=== PATIENT | female | born 1980 | race Caucasian/White ===

== ENCOUNTER 2017-08-13 18:58 | Emergency (ER) | payer BC, MEDICARE ==
[2017-08-13 19:14] VITALS: RESP 18
--- NOTE | 2017-08-13 20:41 | ED ---
General Adult HPI - General Chief complaint: Back Pain/Injury Stated complaint: Poss UTI Time Seen by Provider: 08/13/17 20:09 Source: patient, RN notes reviewed Mode of arrival: ambulatory Limitations: no limitations - History of Present Illness Initial comments: This is a 37-year-old female who presents to the emergency department with chief complaint of possible UTI. Patient states that for the last few days she has been experiencing increased urination and dysuria. She denies any fevers or chills. She states that this evening a couple of hours ago she developed a sharp pain in her right lower back. Denies any injuries or trauma. States that she has had frequent UTIs in the past and this feels the same as those episodes. Patient states that she was waiting to see her primary care physician because she was waiting to get pain. Denies any abdominal pain, nausea or vomiting, diarrhea or constipation. - Related Data Home Medications Medication Instructions Recorded Confirmed Acetaminophen/Diphenhydramine 1 tab PO HS PRN 08/13/17 08/13/17 [Tylenol PM 500-25mg] Baclofen [Lioresal] 10 mg PO BID PRN 08/13/17 08/13/17 Ibuprofen [Motrin Ib] 200 - 400 mg PO Q6H PRN 08/13/17 08/13/17 Previous Rx's Medication Instructions Recorded Sulfamethox-Tmp 800-160Mg [Bactrim 1 tab PO Q12HR #28 tab 08/13/17 DS 800-160 mg] Allergies Allergy/AdvReac Type Severity Reaction Status Date / Time No Known Allergies Allergy Verified 08/13/17 20:24 Review of Systems ROS Statement: Those systems with pertinent positive or pertinent negative responses have been documented in the HPI. ROS Other: All systems not noted in ROS Statement are negative. Past Medical History Additional Past Medical History / Comment(s): RECENT ABD PAIN. OVARIAN CYST ( THOUGHT TO BE CAUSE OF PAIN ) IS GONE. migraines, occ high BP, diarrhea, hx anemia, multiple sclerosis History of Any Multi-Drug Resistant Organisms: None Reported Past Surgical History: Section, Cholecystectomy Additional Past Surgical History / Comment(s): MS Past Anesthesia/Blood Transfusion Reactions: Motion Sickness Past Psychological History: Anxiety Smoking Status: Former smoker Past Alcohol Use History: None Reported Past Drug Use History: None Reported - Past Family History Mother Family Medical History: No Reported History General Exam - General Exam Comments Initial Comments: General: Awake and alert, well-developed; in no apparent distress. Patient is tearful. HEENT: Head atraumatic, normocephalic. Pupils are equal, round and reactive to light. Extraocular movements intact. Oropharynx moist without erythema or exudate. Neck: Supple. Normal ROM. Cardiovascular: Regular rate and rhythm. No murmurs, rubs or gallops. Chest symmetrical. Respiratory: Lungs clear to auscultation bilaterally. No wheezes, rales or rhonchi. Normal respiratory effort with no use of accessory muscles. Abdomen: Soft, non-tender, non-distended. No rigidity, rebound or guarding. Normal bowel sounds in all 4 quadrants. Musculoskeletal: Normal ROM, no tenderness bilateral upper and lower extremities. Ambulating normally. Skin: Sabin, warm and dry without rashes or lesions. Neurological: Alert and oriented x3. CN II-XII grossly intact. Speech is fluent and answers are appropriate. No focal neuro deficits. Psychiatric: Normal mood and affect. No overt signs of depression or anxiety noted. Limitations: no limitations Course Vital Signs 08/13/17 19:10 Temperature 98.7 F Pulse Rate 110 H Respiratory 18 Rate Blood Pressure 148/86 O2 Sat by Pulse 100 Oximetry Medical Decision Making - Medical Decision Making This is a 37-year-old female who presents to the emergency department with chief complaint of possible urinary tract infection. Patient reports dysuria and increased frequency of urination of the last few days. This evening she developed a sharp pain in her right lower back. Denies any history of kidney stones. Denies fevers or chills. No CVA tenderness on exam. Vital signs are stable and patient is in no acute distress. UA did reveal all positive leukocyte esterase and bacteria. No hematuria. Patient will be started on Bactrim. She she is in agreement with plan and voices understanding. She will be discharged home at this time. All questions answered. - Lab Data Lab Results 08/13/17 08/13/17 Range/Units 20:20 20:20 Urine Color Yellow Urine Appearance Cloudy H (Clear) Urine pH 6.0 (5.0-8.0) Ur Specific [place] 1.027 (1.001-1.035) Urine Protein Trace H (Negative) Urine Glucose (UA) 4+ H (Negative) Urine Ketones 1+ H (Negative) Urine Blood Negative (Negative) Urine Nitrite Negative (Negative) Urine Bilirubin Negative (Negative) Urine Urobilinogen <2.0 (<2.0) mg/dL Ur Leukocyte Esterase Moderate H (Negative) Urine RBC 5 (0-5) /hpf Urine WBC 2 (0-5) /hpf Ur Squamous Epith Cells 5 H (0-4) /hpf Urine Bacteria Occasional H (None) /hpf Urine Mucus Rare H (None) /hpf Urine HCG, Qual Not Detected (Not Detectd) Disposition Clinical Impression: Urinary tract infection Disposition: HOME SELF-CARE Condition: Good Instructions: Urinary Tract Infection in Women (ED) Additional Instructions: Please take medications as prescribed. Please follow up with primary care provider within 1-2 days. Return to emergency department if symptoms should worsen or any concerns arise. Prescriptions: Sulfamethox-Tmp 800-160Mg [Bactrim DS 800-160 mg] 1 tab PO Q12HR #28 tab Is patient prescribed a controlled substance at d/c from ED?: No Referrals: Rayray Up MD [Primary Care Provider] - 1-2 days Time of Disposition: 21:38
[2017-08-13 20:55] LABS: Appearance,Urine Cloudy (Clear); Bacteria,Urine Occasional /hpf; Bilirubin,Urine Negative (Negative); Blood,Urine Negative (Negative); Color,Urine Yellow; Glucose,Urine (UA) 4+ (Negative); Ketones,Urine 1+ (Negative); Leukocyte Esterase,Urine Moderate (Negative); Mucus,Urine Rare /hpf; Nitrite,Urine Negative (Negative); Protein,Urine Trace (Negative); RBC,Urine 5 /hpf (0-5); Specific Gravity,Urine 1.027 (1.001-1.035); Squamous Epithelial Cell,Urine 5 /hpf (0-4); Urobilinogen,Urine <2.0 mg/dL (<2.0); WBC,Urine 2 /hpf (0-5)
[2017-08-13] MEDS ORDERED: SULFAMETHOX-TMP 800-160MG 1 EACH TAB PO STA (21:23)
[2017-08-13 22:15] VITALS: BP 134/87; PULSE 87; TEMP 97.4
== END 2017-08-13 22:15 | disposition home or self-care (01) ==
LOC: EC 18:58
DX: N39.0 Urinary tract infection, site not specified (principal); Z87.891 Personal history of nicotine dependence; Z90.49 Acquired absence of other specified parts of digestive tract
CPT/HCPCS: 81001; 81025; 87086; 99283

== ENCOUNTER 2018-11-30 10:58 | Inpatient (IN) | payer MEDICARE, OTHER ==
[2018-11-30] MEDS ORDERED: ACYCLOVIR 800 MG TAB PO STA (12:05)
[2018-11-30] MEDS ORDERED: ACETAMINOPHEN TAB 500 MG TAB PO STA (12:05)
[2018-11-30] MEDS ORDERED: DEXAMETHASONE SOD PHOSPHATE 10 MG/ML 1 ML VIAL IV STA (12:05)
[2018-11-30] MEDS ORDERED: SODIUM CHLORIDE 0.9% 1,000 ML IV STA ×2 (12:05)
--- NOTE | 2018-11-30 12:33 | ED ---
Neuro HPI - General Chief Complaint: Recheck/Abnormal Lab/Rx Stated Complaint: dental/facial drooping Time Seen by Provider: 11/30/18 11:34 Source: patient, RN notes reviewed, old records reviewed Mode of arrival: ambulatory Limitations: no limitations - History of Present Illness Is the patient presenting with stroke symptoms?: No -: days(s) Initial Comments: This is a 38-year-old female the ER for evaluation today. She states she has history of severe dental disease but no other real significant medical history. Takes no chronic medications. She presented to [facility], History she had imaging done and concern for elevated heart rate as well as elevated blood pressure. Patient states she also has some facial weakness as well as mild headache yesterday. She then noticed that she is since developed fever since leaving as well as right-sided facial weakness and numbness, drooling. Never had prior similar symptoms in the past. Patient denies any recent trauma. Denies any cough congestion runny nose nausea vomiting or diarrhea Location: right face (Sparing right forehead) History of same: No Place: home Severity: moderate Quality: constant Improves With: none Worsens With: time On Anticoagulants: No Context: gradual onset Associated Symptoms: denies other symptoms Treatments Prior to Arrival: none - Related Data Home Medications: Home Medications Medication Instructions Recorded Confirmed Acetaminophen/Diphenhydramine 1 tab PO HS PRN 08/13/17 11/30/18 [Tylenol PM 500-25mg] DULoxetine HCL [Cymbalta] 60 mg PO DAILY 11/30/18 11/30/18 Allergies/Adverse Reactions: Allergies Allergy/AdvReac Type Severity Reaction Status Date / Time No Known Allergies Allergy Verified 11/30/18 11:23 Review of Systems ROS Statement: Those systems with pertinent positive or pertinent negative responses have been documented in the HPI. ROS Other: All systems not noted in ROS Statement are negative. General Exam - General Exam Comments Initial Comments: Patient does have right-sided facial weakness, numbness, right-sided facial droop sparing right forehead unable to close right eye unable to lift right eyebrow Limitations: no limitations General appearance: alert, in no apparent distress Head exam: Present: atraumatic, normocephalic, normal inspection Eye exam: Present: normal appearance, PERRL, EOMI. Absent: scleral icterus, conjunctival injection, periorbital swelling ENT exam: Present: normal exam, mucous membranes moist Neck exam: Present: normal inspection. Absent: tenderness, meningismus, lymphadenopathy Respiratory exam: Present: normal lung sounds bilaterally. Absent: respiratory distress, wheezes, rales, rhonchi, stridor Cardiovascular Exam: Present: normal rhythm, tachycardia, normal heart sounds. Absent: systolic murmur, diastolic murmur, rubs, gallop, clicks GI/Abdominal exam: Present: soft, normal bowel sounds. Absent: distended, tenderness, guarding, rebound, rigid Extremities exam: Present: normal inspection, full ROM, normal capillary refill. Absent: tenderness, pedal edema, joint swelling, calf tenderness Back exam: Present: normal inspection Neurological exam: Present: alert, oriented X3, CN II-XII intact Psychiatric exam: Present: normal affect, normal mood Skin exam: Present: warm, dry, intact, normal color. Absent: rash Stroke MDM - Lab Data Result diagrams: 11/30/18 12:26 11/30/18 12:26 Lab Results 11/30/18 11/30/18 11/30/18 Range/Units 12:26 12:26 12:26 WBC 8.4 (3.8-10.6) k/uL RBC 5.22 (3.80-5.40) m/uL Hgb 13.6 (11.4-16.0) gm/dL Hct 40.8 (34.0-46.0) % MCV 78.1 L (80.0-100.0) fL MCH 26.1 (25.0-35.0) pg MCHC 33.4 (31.0-37.0) g/dL RDW 16.1 H (11.5-15.5) % Plt Count 241 (150-450) k/uL Neutrophils % 67 % Lymphocytes % 25 % Monocytes % 4 % Eosinophils % 1 % Basophils % 1 % Neutrophils # 5.6 (1.3-7.7) k/uL Lymphocytes # 2.1 (1.0-4.8) k/uL Monocytes # 0.4 (0-1.0) k/uL Eosinophils # 0.1 (0-0.7) k/uL Basophils # 0.0 (0-0.2) k/uL Poikilocytosis Slight Anisocytosis Slight Microcytosis Slight PT (9.0-12.0) sec INR (<1.2) APTT (22.0-30.0) sec Sodium 138 (137-145) mmol/L Potassium 3.9 (3.5-5.1) mmol/L Chloride 101 (98-107) mmol/L Carbon Dioxide 25 (22-30) mmol/L Anion Gap 12 mmol/L BUN 12 (7-17) mg/dL Creatinine 0.47 L (0.52-1.04) mg/dL Est GFR (CKD-EPI)AfAm >90 (>60 ml/min/1.73 sqM) Est GFR (CKD-EPI)NonAf >90 (>60 ml/min/1.73 sqM) Glucose 178 H (74-99) mg/dL Plasma Lactic Acid Samson 1.4 (0.7-2.0) mmol/L Calcium 10.1 (8.4-10.2) mg/dL Phosphorus 4.9 H (2.5-4.5) mg/dL Magnesium 1.5 L (1.6-2.3) mg/dL Total Bilirubin 0.5 (0.2-1.3) mg/dL AST 113 H (14-36) U/L ALT 87 H (9-52) U/L Alkaline Phosphatase 107 (38-126) U/L Creatine Kinase 27 L (30-135) U/L Troponin I (0.000-0.034) ng/mL Total Protein 8.2 (6.3-8.2) g/dL Albumin 4.6 (3.5-5.0) g/dL TSH 0.596 (0.465-4.680) mIU/L Urine Color Urine Appearance (Clear) Urine pH (5.0-8.0) Ur Specific [place] (1.001-1.035) Urine Protein (Negative) Urine Glucose (UA) (Negative) Urine Ketones (Negative) Urine Blood (Negative) Urine Nitrite (Negative) Urine Bilirubin (Negative) Urine Urobilinogen (<2.0) mg/dL Ur Leukocyte Esterase (Negative) Urine RBC (0-5) /hpf Urine WBC (0-5) /hpf Ur Squamous Epith Cells (0-4) /hpf Urine Bacteria (None) /hpf Urine Mucus (None) /hpf 11/30/18 11/30/18 11/30/18 Range/Units 12:26 12:26 13:45 WBC (3.8-10.6) k/uL RBC (3.80-5.40) m/uL Hgb (11.4-16.0) gm/dL Hct (34.0-46.0) % MCV (80.0-100.0) fL MCH (25.0-35.0) pg MCHC (31.0-37.0) g/dL RDW (11.5-15.5) % Plt Count (150-450) k/uL Neutrophils % % Lymphocytes % % Monocytes % % Eosinophils % % Basophils % % Neutrophils # (1.3-7.7) k/uL Lymphocytes # (1.0-4.8) k/uL Monocytes # (0-1.0) k/uL Eosinophils # (0-0.7) k/uL Basophils # (0-0.2) k/uL Poikilocytosis Anisocytosis Microcytosis PT 10.1 (9.0-12.0) sec INR 0.9 (<1.2) APTT 26.1 (22.0-30.0) sec Sodium (137-145) mmol/L Potassium (3.5-5.1) mmol/L Chloride (98-107) mmol/L Carbon Dioxide (22-30) mmol/L Anion Gap mmol/L BUN (7-17) mg/dL Creatinine (0.52-1.04) mg/dL Est GFR (CKD-EPI)AfAm (>60 ml/min/1.73 sqM) Est GFR (CKD-EPI)NonAf (>60 ml/min/1.73 sqM) Glucose (74-99) mg/dL Plasma Lactic Acid Samson (0.7-2.0) mmol/L Calcium (8.4-10.2) mg/dL Phosphorus (2.5-4.5) mg/dL Magnesium (1.6-2.3) mg/dL Total Bilirubin (0.2-1.3) mg/dL AST (14-36) U/L ALT (9-52) U/L Alkaline Phosphatase (38-126) U/L Creatine Kinase (30-135) U/L Troponin I <0.012 (0.000-0.034) ng/mL Total Protein (6.3-8.2) g/dL Albumin (3.5-5.0) g/dL TSH (0.465-4.680) mIU/L Urine Color Yellow Urine Appearance Cloudy H (Clear) Urine pH 5.5 (5.0-8.0) Ur Specific [place] 1.028 (1.001-1.035) Urine Protein 2+ H (Negative) Urine Glucose (UA) Negative (Negative) Urine Ketones 1+ H (Negative) Urine Blood Small H (Negative) Urine Nitrite Positive H (Negative) Urine Bilirubin Negative (Negative) Urine Urobilinogen <2.0 (<2.0) mg/dL Ur Leukocyte Esterase Large H (Negative) Urine RBC 21 H (0-5) /hpf Urine WBC >182 H (0-5) /hpf Ur Squamous Epith Cells 26 H (0-4) /hpf Urine Bacteria Many H (None) /hpf Urine Mucus Many H (None) /hpf - NIH Stroke Scale 1a. Level of Consciousness: (0) alert 1b. LOC Questions: (0) answers correctly 1c. LOC Commands: (0) performs tasks correctly 2. Best Gaze: (0) normal 3. Visual: (0) no visual loss 4. Facial Palsy: (2) partial paralysis 5a. Motor Arm Left: (0) no drift 5b. Motor Arm Right: (0) no drift 6a. Motor Leg Left: (0) no drift 6b. Motor Leg Right: (0) no drift 7. Limb Ataxia: (0) absent 8. Sensory: (0) normal 9. Best Language: (0) no aphasia 10. Dysarthria: (1) mild/moderate dysarthria 11. 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 Patient also significantly in her tract infection with fever will place on IV antibiotics. - Radiology Data Radiology results: report reviewed (Chest x-rays negative), image reviewed - EKG Data -: EKG Interpreted by Me (EKG shows sinus tachycardia rate of 111, OR 140, QRS 80, QTC 435) Past Medical History Additional Past Medical History / Comment(s): OVARIAN CYST (THOUGHT TO BE CAUSE OF PAIN ) IS GONE. migraines, occ high BP, diarrhea, hx anemia, multiple sclerosis History of Any Multi-Drug Resistant Organisms: None Reported Past Surgical History: Section, Cholecystectomy Additional Past Surgical History / Comment(s): MS Past Anesthesia/Blood Transfusion Reactions: Motion Sickness Past Psychological History: Anxiety Smoking Status: Former smoker Past Alcohol Use History: None Reported Past Drug Use History: None Reported - Past Family History Mother Family Medical History: No Reported History Course Vital Signs 11/30/18 11/30/18 11/30/18 11:05 11:27 11:31 Temperature 100.4 F H Pulse Rate 122 H 121 H Respiratory 18 16 Rate Blood Pressure 153/116 153/104 142/97 O2 Sat by Pulse 98 97 Oximetry 11/30/18 13:35 Temperature Pulse Rate 103 H Respiratory 16 Rate Blood Pressure 131/84 O2 Sat by Pulse 99 Oximetry - Reevaluation(s) Reevaluation #1: 11/30/18 14:47 Medical record Transferring paperwork as well as inpatient stay at [facility] reviewed Reevaluation #2: 11/30/18 14:47 Patient has no clinical improvement here in the ER, fevers improved - Consultations Consultation #1: Spoke with Dr. wheatley who looks the patient for admission, would like neurologically to consult regarding history of MS Disposition Clinical Impression: Garza's palsy, Fever, UTI (urinary tract infection) Disposition: ADMITTED IP TO THIS HOSP Condition: Good Is patient prescribed a controlled substance at d/c from ED?: No Referrals: Rayray Up MD [Primary Care Provider] - 1-2 days
[2018-11-30] MEDS ORDERED: valACYclovir HCL 1,000 MG TABLET PO STA (12:36)
[2018-11-30 12:44] LABS: Anisocytosis Slight; Basophils % (A) 1 %; Eosinophils # (A) 0.1 k/uL (0-0.7); Eosinophils % (A) 1 %; HCT 40.8 % (34.0-46.0); HGB 13.6 gm/dL (11.4-16.0); Lymphocytes # (A) 2.1 k/uL (1.0-4.8); Lymphocytes % (A) 25 %; MCH 26.1 pg (25.0-35.0); MCHC 33.4 g/dL (31.0-37.0); MCV 78.1 fL (80.0-100.0); Mean Platelet Volume 6.9; Microcytosis Slight; Monocytes # (A) 0.4 k/uL (0-1.0); Monocytes % (A) 4 %; Neutrophils # (A) 5.6 k/uL (1.3-7.7); Neutrophils % (A) 67 %; Platelet Count 241 k/uL (150-450); Poikilocytosis Slight; RBC 5.22 m/uL (3.80-5.40); RDW 16.1 % (11.5-15.5); WBC 8.4 k/uL (3.8-10.6)
[2018-11-30 12:51] LABS: ALT 87 U/L (9-52); AST 113 U/L (14-36); African American GFR (CKD) >90 (>60 ml/min/1.73 sqM); Albumin 4.6 g/dL (3.5-5.0); Alkaline Phosphatase 107 U/L (38-126); Anion Gap 12 mmol/L; Blood Urea Nitrogen 12 mg/dL (7-17); Calcium 10.1 mg/dL (8.4-10.2); Carbon Dioxide 25 mmol/L (22-30); Chloride 101 mmol/L (98-107); Creatine Kinase 27 U/L (30-135); Glucose 178 mg/dL (74-99); Magnesium 1.5 mg/dL (1.6-2.3); Phosphorus 4.9 mg/dL (2.5-4.5); Potassium 3.9 mmol/L (3.5-5.1); Sodium 138 mmol/L (137-145); Total Bilirubin 0.5 mg/dL (0.2-1.3); Total Protein 8.2 g/dL (6.3-8.2)
[2018-11-30 13:01] LABS: INR 0.9 (<1.2); Partial Thromboplastin Time 26.1 sec (22.0-30.0); Prothrombin Time 10.1 sec (9.0-12.0)
--- NOTE | 2018-11-30 13:01 | XR ---
EXAMINATION TYPE: XR chest 2V DATE OF EXAM: 11/30/2018 COMPARISON: 11/19/2011 HISTORY: Weakness, fever, and hypertension TECHNIQUE: Frontal and lateral views of the chest are obtained. FINDINGS: There is no focal air space opacity, pleural effusion, or pneumothorax seen. The cardiac silhouette size is within normal limits. The osseous structures are intact. Cholecystectomy clips a re present. Minimal degenerative changes of the spine. IMPRESSION: No acute cardiopulmonary process.
[2018-11-30 14:28] LABS: Appearance,Urine Cloudy (Clear); Bacteria,Urine Many /hpf; Bilirubin,Urine Negative (Negative); Blood,Urine Small (Negative); Color,Urine Yellow; Glucose,Urine (UA) Negative (Negative); Ketones,Urine 1+ (Negative); Leukocyte Esterase,Urine Large (Negative); Mucus,Urine Many /hpf; Nitrite,Urine Positive (Negative); PH, Urine 5.5 (5.0-8.0); Protein,Urine 2+ (Negative); RBC,Urine 21 /hpf (0-5); Specific Gravity,Urine 1.028 (1.001-1.035); Squamous Epithelial Cell,Urine 26 /hpf (0-4); Urobilinogen,Urine <2.0 mg/dL (<2.0)
[2018-11-30] MEDS: MORPHINE SULFATE 4 MG/ML SYRINGE IVP PRN ×2 (15:24→23:31)
[2018-11-30] MEDS ORDERED: NON FORMULARY DRUG (Acetaminophen/Diphenhydramine [Tylenol Pm 500-25mg] 1 TAB) PO PRN (16:33)
[2018-11-30] MEDS ORDERED: Magnesium Replacement Protocol 1 EACH MISC MISCELLANE PRN (16:35)
[2018-11-30] MEDS ORDERED: ACETAMINOPHEN TAB 500 MG TAB PO PRN (16:43)
[2018-11-30] MEDS ORDERED: diphenhydrAMINE 25 MG CAP PO PRN (16:44)
[2018-11-30] MEDS: INSULIN ASPART (NovoLOG) 100 UNIT/ML VIAL SQ SCH ×2 (18:36→21:04)
[2018-11-30] MEDS ORDERED: SODIUM CHLORIDE 0.9% 1,000 ML IV ONE (18:57)
--- NOTE | 2018-11-30 19:49 | HP ---
HISTORY AND PHYSICAL DATE OF SERVICE: 11/30/2018 CHIEF COMPLAINT: Facial deviation and UTI. HISTORY OF PRESENT ILLNESS: This 38-year-old woman with a past medical history of multiple medical problems including multiple sclerosis, history of migraine, history of hypertension, history of anxiety, being followed by Dr. Up in the outpatient setting, was noted to have headache and as well as drooping of the right side of the face. The patient apparently went to [facility] subsequently signed out AGAINST MEDICAL ADVICE and the patient came to [facility] and admitted to the hospital for further evaluation and treatment. The patient had features of UTI. Blood sugars apparently elevated in [facility], possibly apparently because of steroids given for presumed Garza's palsy on the right side. The patient had significant weakness with multiple sclerosis and with frequent falls according to the family. There is no history of fever, rigors or chills. No history of chest pain or palpations at this time. PAST MEDICAL HISTORY: Ovarian cyst, history of high blood pressure, history of anemia, multiple sclerosis, history of anxiety, history of motion sickness. MEDICATIONS: Home medications are: 1. Cymbalta 60 mg p.o. daily. 2. Tylenol p.m. 1 tablet p.o. q.h.s. p.r.n. ALLERGIES: None. FAMILY HISTORY: No history of heart disease or strokes in the family. SOCIAL HISTORY: Previous history of smoking. No history of current smoking or alcohol intake. REVIEW OF SYSTEMS: ENT: No diminished vision. No diminished hearing. Otherwise, as mentioned earlier. CARDIOVASCULAR: No angina or palpitations. RESPIRATIONS : No cough or hemoptysis. GI as mentioned earlier. as mentioned earlier. NERVOUS SYSTEM: No numbness or weakness. ALLERGY/IMMUNOLOGY: No asthma or hayfever. MUSCULOSKELETAL as mentioned earlier. HEMATOLOGY/ONCOLOGY: No history of anemia. ENDOCRINE: No history of diabetes or hypothyroidism. CONSTITUTIONAL: As mentioned earlier. DERMATOLOGY negative. RHEUMATOLOGY: Negative. PSYCHIATRIC: As mentioned earlier. PHYSICAL EXAMINATION: GENERAL: The patient is alert and oriented times three. VITAL SIGNS: Pulse is 121. Blood pressure 130/92, respiration 18, temperature 98.5, pulse ox 94% on room air. HEENT: Conjunctivae normal. Oral mucosa moist. NECK is no jugular venous distention. No carotid bruit. No lymph node enlargement. Significant facial palsy, lower motor neuron type on the right side present. CARDIOVASCULAR SYSTEM: S1, S2 muffled. No S3, no S4. RESPIRATORY: Breath sounds diminished in the bases. No rhonchi. No crackles. ABDOMEN: Soft, obese, nontender. No mass palpable. LEGS are no edema. No swelling. NERVOUS SYSTEM: Higher functions as mentioned earlier. Moves all four extremities. Mild diffuse weakness present. LYMPHATICS: No lymph nodes palpable in the neck, axilla or groin. SKIN: No ulcers. No rashes. No bleeding. JOINTS: No active deforming arthropathy. LABS: WBC 4.2, hemoglobin 13.6. Phosphorus 4.9, magnesium is 1.5, AST is 139. ALT 87. Glucose 178. UTI. ASSESSMENT: 1. 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 2. Acute urinary tract infection present on admission. 3. Acute hypomagnesemia. 4. Increased random blood sugar, possible diabetes type 2. 5. History of ovarian cyst. 6. History of migraines. 7. Hypertension. 8. History of multiple sclerosis. 9. History of cholecystectomy. 10.History of anxiety. RECOMMENDATIONS AND DISCUSSION: In this 38-year-old woman who presented with multiple complex medical issues, we will monitor the patient closely. Continue the current medications, management and symptomatic treatment. Otherwise, at this time, I recommend neurology consultation. Empiric antibiotics for UTI. Follow the cultures. Monitor blood sugars closely. Prognosis guarded because of multiple complex medical conditions. See orders for details. Further recommendations to follow. A copy of dictation being forwarded to Dr. Up who is the primary physician. DVT prophylaxis and resume home medications. MMODL / IJN: [id number] /
[2018-11-30 21:13] LABS: Glucose,Whole Blood 355 mg/dL (75-99)
[2018-12-01 07:06] LABS: Anisocytosis Slight; Basophils % (A) 0 %; Eosinophils % (A) 0 %; HCT 36.9 % (34.0-46.0); HGB 12.2 gm/dL (11.4-16.0); Lymphocytes # (A) 1.8 k/uL (1.0-4.8); Lymphocytes % (A) 20 %; MCH 26.2 pg (25.0-35.0); MCHC 33.1 g/dL (31.0-37.0); MCV 79.2 fL (80.0-100.0); Mean Platelet Volume 7.3; Microcytosis Slight; Monocytes # (A) 0.4 k/uL (0-1.0); Monocytes % (A) 5 %; Neutrophils # (A) 6.7 k/uL (1.3-7.7); Neutrophils % (A) 73 %; Platelet Count 237 k/uL (150-450); RBC 4.66 m/uL (3.80-5.40); RDW 16.2 % (11.5-15.5); WBC 9.2 k/uL (3.8-10.6)
[2018-12-01 07:17] LABS: African American GFR (CKD) >90 (>60 ml/min/1.73 sqM); Anion Gap 12 mmol/L; Blood Urea Nitrogen 7 mg/dL (7-17); Calcium 9.1 mg/dL (8.4-10.2); Carbon Dioxide 22 mmol/L (22-30); Chloride 104 mmol/L (98-107); Glucose 269 mg/dL (74-99); Magnesium 1.7 mg/dL (1.6-2.3); Potassium 3.9 mmol/L (3.5-5.1); Sodium 138 mmol/L (137-145)
[2018-12-01 07:18] LABS: Glucose,Whole Blood 258 mg/dL (75-99)
[2018-12-01] MEDS: MORPHINE SULFATE 4 MG/ML SYRINGE IVP PRN ×4 (07:20→23:47)
[2018-12-01] MEDS: DULoxetine HCL 60 MG CAPSULE.DR PO SCH (07:22)
[2018-12-01] MEDS: INSULIN ASPART (NovoLOG) 100 UNIT/ML VIAL SQ SCH ×4 (07:23→20:49)
[2018-12-01] MEDS: ACETAMINOPHEN TAB 325 MG TAB PO PRN (10:52)
[2018-12-01] MEDS ORDERED: Acetaminophen-Codeine 300-30mg TAB PO PRN (11:51)
[2018-12-01 13:05] LABS: Glucose,Whole Blood 285 mg/dL (75-99)
[2018-12-01 17:08] LABS: Glucose,Whole Blood 262 mg/dL (75-99)
--- NOTE | 2018-12-01 17:24 | P.CNNES ---
History of Present Illness Consult date: 12/01/18 Reason for Consult: Multiple sclerosis Chief complaint: Some right facial weakness/numbness/drooling and mild headache History of Present Illness: HISTORY OF PRESENT ILLNESS: Thank you for allowing me to evaluate Ms. Justa Moore. Ms. Moore is a 38-year-old woman with past medical history of ovarian cyst, migraines, occasional high blood pressure, anemia, multiple sclerosis, anxiety, presenting with right facial droop/numbness/drooling. Patient states that she woke up Wednesday morning, she noticed that her right face was droopy and she was also drooling. She's never had similar episodes before. Patient states that she was diagnosed with MS in 2007 when she had multiple falls, heat intolerance and blurry vision over the course of 1 year. Patient had been on Copaxone and some other medication, but with her multiple pregnancies in number of kids, she's been "lazy" and not taking care of herself. She has been getting repeat MRIs (her neurologist is in [place]). Her last MRI was done in late 2018, and at that time, her neurologist told her that her MRI is much better than before. In order to diagnose her appropriately, a lumbar puncture was done again, which per patient and was noted to show some protein abnormality. Patient and state that most likely the reason for improvement and MRI is due to the fact that patient has had basically practiced in every year as she has 7 kids, and during , and MS flares are much less. Patient reports some headache, about 3 out of 10 pain at this time. Otherwise, denies any vision deficits, weakness, numbness, tingling, urinary symptoms, chest pain, short of breath, diarrhea or constipation. PAST MEDICAL HISTORY: ovarian cyst, migraines, occasional high blood pressure, anemia, multiple sclerosis PAST SURGICAL HISTORY: , cholecystectomy HOME MEDICATION Tylenol, duloxetine ALLERGIES: NKDA SOCIAL HISTORY: Former smoker. Denies alcohol or drug abuse history. REVIEW OF SYSTEMS: The 14 systems are reviewed and no additional points are identified compared to the review of systems documented history and physical PHYSICAL EXAMINATION: VITAL SIGNS: T 98.0 HR 117 RR 16 BP 136/90 O2 SAT 97% ON RA GEN.: NAD, pleasant and cooperative HEENT: NCAT, sclera without icterus NECK: Supple SKIN AND EXTREMITIES: Warm to touch, no edema NEURO: MENTAL STATUS: Patient alert and oriented to self, place, time. Able to name the current president. Speech fluent, able to name and repeat, following all commands readily. No right and left disorientation, extinction to double simultaneous stimulation, finger agnosia, neglect. CRANIAL NERVES II THROUGH XII: II: Pupils are equal and reactive to light symmetrically. No afferent pupillary defect. Visual weinberg are intact. III, IV, : No ptosis. Extraocular movements full. No nystagmus. V: Facial sensation intact from V1-3. VII. right upper and lower facial droop. VIII: Hearing intact to finger rub bilaterally. IX, X: Symmetric palate elevation. XI: Shoulder shrug intact. XII: Tongue midline without fasciculation or atrophy. MOTOR: Normal bulk/tone. No pronator drift or tremor. Strength is 5/5 throughout all 4 extremities. SENSORY: Intact to light touch, temperature, pinprick in all 4 extremities. Romberg is negative. REFLEXES: 2+ throughout. Toes are downgoing. No clonus. Ray's is absent COORDINATION: Finger to nose and heel to esposito intact. No dysmetria. Rapid alternating movements with good speed and accuracy. GAIT: Narrow-based and stable. Able to toe/heel/tandem walk DIAGNOSTIC TESTING: LABORATORY: WBC 9.2 hemoglobin 12.2 platelet 237 PT 10.1 INR 0.9 sodium 138 potassium 3.9 chloride 104 bicarb 22 BUN 7 creatinine 0.38 glucose 269 AST 113 ALT 87 alk phos 107 TSH 0.596 urinalysis positive nitrite, large leukesterase, > 182 WBCs IMAGING: No head imaging available at this time. ASSESSMENT: Ms. Moore is a 38-year-old woman with past medical history of ovarian cyst, migraines, occasional high blood pressure, anemia, multiple sclerosis, anxiety, presenting with right facial droop/numbness/drooling. There is definitely a concern for an acute MS flare. However, patient found with blatant UTI. Patient may be having pseudo-exacerbation, the patient has never had Garza's palsy-like symptoms previously. RECOMMENDATIONS: 1. MRI brain with and without contrast 2. Will consider high-dose IV steroid treatment if MRI showing acute flare. 3. Neurology will continue to follow. Call with any additional questions or concerns. Past Medical History Additional Past Medical History / Comment(s): OVARIAN CYST (THOUGHT TO BE CAUSE OF PAIN ) IS GONE. migraines, occ high BP, diarrhea, hx anemia, multiple sclerosis History of Any Multi-Drug Resistant Organisms: None Reported Past Surgical History: Section, Cholecystectomy Additional Past Surgical History / Comment(s): MS Past Anesthesia/Blood Transfusion Reactions: Motion Sickness Past Psychological History: Anxiety Smoking Status: Former smoker Past Alcohol Use History: None Reported Past Drug Use History: None Reported - Past Family History Mother Family Medical History: No Reported History Medications and Allergies Home Medications Medication Instructions Recorded Confirmed Type Acetaminophen/Diphenhydramine 1 tab PO HS PRN 08/13/17 11/30/18 History [Tylenol PM 500-25mg] DULoxetine HCL [Cymbalta] 60 mg PO DAILY 11/30/18 11/30/18 History Allergies Allergy/AdvReac Type Severity Reaction Status Date / Time No Known Allergies Allergy Verified 11/30/18 11:23 Physical Examination - Vital Signs Vital Signs: Vital Signs Temp Pulse Pulse Resp BP BP Pulse Ox 12/01/18 07:00 98.0 F 117 H 16 136/90 97 12/01/18 02:35 97.9 F 118 H 18 148/81 96 11/30/18 19:46 98.4 F 128 H 18 140/89 95 11/30/18 16:26 98.5 F 121 H 18 134/94 95 11/30/18 16:23 120 H 11/30/18 15:26 113 H 16 137/79 99 Intake and Output 11/30/18 12/01/18 12/01/18 22:59 06:59 14:59 Other: Voiding Method Toilet Toilet Results - Laboratory Findings CBC and BMP: 12/01/18 06:47 12/01/18 06:47 Abnormal Lab Findings: Abnormal Labs 11/30/18 11/30/18 11/30/18 12:26 12:26 13:45 MCV 78.1 L RDW 16.1 H Creatinine 0.47 L Glucose 178 H POC Glucose (mg/dL) Phosphorus 4.9 H Magnesium 1.5 L AST 113 H ALT 87 H Creatine Kinase 27 L Urine Appearance Cloudy H Urine Protein 2+ H Urine Ketones 1+ H Urine Blood Small H Urine Nitrite Positive H Ur Leukocyte Esterase Large H Urine RBC 21 H Urine WBC >182 H Ur Squamous Epith Cells 26 H Urine Bacteria Many H Urine Mucus Many H 11/30/18 12/01/18 12/01/18 21:01 06:47 06:47 MCV 79.2 L RDW 16.2 H Creatinine 0.38 L Glucose 269 H POC Glucose (mg/dL) 355 H Phosphorus Magnesium AST ALT Creatine Kinase Urine Appearance Urine Protein Urine Ketones Urine Blood Urine Nitrite Ur Leukocyte Esterase Urine RBC Urine WBC Ur Squamous Epith Cells Urine Bacteria Urine Mucus 12/01/18 12/01/18 06:54 11:45 MCV RDW Creatinine Glucose POC Glucose (mg/dL) 258 H 285 H Phosphorus Magnesium AST ALT Creatine Kinase Urine Appearance Urine Protein Urine Ketones Urine Blood Urine Nitrite Ur Leukocyte Esterase Urine RBC Urine WBC Ur Squamous Epith Cells Urine Bacteria Urine Mucus
[2018-12-01 20:32] LABS: Glucose,Whole Blood 285 mg/dL (75-99)
--- NOTE | 2018-12-02 01:05 | P.PN ---
Subjective Progress Note Date: 12/01/18 Principal diagnosis: This is a 38 year old female that was recently admitted for right side facial palsy and headache and is being closely monitored. Neurology is following and ordered an MRI of the brain and is pending. Patient is lying in bed in no acute distress. Patient is having a mild headache and tylenol was ordered. Patient states that she normally takes an excedrin or aleve. Patient states that she is still having some droop noted to the right side of her face with some drooling. Patient does have history of MS and is following with neurology in the outpatient setting. Patient is currently being treated for UTI and states that symptoms have improved. Cultures thus far show gram negative bacilli. Will continue to monitor closely. REVIEW OF SYSTEMS: ENT: No diminished vision or hearing. CARDIOVASCULAR: no reports of chest pain or palpitations. RESPIRATORY: no reports of shortness of breath or cough GI: No nausea, vomiting or diarrhea. : No dysuria or retention. NERVOUS SYSTEM: reports numbness to right side of face. no weakness. ALLERGY/IMMUNOLOGY: No asthma or hay fever. MUSCULOSKELETAL: As mentioned earlier. HEMATOLOGY/ONCOLOGY: No history of anemia. ENDOCRINE: No history of diabetes or hypothyroidism. CONSTITUTIONAL: no reports of fatigue or fever. DERMATOLOGY: Negative. PSYCHIATRY: Mentioned earlier. RHEUMATOLOGY: Negative. Active Medications Acetaminophen (Tylenol Tab) 650 mg PO Q6HR PRN PRN Reason: Fever and/ or Pain Last Admin: 12/01/18 10:52 Dose: 650 mg Documented by: Acetaminophen/Codeine Phosphate (Tylenol #3) 1 each PO Q4HR PRN PRN Reason: Pain Last Admin: 12/01/18 14:26 Dose: 1 each Documented by: Diphenhydramine HCl (Benadryl) 25 mg PO HS PRN PRN Reason: Insomnia Duloxetine HCl (Cymbalta) 60 mg PO DAILY ISAEL Last Admin: 12/01/18 07:22 Dose: 60 mg Documented by: Ceftriaxone Sodium 1 gm/ (Sodium Chloride) 50 mls @ 100 mls/hr IVPB Q24H ISAEL Last Admin: 12/01/18 16:33 Dose: 100 mls/hr Documented by: Insulin Aspart (Novolog) 0 unit SQ ACHS ISAEL; Protocol Last Admin: 12/01/18 20:49 Dose: 7 unit Documented by: Miscellaneous Information (Magnesium Per Protocol) 1 each MISCELLANE DAILY PRN; Protocol PRN Reason: Per Protocol Morphine Sulfate (Morphine Sulfate (Inj)) 4 mg IVP Q4HR PRN PRN Reason: Pain Last Admin: 12/01/18 23:47 Dose: 4 mg Documented by: Objective - Vital Signs Vital signs: Vital Signs Temp 98 F 12/01/18 14:06 Pulse 120 H 12/01/18 14:06 Resp 16 12/01/18 14:06 BP 125/81 12/01/18 14:06 Pulse Ox 95 12/01/18 14:06 Intake & Output 11/30/18 12/01/18 12/01/18 18:59 06:59 18:59 Weight 122.47 kg Other: Voiding Method Toilet Toilet # Voids 2 - Exam Gen: This is a 38 year old female lying in bed in no acute distress. Vital signs are stable. BP is 125/81, pulse is 120 , resp are 16 , 02 is 95% on room air, and temp is 98F. HEENT: Head is atraumatic, normocephalic. Pupils equal, round. Sclerae is anicteric. NECK: Supple. No JVD. No lymphadenopathy. No thyromegaly. LUNGS: Clear to auscultation. No wheezes or rhonchi. No intercostal retractions. HEART: Regular rate and rhythm. No murmur. ABDOMEN: Soft. Obese. Bowel sounds are present. No masses. No tenderness. EXTREMITIES: No pedal edema. No calf tenderness. NEUROLOGICAL: Patient is awake, alert and oriented x3. Cranial nerves 2 through 12 are grossly intact. - Labs CBC & Chem 7: 12/01/18 06:47 12/01/18 06:47 Labs: Abnormal Lab Results - Last 24 Hours (Table) 11/30/18 12/01/18 12/01/18 Range/Units 21:01 06:47 06:47 MCV 79.2 L (80.0-100.0) fL RDW 16.2 H (11.5-15.5) % Creatinine 0.38 L (0.52-1.04) mg/dL Glucose 269 H (74-99) mg/dL POC Glucose (mg/dL) 355 H (75-99) mg/dL 12/01/18 12/01/18 Range/Units 06:54 11:45 MCV (80.0-100.0) fL RDW (11.5-15.5) % Creatinine (0.52-1.04) mg/dL Glucose (74-99) mg/dL POC Glucose (mg/dL) 258 H 285 H (75-99) mg/dL Microbiology - Last 24 Hours (Table) 11/30/18 13:45 Urine Culture - Preliminary Urine,Voided Assessment and Plan Assessment: Acute right-sided lower motor neuron facial palsy, 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 Neurology is following and an MRI of the brain is ordered and pending at this time. Will await report. Patient is currently on IV antibiotics for UTI and cultures thus far have grown gram negative bacilli. Will continue to monitor closely. Guarded prognosis. Further recommendations to follow. Possible discharge in 24-48 hours.
[2018-12-02 07:18] LABS: Glucose,Whole Blood 204 mg/dL (75-99)
[2018-12-02 07:27] VITALS: RESP 16
[2018-12-02] MEDS: MORPHINE SULFATE 4 MG/ML SYRINGE IVP PRN ×2 (07:51→12:04)
[2018-12-02] MEDS: ACETAMINOPHEN TAB 325 MG TAB PO PRN (07:52)
[2018-12-02] MEDS: INSULIN ASPART (NovoLOG) 100 UNIT/ML VIAL SQ SCH ×2 (07:53→12:10)
[2018-12-02] MEDS: DULoxetine HCL 60 MG CAPSULE.DR PO SCH (07:53)
[2018-12-02 07:57] LABS: Anisocytosis Slight; Basophils % (A) 1 %; Eosinophils # (A) 0.1 k/uL (0-0.7); Eosinophils % (A) 1 %; HCT 37.6 % (34.0-46.0); HGB 12.2 gm/dL (11.4-16.0); Hypochromasia Slight; Lymphocytes # (A) 2.4 k/uL (1.0-4.8); Lymphocytes % (A) 39 %; MCH 26.3 pg (25.0-35.0); MCHC 32.4 g/dL (31.0-37.0); Mean Platelet Volume 7.3; Monocytes # (A) 0.2 k/uL (0-1.0); Monocytes % (A) 4 %; Neutrophils # (A) 3.3 k/uL (1.3-7.7); Neutrophils % (A) 54 %; Platelet Count 197 k/uL (150-450); RBC 4.64 m/uL (3.80-5.40); RDW 16.3 % (11.5-15.5)
[2018-12-02 08:16] LABS: African American GFR (CKD) >90 (>60 ml/min/1.73 sqM); Anion Gap 11 mmol/L; Blood Urea Nitrogen 9 mg/dL (7-17); Calcium 8.8 mg/dL (8.4-10.2); Carbon Dioxide 26 mmol/L (22-30); Chloride 105 mmol/L (98-107); Glucose 208 mg/dL (74-99); Potassium 3.5 mmol/L (3.5-5.1); Sodium 142 mmol/L (137-145)
[2018-12-02 11:50] LABS: Glucose,Whole Blood 181 mg/dL (75-99)
[2018-12-02] MEDS ORDERED: DEXAMETHASONE SOD PHOSPHATE 10 MG/ML 1 ML VIAL IV STA (12:41)
--- NOTE | 2018-12-02 12:55 | MR ---
EXAMINATION TYPE: MR brain wo/w con DATE OF EXAM: 12/02/2018 COMPARISON: None HISTORY: MS TECHNIQUE: Multiplanar, multisequence images of the brain and brainstem is performed without and with IV contras t, utilizing 12.5 mL intravenous Gadavist . FINDINGS: Diffusion weighted images demonstrate no evidence of a recent infarct or other diffusion ab normality. There is no extra-axial fluid collection. Scattered deep white matter hyperintensities a re present on inversion recovery and T2-weighted sequences including in the subcortical, juxtacortica l white matter. There are approximately 30 lesions present. The largest in left frontal white matter on axial image 25 measures approximately 5 mm The ventricular system and cisternal spaces are normal in size and appearance. The brain volume is age appropriate. Midline structures demonstrate normal morphology. The craniocervical junction appears within normal limits. Post contrast images demonstrate no abnormal enhancement. The dural venous sinuses appear pa tent. The visualized sinuses are clear and the globes are intact. IMPRESSION: Foci of nonspecific white matter demyelination. No evident enhancing plaque.
[2018-12-02 14:31] VITALS: BP 121/85; PULSE 115; TEMP 98
--- NOTE | 2018-12-02 16:18 | P.DS ---
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 Patient will continue a short course of oral antibiotics and will follow-up with her primary care provider upon discharge. Total time taken is 35 minutes. History of present illness This is a 38 rolled female that was recently admitted for right-sided facial palsy and headache and was being closely monitored. Patient does have history of multiple sclerosis. She was being followed by neurology and had an MRI of the brain today showing foci of nonspecific white matter demyelination with no evident enhancing plaque. Patient was given a dose of IV steroids per neurology recommendations and will follow-up with her neurologist in the outpatient setting upon discharge. Patient states she does have a appointment scheduled for this Wednesday and will be going there. Patient states that her headache has improved and states that her right-sided facial droop and palsy is intermittent and has slightly improved. Patient states she does have mild tooth pain that has been ongoing with slight improvement and will be following up with her dentist in the outpatient setting. Patient denies any chest pain, shortness of breath, or palpitations at this time. Patient is currently afebrile. Patient denies any nausea or vomiting and is tolerating diet. Patient would like to go home today. Currently patient's condition is stable with much improvement and will be discharged today. Guarded prognosis. On exam vital signs are stable. Temp is 98F, pulse is 115, respirations are 16, blood pressure is 121/85, oxygen saturation is 94% on room air. Cardio S1 and S2 are muffled. Respiratory system shows clear to auscultation. Abdomen is soft, obese, and nontender. Nervous system shows no focal deficits and gait is steady. Please refer to medication reconciliation sheet for a list of medications. Patient Condition at Discharge: Stable Plan - Discharge Summary New Discharge Prescriptions: New Cefuroxime Axetil [Ceftin] 500 mg PO BID 5 Days #10 tab Acetaminophen-Codeine 300-30mg [Tylenol w/codeine #3] 1 each PO Q4HR PRN #12 tab PRN Reason: Pain Continue Acetaminophen/Diphenhydramine [Tylenol PM 500-25mg] 1 tab PO HS PRN PRN Reason: Insomnia DULoxetine HCL [Cymbalta] 60 mg PO DAILY Discharge Medication List Acetaminophen/Diphenhydramine [Tylenol PM 500-25mg] 1 tab PO HS PRN 08/13/17 [History] DULoxetine HCL [Cymbalta] 60 mg PO DAILY 11/30/18 [History] Acetaminophen-Codeine 300-30mg [Tylenol w/codeine #3] 1 each PO Q4HR PRN #12 tab 12/02/18 [Rx] Cefuroxime Axetil [Ceftin] 500 mg PO BID 5 Days #10 tab 12/02/18 [Rx] Follow up Appointment(s)/Referral(s): Rayray Up MD [Primary Care Provider] - 12/06/18 2:20 pm Patient Instructions/Handouts: Garza Palsy (DC) Activity/Diet/Wound Care/Special Instructions: Activity Limited until follow-up Patient is to follow-up with primary care provider upon discharge Patient is to follow-up with neurology at the [facility] in [place] she has an appointment this Wednesday coming up. Continue current diet Discharge Disposition: HOME SELF-CARE
--- NOTE | 2018-12-02 16:18 | P.PN ---
Progress Note - Text Progress Note Date: 12/02/18 SUBJECTIVE/INTERVAL EVENTS: No acute overnight events. Patient got her MRI done today, no enhancing lesion. Patient started having severe R-sided headache after coming back from MRI. Patient got a dose of dexamethasone 10mg IV x1, which helped with her headache. PHYSICAL EXAMINATION: VITAL SIGNS: T 97.9 HR 108 RR 16 BP 125/82 O2 sat 97% on RA GEN.: NAD, pleasant and cooperative HEENT: NCAT, sclera without icterus NECK: Supple SKIN AND EXTREMITIES: Warm to touch, no edema NEURO: MENTAL STATUS: Patient alert and oriented to self, place, time. Able to name the current president. Speech fluent, able to name and repeat, following all commands readily. No right and left disorientation, extinction to double simultaneous stimulation, finger agnosia, neglect. CRANIAL NERVES II THROUGH XII: II: Pupils are equal and reactive to light symmetrically. No afferent pupillary defect. Visual weinberg are intact. III, IV, : No ptosis. Extraocular movements full. No nystagmus. V: Facial sensation intact from V1-3. VII. right upper and lower facial droop. VIII: Hearing intact to finger rub bilaterally. IX, X: Symmetric palate elevation. XI: Shoulder shrug intact. XII: Tongue midline without fasciculation or atrophy. MOTOR: Normal bulk/tone. No pronator drift or tremor. Strength is 5/5 throughout all 4 extremities. SENSORY: Intact to light touch, temperature, pinprick in all 4 extremities. Romberg is negative. REFLEXES: 2+ throughout. Toes are downgoing. No clonus. Ray's is absent COORDINATION: Finger to nose and heel to esposito intact. No dysmetria. Rapid alternating movements with good speed and accuracy. GAIT: Narrow-based and stable. Able to toe/heel/tandem walk DIAGNOSTIC TESTING: LABORATORY: WBC 9.2 hemoglobin 12.2 platelet 237 PT 10.1 INR 0.9 sodium 138 potassium 3.9 chloride 104 bicarb 22 BUN 7 creatinine 0.38 glucose 269 AST 113 ALT 87 alk phos 107 TSH 0.596 urinalysis positive nitrite, large leukesterase, > 182 WBCs IMAGING: No head imaging available at this time. ASSESSMENT: Ms. Moore is a 38-year-old woman with past medical history of ovarian cyst, migraines, occasional high blood pressure, anemia, multiple sclerosis, anxiety, presenting with right facial droop/numbness/drooling. There is definitely a concern for an acute MS flare. However, patient found with blatant UTI. Patient may be having pseudo-exacerbation, the patient has never had Garza's palsy-like symptoms previously. MRI brain w/ and w/o contrast with no enhancing lesions. RECOMMENDATIONS: 1. Will give prednisone 60mg PO x 7 days 2. Will give valacyclovir x 1000mg x 7 days 3. Patient with Neurology follow-up next Wednesday. 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
[2018-12-02] MEDS ORDERED: valACYclovir 500 MG TAB PO SCH (16:30)
[2018-12-02 20:22] LABS: Hemoglobin A1C 10.2 % (4.0-6.0)
[2018-12-03] MEDS ORDERED: predniSONE 20 MG TAB PO SCH (09:00)
== END 2018-12-02 15:31 | disposition home or self-care (01) | DRG 74 ==
LOC: EC 10:58 → 4SSUR 14:43
PROVIDERS: ADMIT Hospitalist; ATTEND Hospitalist
DX: G51.0 Bell's palsy (principal); Z68.41 Body mass index [BMI] 40.0-44.9, adult; N39.0 Urinary tract infection, site not specified; E66.9 Obesity, unspecified; E83.42 Hypomagnesemia; F41.9 Anxiety disorder, unspecified; G35 Multiple sclerosis; I10 Essential (primary) hypertension; R29.6 Repeated falls; Z79.899 Other long term (current) drug therapy; Z87.891 Personal history of nicotine dependence; Z90.49 Acquired absence of other specified parts of digestive tract; E11.9 Type 2 diabetes mellitus without complications
CPT/HCPCS: 36415; 70553; 71046; 80048; 80053; 81001; 82306; 82550; 83036; 83605; 83735; 84100; 84443; 84484; 85025; 85610; 85730; 87077; 87086; 87186; 93005; 96361; 96374; 96375; 99285

== ENCOUNTER 2018-12-15 17:55 | Inpatient (IN) | payer MEDICARE, OTHER ==
[2018-12-15] MEDS ORDERED: SODIUM CHLORIDE 0.9% 1,000 ML IV STA ×2 (18:05→19:08)
[2018-12-15] MEDS ORDERED: ADENOSINE 3 MG/ML 2 ML VIAL IVP STA (18:18)
--- NOTE | 2018-12-15 18:33 | XR ---
EXAMINATION TYPE: XR chest 1V portable DATE OF EXAM: 12/15/2018 COMPARISON: 11/30/2018 HISTORY: Dysrhythmia TECHNIQUE: Single frontal view of the chest is obtained. FINDINGS: Heart and mediastinum are normal. Lungs are clear of consolidation. There is small area of subsegmental atelectasis in the right lower lobe. There is slight elevated right diaphragm. IMPRESSION: Mild elevated right diaphragm and minimal atelectasis right lower lobe unchanged. Normal heart.
[2018-12-15 18:45] LABS: Anisocytosis Slight; Basophils # (A) 0.1 k/uL (0-0.2); Basophils % (A) 1 %; Eosinophils # (A) 0.2 k/uL (0-0.7); Eosinophils % (A) 2 %; HCT 43.2 % (34.0-46.0); HGB 13.6 gm/dL (11.4-16.0); Lymphocytes # (A) 2.9 k/uL (1.0-4.8); Lymphocytes % (A) 29 %; MCH 24.7 pg (25.0-35.0); MCHC 31.5 g/dL (31.0-37.0); MCV 78.6 fL (80.0-100.0); Mean Platelet Volume 7.3; Microcytosis Slight; Monocytes # (A) 0.5 k/uL (0-1.0); Monocytes % (A) 5 %; Neutrophils # (A) 6.1 k/uL (1.3-7.7); Neutrophils % (A) 61 %; Platelet Count 359 k/uL (150-450); Poikilocytosis Slight; RDW 16.2 % (11.5-15.5)
[2018-12-15] MEDS ORDERED: LORazepam 2 MG/ML INJ IV STA (18:49)
[2018-12-15] MEDS ORDERED: MORPHINE SULFATE 4 MG/ML SYRINGE IV STA (18:54)
[2018-12-15 18:55] LABS: ALT 57 U/L (9-52); AST 43 U/L (14-36); African American GFR (CKD) >90 (>60 ml/min/1.73 sqM); Albumin 4.6 g/dL (3.5-5.0); Alkaline Phosphatase 121 U/L (38-126); Anion Gap 17 mmol/L; Blood Urea Nitrogen 6 mg/dL (7-17); Carbon Dioxide 19 mmol/L (22-30); Chloride 101 mmol/L (98-107); Glucose 341 mg/dL (74-99); Magnesium 1.4 mg/dL (1.6-2.3); Potassium 4.2 mmol/L (3.5-5.1); Sodium 137 mmol/L (137-145); Total Bilirubin 0.6 mg/dL (0.2-1.3); Total Protein 8.3 g/dL (6.3-8.2)
[2018-12-15 18:57] LABS: INR 0.9 (<1.2); Partial Thromboplastin Time 25.3 sec (22.0-30.0); Prothrombin Time 9.9 sec (9.0-12.0)
--- NOTE | 2018-12-15 19:00 | ED ---
General Adult HPI - General Chief complaint: Arrhythmia/Palpitations Stated complaint: High BP Time Seen by Provider: 12/15/18 18:05 Source: patient Mode of arrival: ambulatory Limitations: no limitations - History of Present Illness Initial comments: Dictation was produced using cinv[employer] dictation software. please excuse any grammatical, word or spelling errors. Chief Complaint: 38-year-old female past medical history presents w palpitations History of Present Illness: This 38-year-old female presents with palpitations. Patient has been battling a tooth infection recently. She's been placed on antibiotics for this tooth infection. She states she's been having palpitations all day today. Patient states that she doesn't feel short of breath. She does feel anxious. Denies a fever, chills or night sweats. Patient has no history of SVT. Denies any history of palpitations. The ROS documented in this emergency department record has been reviewed and confirmed by me. Those systems with pertinent positive or negative responses have been documented in the HPI. All other systems are other negative and/or noncontributory. PHYSICAL EXAM: General Impression: Alert and oriented x3, not in acute distress HEENT: Normocephalic atraumatic, extra-ocular movements intact, pupils equal and reactive to light bilaterally, mucous membranes moist. Cardiovascular: Tachycardic Chest: Lungs clear to auscultation bilaterally, no rhonchi, no wheeze, no rales Abdomen: Bowel sounds present, abdomen soft, non-tender, non-distended, no organomegaly Musculoskeletal: Pulses present and equal in all extremities, no peripheral edema Motor: no focal deficits noted Neurological: CN II-XII grossly intact, no focal motor or sensory deficits noted Skin: Intact with no visualized rashes Psych: Normal affect and mood ED course: 38 yo female with chief complaint of palpitations. Vital signs upon arrival shows heart rate of 140, worse vital signs within acceptable limits. Initial EKG showed sinus tachycardia however there is some suspicion of supraventricular tachycardia. Patient underwent trial with adenosine. Rate was slowed down revealing P waves after 6 mg of adenosine. She is normotensive. Patient given anxiolytic and intravenous fluids. Laboratory evaluation obtained. CBC is nonacute. Coag panel is negative. Metabolic panel shows glucose of 341 with a mild anion gap acidosis. Magnesium is 1.4. Patient's clinical presentations concerning for dehydration with starvation ketoacidosis or symptoms diabetic ketoacidosis. More history was obtained from patient. She did have a history of gestational diabetes. Ur inalysis shows ketonuria.. Chest x-rays unremarkable. Patient was reevaluated after anxiolytics and intravenous fluids with improvement of heart rate into the 110s. Patient still however tachycardic. We will admit patient to hospital with cardiology consultation patient also started on DKA protocol. EKG interpretation: Ventricular rate 142, sinus tachycardia, MA interval 120, care is 82, QTc 433. No MA prolongation, no QTC prolongation, no ST or T-wave changes noted. - Related Data Home Medications Medication Instructions Recorded Confirmed DULoxetine HCL [Cymbalta] 60 mg PO DAILY 11/30/18 12/15/18 Acetaminophen Tab [Tylenol Tab] 1,000 mg PO Q6H PRN 12/15/18 12/15/18 Baclofen [Lioresal] 10 mg PO BID PRN 12/15/18 12/15/18 Ibuprofen [Motrin Ib] 800 mg PO TID PRN 12/15/18 12/15/18 Allergies Allergy/AdvReac Type Severity Reaction Status Date / Time No Known Allergies Allergy Verified 12/15/18 18:19 Review of Systems ROS Statement: Those systems with pertinent positive or pertinent negative responses have been documented in the HPI. ROS Other: All systems not noted in ROS Statement are negative. Past Medical History Additional Past Medical History / Comment(s): OVARIAN CYST (THOUGHT TO BE CAUSE OF PAIN ) IS GONE. migraines, occ high BP, diarrhea, hx anemia, multiple sclerosis History of Any Multi-Drug Resistant Organisms: None Reported Past Surgical History: Section, Cholecystectomy Additional Past Surgical History / Comment(s): MS Past Anesthesia/Blood Transfusion Reactions: Motion Sickness Past Psychological History: Anxiety Smoking Status: Former smoker Past Alcohol Use History: None Reported Past Drug Use History: None Reported - Past Family History Mother Family Medical History: No Reported History General Exam Limitations: no limitations Course Vital Signs 12/15/18 17:58 Temperature 98 F Pulse Rate 148 H Respiratory 20 Rate Blood Pressure 142/89 O2 Sat by Pulse 99 Oximetry Medical Decision Making - Lab Data Result diagrams: 12/15/18 18:05 12/15/18 18:05 Lab Results 12/15/18 12/15/18 12/15/18 Range/Units 18:05 18:05 18:05 WBC 10.0 (3.8-10.6) k/uL RBC 5.50 H (3.80-5.40) m/uL Hgb 13.6 (11.4-16.0) gm/dL Hct 43.2 (34.0-46.0) % MCV 78.6 L (80.0-100.0) fL MCH 24.7 L (25.0-35.0) pg MCHC 31.5 (31.0-37.0) g/dL RDW 16.2 H (11.5-15.5) % Plt Count 359 (150-450) k/uL Neutrophils % 61 % Lymphocytes % 29 % Monocytes % 5 % Eosinophils % 2 % Basophils % 1 % Neutrophils # 6.1 (1.3-7.7) k/uL Lymphocytes # 2.9 (1.0-4.8) k/uL Monocytes # 0.5 (0-1.0) k/uL Eosinophils # 0.2 (0-0.7) k/uL Basophils # 0.1 (0-0.2) k/uL Poikilocytosis Slight Anisocytosis Slight Microcytosis Slight PT 9.9 (9.0-12.0) sec INR 0.9 (<1.2) APTT 25.3 (22.0-30.0) sec Sodium 137 (137-145) mmol/L Potassium 4.2 (3.5-5.1) mmol/L Chloride 101 (98-107) mmol/L Carbon Dioxide 19 L (22-30) mmol/L Anion Gap 17 mmol/L BUN 6 L (7-17) mg/dL Creatinine 0.41 L (0.52-1.04) mg/dL Est GFR (CKD-EPI)AfAm >90 (>60 ml/min/1.73 sqM) Est GFR (CKD-EPI)NonAf >90 (>60 ml/min/1.73 sqM) Glucose 341 H (74-99) mg/dL Calcium 10.0 (8.4-10.2) mg/dL Magnesium 1.4 L (1.6-2.3) mg/dL Total Bilirubin 0.6 (0.2-1.3) mg/dL AST 43 H (14-36) U/L ALT 57 H (9-52) U/L Alkaline Phosphatase 121 (38-126) U/L Troponin I (0.000-0.034) ng/mL Total Protein 8.3 H (6.3-8.2) g/dL Albumin 4.6 (3.5-5.0) g/dL TSH 0.716 (0.465-4.680) mIU/L Urine Color Urine Appearance (Clear) Urine pH (5.0-8.0) Ur Specific [place] (1.001-1.035) Urine Protein (Negative) Urine Glucose (UA) (Negative) Urine Ketones (Negative) Urine Blood (Negative) Urine Nitrite (Negative) Urine Bilirubin (Negative) Urine Urobilinogen (<2.0) mg/dL Ur Leukocyte Esterase (Negative) Urine RBC (0-5) /hpf Urine WBC (0-5) /hpf Ur Squamous Epith Cells (0-4) /hpf Amorphous Sediment (None) /hpf Urine Bacteria (None) /hpf Hyaline Casts (0-2) /lpf Urine Mucus (None) /hpf 12/15/18 12/15/18 Range/Units 18:05 20:10 WBC (3.8-10.6) k/uL RBC (3.80-5.40) m/uL Hgb (11.4-16.0) gm/dL Hct (34.0-46.0) % MCV (80.0-100.0) fL MCH (25.0-35.0) pg MCHC (31.0-37.0) g/dL RDW (11.5-15.5) % Plt Count (150-450) k/uL Neutrophils % % Lymphocytes % % Monocytes % % Eosinophils % % Basophils % % Neutrophils # (1.3-7.7) k/uL Lymphocytes # (1.0-4.8) k/uL Monocytes # (0-1.0) k/uL Eosinophils # (0-0.7) k/uL Basophils # (0-0.2) k/uL Poikilocytosis Anisocytosis Microcytosis PT (9.0-12.0) sec INR (<1.2) APTT (22.0-30.0) sec Sodium (137-145) mmol/L Potassium (3.5-5.1) mmol/L Chloride (98-107) mmol/L Carbon Dioxide (22-30) mmol/L Anion Gap mmol/L BUN (7-17) mg/dL Creatinine (0.52-1.04) mg/dL Est GFR (CKD-EPI)AfAm (>60 ml/min/1.73 sqM) Est GFR (CKD-EPI)NonAf (>60 ml/min/1.73 sqM) Glucose (74-99) mg/dL Calcium (8.4-10.2) mg/dL Magnesium (1.6-2.3) mg/dL Total Bilirubin (0.2-1.3) mg/dL AST (14-36) U/L ALT (9-52) U/L Alkaline Phosphatase (38-126) U/L Troponin I <0.012 (0.000-0.034) ng/mL Total Protein (6.3-8.2) g/dL Albumin (3.5-5.0) g/dL TSH (0.465-4.680) mIU/L Urine Color Yellow Urine Appearance Cloudy H (Clear) Urine pH 5.5 (5.0-8.0) Ur Specific [place] 1.048 H (1.001-1.035) Urine Protein 2+ H (Negative) Urine Glucose (UA) 4+ H (Negative) Urine Ketones 2+ H (Negative) Urine Blood Trace H (Negative) Urine Nitrite Negative (Negative) Urine Bilirubin Negative (Negative) Urine Urobilinogen <2.0 (<2.0) mg/dL Ur Leukocyte Esterase Trace H (Negative) Urine RBC 10 H (0-5) /hpf Urine WBC 12 H (0-5) /hpf Ur Squamous Epith Cells 21 H (0-4) /hpf Amorphous Sediment Few H (None) /hpf Urine Bacteria Rare H (None) /hpf Hyaline Casts 20 H (0-2) /lpf Urine Mucus Few H (None) /hpf Disposition Clinical Impression: Diabetic keto-acidosis, Tachycardia Disposition: ADMITTED IP TO THIS [facility] Condition: Fair Referrals: Rayray Up MD [Primary Care Provider] - 1-2 days Decision Time: 20:54
[2018-12-15] MEDS: MAGNESIUM SULFATE-D5W PMX 1 GM in DEXTROSE/WATER 1 100ML.BAG IVPB SCH ×2 (20:02→21:28)
[2018-12-15] MEDS ORDERED: INSULIN REGULAR 100 UNIT/ML VIAL IV ONE (20:23)
[2018-12-15 20:44] LABS: Amorphous Sediment,Urine Few /hpf; Appearance,Urine Cloudy (Clear); Bacteria,Urine Rare /hpf; Bilirubin,Urine Negative (Negative); Blood,Urine Trace (Negative); Color,Urine Yellow; Glucose,Urine (UA) 4+ (Negative); Hyaline Casts,Urine 20 /lpf (0-2); Ketones,Urine 2+ (Negative); Leukocyte Esterase,Urine Trace (Negative); Mucus,Urine Few /hpf; Nitrite,Urine Negative (Negative); PH, Urine 5.5 (5.0-8.0); Protein,Urine 2+ (Negative); RBC,Urine 10 /hpf (0-5); Specific Gravity,Urine 1.048 (1.001-1.035); Squamous Epithelial Cell,Urine 21 /hpf (0-4); Urobilinogen,Urine <2.0 mg/dL (<2.0); WBC,Urine 12 /hpf (0-5)
[2018-12-15] MEDS ORDERED: Potassium Replacement Protocol 1 EACH MISC MISCELLANE PRN (20:49)
[2018-12-15] MEDS ORDERED: Magnesium Replacement Protocol 1 EACH MISC MISCELLANE PRN (20:49)
[2018-12-15] MEDS ORDERED: INSULIN REGULAR BOLUS (FROM DRIP BAG) IV ONE (20:49)
[2018-12-15] MEDS ORDERED: NALOXONE 0.4 MG/ML 1 ML VIAL IV PRN (20:55)
[2018-12-15] MEDS ORDERED: SODIUM CHLORIDE 0.9% 1,000 ML IV SCH (21:00)
[2018-12-15] MEDS ORDERED: SODIUM CHLORIDE 0.9% 1,000 ML with POTASSIUM CHLORIDE 30 MEQ IV SCH ×2 (21:00)
[2018-12-15] MEDS: INSULIN REGULAR 100 UNIT in SODIUM CHLORIDE 0.9% 100 ML IV SCH (21:30)
[2018-12-15 21:45] LABS: Glucose,Whole Blood 234 mg/dL (75-99)
[2018-12-15 22:32] LABS: Glucose,Whole Blood 230 mg/dL (75-99)
[2018-12-15 22:45] LABS: VBG PH 7.4 (7.31-7.41)
[2018-12-15 23:02] LABS: African American GFR (CKD) >90 (>60 ml/min/1.73 sqM); Anion Gap 12 mmol/L; Blood Urea Nitrogen 6 mg/dL (7-17); Carbon Dioxide 21 mmol/L (22-30); Chloride 106 mmol/L (98-107); Glucose 235 mg/dL (74-99); Potassium 3.6 mmol/L (3.5-5.1); Sodium 139 mmol/L (137-145)
[2018-12-15] MEDS: DEXTROSE 5%-0.45% NACL 1,000 ML with POTASSIUM CHLORIDE 20 MEQ IV SCH ×2 (23:20)
[2018-12-15 23:36] LABS: Glucose,Whole Blood 186 mg/dL (75-99)
[2018-12-16] MEDS ORDERED: IBUPROFEN 600 MG TAB PO STA ×2 (00:25→07:34)
[2018-12-16 00:49] LABS: Glucose,Whole Blood 191 mg/dL (75-99)
[2018-12-16 01:40] LABS: Glucose,Whole Blood 183 mg/dL (75-99)
[2018-12-16 02:35] LABS: Glucose,Whole Blood 174 mg/dL (75-99)
[2018-12-16 02:37] LABS: Anion Gap 8 mmol/L; Blood Urea Nitrogen 6 mg/dL (7-17); Carbon Dioxide 24 mmol/L (22-30); Chloride 106 mmol/L (98-107); Creatine Kinase <20 U/L (30-135); Glucose 176 mg/dL (74-99); Potassium 3.5 mmol/L (3.5-5.1); Sodium 138 mmol/L (137-145)
[2018-12-16 03:33] LABS: Glucose,Whole Blood 158 mg/dL (75-99)
[2018-12-16 04:33] LABS: Glucose,Whole Blood 162 mg/dL (75-99)
[2018-12-16 05:46] LABS: Glucose,Whole Blood 150 mg/dL (75-99)
[2018-12-16] MEDS: DEXTROSE 5%-0.45% NACL 1,000 ML with POTASSIUM CHLORIDE 20 MEQ IV SCH ×2 (05:50)
[2018-12-16] MEDS: INSULIN REGULAR 100 UNIT in SODIUM CHLORIDE 0.9% 100 ML IV SCH (06:12)
[2018-12-16 06:37] LABS: Glucose,Whole Blood 173 mg/dL (75-99)
[2018-12-16 07:18] LABS: Basophils % (A) 1 %; Eosinophils # (A) 0.2 k/uL (0-0.7); Eosinophils % (A) 3 %; HCT 35.3 % (34.0-46.0); HGB 11.8 gm/dL (11.4-16.0); Hypochromasia Slight; Lymphocytes # (A) 1.8 k/uL (1.0-4.8); Lymphocytes % (A) 33 %; MCH 26.5 pg (25.0-35.0); MCHC 33.4 g/dL (31.0-37.0); MCV 79.4 fL (80.0-100.0); Monocytes # (A) 0.3 k/uL (0-1.0); Monocytes % (A) 6 %; Neutrophils % (A) 54 %; Platelet Count 215 k/uL (150-450); Poikilocytosis Slight; RBC 4.44 m/uL (3.80-5.40); RDW 15.7 % (11.5-15.5); WBC 5.5 k/uL (3.8-10.6)
[2018-12-16 07:31] LABS: Glucose,Whole Blood 210 mg/dL (75-99)
[2018-12-16 07:35] LABS: ALT 66 U/L (9-52); AST 56 U/L (14-36); African American GFR (CKD) >90 (>60 ml/min/1.73 sqM); Albumin 3.6 g/dL (3.5-5.0); Alkaline Phosphatase 81 U/L (38-126); Anion Gap 8 mmol/L; Blood Urea Nitrogen 6 mg/dL (7-17); Calcium 7.8 mg/dL (8.4-10.2); Carbon Dioxide 23 mmol/L (22-30); Chloride 107 mmol/L (98-107); Glucose 171 mg/dL (74-99); Phosphorus 3.5 mg/dL (2.5-4.5); Potassium 3.7 mmol/L (3.5-5.1); Sodium 138 mmol/L (137-145); Total Bilirubin 0.4 mg/dL (0.2-1.3); Total Protein 6.4 g/dL (6.3-8.2)
[2018-12-16 08:04] LABS: Appearance,Urine Cloudy (Clear); Bacteria,Urine Occasional /hpf; Bilirubin,Urine Negative (Negative); Blood,Urine Negative (Negative); Color,Urine Yellow; Glucose,Urine (UA) 4+ (Negative); Ketones,Urine 1+ (Negative); Leukocyte Esterase,Urine Large (Negative); Mucus,Urine Few /hpf; Nitrite,Urine Negative (Negative); PH, Urine 5.5 (5.0-8.0); Protein,Urine 1+ (Negative); RBC,Urine 22 /hpf (0-5); Specific Gravity,Urine 1.026 (1.001-1.035); Squamous Epithelial Cell,Urine 1 /hpf (0-4); Urobilinogen,Urine <2.0 mg/dL (<2.0); WBC,Urine 53 /hpf (0-5)
[2018-12-16 08:29] LABS: Glucose,Whole Blood 244 mg/dL (75-99)
[2018-12-16 09:51] LABS: Glucose,Whole Blood 280 mg/dL (75-99)
[2018-12-16] MEDS ORDERED: ACETAMINOPHEN TAB 500 MG TAB PO PRN (10:59)
[2018-12-16] MEDS ORDERED: BACLOFEN 10 MG TAB PO PRN (10:59)
[2018-12-16] MEDS: HYDROcodone/APAP 5-325MG 1 EACH TAB PO PRN ×2 (11:44→20:47)
[2018-12-16 11:45] LABS: Glucose,Whole Blood 291 mg/dL (75-99)
[2018-12-16] MEDS: DULoxetine HCL 60 MG CAPSULE.DR PO SCH (11:45)
[2018-12-16] MEDS ORDERED: KETOROLAC 30 MG/ML 1 ML VIAL IM SCH (12:00)
[2018-12-16] MEDS: KETOROLAC 30 MG/ML 1 ML VIAL IVP SCH ×2 (12:13→18:26)
[2018-12-16 12:37] LABS: Glucose,Whole Blood 240 mg/dL (75-99)
[2018-12-16 12:52] LABS: Hemoglobin A1C 11.4 % (4.0-6.0)
[2018-12-16 13:49] VITALS: BMI 41.2
[2018-12-16] MEDS: AMPICILLIN-SULBACTAM 3 GM in SODIUM CHLORIDE 0.9% 100 ML IVPB SCH ×2 (14:55→18:27)
[2018-12-16] MEDS: SODIUM CHLORIDE 0.9% 1,000 ML IV SCH (14:56)
[2018-12-16 17:20] LABS: Glucose,Whole Blood 264 mg/dL (75-99)
[2018-12-16] MEDS: INSULIN ASPART (NovoLOG) 100 UNIT/ML VIAL SQ SCH ×2 (18:27→20:47)
[2018-12-16 20:40] LABS: Glucose,Whole Blood 280 mg/dL (75-99)
[2018-12-16] MEDS ORDERED: INSULIN DETEMIR (LEVEMIR) 100 UNIT/ML SYR SQ SCH ×2 (23:45)
[2018-12-16 23:51] LABS: Glucose,Whole Blood 266 mg/dL (75-99)
[2018-12-17] MEDS: AMPICILLIN-SULBACTAM 3 GM in SODIUM CHLORIDE 0.9% 100 ML IVPB SCH ×5 (00:06→23:35)
[2018-12-17] MEDS: KETOROLAC 30 MG/ML 1 ML VIAL IVP SCH ×5 (00:07→23:35)
[2018-12-17] MEDS: HEPARIN SODIUM,PORCINE 5,000 UNIT/ML 1 ML VIAL SQ SCH ×4 (00:08→23:36)
--- NOTE | 2018-12-17 00:09 | P.HPIM ---
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 coli urinary tract infection and tooth infection as well came to ER with the complaints of palpitations. Patient has been having anxiety and palpitations all day long. Patient's blood sugar was found to be elevated in the ER. Currently was started on insulin drip. Otherwise patient denied any fever or chills. Urinalysis showed cloudy with large leukocyte esterase and elevated RBCs and WBCs. Patient is also complaining of mild lower tooth pain. Patient is trying to get dental appointment. No purulent discharge. Complains of pain and swelling slightly. No chest pain. Due to sinus tachycardia patient was given a dose of adenosine the ER. Previous urine cultures showed E. coli. Patient was recently discharged from the hospital on 12/02/2018. Patient was given IV steroids and had a follow-up with neurologist as an outpatient. Patient completed steroid course and antibiotic course in the form of Ceftin. H B A1c 11.4 Review of Systems Constitutional: Patient denies any fever or chills . No generalized weakness or weight loss. Abdomen: Patient denied nausea vomiting and diarrhea and abdominal pain. Cardiovascular: Patient denies any chest pain or short of breath patient does have palpitations. Respiratory: patient denied any cough is from production. No shortness of breath Neurologic: Patient denied any numbness or tingling headache. Musculoskeletal: Patient denies any complaints of joint swelling or deformity. Does have tooth pain. Skin: Negative Psychiatric: Negative Endocrine: No heat or cold intolerance. No recent weight gain. Genitourinary: No dysuria or hematuria. All other 14 point ROS negative except the above Past Medical History Additional Past Medical History / Comment(s): OVARIAN CYST (THOUGHT TO BE CAUSE OF PAIN ) IS GONE. migraines, occ high BP, diarrhea, hx anemia, multiple sclerosis dx in 2007 History of Any Multi-Drug Resistant Organisms: None Reported Past Surgical History: Section, Cholecystectomy Additional Past Surgical History / Comment(s): MS Past Anesthesia/Blood Transfusion Reactions: Motion Sickness Past Psychological History: Anxiety Smoking Status: Former smoker Past Alcohol Use History: None Reported Past Drug Use History: None Reported - Past Family History Mother Family Medical History: No Reported History Medications and Allergies Home Medications Medication Instructions Recorded Confirmed Type DULoxetine HCL [Cymbalta] 60 mg PO DAILY 11/30/18 12/15/18 History Acetaminophen Tab [Tylenol Tab] 1,000 mg PO Q6H PRN 12/15/18 12/15/18 History Baclofen [Lioresal] 10 mg PO BID PRN 12/15/18 12/15/18 History Ibuprofen [Motrin Ib] 800 mg PO TID PRN 12/15/18 12/15/18 History Allergies Allergy/AdvReac Type Severity Reaction Status Date / Time No Known Allergies Allergy Verified 12/15/18 18:19 Physical Exam Vitals: Vital Signs Temp Pulse Resp BP Pulse Ox 12/16/18 20:10 98 12/16/18 16:30 98.4 F 111 H 18 129/78 99 12/16/18 11:30 97.5 F L 104 H 18 128/71 97 12/16/18 07:55 97.9 F 116 H 20 139/88 96 12/16/18 03:10 97.6 F 120 H 20 135/84 97 12/16/18 00:00 98 F 118 H 18 153/99 96 Intake and Output 12/16/18 12/16/18 12/17/18 14:59 22:59 06:59 Intake Total 128.734 360 Balance 128.734 360 Intake: Intake, IV Titration 128.734 Amount Insulin Regular 100 unit 28.734 In Sodium Chloride 0.9% 100 ml @ 0.1 UNITS/KG/HR 12.14 mls/hr IV .Q8H20M [facility] Rx#:[id number] Sodium Chloride 0.9% 1, 100 000 ml @ 50 mls/hr IV . Q20H [facility] Rx#:[id number] Oral 360 Other: # Voids 1 Weight 115.8 kg PHYSICAL EXAMINATION: Patient is lying in the bed comfortably, no acute distress, awake alert and oriented.. HEENT: Normocephalic. Neck is supple. Pupils reactive. Nostrils clear. Oral cavity is moist. Ears reveal no drainage. Neck reveals no JVD, carotid bruits, or thyromegaly. CHEST EXAMINATION: Trachea is central. Symmetrical expansion. Lung weinberg clear to auscultation and percussion. CARDIAC: Normal S1, S2 with no gallops. No murmurs ABDOMEN: Soft. Bowel sounds normal. No organomegaly. No abdominal bruits. Extremities: reveal no edema. No clubbing or cyanosis Neurologically awake, alert, oriented x3 with well-coordinated movements. No focal deficits noted Skin: No rash or skin lesions. Psychiatric: Coperative. Nonsuicidal Musculoskeletal: No joint swelling or deformity. Normal range of motion. Results CBC & Chem 7: 12/16/18 06:29 12/16/18 06:29 Labs: Abnormal Lab Results - Last 24 Hours (Table) 12/15/18 12/16/18 12/16/18 Range/Units 23:34 00:47 01:33 MCV (80.0-100.0) fL RDW (11.5-15.5) % BUN (7-17) mg/dL Creatinine (0.52-1.04) mg/dL Glucose (74-99) mg/dL POC Glucose (mg/dL) 186 H 191 H 183 H (75-99) mg/dL Hemoglobin A1c (4.0-6.0) % Calcium (8.4-10.2) mg/dL AST (14-36) U/L ALT (9-52) U/L Creatine Kinase (30-135) U/L Urine Appearance (Clear) Urine Protein (Negative) Urine Glucose (UA) (Negative) Urine Ketones (Negative) Ur Leukocyte Esterase (Negative) Urine RBC (0-5) /hpf Urine WBC (0-5) /hpf Urine Bacteria (None) /hpf Urine Mucus (None) /hpf 12/16/18 12/16/18 12/16/18 Range/Units 02:14 02:33 03:32 MCV (80.0-100.0) fL RDW (11.5-15.5) % BUN 6 L (7-17) mg/dL Creatinine (0.52-1.04) mg/dL Glucose 176 H (74-99) mg/dL POC Glucose (mg/dL) 174 H 158 H (75-99) mg/dL Hemoglobin A1c (4.0-6.0) % Calcium (8.4-10.2) mg/dL AST (14-36) U/L ALT (9-52) U/L Creatine Kinase <20 L (30-135) U/L Urine Appearance (Clear) Urine Protein (Negative) Urine Glucose (UA) (Negative) Urine Ketones (Negative) Ur Leukocyte Esterase (Negative) Urine RBC (0-5) /hpf Urine WBC (0-5) /hpf Urine Bacteria (None) /hpf Urine Mucus (None) /hpf 12/16/18 12/16/18 12/16/18 Range/Units 04:28 05:43 06:29 MCV (80.0-100.0) fL RDW (11.5-15.5) % BUN (7-17) mg/dL Creatinine (0.52-1.04) mg/dL Glucose (74-99) mg/dL POC Glucose (mg/dL) 162 H 150 H (75-99) mg/dL Hemoglobin A1c 11.4 H (4.0-6.0) % Calcium (8.4-10.2) mg/dL AST (14-36) U/L ALT (9-52) U/L Creatine Kinase (30-135) U/L Urine Appearance (Clear) Urine Protein (Negative) Urine Glucose (UA) (Negative) Urine Ketones (Negative) Ur Leukocyte Esterase (Negative) Urine RBC (0-5) /hpf Urine WBC (0-5) /hpf Urine Bacteria (None) /hpf Urine Mucus (None) /hpf 12/16/18 12/16/18 12/16/18 Range/Units 06:29 06:29 06:36 MCV 79.4 L (80.0-100.0) fL RDW 15.7 H (11.5-15.5) % BUN 6 L (7-17) mg/dL Creatinine 0.38 L (0.52-1.04) mg/dL Glucose 171 H (74-99) mg/dL POC Glucose (mg/dL) 173 H (75-99) mg/dL Hemoglobin A1c (4.0-6.0) % Calcium 7.8 L (8.4-10.2) mg/dL AST 56 H (14-36) U/L ALT 66 H (9-52) U/L Creatine Kinase (30-135) U/L Urine Appearance (Clear) Urine Protein (Negative) Urine Glucose (UA) (Negative) Urine Ketones (Negative) Ur Leukocyte Esterase (Negative) Urine RBC (0-5) /hpf Urine WBC (0-5) /hpf Urine Bacteria (None) /hpf Urine Mucus (None) /hpf 12/16/18 12/16/18 12/16/18 Range/Units 07:19 07:29 08:27 MCV (80.0-100.0) fL RDW (11.5-15.5) % BUN (7-17) mg/dL Creatinine (0.52-1.04) mg/dL Glucose (74-99) mg/dL POC Glucose (mg/dL) 210 H 244 H (75-99) mg/dL Hemoglobin A1c (4.0-6.0) % Calcium (8.4-10.2) mg/dL AST (14-36) U/L ALT (9-52) U/L Creatine Kinase (30-135) U/L Urine Appearance Cloudy H (Clear) Urine Protein 1+ H (Negative) Urine Glucose (UA) 4+ H (Negative) Urine Ketones 1+ H (Negative) Ur Leukocyte Esterase Large H (Negative) Urine RBC 22 H (0-5) /hpf Urine WBC 53 H (0-5) /hpf Urine Bacteria Occasional H (None) /hpf Urine Mucus Few H (None) /hpf 12/16/18 12/16/18 12/16/18 Range/Units 09:31 11:21 12:35 MCV (80.0-100.0) fL RDW (11.5-15.5) % BUN (7-17) mg/dL Creatinine (0.52-1.04) mg/dL Glucose (74-99) mg/dL POC Glucose (mg/dL) 280 H 291 H 240 H (75-99) mg/dL Hemoglobin A1c (4.0-6.0) % Calcium (8.4-10.2) mg/dL AST (14-36) U/L ALT (9-52) U/L Creatine Kinase (30-135) U/L Urine Appearance (Clear) Urine Protein (Negative) Urine Glucose (UA) (Negative) Urine Ketones (Negative) Ur Leukocyte Esterase (Negative) Urine RBC (0-5) /hpf Urine WBC (0-5) /hpf Urine Bacteria (None) /hpf Urine Mucus (None) /hpf 12/16/18 12/16/18 Range/Units 17:16 20:37 MCV (80.0-100.0) fL RDW (11.5-15.5) % BUN (7-17) mg/dL Creatinine (0.52-1.04) mg/dL Glucose (74-99) mg/dL POC Glucose (mg/dL) 264 H 280 H (75-99) mg/dL Hemoglobin A1c (4.0-6.0) % Calcium (8.4-10.2) mg/dL AST (14-36) U/L ALT (9-52) U/L Creatine Kinase (30-135) U/L Urine Appearance (Clear) Urine Protein (Negative) Urine Glucose (UA) (Negative) Urine Ketones (Negative) Ur Leukocyte Esterase (Negative) Urine RBC (0-5) /hpf Urine WBC (0-5) /hpf Urine Bacteria (None) /hpf Urine Mucus (None) /hpf Microbiology - Last 24 Hours (Table) 12/16/18 14:25 Urine Culture - Preliminary Urine,Clean Catch Thrombosis Risk Factor Assmnt - DVT/VTE Prophylaxis DVT/VTE Prophylaxis: Pharmacologic Prophylaxis ordered - Choose All That Apply Each Factor Represents 1 point: Obesity (BMI >25) Thrombosis Risk Factor Assessment Total Risk Factor Score: 1 Thrombosis Risk Factor Assessment Level: Low Risk Assessment and Plan Assessment: Hyperglycemia with uncontrolled diabetes type 2. New onset diabetes2. 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 Status post steroid course Acute urinary tract infection Mild transaminitis Migraine headaches History of MS Hypertension Anxiety/depression Sinus tachycardia. TSH within normal limits Vitamin D deficiency History of cholecystectomy DVT prophylaxis with heparin subcu Morbid obesity with BMI 41.2 Plan: Patient was initially continued on insulin drip. Currently pressure is fairly controlled. Patient will be started on Levemir and NovoLog 3 times a day before meals. Titrate dose as needed. Diabetic education will be provided. Continue with antibiotics in the form of Unasyn and follow with urine culture reports. Continue with IV hydration. Continue to follow closely and further recommendations based on the clinical course. Time with Patient: Greater than 30
[2018-12-17] MEDS: HYDROcodone/APAP 5-325MG 1 EACH TAB PO PRN (04:38)
[2018-12-17 06:18] LABS: Basophils % (A) 1 %; Eosinophils # (A) 0.1 k/uL (0-0.7); Eosinophils % (A) 3 %; HCT 31.6 % (34.0-46.0); HGB 10.3 gm/dL (11.4-16.0); Hypochromasia Slight; Lymphocytes # (A) 1.6 k/uL (1.0-4.8); Lymphocytes % (A) 40 %; MCH 26.2 pg (25.0-35.0); MCHC 32.7 g/dL (31.0-37.0); MCV 80.1 fL (80.0-100.0); Mean Platelet Volume 6.8; Monocytes # (A) 0.2 k/uL (0-1.0); Monocytes % (A) 5 %; Neutrophils % (A) 48 %; Platelet Count 174 k/uL (150-450); Poikilocytosis Slight; RBC 3.95 m/uL (3.80-5.40); RDW 15.6 % (11.5-15.5); WBC 4.1 k/uL (3.8-10.6)
[2018-12-17 06:32] LABS: African American GFR (CKD) >90 (>60 ml/min/1.73 sqM); Anion Gap 5 mmol/L; Blood Urea Nitrogen 7 mg/dL (7-17); Carbon Dioxide 24 mmol/L (22-30); Chloride 107 mmol/L (98-107); Glucose 221 mg/dL (74-99); Potassium 3.6 mmol/L (3.5-5.1); Sodium 136 mmol/L (137-145)
[2018-12-17 06:58] LABS: Glucose,Whole Blood 215 mg/dL (75-99)
[2018-12-17] MEDS: SODIUM CHLORIDE 0.9% 1,000 ML IV SCH (08:29)
[2018-12-17] MEDS: INSULIN ASPART (NovoLOG) 100 UNIT/ML VIAL SQ SCH ×7 (08:37→21:06)
[2018-12-17] MEDS: DULoxetine HCL 60 MG CAPSULE.DR PO SCH (08:38)
[2018-12-17] MEDS ORDERED: ERGOCALCIFEROL 50,000 UNIT CAP PO SCH (09:00)
[2018-12-17 11:59] LABS: Glucose,Whole Blood 215 mg/dL (75-99)
[2018-12-17] MEDS ORDERED: MELATONIN 3 MG TABLET PO ONE (12:05)
[2018-12-17] MEDS ORDERED: METOPROLOL TARTRATE 5 MG/5 ML VIAL IVP ONE (16:13)
[2018-12-17] MEDS ORDERED: DILTIAZEM DRIP BOLUS FROM BAG 1 MG SOLN IV ONE (16:19)
[2018-12-17 16:20] LABS: Glucose,Whole Blood 227 mg/dL (75-99)
[2018-12-17] MEDS ORDERED: LORazepam 2 MG/ML INJ IV STA (16:32)
[2018-12-17] MEDS: DILTIAZEM 125 MG in SODIUM CHLORIDE 0.9% 100 ML IV SCH (16:34)
[2018-12-17 17:34] LABS: Glucose,Whole Blood 256 mg/dL (75-99)
[2018-12-17 17:49] LABS: African American GFR (CKD) >90 (>60 ml/min/1.73 sqM); Anion Gap 11 mmol/L; Blood Urea Nitrogen 5 mg/dL (7-17); Calcium 8.3 mg/dL (8.4-10.2); Carbon Dioxide 18 mmol/L (22-30); Chloride 109 mmol/L (98-107); Glucose 246 mg/dL (74-99); Magnesium 1.8 mg/dL (1.6-2.3); Potassium 3.8 mmol/L (3.5-5.1); Sodium 138 mmol/L (137-145)
--- NOTE | 2018-12-17 17:59 | P.CRDCN ---
History of Present Illness Consult date: 12/17/18 History of present illness: This is a 38-year-old female with history of multiple sclerosis, migraine headaches, and Garza's palsy, who was recently treated for E. coli infection and tooth infection came to the ER with complaints of palpitation. She was also having anxiety. EKG showed evidence of sinus tachycardia. Patient is also having some problems with the diabetic control and being treated for possible diabetic ketoacidosis. We're asked to see the patient because of palpitation and tachycardia. Review of EKG size to sinus tachycardia. Patient was started on IV Cardizem with improvement of her heart rate. Patient seemed to be more comfortable. We'll get an echocardiogram and thyroid function studies. Further recommendations depend upon clinical course Review of Systems As per the chart Past Medical History Additional Past Medical History / Comment(s): OVARIAN CYST (THOUGHT TO BE CAUSE OF PAIN ) IS GONE. migraines, occ high BP, diarrhea, hx anemia, multiple sclerosis dx in 2007 History of Any Multi-Drug Resistant Organisms: None Reported Past Surgical History: Section, Cholecystectomy Additional Past Surgical History / Comment(s): MS Past Anesthesia/Blood Transfusion Reactions: Motion Sickness Past Psychological History: Anxiety Smoking Status: Former smoker Past Alcohol Use History: None Reported Past Drug Use History: None Reported - Past Family History Mother Family Medical History: No Reported History Medications and Allergies Home Medications Medication Instructions Recorded Confirmed Type DULoxetine HCL [Cymbalta] 60 mg PO DAILY 11/30/18 12/15/18 History Acetaminophen Tab [Tylenol Tab] 1,000 mg PO Q6H PRN 12/15/18 12/15/18 History Baclofen [Lioresal] 10 mg PO BID PRN 12/15/18 12/15/18 History Ibuprofen [Motrin Ib] 800 mg PO TID PRN 12/15/18 12/15/18 History Allergies Allergy/AdvReac Type Severity Reaction Status Date / Time No Known Allergies Allergy Verified 12/15/18 18:19 Physical Exam Vitals: Vital Signs Temp Pulse Resp BP Pulse Ox 12/17/18 16:00 97.7 F 139 H 18 136/78 97 12/17/18 12:00 98 F 113 H 18 126/78 97 12/17/18 08:00 98.2 F 113 H 18 133/82 97 12/17/18 03:05 98.0 F 106 H 16 137/67 97 12/16/18 23:45 98.3 F 111 H 18 147/90 99 12/16/18 20:30 97.9 F 120 H 20 126/72 96 12/16/18 20:10 98 Intake and Output 12/17/18 12/17/18 12/17/18 06:59 14:59 22:59 Intake Total 462 Output Total 600 Balance -138 Intake: Oral 462 Output: Urine 600 Other: # Voids 1 Weight 116.9 kg GENERAL EXAM: Patient is alert and oriented and doesn't appear to be in any acute distress HEENT: Normocephalic. Normal reaction of pupils, equal size, normal range of extraocular motion. No erythema or exudates in the throat. NECK: No masses, no nuchal rigidity. CHEST: No chest wall deformity. LUNGS: Equal air entry with no crackles or wheeze. HEART: S1 and S2 normal with no audible mumurs or gallops. Regular rhythm, f emorals equal on both sides.. ABDOMEN: No hepatosplenomegaly, normal bowel sounds, no guarding or rigidity. SKIN: No rashes CENTRAL NERVOUS SYSTEM: No focal deficits. EXTREMITIES: No cyanosis, clubbing or edema. Results 12/17/18 05:46 12/17/18 17:24 CBC 12/17/18 Range/Units 05:46 WBC 4.1 (3.8-10.6) k/uL RBC 3.95 (3.80-5.40) m/uL Hgb 10.3 L (11.4-16.0) gm/dL Hct 31.6 L (34.0-46.0) % Plt Count 174 (150-450) k/uL Comprehensive Metabolic Panel 12/17/18 12/17/18 Range/Units 05:46 17:24 Sodium 136 L 138 (137-145) mmol/L Potassium 3.6 3.8 (3.5-5.1) mmol/L Chloride 107 109 H (98-107) mmol/L Carbon Dioxide 24 18 L (22-30) mmol/L BUN 7 5 L (7-17) mg/dL Creatinine 0.31 L 0.35 L (0.52-1.04) mg/dL Glucose 221 H 246 H (74-99) mg/dL Calcium 8.0 L 8.3 L (8.4-10.2) mg/dL Current Medications Generic Name Dose Route Start Last Admin Trade Name Freq PRN Reason Stop Dose Admin Acetaminophen 1,000 mg 12/16/18 10:59 Tylenol Tab PO Q6H PRN Mild Pain Hydrocodone Bitart/Acetaminophen 1 each 12/16/18 11:01 12/17/18 04:38 [place] 5-325 PO 1 each Q6HR PRN Administration Pain Baclofen 10 mg 12/16/18 10:59 Lioresal PO BID PRN Muscle Spasm Duloxetine HCl 60 mg 12/16/18 11:00 12/17/18 08:38 Cymbalta PO 60 mg DAILY ISAEL Administration Ergocalciferol 50,000 unit 12/17/18 09:00 12/17/18 08:38 Vitamin D2 PO 50,000 unit Q7D ISAEL Administration Heparin Sodium (Porcine) 5,000 unit 12/17/18 00:00 12/17/18 16:52 Heparin SQ 5,000 unit Q8HR ISAEL Administration Sodium Chloride 1,000 mls @ 75 mls/hr 12/16/18 12:30 12/17/18 08:29 Saline 0.9% IV Not Given .[id number] ISAEL Ampicillin Sodium/Sulbactam 100 mls @ 200 mls/hr 12/16/18 13:00 12/17/18 16:53 Sodium 3 gm/ Sodium Chloride IVPB 200 mls/hr Q6HR IS[facility] Administration Diltiazem HCl 125 mg/ Sodium 125 mls @ 10 mls/hr 12/17/18 16:30 12/17/18 16:34 Chloride IV 10 mg/hr .[id number] IS[facility] 10 mls/hr Administration 10 MG/HR Insulin Aspart 0 unit 12/16/18 17:30 12/17/18 16:53 Novolog SQ 5 unit ACHS ISAEL Administration Protocol Insulin Aspart 7 unit 12/17/18 07:30 12/17/18 16:53 Novolog SQ 7 unit AC-TID ISAEL Administration Insulin Detemir 21 unit 12/17/18 21:00 Levemir SQ HS ISAEL Ketorolac Tromethamine 30 mg 12/16/18 12:00 12/17/18 16:52 Toradol IVP 12/20/18 11:36 30 mg Q6HR ISAEL Administration Melatonin 3 mg 12/17/18 21:00 Melatonin PO HS ISAEL Metoprolol Tartrate 25 mg 12/17/18 21:00 Lopressor PO BID ISAEL Miscellaneous Information 1 each 12/15/18 20:49 Magnesium Per Protocol MISCELLANE DAILY PRN Per Protocol Protocol Miscellaneous Information 1 each 12/15/18 20:49 Potassium Per Protocol MISCELLANE DAILY PRN Per Protocol Naloxone HCl 0.2 mg 12/15/18 20:55 Narcan IV Q2M PRN Opioid Reversal Intake and Output 12/17/18 12/17/18 12/17/18 06:59 14:59 22:59 Intake Total 462 Output Total 600 Balance -138 Intake: Oral 462 Output: Urine 600 Other: # Voids 1 Weight 116.9 kg 12/17/18 05:46 12/17/18 17:24 EKG Interpretations (text) Sinus rhythm and sinus tachycardia Assessment and Plan (1) Tachycardia Current Visit: Yes Status: Acute Code(s): R00.0 - TACHYCARDIA, UNSPECIFIED SNOMED Code(s): 1086273 (2) UTI (urinary tract infection) Current Visit: No Status: Acute Code(s): N39.0 - URINARY TRACT INFECTION, SITE NOT SPECIFIED SNOMED Code(s): 23099928 Plan: Continue IV Cardizem. Check thyroid function studies. Echocardiogram
[2018-12-17 21:02] LABS: Glucose,Whole Blood 204 mg/dL (75-99)
[2018-12-17] MEDS: METOPROLOL TARTRATE 25 MG TAB PO SCH (21:04)
[2018-12-17] MEDS: MELATONIN 3 MG TABLET PO SCH (21:05)
[2018-12-17] MEDS: INSULIN DETEMIR (LEVEMIR) 100 UNIT/ML SYR SQ SCH (21:07)
--- NOTE | 2018-12-17 23:57 | P.PN ---
Subjective Progress Note Date: 12/17/18 Principal diagnosis: Hyperglycemia with uncontrolled diabetes. New onset Acute urinary tract infection Patient is a 38 old female with a known history of multiple sclerosis diagnosed in 2007, migraine headaches, recent history of Garza's palsy and was on steroids, recent E. coli urinary tract infection and tooth infection as well came to ER with the complaints of palpitations. Patient has been having anxiety and palpitations all day long. Patient's blood sugar was found to be elevated in the ER. Currently was started on insulin drip. Otherwise patient denied any fever or chills. Urinalysis showed cloudy with large leukocyte esterase and elevated RBCs and WBCs. Patient is also complaining of mild lower tooth pain. Patient is trying to get dental appointment. No purulent discharge. Complains of pain and swelling slightly. No chest pain. Due to sinus tachycardia patient was given a dose of adenosine the ER. Previous urine cultures showed E. coli. Patient was recently discharged from the hospital on 12/02/2018. Patient was given IV steroids and had a follow-up with neurologist as an outpatient. Patient completed steroid course and antibiotic course in the form of Ceftin. H B A1c 11.4 12/17/2089 Patient is currently lying in the bed comfortable. Complains of anxiety and not able to sleep. Patient's heart rate went up to greater than 150. EKG showed sinus tachycardia. Was given a dose of metoprolol IV and milligrams 1 and started on Cardizem d rip. Patient was seen by cardiology. 2-D levocardia was ordered. Otherwise patient is still hyperglycemic. Insulin dose increased. Currently being continued on antibiotics in the form of Unasyn. Current medications reviewed. Objective - Vital Signs Vital signs: Vital Signs Temp 98.2 F 12/17/18 08:00 Pulse 113 H 12/17/18 12:00 Resp 18 12/17/18 08:00 BP 133/82 12/17/18 08:00 Pulse Ox 97 12/17/18 08:00 Intake & Output 12/16/18 12/17/18 12/17/18 18:59 06:59 18:59 Intake Total 128.734 360 462 Output Total 600 Balance 128.734 360 -138 Weight 115.8 kg 116.9 kg Intake: Intake, IV Titration 128.734 Amount Insulin Regular 100 unit 28.734 In Sodium Chloride 0.9% 100 ml @ 0.1 UNITS/KG/HR 12.14 mls/hr IV .[id number] [facility] Rx#:[id number] Sodium Chloride 0.9% 1, 100 000 ml @ 75 mls/hr IV . [id number] ISA[facility] Rx#:[id number] Oral 360 462 Output: Urine 600 Other: # Voids 1 - Exam PHYSICAL EXAMINATION: Patient is lying in the bed comfortably, no acute distress, awake alert and oriented.. HEENT: Normocephalic. Neck is supple. Pupils reactive. Nostrils clear. Oral cavity is moist. Ears reveal no drainage. Neck reveals no JVD, carotid bruits, or thyromegaly. CHEST EXAMINATION: Trachea is central. Symmetrical expansion. Lung weinberg clear to auscultation and percussion. CARDIAC: Normal S1, S2 with no gallops. No murmurs ABDOMEN: Soft. Bowel sounds normal. No organomegaly. No abdominal bruits. Extremities: reveal no edema. No clubbing or cyanosis Neurologically awake, alert, oriented x3 with well-coordinated movements. No focal deficits noted Skin: No rash or skin lesions. Psychiatric: Coperative. Nonsuicidal Musculoskeletal: No joint swelling or deformity. Normal range of motion. - Labs CBC & Chem 7: 12/17/18 05:46 12/17/18 17:24 Labs: Abnormal Lab Results - Last 24 Hours (Table) 12/16/18 12/16/18 12/16/18 Range/Units 17:16 20:37 23:49 Hgb (11.4-16.0) gm/dL Hct (34.0-46.0) % RDW (11.5-15.5) % Sodium (137-145) mmol/L Creatinine (0.52-1.04) mg/dL Glucose (74-99) mg/dL POC Glucose (mg/dL) 264 H 280 H 266 H (75-99) mg/dL Calcium (8.4-10.2) mg/dL 12/17/18 12/17/18 12/17/18 Range/Units 05:46 05:46 06:57 Hgb 10.3 L (11.4-16.0) gm/dL Hct 31.6 L (34.0-46.0) % RDW 15.6 H (11.5-15.5) % Sodium 136 L (137-145) mmol/L Creatinine 0.31 L (0.52-1.04) mg/dL Glucose 221 H (74-99) mg/dL POC Glucose (mg/dL) 215 H (75-99) mg/dL Calcium 8.0 L (8.4-10.2) mg/dL 12/17/18 Range/Units 11:54 Hgb (11.4-16.0) gm/dL Hct (34.0-46.0) % RDW (11.5-15.5) % Sodium (137-145) mmol/L Creatinine (0.52-1.04) mg/dL Glucose (74-99) mg/dL POC Glucose (mg/dL) 215 H (75-99) mg/dL Calcium (8.4-10.2) mg/dL Microbiology - Last 24 Hours (Table) 12/16/18 14:25 Urine Culture - Preliminary Urine,Clean Catch Assessment and Plan Assessment: Hyperglycemia with uncontrolled diabetes type 2. New onset diabetes2. His B A1c 11.4 Sinus tachycardia TSH within normal limits. Follow-up 2-D levocardia. 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 Status post steroid course Acute urinary tract infection Mild transaminitis Migraine headaches History of MS Hypertension Anxiety/depression Vitamin D deficiency History of cholecystectomy DVT prophylaxis with heparin subcu Morbid obesity with BMI 41.2 Plan: Patient was initially continued on insulin drip. Currently blood sugar is fairly controlled. Patient was started on Levemir and NovoLog 3 times a day before meals. Titrate dose as needed. Diabetic education will be provided. Continue with antibiotics in the form of Unasyn and follow with urine culture reports. Continue with IV hydration. Continue to follow closely and further recommendations based on the clinical course. Time with Patient: Greater than 30
[2018-12-18] MEDS: DILTIAZEM 125 MG in SODIUM CHLORIDE 0.9% 100 ML IV SCH (06:48)
[2018-12-18] MEDS: KETOROLAC 30 MG/ML 1 ML VIAL IVP SCH ×4 (06:49→23:01)
[2018-12-18] MEDS: SODIUM CHLORIDE 0.9% 1,000 ML IV SCH ×2 (06:49→08:10)
[2018-12-18] MEDS: AMPICILLIN-SULBACTAM 3 GM in SODIUM CHLORIDE 0.9% 100 ML IVPB SCH ×4 (06:50→23:00)
[2018-12-18 07:15] LABS: Glucose,Whole Blood 201 mg/dL (75-99)
[2018-12-18] MEDS: METOPROLOL TARTRATE 25 MG TAB PO SCH ×2 (08:09→20:42)
[2018-12-18] MEDS: HEPARIN SODIUM,PORCINE 5,000 UNIT/ML 1 ML VIAL SQ SCH ×3 (08:09→23:01)
[2018-12-18] MEDS: DULoxetine HCL 60 MG CAPSULE.DR PO SCH (08:09)
[2018-12-18] MEDS: INSULIN ASPART (NovoLOG) 100 UNIT/ML VIAL SQ SCH ×7 (08:09→20:44)
[2018-12-18] MEDS: HYDROcodone/APAP 5-325MG 1 EACH TAB PO PRN ×3 (08:15→20:42)
[2018-12-18 12:06] LABS: Glucose,Whole Blood 200 mg/dL (75-99)
--- NOTE | 2018-12-18 13:31 | P.PN ---
Subjective Progress Note Date: 12/18/18 This is a 38-year-old female with history of multiple sclerosis, migraine headaches, and Garza's palsy, who was recently treated for E. coli infection and tooth infection came to the ER with complaints of palpitation. She was also having anxiety. EKG showed evidence of sinus tachycardia. Patient is also having some problems with the diabetic control and being treated for possible diabetic ketoacidosis. We're asked to see the patient because of palpitation and tachycardia. Review of EKG size to sinus tachycardia. Patient was started on IV Cardizem with improvement of her heart rate. Patient seemed to be more comfortable. We'll get an echocardiogram and thyroid function studies. Further recommendations depend upon clinical course 12/18: This morning, patient is in a sinus rhythm running 87. TSH 0.716. No repeat lab work for today. Blood sugars remain elevated in the low 200s. She was currently on oral Lopressor and IV Cardizem. No chest pain, shortness of breath, lightheadedness or dizziness. A repeat EKG is a sinus rhythm. Echocardiogram is pending. Gen: This is a 38-year-old morbidly obese female. Patient is resting bed and appears to be comfortable and in no acute distress. Afebrile, blood pressure 138/89, pulse ox 96% on room air. HEENT: Head is atraumatic, normocephalic. Pupils equal, round. Sclerae is anicteric. NECK: Supple. No JVD. No lymphadenopathy. No thyromegaly. LUNGS: Clear to auscultation. No wheezes or rhonchi. No intercostal retractio ns. HEART: Regular rate and rhythm. No murmur. ABDOMEN: Soft. Bowel sounds are present. No masses. No tenderness. EXTREMITIES: No pedal edema. No calf tenderness. NEUROLOGICAL: Patient is awake, alert and oriented x3. Cranial nerves 2 through 12 are grossly intact. Assessment: SVT Urinary tract infection Hyperglycemia secondary to uncontrolled diabetes mellitus type 2, hemoglobin A1c 11.4, new onset Hypertension Morbid obesity with BMI of 41 Plan: Continue Lopressor 25 mg twice daily Discontinue Cardizem drip Follow-up on echocardiogram report Anticipate possible discharge tomorrow. Further recommendations to follow based upon clinical course Nurse practitioner note has been reviewed, I agree with documented findings and plan of care. Patient was seen and examined. Objective - Vital Signs Vital signs: Vital Signs Temp 98.2 F 12/18/18 08:00 Pulse 105 H 12/18/18 08:00 Resp 18 12/18/18 08:00 BP 138/89 12/18/18 08:00 Pulse Ox 96 12/18/18 08:00 Intake & Output 12/17/18 12/18/18 12/18/18 18:59 06:59 18:59 Intake Total 462 605 444 Output Total 600 Balance -138 605 444 Intake: Intake, IV Titration 125 Amount Diltiazem 125 mg In 125 Sodium Chloride 0.9% 100 ml @ 10 MG/HR 10 mls/hr IV .[id number] [facility] [place] Rx#: [id number] Oral 462 480 444 Output: Urine 600 Other: Voiding Method Toilet Toilet # Voids 1 - Labs CBC & Chem 7: 12/17/18 05:46 12/17/18 17:24 Labs: Abnormal Lab Results - Last 24 Hours (Table) 12/17/18 12/17/18 12/17/18 Range/Units 16:18 17:24 17:30 Chloride 109 H (98-107) mmol/L Carbon Dioxide 18 L (22-30) mmol/L BUN 5 L (7-17) mg/dL Creatinine 0.35 L (0.52-1.04) mg/dL Glucose 246 H (74-99) mg/dL POC Glucose (mg/dL) 227 H 256 H (75-99) mg/dL Calcium 8.3 L (8.4-10.2) mg/dL 12/17/18 12/18/18 12/18/18 Range/Units 20:48 07:01 12:05 Chloride (98-107) mmol/L Carbon Dioxide (22-30) mmol/L BUN (7-17) mg/dL Creatinine (0.52-1.04) mg/dL Glucose (74-99) mg/dL POC Glucose (mg/dL) 204 H 201 H 200 H (75-99) mg/dL Calcium (8.4-10.2) mg/dL Microbiology - Last 24 Hours (Table) 12/16/18 14:25 Urine Culture - Preliminary Urine,Clean Catch Gram Neg Bacilli
[2018-12-18 16:47] LABS: Glucose,Whole Blood 244 mg/dL (75-99)
[2018-12-18 20:37] LABS: Glucose,Whole Blood 159 mg/dL (75-99)
[2018-12-18] MEDS: MELATONIN 3 MG TABLET PO SCH (20:42)
[2018-12-18] MEDS: INSULIN DETEMIR (LEVEMIR) 100 UNIT/ML SYR SQ SCH (20:43)
--- NOTE | 2018-12-18 23:48 | P.PN ---
Subjective Progress Note Date: 12/18/18 Principal diagnosis: Hyperglycemia with uncontrolled diabetes. New onset Acute urinary tract infection Patient is a 38 old female with a known history of multiple sclerosis diagnosed in 2008, migraine headaches, recent history of Garza's palsy and was on steroids, recent E. coli urinary tract infection and tooth infection as well came to ER with the complaints of palpitations. Patient has been having anxiety and palpitations all day long. Patient's blood sugar was found to be elevated in the ER. Currently was started on insulin drip. Otherwise patient denied any fever or chills. Urinalysis showed cloudy with large leukocyte esterase and elevated RBCs and WBCs. Patient is also complaining of mild lower tooth pain. Patient is trying to get dental appointment. No purulent discharge. Complains of pain and swelling slightly. No chest pain. Due to sinus tachycardia patient was given a dose of adenosine the ER. Previous urine cultures showed E. coli. Patient was recently discharged from the hospital on 12/02/2018. Patient was given IV steroids and had a follow-up with neurologist as an outpatient. Patient completed steroid course and antibiotic course in the form of Ceftin. H B A1c 11.4 12/17/2018 Patient is currently lying in the bed comfortable. Complains of anxiety and not able to sleep. Patient's heart rate went up to greater than 150. EKG showed sinus tachycardia. Was given a dose of metoprolol IV and milligrams 1 and started on Cardizem d rip. Patient was seen by cardiology. 2-D levocardia was ordered. Otherwise patient is still hyperglycemic. Insulin dose increased. Currently being continued on antibiotics in the form of Unasyn. 12/18/2018 Patient says that she is feeling better today. Sinus tachycardia improved. A repeat EKG showed sinus rhythm. Cardiology is following. Patient is currently on metoprolol 25 mg twice a day 2-D echocardiogram report is pending. Patient's blood sugar still is better than 200. Increased insulin dose. Continue the sliding scale. Anticipate discharge tomorrow with better blood sugar control and heart rate controlled. Cardiology on board. Urine culture showed E. coli. No complaints of dental pain today. Currently on Unasyn. Current medications reviewed. Active Medications Acetaminophen (Tylenol Tab) 1,000 mg PO Q6H PRN PRN Reason: Mild Pain Hydrocodone Bitart/Acetaminophen ([place] 5-325) 1 each PO Q6HR PRN PRN Reason: Pain Last Admin: 12/18/18 20:42 Dose: 1 each Documented by: Baclofen (Lioresal) 10 mg PO BID PRN PRN Reason: Muscle Spasm Duloxetine HCl (Cymbalta) 60 mg PO DAILY [facility] Last Admin: 12/18/18 08:09 Dose: 60 mg Documented by: Ergocalciferol (Vitamin D2) 50,000 unit PO Q7D [facility] Last Admin: 12/17/18 08:38 Dose: 50,000 unit Documented by: Heparin Sodium (Porcine) (Heparin) 5,000 unit SQ Q8HR [facility] Last Admin: 12/18/18 23:01 Dose: 5,000 unit Documented by: Sodium Chloride (Saline 0.9%) 1,000 mls @ 75 mls/hr IV .[id number] [facility] Last Admin: 12/18/18 08:10 Dose: Not Given Documented by: Ampicillin Sodium/Sulbactam (Sodium 3 gm/ Sodium Chloride) 100 mls @ 200 mls/hr IVPB Q6HR [facility] Last Admin: 12/18/18 23:00 Dose: 200 mls/hr Documented by: Insulin Aspart (Novolog) 0 unit SQ ACHS [facility]; Protocol Last Admin: 12/18/18 20:44 Dose: 2 unit Documented by: Insulin Aspart (Novolog) 9 unit SQ AC-TID [facility] Last Admin: 12/18/18 16:58 Dose: 9 unit Documented by: Insulin Detemir (Levemir) 21 unit SQ HS [facility] Last Admin: 12/18/18 20:43 Dose: 21 unit Documented by: Ketorolac Tromethamine (Toradol) 30 mg IVP Q6HR [facility] Stop: 12/20/18 11:36 Last Admin: 12/18/18 23:01 Dose: 30 mg Documented by: Melatonin (Melatonin) 3 mg PO HS [facility] Last Admin: 12/18/18 20:42 Dose: 3 mg Documented by: Metoprolol Tartrate (Lopressor) 25 mg PO BID [facility] Last Admin: 12/18/18 20:42 Dose: 25 mg Documented by: Miscellaneous Information (Magnesium Per Protocol) 1 each MISCELLANE DAILY PRN; Protocol PRN Reason: Per Protocol Miscellaneous Information (Potassium Per Protocol) 1 each MISCELLANE DAILY PRN PRN Reason: Per Protocol Naloxone HCl (Narcan) 0.2 mg IV Q2M PRN PRN Reason: Opioid Reversal Objective - Vital Signs Vital signs: Vital Signs Temp 98.1 F 12/18/18 16:00 Pulse 99 12/18/18 16:00 Resp 18 12/18/18 16:00 BP 122/60 12/18/18 16:00 Pulse Ox 98 12/18/18 16:00 Intake & Output 12/17/18 12/18/18 12/18/18 18:59 06:59 18:59 Intake Total 462 605 444 Output Total 600 Balance -138 605 444 Intake: Intake, IV Titration 125 Amount Diltiazem 125 mg In 125 Sodium Chloride 0.9% 100 ml @ 10 MG/HR 10 mls/hr IV .[id number] [facility] Rx#: [id number] Oral 462 480 444 Output: Urine 600 Other: Voiding Method Toilet Toilet # Voids 1 - Exam PHYSICAL EXAMINATION: Patient is lying in the bed comfortably, no acute distress, awake alert and oriented.. HEENT: Normocephalic. Neck is supple. Pupils reactive. Nostrils clear. Oral cavity is moist. Ears reveal no drainage. Neck reveals no JVD, carotid bruits, or thyromegaly. CHEST EXAMINATION: Trachea is central. Symmetrical expansion. Lung weinberg clear to auscultation and percussion. CARDIAC: Normal S1, S2 with no gallops. No murmurs ABDOMEN: Soft. Bowel sounds normal. No organomegaly. No abdominal bruits. Extremities: reveal no edema. No clubbing or cyanosis Neurologically awake, alert, oriented x3 with well-coordinated movements. No focal deficits noted Skin: No rash or skin lesions. Psychiatric: Coperative. Nonsuicidal Musculoskeletal: No joint swelling or deformity. Normal range of motion. - Labs CBC & Chem 7: 12/17/18 05:46 12/17/18 17:24 Labs: Abnormal Lab Results - Last 24 Hours (Table) 12/17/18 12/17/18 12/17/18 Range/Units 17:24 17:30 20:48 Chloride 109 H (98-107) mmol/L Carbon Dioxide 18 L (22-30) mmol/L BUN 5 L (7-17) mg/dL Creatinine 0.35 L (0.52-1.04) mg/dL Glucose 246 H (74-99) mg/dL POC Glucose (mg/dL) 256 H 204 H (75-99) mg/dL Calcium 8.3 L (8.4-10.2) mg/dL 12/18/18 12/18/18 12/18/18 Range/Units 07:01 12:05 16:45 Chloride (98-107) mmol/L Carbon Dioxide (22-30) mmol/L BUN (7-17) mg/dL Creatinine (0.52-1.04) mg/dL Glucose (74-99) mg/dL POC Glucose (mg/dL) 201 H 200 H 244 H (75-99) mg/dL Calcium (8.4-10.2) mg/dL Microbiology - Last 24 Hours (Table) 12/16/18 14:25 Urine Culture - Preliminary Urine,Clean Catch Gram Neg Bacilli Assessment and Plan Assessment: Hyperglycemia with uncontrolled diabetes type 2. New onset diabetes2. His B A1c 11.4 Sinus tachycardia TSH within normal limits. Status post Cardizem drip. Follow- up TTE report. 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 Status post steroid course Acute urinary tract infection Mild transaminitis Migraine headaches History of MS Hypertension Anxiety/depression Vitamin D deficiency History of cholecystectomy DVT prophylaxis with heparin subcu Morbid obesity with BMI 41.2 Plan: Patient was initially continued on insulin drip. Currently blood sugar is fairly controlled. Patient was started on Levemir and NovoLog 3 times a day before meals. Titrate dose as needed. Diabetic education provided. Continue with antibiotics in the form of Unasyn and follow with urine culture reports. Continue with IV hydration. Continue to follow closely and further recommendations based on the clinical course. Time with Patient: Greater than 30
[2018-12-19] MEDS: AMPICILLIN-SULBACTAM 3 GM in SODIUM CHLORIDE 0.9% 100 ML IVPB SCH ×2 (06:47→11:29)
[2018-12-19] MEDS: INSULIN ASPART (NovoLOG) 100 UNIT/ML VIAL SQ SCH ×4 (06:48→12:44)
[2018-12-19] MEDS: KETOROLAC 30 MG/ML 1 ML VIAL IVP SCH ×2 (06:48→11:29)
[2018-12-19 06:49] LABS: Glucose,Whole Blood 182 mg/dL (75-99)
[2018-12-19 06:52] LABS: Anisocytosis Slight; Basophils % (A) 1 %; Eosinophils # (A) 0.1 k/uL (0-0.7); Eosinophils % (A) 2 %; HCT 30.6 % (34.0-46.0); HGB 10.6 gm/dL (11.4-16.0); Lymphocytes % (A) 42 %; MCH 27.1 pg (25.0-35.0); MCHC 34.5 g/dL (31.0-37.0); MCV 78.7 fL (80.0-100.0); Mean Platelet Volume 7.4; Microcytosis Slight; Monocytes # (A) 0.2 k/uL (0-1.0); Monocytes % (A) 5 %; Neutrophils # (A) 2.2 k/uL (1.3-7.7); Neutrophils % (A) 47 %; Platelet Count 167 k/uL (150-450); Poikilocytosis Slight; RBC 3.89 m/uL (3.80-5.40); RDW 16.4 % (11.5-15.5); WBC 4.6 k/uL (3.8-10.6)
[2018-12-19] MEDS: SODIUM CHLORIDE 0.9% 1,000 ML IV SCH (06:53)
[2018-12-19 06:54] LABS: African American GFR (CKD) >90 (>60 ml/min/1.73 sqM); Anion Gap 9 mmol/L; Blood Urea Nitrogen 12 mg/dL (7-17); Calcium 8.5 mg/dL (8.4-10.2); Carbon Dioxide 22 mmol/L (22-30); Chloride 108 mmol/L (98-107); Glucose 162 mg/dL (74-99); Potassium 3.5 mmol/L (3.5-5.1); Sodium 139 mmol/L (137-145)
[2018-12-19] MEDS: METOPROLOL TARTRATE 25 MG TAB PO SCH (07:58)
[2018-12-19] MEDS: DULoxetine HCL 60 MG CAPSULE.DR PO SCH (07:58)
[2018-12-19] MEDS: HEPARIN SODIUM,PORCINE 5,000 UNIT/ML 1 ML VIAL SQ SCH (07:59)
[2018-12-19] MEDS: HYDROcodone/APAP 5-325MG 1 EACH TAB PO PRN (10:55)
[2018-12-19 12:09] VITALS: BP 127/81; PULSE 94; RESP 18; TEMP 96.7
--- NOTE | 2018-12-19 12:23 | P.PN ---
Subjective Progress Note Date: 12/19/18 This is a 38-year-old female with history of multiple sclerosis, migraine headaches, and Garza's palsy, who was recently treated for E. coli infection and tooth infection came to the ER with complaints of palpitation. She was also having anxiety. EKG showed evidence of sinus tachycardia. Patient is also having some problems with the diabetic control and being treated for possible diabetic ketoacidosis. We're asked to see the patient because of palpitation and tachycardia. Review of EKG size to sinus tachycardia. Upon review of all of the rhythm strips, it appears that the patient had an episode of supraventricular tachycardia on Wednesday afternoon around 4 PM. And that the patient had been initiated on beta freda, continues to be on a beta freda at this time and has had no episodes of significant tachycardia since that time. Blood pressure this morning 127/80 with a heart rate in the 90s, 97% on room air. White blood cell count 4.6, hemoglobin 10.6, platelet count 167, sodium 139, potassium 3.5, BUN 12 and creatinine 0.3. TSH 0.96. Patient is currently on IV antibiotics positive UTI. According to the , patient is also been dealing with recurrent infections in one of her teeth. Objective - Vital Signs Vital signs: Vital Signs Temp 96.7 F L 12/19/18 11:15 Pulse 94 12/19/18 11:15 Resp 18 12/19/18 11:15 BP 127/81 12/19/18 11:15 Pulse Ox 97 12/19/18 11:15 Intake & Output 12/18/18 12/19/18 12/19/18 18:59 06:59 18:59 Intake Total 884 200 118 Balance 884 200 118 Weight 116.3 kg Intake: Intake, IV Titration 200 Amount Ampicillin-Sulbactam 3 gm 200 In Sodium Chloride 0.9% 100 ml @ 200 mls/hr IVPB Q6HR [facility] Rx#:[id number] Oral 884 118 Other: Voiding Method Toilet Toilet # Voids 1 - Exam GENERAL EXAM: Patient is alert and oriented and doesn't appear to be in any acute distress HEENT: Normocephalic. Normal reaction of pupils, equal size, normal range of extraocular motion. No erythema or exudates in the throat. NECK: No masses, no nuchal rigidity. CHEST: No chest wall deformity. LUNGS: Equal air entry with no crackles or wheeze. HEART: S1 and S2 normal with no audible mumurs or gallops. Regular rhythm, femorals equal on both sides.. ABDOMEN: No hepatosplenomegaly, normal bowel sounds, no guarding or rigidity. SKIN: No rashes CENTRAL NERVOUS SYSTEM: No focal deficits. EXTREMITIES: No cyanosis, clubbing or edema. - Labs CBC & Chem 7: 12/19/18 05:40 12/19/18 05:40 Labs: Abnormal Lab Results - Last 24 Hours (Table) 12/18/18 12/18/18 12/19/18 Range/Units 16:45 20:35 05:40 Hgb 10.6 L (11.4-16.0) gm/dL Hct 30.6 L (34.0-46.0) % MCV 78.7 L (80.0-100.0) fL RDW 16.4 H (11.5-15.5) % Chloride (98-107) mmol/L Creatinine (0.52-1.04) mg/dL Glucose (74-99) mg/dL POC Glucose (mg/dL) 244 H 159 H (75-99) mg/dL 12/19/18 12/19/18 Range/Units 05:40 06:46 Hgb (11.4-16.0) gm/dL Hct (34.0-46.0) % MCV (80.0-100.0) fL RDW (11.5-15.5) % Chloride 108 H (98-107) mmol/L Creatinine 0.35 L (0.52-1.04) mg/dL Glucose 162 H (74-99) mg/dL POC Glucose (mg/dL) 182 H (75-99) mg/dL Microbiology - Last 24 Hours (Table) 12/16/18 14:25 Urine Culture - Final Urine,Clean Catch Escherichia coli Assessment and Plan Plan: Assessment and plan #1 tachycardia in the form of sinus tachycardia and supraventricular tachycardia #2 UTI #3 hyperglycemia secondary to uncontrolled diabetes #4 hypertension #5 morbid obesity Plan We will review the patient's echocardiogram with Doppler study. Being that the patient is a diabetic, we will also start her on a statin. Continue beta freda, monitor for any further arrhythmias. DNP note has been reviewed, I agree with a documented findings and plan of care. Patient was seen and examined.
[2018-12-19 12:28] LABS: Glucose,Whole Blood 197 mg/dL (75-99)
--- NOTE | 2018-12-19 23:24 | DS ---
DISCHARGE SUMMARY FINAL DIAGNOSES: 1. Diabetes mellitus, type 2, with hyperglycemia; new-onset diabetes mellitus; hemoglobin A1c 11.4. 2. Sinus tachycardia, possibly supraventricular tachycardia. 3. 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 4. Mild transaminitis. 5. Migraine headaches, history. 6. History of multiple sclerosis. 7. Hypertension. 8. History of anxiety, depression. 9. Vitamin D deficiency. 10.History of cholecystectomy. DISCHARGE DISPOSITION: The patient will be discharged in stable condition with guarded prognosis. Cardiology cleared the patient for discharge. HISTORY OF PRESENT ILLNESS: This 38-year-old woman with a past medical history of multiple medical problems was admitted with hyperglycemia. The patient also had multiple other medical problems, as mentioned earlier. The patient was treated in conjunction with Cardiology. The patient improved significantly. The patient was given beta blockers. The rhythm improved and the patient improved significantly. Insulin doses were adjusted. On exam, vitals are stable. CARDIOVASCULAR SYSTEM: S1, S2 muffled. ABDOMEN: Soft. NERVOUS SYSTEM: No focal deficit. DISCHARGE ADVICE AND MEDICATIONS: 1. Recommend the patient to follow up with Dr. Up closely with Accu-Cheks before meals and at bedtime and adjustment of the insulin in the outpatient setting. 2. Discharge diet is consistent-carb. 3. Activity limited until followup. 4. Accu-Cheks before meals and at bedtime. 5. Follow up with Dr. Up in 2 to 3 days. 6. Follow up with Cardiology as recommended. 7. Cymbalta 60 mg p.o. daily. 8. Lioresal 10 mg b.i.d. p.r.n. 9. Motrin 800 mg t.i.d. p.r.n. 10.Tylenol p.r.n. 11.Insulin Lispro 9 units before meals t.i.d. 12.Augmentin 875 mg 1 p.o. b.i.d. for 3 more days. 13.Basaglar Kwikpen 21 units subcutaneously at bedtime. 14.Metoprolol 25 mg p.o. b.i.d. Once again, the patient will be discharged in stable condition with guarded prognosis. MMODL / IJN: [id number] /
--- NOTE | 2018-12-20 06:50 | ECHOF ---
Referral Reason:Chest pain and cardiomyopathy MEASUREMENTS -------- HEIGHT: 165.1 cm WEIGHT: 116.6 kg BP: RVIDd: 3.3 cm (< 3.3) IVSd: 1.4 cm (0.6 - 1.1) LVIDd: 3.9 cm (3.9 - 5.3) LVPWd: 1.6 cm (0.6 - 1.1) IVSs: 1.5 cm LVIDs: 3.6 cm LVPWs: 1.3 cm LA Diam: 4.0 cm (2.7 - 3.8) LAESV Index (A-L): 20.65 ml/m Ao Diam: 2.6 cm (2.0 - 3.7) AV Cusp: 1.9 cm (1.5 - 2.6) LA Diam: 3.7 cm (2.7 - 3.8) MV EXCURSION: 17.701 mm (> 18.000) MV EF SLOPE: 98 mm/s (70 - 150) EPSS: 0.9 cm MV E Shahid: 0.86 m/s MV DecT: 166 ms MV A Shahid: 0.86 m/s MV E/A Ratio: 1.00 RAP: 5.00 mmHg RVSP: 12.23 mmHg FINDINGS -------- Sinus rhythm. This was a technically adequate study. The left ventricular size is normal. There is moderate concentric left ventricular hypertrophy. O verall left ventricular systolic function is normal with, an EF between 55 - 60 %. The diastolic fi lling pattern is normal for the age of the patient 9.46. The right ventricle is normal in size. The left atrial size is normal. Normal LA size by volume 22+/-6 ml/m2. The right atrial size is normal. IAS not well Visualized. The aortic valve is trileaflet, and appears structurally normal. No aortic stenosis or regurgitation. Mild mitral regurgitation is present. Mild tricuspid regurgitation present. Right ventricular systolic pressure is normal at < 35 mmHg. There is no evidence of pulmonary hypertension. The pulmonic valve was not well visualized. The aortic root size is normal. Echo free space represents a pericardial fat pad. CONCLUSIONS -------- 1. Sinus rhythm. 2. This was a technically adequate study. 3. The left ventricular size is normal. 4. There is moderate concentric left ventricular hypertrophy. 5. Overall left ventricular systolic function is normal with, an EF between 55 - 60 %. 6. The diastolic filling pattern is normal for the age of the patient 9.46 7. The right ventricle is normal in size. 8. The left atrial size is normal. 9. Normal LA size by volume 22+/-6 ml/m2. 10. The right atrial size is normal. 11. IAS not well Visualized. 12. The aortic valve is trileaflet, and appears structurally normal. No aortic stenosis or regurgitat ion. 13. Mild mitral regurgitation is present. 14. Mild tricuspid regurgitation present. 15. Right ventricular systolic pressure is normal at < 35 mmHg. 16. There is no evidence of pulmonary hypertension. 17. The pulmonic valve was not well visualized. 18. The aortic root size is normal. 19. Echo free space represents a pericardial fat pad. CAR WORKER: Emilie Maza RDCS
[2018-12-20] MEDS ORDERED: ATORVASTATIN 40 MG TAB PO SCH (09:00)
== END 2018-12-19 14:30 | disposition home or self-care (01) | DRG 638 ==
LOC: EC 17:55 → 3SCARD 20:55
PROVIDERS: ADMIT Hospitalist; ATTEND Hospitalist
DX: E11.65 Type 2 diabetes mellitus with hyperglycemia (principal); I47.1 Supraventricular tachycardia; Z68.41 Body mass index [BMI] 40.0-44.9, adult; N39.0 Urinary tract infection, site not specified; E87.2 Acidosis; I10 Essential (primary) hypertension; G51.0 Bell's palsy; R74.0 Nonspecific elevation of levels of transaminase and lactic acid dehydrogenase [LDH]; E55.9 Vitamin D deficiency, unspecified; F32.9 Major depressive disorder, single episode, unspecified; G43.909 Migraine, unspecified, not intractable, without status migrainosus; G35 Multiple sclerosis; F41.9 Anxiety disorder, unspecified; E66.01 Morbid (severe) obesity due to excess calories; Z79.899 Other long term (current) drug therapy; Z86.2 Personal history of diseases of the blood and blood-forming organs and certain disorders involving the immune mechanism; Z98.891 History of uterine scar from previous surgery; Z90.49 Acquired absence of other specified parts of digestive tract; Z87.891 Personal history of nicotine dependence; Z87.440 Personal history of urinary (tract) infections; Z86.19 Personal history of other infectious and parasitic diseases; Z86.32 Personal history of gestational diabetes; Z87.19 Personal history of other diseases of the digestive system
CPT/HCPCS: 36415; 71045; 80048; 80051; 80053; 81001; 82550; 82565; 82803; 82947; 83036; 83735; 84100; 84443; 84484; 84520; 85025; 85610; 85730; 87077; 87086; 87186; 93005; 93306; 94760; 96361; 96365; 96366; 96368; 96375; 99285

== ENCOUNTER → 2019-04-20 | Outpatient (CLI) | payer MEDICARE, OTHER ==
[2019-04-20 15:05] LABS: Basophils # (A) 0.1 k/uL (0-0.2); Basophils % (A) 1 %; Eosinophils # (A) 0.2 k/uL (0-0.7); Eosinophils % (A) 2 %; HCT 40.7 % (34.0-46.0); HGB 12.9 gm/dL (11.4-16.0); Hypochromasia Moderate; Lymphocytes % (A) 27 %; MCH 25.1 pg (25.0-35.0); MCHC 31.6 g/dL (31.0-37.0); MCV 79.5 fL (80.0-100.0); Mean Platelet Volume 9.6; Monocytes # (A) 0.6 k/uL (0-1.0); Monocytes % (A) 4 %; Neutrophils # (A) 9.1 k/uL (1.3-7.7); Neutrophils % (A) 63 %; Platelet Count 296 k/uL (150-450); Poikilocytosis Moderate; RBC 5.12 m/uL (3.80-5.40); RDW 15.6 % (11.5-15.5); WBC 14.4 k/uL (3.8-10.6)
[2019-04-20 20:26] LABS: African American GFR (CKD) 83.9 (60.0-200.0); Albumin 4.4 g/dL (3.80-4.90); Albumin/Globulin Ratio 1.76 (1.60-3.17); Anion Gap 15.1 mmol/L (4.00-12.00); Calcium 9.1 mg/dL (8.7-10.3); Carbon Dioxide 23.9 mmol/L (21.6-31.8); Globulin 2.5 g/dL (1.6-3.3); Potassium 4.2 mmol/L (3.5-5.5); Total Bilirubin 0.3 mg/dL (0.2-1.2); Total Protein 6.9 g/dL (6.2-8.2)
[2019-04-20 21:53] LABS: Hepatitis A Antibody IgM Non-Reactive (Non-Reactive); Hepatitis B Core IgM Non-Reactive (Non-Reactive); Hepatitis B Surface Antigen Non-Reactive (Non-Reactive); Hepatitis C IgG Antibody Non-Reactive (Non-Reactive)
[2019-04-21 07:10] LABS: Non-African American GFR(CKD) 72.4 (60.0-200.0)
[2019-04-21 11:47] LABS: Immunoglobulin M 96.6 mg/dL (40.0-280.0)
== END | disposition home or self-care (01) ==
LOC: LABWHC1 13:59
PROVIDERS: ATTEND Physician Assistant Medical
DX: G35 Multiple sclerosis (principal)
CPT/HCPCS: 36415; 80053; 80074; 82784; 82785; 85025; 86480

== ENCOUNTER → 2019-11-07 | Outpatient (CLI) | payer MEDICARE, OTHER ==
[2019-11-07 14:20] LABS: Basophils # (A) 0.1 k/uL (0-0.2); Basophils % (A) 1 %; Eosinophils # (A) 0.1 k/uL (0-0.7); Eosinophils % (A) 1 %; HGB 11.1 gm/dL (11.4-16.0); Hypochromasia Marked; Lymphocytes # (A) 2.4 k/uL (1.0-4.8); Lymphocytes % (A) 33 %; MCH 23.3 pg (25.0-35.0); MCHC 30.9 g/dL (31.0-37.0); MCV 75.6 fL (80.0-100.0); Mean Platelet Volume 9.6; Microcytosis Slight; Monocytes # (A) 0.4 k/uL (0-1.0); Monocytes % (A) 5 %; Neutrophils # (A) 4.2 k/uL (1.3-7.7); Neutrophils % (A) 58 %; Platelet Count 260 k/uL (150-450); Poikilocytosis Moderate; RBC 4.77 m/uL (3.80-5.40); RDW 15.9 % (11.5-15.5); WBC 7.2 k/uL (3.8-10.6)
[2019-11-07 20:00] LABS: African American GFR (CKD) 128.3 (60.0-200.0); Albumin 4.7 g/dL (3.80-4.90); Albumin/Globulin Ratio 2.14 (1.60-3.17); Anion Gap 10.8 mmol/L (4.00-12.00); BUN/Creat Ratio 12.86 Ratio (12.00-20.00); Calcium 9.4 mg/dL (8.7-10.3); Carbon Dioxide 25.2 mmol/L (21.6-31.8); Globulin 2.2 g/dL (1.6-3.3); Non-African American GFR(CKD) 110.7 (60.0-200.0); Potassium 4.6 mmol/L (3.5-5.5); Total Bilirubin 0.3 mg/dL (0.2-1.2); Total Protein 6.9 g/dL (6.2-8.2)
[2019-11-07 21:01] LABS: Hepatitis A Antibody IgM Non-Reactive (Non-Reactive); Hepatitis B Core IgM Non-Reactive (Non-Reactive); Hepatitis B Surface Antigen Non-Reactive (Non-Reactive); Hepatitis C IgG Antibody Non-Reactive (Non-Reactive)
[2019-11-08 11:19] LABS: Immunoglobulin M 91.6 mg/dL (40.0-280.0)
== END | disposition home or self-care (01) ==
LOC: LABWHC1 13:25
PROVIDERS: ATTEND Physician Assistant Medical
DX: G35 Multiple sclerosis (principal)
CPT/HCPCS: 36415; 80053; 80074; 82784; 82785; 85025; 86480

== ENCOUNTER 2020-07-05 22:56 | Inpatient (IN) | payer MEDICARE, OTHER ==
[2020-07-05] MEDS ORDERED: SODIUM CHLORIDE 0.9% 1,000 ML IV ONE (23:24)
[2020-07-05] MEDS ORDERED: LORazepam 2 MG/ML INJ IV STA (23:53)
[2020-07-05] MEDS ORDERED: HYDROmorphone 0.5 MG/0.5 ML SYRINGE IVP STA (23:53)
[2020-07-06] MEDS ORDERED: ACETAMINOPHEN TAB 325 MG TAB PO STA (00:52)
--- NOTE | 2020-07-06 01:18 | ED ---
ENT HPI - General Chief complaint: Dental/Oral Stated complaint: Facial swelling Time Seen by Provider: 07/05/20 23:17 Source: patient Mode of arrival: ambulatory Limitations: no limitations - History of Present Illness Initial comments: 40-year-old presenting to the emergency department today for chief complaint of front tooth pain. Patient states she is foot tooth pain and swelling of the gumline. Patient states that she has had this since last Wednesday. She states after she was initiated on Augmentin things started to get much better. Pt states that for the past 2 days increased pain, and new swelling developed. she states she went to her PCP who changed her antibiotics to clindamycin. Pt denies headaches, neck stiffness, nausea, vomiting. Pt states she has become very anxious that she is septic and is upset/anxious during history taking. Pt denies additional complaints. UPon arrival she appears nontoxic. Afebrile. - Related Data Home Medications Medication Instructions Recorded Confirmed DULoxetine HCL [Cymbalta] 60 mg PO DAILY 11/30/18 12/15/18 Acetaminophen Tab [Tylenol] 1,000 mg PO Q6H PRN 12/15/18 12/15/18 Baclofen [Lioresal] 10 mg PO BID PRN 12/15/18 12/15/18 Ibuprofen [Motrin Ib] 800 mg PO TID PRN 12/15/18 12/15/18 Previous Rx's Medication Instructions Recorded Amoxicillin/Potassium Clav 1 tab PO BID 3 Days #6 tab 12/19/18 [Augmentin 875-125 Tablet] Insulin Glargine,Hum.rec.anlog 21 unit SQ HS #5 syr 12/19/18 [Basaglar Kwikpen U-100] Insulin Lispro [Admelog Solostar] 9 unit SQ AC-TID #5 insuln.pen 12/19/18 Metoprolol Tartrate [Lopressor] 25 mg PO BID #60 tab 12/19/18 Pen Needle, Diabetic [Ultra-Fine 1 each SQ AC-TID #100 dis.needle 12/19/18 Pen Needle 6mm 32G (BD)] Allergies Allergy/AdvReac Type Severity Reaction Status Date / Time No Known Allergies Allergy Verified 07/05/20 23:07 Review of Systems ROS Statement: Those systems with pertinent positive or pertinent negative responses have been documented in the HPI. ROS Other: All systems not noted in ROS Statement are negative. Past Medical History Additional Past Medical History / Comment(s): OVARIAN CYST (THOUGHT TO BE CAUSE OF PAIN ) IS GONE. migraines, occ high BP, diarrhea, hx anemia, multiple sclerosis dx in 2007 History of Any Multi-Drug Resistant Organisms: None Reported Past Surgical History: Section, Cholecystectomy Additional Past Surgical History / Comment(s): MS Past Anesthesia/Blood Transfusion Reactions: Motion Sickness Past Psychological History: Anxiety Smoking Status: Never smoker Past Alcohol Use History: None Reported Past Drug Use History: None Reported - Past Family History Mother Family Medical History: No Reported History General Exam - General Exam Comments Initial Comments: General: The patient is awake and alert, anxious Eye: Pupils are equal, round and reactive to light, extra-ocular movements are intact. No nystagmus. There is normal conjunctiva bilaterally. No signs of icterus. Ears, nose, mouth and throat: There are moist mucous membranes. Numerous caries and missing and cracked teeth. Patient's front teeth have significant plaque and at the base there is noted to be swelling and tenderness to palpation. There is no swelling or tenderness over the hard or soft palate, th ere is no swelling or pain on to the tongue. No swelling or pain of the neck anteriorly or below the angle of the mandible. Obvious facial swelling/redness. Neck: The neck is supple, there is no tenderness or JVD. Cardiovascular: There is a regular rate and rhythm. No murmur, rub or gallop is appreciated. Respiratory: Lungs are clear to auscultation, respirations are non-labored, breath sounds are equal. No wheezes, stridor, rales, or rhonchi. Gastrointestinal: Soft, non-distended, non-tender abdomen without masses or organomegaly noted. There is no rebound or guarding present. Musculoskeletal: Normal ROM, no tenderness. Strength 5/5. Sensation intact. Radial and DP pulses equal bilaterally 2+. Neurological: A&O x 3. CN II-XII intact grossly, There are no obvious motor or sensory deficits. Coordination appears grossly intact. Speech is normal. Skin: Skin is warm and dry and no rashes or lesions are noted. Psychiatric: Cooperative, appropriate mood & affect, normal judgment. Limitations: no limitations Course Vital Signs 07/05/20 07/06/20 23:07 01:20 Temperature 99.5 F 99.9 F H Pulse Rate 145 H 130 H Respiratory 18 20 Rate Blood Pressure 136/94 123/87 O2 Sat by Pulse 97 97 Oximetry Medical Decision Making - Medical Decision Making Pt glucose elevated. gap 15. acetone +. hx of recent infection. concern DKA. pt initiated on insulin drip. IV abx. pt will be admitted for oral surgery consultation. medical management of DKA. patietn agreeable to admission and care plan. Discussed case wtih Dr pratt who is speak with accepting admitting providers, he is agreeable to current care plan/admission. - Lab Data Result diagrams: 07/05/20 00:00 07/05/20 00:00 Lab Results 07/05/20 07/05/20 07/05/20 Range/Units 00:00 00:00 00:00 WBC 7.9 (3.8-10.6) k/uL RBC 5.16 (3.80-5.40) m/uL Hgb 11.1 L (11.4-16.0) gm/dL Hct 34.2 (34.0-46.0) % MCV 66.3 L (80.0-100.0) fL MCH 21.6 L (25.0-35.0) pg MCHC 32.6 (31.0-37.0) g/dL RDW 17.8 H (11.5-15.5) % Plt Count 175 (150-450) k/uL MPV 8.8 Neutrophils % 82 % Lymphocytes % 10 % Monocytes % 6 % Eosinophils % 1 % Basophils % 1 % Neutrophils # 6.4 (1.3-7.7) k/uL Lymphocytes # 0.8 L (1.0-4.8) k/uL Monocytes # 0.5 (0-1.0) k/uL Eosinophils # 0.0 (0-0.7) k/uL Basophils # 0.1 (0-0.2) k/uL Hypochromasia Moderate Poikilocytosis Marked Anisocytosis Slight Microcytosis Marked Sodium 133 L (137-145) mmol/L Potassium 3.9 (3.5-5.1) mmol/L Chloride 95 L (98-107) mmol/L Carbon Dioxide 23 (22-30) mmol/L Anion Gap 15 mmol/L BUN 5 L (7-17) mg/dL Creatinine 0.32 L (0.52-1.04) mg/dL Est GFR (CKD-EPI)AfAm >90 (>60 ml/min/1.73 sqM) Est GFR (CKD-EPI)NonAf >90 (>60 ml/min/1.73 sqM) Glucose 310 H (74-99) mg/dL POC Glucose (mg/dL) (75-99) mg/dL POC Glu Human Performance Technologist ID Plasma Lactic Acid Samson 1.3 (0.7-2.0) mmol/L Calcium 9.3 (8.4-10.2) mg/dL Total Bilirubin 0.9 (0.2-1.3) mg/dL AST 30 (14-36) U/L ALT 46 H (4-34) U/L Alkaline Phosphatase 129 H (38-126) U/L Total Protein 7.9 (6.3-8.2) g/dL Albumin 4.5 (3.5-5.0) g/dL Urine Color Urine Appearance (Clear) Urine pH (5.0-8.0) Ur Specific [place] (1.001-1.035) Urine Protein (Negative) Urine Glucose (UA) (Negative) Urine Ketones (Negative) Urine Blood (Negative) Urine Nitrite (Negative) Urine Bilirubin (Negative) Urine Urobilinogen (<2.0) mg/dL Ur Leukocyte Esterase (Negative) Urine RBC (0-5) /hpf Urine WBC (0-5) /hpf Ur Squamous Epith Cells (0-4) /hpf Urine Bacteria (None) /hpf Cellular Casts (0) /lpf Hyaline Casts (0-2) /lpf Urine Mucus (None) /hpf Acetone, Qual (Negative) 07/05/20 07/06/20 07/06/20 Range/Units 23:00 01:39 02:37 WBC (3.8-10.6) k/uL RBC (3.80-5.40) m/uL Hgb (11.4-16.0) gm/dL Hct (34.0-46.0) % MCV (80.0-100.0) fL MCH (25.0-35.0) pg MCHC (31.0-37.0) g/dL RDW (11.5-15.5) % Plt Count (150-450) k/uL MPV Neutrophils % % Lymphocytes % % Monocytes % % Eosinophils % % Basophils % % Neutrophils # (1.3-7.7) k/uL Lymphocytes # (1.0-4.8) k/uL Monocytes # (0-1.0) k/uL Eosinophils # (0-0.7) k/uL Basophils # (0-0.2) k/uL Hypochromasia Poikilocytosis Anisocytosis Microcytosis Sodium (137-145) mmol/L Potassium (3.5-5.1) mmol/L Chloride (98-107) mmol/L Carbon Dioxide (22-30) mmol/L Anion Gap mmol/L BUN (7-17) mg/dL Creatinine (0.52-1.04) mg/dL Est GFR (CKD-EPI)AfAm (>60 ml/min/1.73 sqM) Est GFR (CKD-EPI)NonAf (>60 ml/min/1.73 sqM) Glucose (74-99) mg/dL POC Glucose (mg/dL) 263 H (75-99) mg/dL POC Glu Human Performance Technologist ID Heft, Trista Plasma Lactic Acid Samson (0.7-2.0) mmol/L Calcium (8.4-10.2) mg/dL Total Bilirubin (0.2-1.3) mg/dL AST (14-36) U/L ALT (4-34) U/L Alkaline Phosphatase (38-126) U/L Total Protein (6.3-8.2) g/dL Albumin (3.5-5.0) g/dL Urine Color Yellow Urine Appearance Clear (Clear) Urine pH 6.0 (5.0-8.0) Ur Specific [place] 1.045 H (1.001-1.035) Urine Protein 3+ H (Negative) Urine Glucose (UA) 4+ H (Negative) Urine Ketones 4+ H (Negative) Urine Blood Small H (Negative) Urine Nitrite Negative (Negative) Urine Bilirubin Negative (Negative) Urine Urobilinogen <2.0 (<2.0) mg/dL Ur Leukocyte Esterase Negative (Negative) Urine RBC 1 (0-5) /hpf Urine WBC 1 (0-5) /hpf Ur Squamous Epith Cells 3 (0-4) /hpf Urine Bacteria Rare H (None) /hpf Cellular Casts 1 (0) /lpf Hyaline Casts 3 H (0-2) /lpf Urine Mucus Occasional H (None) /hpf Acetone, Qual Positive (Negative) Disposition Clinical Impression: DKA (diabetic ketoacidoses), Dental infection Disposition: ADMITTED IP TO THIS HOSP Condition: Stable Instructions (If sedation given, give patient instructions): Dental Abscess (ED) Is patient prescribed a controlled substance at d/c from ED?: No Referrals: Rayray Up MD [Primary Care Provider] - 1-2 days Time of Disposition: :53 Decision to Admit Reason: Admit from EC Decision Date: 07/06/20 Decision Time: 53
[2020-07-06] MEDS ORDERED: PIPERACILLIN-TAZOBACTAM 3.375 GM in SODIUM CHLORIDE 0.9% 100 ML IVPB STA (01:52)
[2020-07-06] MEDS ORDERED: CLINDAMYCIN 600 MG in DEXTROSE 5% IN WATER 50 ML IVPB ONE ×2 (02:00)
[2020-07-06 02:03] LABS: Appearance,Urine Clear (Clear); Bacteria,Urine Rare /hpf; Bilirubin,Urine Negative (Negative); Blood,Urine Small (Negative); Cellular Casts,Urine 1 /lpf (0); Color,Urine Yellow; Glucose,Urine (UA) 4+ (Negative); Hyaline Casts,Urine 3 /lpf (0-2); Leukocyte Esterase,Urine Negative (Negative); Mucus,Urine Occasional /hpf; Nitrite,Urine Negative (Negative); Protein,Urine 3+ (Negative); RBC,Urine 1 /hpf (0-5); Specific Gravity,Urine 1.045 (1.001-1.035); Squamous Epithelial Cell,Urine 3 /hpf (0-4); Urobilinogen,Urine <2.0 mg/dL (<2.0); WBC,Urine 1 /hpf (0-5)
[2020-07-06 02:11] LABS: Ketones,Urine 4+ (Negative)
[2020-07-06 02:38] LABS: Glucose,Whole Blood 263 mg/dL (75-99)
[2020-07-06] MEDS: INSULIN REGULAR 100 UNIT in SODIUM CHLORIDE 0.9% 100 ML IV SCH ×2 (03:20→12:27)
[2020-07-06] MEDS: D5-0.45% NACL WITH KCL 20MEQ/L 1,000 ML IV SCH ×3 (03:22→16:57)
[2020-07-06 04:02] LABS: Glucose,Whole Blood 278 mg/dL (75-99)
[2020-07-06 04:39] LABS: Glucose,Whole Blood 275 mg/dL (75-99)
[2020-07-06 04:44] LABS: Potassium 3.6 mmol/L (3.5-5.1)
[2020-07-06 04:45] LABS: African American GFR (CKD) >90 (>60 ml/min/1.73 sqM); Anion Gap 11 mmol/L; Blood Urea Nitrogen 4 mg/dL (7-17); Carbon Dioxide 23 mmol/L (22-30); Chloride 99 mmol/L (98-107); Glucose 281 mg/dL (74-99); Non-African American GFR(CKD) >90 (>60 ml/min/1.73 sqM); Phosphorus 2.5 mg/dL (2.5-4.5); Sodium 133 mmol/L (137-145)
[2020-07-06 05:06] LABS: Glucose,Whole Blood 288 mg/dL (75-99)
[2020-07-06] MEDS: SODIUM CHLORIDE 0.9% 1,000 ML IV SCH ×5 (05:09→21:03)
[2020-07-06 05:40] LABS: Glucose,Whole Blood 261 mg/dL (75-99)
[2020-07-06] MEDS ORDERED: ACETAMINOPHEN TAB 325 MG TAB PO PRN (05:44)
[2020-07-06] MEDS: METOPROLOL TARTRATE 25 MG TAB PO SCH ×3 (05:58→20:00)
[2020-07-06] MEDS: HYDROcodone/APAP 5-325MG 1 EACH TAB PO PRN ×3 (05:59→21:03)
[2020-07-06] MEDS ORDERED: INSULIN DETEMIR (LEVEMIR) 100 UNIT/ML SYR SQ ONE (06:00)
[2020-07-06 06:13] LABS: Glucose,Whole Blood 243 mg/dL (75-99)
[2020-07-06 06:53] LABS: Glucose,Whole Blood 241 mg/dL (75-99)
[2020-07-06 07:35] LABS: Glucose,Whole Blood 233 mg/dL (75-99)
[2020-07-06] MEDS: INSULIN ASPART (NovoLOG) 100 UNIT/ML VIAL SQ SCH ×4 (07:40→21:02)
[2020-07-06 08:38] LABS: African American GFR (CKD) >90 (>60 ml/min/1.73 sqM); Anion Gap 11 mmol/L; Blood Urea Nitrogen 4 mg/dL (7-17); Carbon Dioxide 24 mmol/L (22-30); Chloride 99 mmol/L (98-107); Glucose 242 mg/dL (74-99); Non-African American GFR(CKD) >90 (>60 ml/min/1.73 sqM); Potassium 3.7 mmol/L (3.5-5.1); Sodium 134 mmol/L (137-145)
[2020-07-06] MEDS ORDERED: MORPHINE SULFATE 2 MG/ML SYRINGE IVP STA (09:04)
[2020-07-06 11:55] LABS: Glucose,Whole Blood 258 mg/dL (75-99)
[2020-07-06] MEDS: CLINDAMYCIN 600 MG in DEXTROSE 5% IN WATER 50 ML IVPB SCH ×4 (12:34→21:02)
[2020-07-06 12:59] VITALS: BMI 44.3
--- NOTE | 2020-07-06 14:54 | P.HPIM ---
History of Present Illness H&P Date: 07/06/20 Chief Complaint: Facial swelling 40-year-old presenting to the emergency department today for chief complaint of front tooth pain. Patient states she is foot tooth pain and swelling of the gumline. Patient states that she has had this since last Wednesday. She states after she was initiated on Augmentin things started to get much better. Pt states that for the past 2 days increased pain, and new swelling developed. she states she went to her PCP who changed her antibiotics to clindamycin. Pt denies headaches, neck stiffness, nausea, vomiting. Pt states she has become very anxious that she is septic and is upset/anxious during history taking. In the ED patient's blood glucose was found to be markedly elevated and she was started on IV insulin infusion for concern for DKA; patient was started on IV antibiotics and is admitted to the hospital for evaluation by oral surgery Review of Systems REVIEW OF SYSTEMS: CONSTITUTIONAL: No fever, no malaise, no fatigue. HEENT: No recent visual problems or hearing problems. Denied any sore throat. CARDIOVASCULAR: No chest pain, orthopnea, PND, no palpitations, no syncope. PULMONARY: No shortness of breath, no cough, no hemoptysis. GASTROINTESTINAL: No diarrhea, no nausea, no vomiting, no abdominal pain. NEUROLOGICAL: No headaches, no weakness, no numbness. HEMATOLOGICAL: Denies any bleeding or petechiae. GENITOURINARY: Denies any burning micturition, frequency, or urgency. MUSCULOSKELETAL/RHEUMATOLOGICAL: Denies any joint pain, swelling, or any muscle pain. ENDOCRINE: Denies any polyuria or polydipsia. The rest of the 14-point review of systems is negative. Past Medical History Additional Past Medical History / Comment(s): OVARIAN CYST (THOUGHT TO BE CAUSE OF PAIN ) IS GONE. migraines, occ high BP, diarrhea, hx anemia, multiple sclerosis dx in 2007 History of Any Multi-Drug Resistant Organisms: None Reported Past Surgical History: Section, Cholecystectomy Additional Past Surgical History / Comment(s): MS Past Anesthesia/Blood Transfusion Reactions: Motion Sickness Past Psychological History: Anxiety Smoking Status: Never smoker Past Alcohol Use History: None Reported Past Drug Use History: None Reported - Past Family History Mother Family Medical History: No Reported History Medications and Allergies Home Medications Medication Instructions Recorded Confirmed Type DULoxetine HCL [Cymbalta] 60 mg PO DAILY 11/30/18 07/06/20 History Baclofen [Lioresal] 15 mg PO TID 12/15/18 07/06/20 History Metoprolol Tartrate [Lopressor] 25 mg PO BID #60 tab 12/19/18 07/06/20 Rx Clindamycin HCl 300 mg PO Q8H 07/06/20 07/06/20 History Gabapentin 300 mg PO BID 07/06/20 07/06/20 History HYDROcodone/APAP 5-325MG [[place] 1 tab PO DAILY PRN 07/06/20 07/06/20 History 5-325] Ibuprofen [Motrin] 800 mg PO Q8H PRN 07/06/20 07/06/20 History Insulin Aspart [NovoLOG Flexpen] 10 units SQ AC-TID 07/06/20 07/06/20 History Insulin Glargine,Hum.rec.anlog 30 unit SQ HS 07/06/20 07/06/20 History [Basaglar Kwikpen U-100] LORazepam [Ativan] 1 mg PO BID PRN 07/06/20 07/06/20 History Allergies Allergy/AdvReac Type Severity Reaction Status Date / Time No Known Allergies Allergy Verified 07/06/20 10:16 Physical Exam Vitals: Vital Signs Temp Pulse Pulse Resp BP BP Pulse Ox 07/06/20 08:00 99.5 F 126 H 16 137/84 98 07/06/20 03:45 99.7 F H 138 H 18 138/86 96 07/06/20 02:55 98.3 F 105 H 18 131/88 98 07/06/20 01:20 99.9 F H 130 H 20 123/87 97 07/05/20 23:07 99.5 F 145 H 18 136/94 97 Intake and Output 07/05/20 07/06/20 07/06/20 22:59 06:59 14:59 Intake Total 21.935 39 Balance 21.935 39 Intake: Intake, IV Titration .935 39 Amount Insulin Regular 100 unit 21.935 39 In Sodium Chloride 0.9% 100 ml @ 0.1 UNITS/KG/HR 12.003 mls/hr IV .Q8H25M [facility] Rx#:[id number] Other: Voiding Method Toilet Weight 124.5 kg - Constitutional General appearance: Present: average body habitus, cooperative, no acute distress - EENT Eyes: Present: anicteric sclerae, EOMI, PERRLA, normal appearance ENT: Present: hearing grossly normal, normal oropharynx Ears: bilateral: normal - Neck Neck: Present: normal ROM. Absent: lymphadenopathy, rigidity, thyromegaly Carotids: negative: bruit present Thyroid: bilateral: normal size, negative: enlarged, nodule - Respiratory Respiratory: bilateral: CTA, negative: rales, rhonchi, wheezing - Cardiovascular Rhythm: regular Heart sounds: normal: S1, S2 Abnormal Heart Sounds: Absent: systolic murmur, diastolic murmur - Gastrointestinal General gastrointestinal: Present: normal bowel sounds, soft. Absent: distended, organomegaly, tenderness - Genitourinary Genitourinary Comment(s): deferred - Integumentary Integumentary: Present: normal turgor. Absent: jaundiced, rash, ulcer - Neurologic Neurologic: Present: CNII-XII intact. Absent: focal deficits - Musculoskeletal Musculoskeletal: Present: gait normal, strength equal bilaterally - Psychiatric Psychiatric: Present: A&O x's 3, appropriate affect, intact judgment & insight Results CBC & Chem 7: 07/05/20 00:00 07/06/20 07:39 Labs: Abnormal Lab Results - Last 24 Hours (Table) 07/05/20 07/05/20 07/06/20 Range/Units 00:00 00:00 01:39 Hgb 11.1 L (11.4-16.0) gm/dL MCV 66.3 L (80.0-100.0) fL MCH 21.6 L (25.0-35.0) pg RDW 17.8 H (11.5-15.5) % Lymphocytes # 0.8 L (1.0-4.8) k/uL Sodium 133 L (137-145) mmol/L Chloride 95 L (98-107) mmol/L BUN 5 L (7-17) mg/dL Creatinine 0.32 L (0.52-1.04) mg/dL Glucose 310 H (74-99) mg/dL POC Glucose (mg/dL) (75-99) mg/dL Phosphorus (2.5-4.5) mg/dL ALT 46 H (4-34) U/L Alkaline Phosphatase 129 H (38-126) U/L Ur Specific [place] 1.045 H (1.001-1.035) Urine Protein 3+ H (Negative) Urine Glucose (UA) 4+ H (Negative) Urine Ketones 4+ H (Negative) Urine Blood Small H (Negative) Urine Bacteria Rare H (None) /hpf Hyaline Casts 3 H (0-2) /lpf Urine Mucus Occasional H (None) /hpf 07/06/20 07/06/20 07/06/20 Range/Units 02:37 03:52 04:06 Hgb (11.4-16.0) gm/dL MCV (80.0-100.0) fL MCH (25.0-35.0) pg RDW (11.5-15.5) % Lymphocytes # (1.0-4.8) k/uL Sodium 133 L (137-145) mmol/L Chloride (98-107) mmol/L BUN 4 L (7-17) mg/dL Creatinine 0.31 L (0.52-1.04) mg/dL Glucose 281 H (74-99) mg/dL POC Glucose (mg/dL) 263 H 278 H (75-99) mg/dL Phosphorus (2.5-4.5) mg/dL ALT (4-34) U/L Alkaline Phosphatase (38-126) U/L Ur Specific [place] (1.001-1.035) Urine Protein (Negative) Urine Glucose (UA) (Negative) Urine Ketones (Negative) Urine Blood (Negative) Urine Bacteria (None) /hpf Hyaline Casts (0-2) /lpf Urine Mucus (None) /hpf 07/06/20 07/06/20 07/06/20 Range/Units 04:28 04:54 05:29 Hgb (11.4-16.0) gm/dL MCV (80.0-100.0) fL MCH (25.0-35.0) pg RDW (11.5-15.5) % Lymphocytes # (1.0-4.8) k/uL Sodium (137-145) mmol/L Chloride (98-107) mmol/L BUN (7-17) mg/dL Creatinine (0.52-1.04) mg/dL Glucose (74-99) mg/dL POC Glucose (mg/dL) 275 H 288 H 261 H (75-99) mg/dL Phosphorus (2.5-4.5) mg/dL ALT (4-34) U/L Alkaline Phosphatase (38-126) U/L Ur Specific [place] (1.001-1.035) Urine Protein (Negative) Urine Glucose (UA) (Negative) Urine Ketones (Negative) Urine Blood (Negative) Urine Bacteria (None) /hpf Hyaline Casts (0-2) /lpf Urine Mucus (None) /hpf 07/06/20 07/06/20 07/06/20 Range/Units 06:11 06:52 07:34 Hgb (11.4-16.0) gm/dL MCV (80.0-100.0) fL MCH (25.0-35.0) pg RDW (11.5-15.5) % Lymphocytes # (1.0-4.8) k/uL Sodium (137-145) mmol/L Chloride (98-107) mmol/L BUN (7-17) mg/dL Creatinine (0.52-1.04) mg/dL Glucose (74-99) mg/dL POC Glucose (mg/dL) 243 H 241 H 233 H (75-99) mg/dL Phosphorus (2.5-4.5) mg/dL ALT (4-34) U/L Alkaline Phosphatase (38-126) U/L Ur Specific [place] (1.001-1.035) Urine Protein (Negative) Urine Glucose (UA) (Negative) Urine Ketones (Negative) Urine Blood (Negative) Urine Bacteria (None) /hpf Hyaline Casts (0-2) /lpf Urine Mucus (None) /hpf 07/06/20 07/06/20 Range/Units 07:39 07:39 Hgb (11.4-16.0) gm/dL MCV (80.0-100.0) fL MCH (25.0-35.0) pg RDW (11.5-15.5) % Lymphocytes # (1.0-4.8) k/uL Sodium 134 L (137-145) mmol/L Chloride (98-107) mmol/L BUN 4 L (7-17) mg/dL Creatinine 0.36 L (0.52-1.04) mg/dL Glucose 242 H (74-99) mg/dL POC Glucose (mg/dL) (75-99) mg/dL Phosphorus 2.4 L (2.5-4.5) mg/dL ALT (4-34) U/L Alkaline Phosphatase (38-126) U/L Ur Specific [place] (1.001-1.035) Urine Protein (Negative) Urine Glucose (UA) (Negative) Urine Ketones (Negative) Urine Blood (Negative) Urine Bacteria (None) /hpf Hyaline Casts (0-2) /lpf Urine Mucus (None) /hpf Thrombosis Risk Factor Assmnt - Choose All That Apply Each Factor Represents 1 point: Obesity (BMI >25) Thrombosis Risk Factor Assessment Total Risk Factor Score: 1 Thrombosis Risk Factor Assessment Level: Low Risk Assessment and Plan Assessment: 1. DKA; IV insulin infusion has been discontinued; we will resume with home dose of Levemir along with short acting insulin for coverage 2. Dental abscess; patient has been resumed on IV clindamycin; await further recommendations from oral surgery 3. Hyperglycemia; uncontrolled insulin dependent diabetes; restart patient on home dose of Levemir; monitor Accu-Cheks before meals and at bedtime with insulin sliding scale 4. Depression/anxiety; we'll continue with home dose of Cymbalta; hold off on Ativan at this time 5. Morbid obesity; counseling done and need for weight reduction DVT prophylaxis; SCDs CODE STATUS; full code
[2020-07-06 16:55] LABS: Glucose,Whole Blood 235 mg/dL (75-99)
[2020-07-06] MEDS: BACLOFEN 10 MG TAB PO SCH ×2 (17:05→21:01)
[2020-07-06] MEDS: GABAPENTIN 300 MG CAP PO SCH (20:00)
[2020-07-06 20:18] LABS: Glucose,Whole Blood 306 mg/dL (75-99)
[2020-07-06] MEDS ORDERED: INSULIN DETEMIR (LEVEMIR) 100 UNIT/ML SYR SQ SCH ×2 (21:00)
[2020-07-06] MEDS ORDERED: MORPHINE SULFATE 4 MG/ML SYRINGE IVP ONE (22:44)
[2020-07-07] MEDS: CLINDAMYCIN 600 MG in DEXTROSE 5% IN WATER 50 ML IVPB SCH ×6 (03:24→21:50)
[2020-07-07] MEDS: HYDROcodone/APAP 5-325MG 1 EACH TAB PO PRN ×3 (03:24→17:41)
[2020-07-07 06:17] LABS: Glucose,Whole Blood 243 mg/dL (75-99)
[2020-07-07] MEDS: INSULIN ASPART (NovoLOG) 100 UNIT/ML VIAL SQ SCH ×4 (06:31→21:51)
[2020-07-07 07:53] LABS: Anisocytosis Slight; Basophils % (A) 1 %; Eosinophils # (A) 0.1 k/uL (0-0.7); Eosinophils % (A) 1 %; HCT 31.1 % (34.0-46.0); HGB 9.9 gm/dL (11.4-16.0); Hypochromasia Marked; Lymphocytes # (A) 1.8 k/uL (1.0-4.8); Lymphocytes % (A) 31 %; MCV 68.7 fL (80.0-100.0); Mean Platelet Volume 7.6; Microcytosis Marked; Monocytes # (A) 0.5 k/uL (0-1.0); Monocytes % (A) 9 %; Neutrophils # (A) 3.2 k/uL (1.3-7.7); Neutrophils % (A) 55 %; Platelet Count 144 k/uL (150-450); Poikilocytosis Moderate; RBC 4.53 m/uL (3.80-5.40); RDW 18.1 % (11.5-15.5); WBC 5.9 k/uL (3.8-10.6)
[2020-07-07 08:11] LABS: Potassium 3.5 mmol/L (3.5-5.1)
[2020-07-07 08:12] LABS: African American GFR (CKD) >90 (>60 ml/min/1.73 sqM); Anion Gap 8 mmol/L; Blood Urea Nitrogen 4 mg/dL (7-17); Calcium 8.3 mg/dL (8.4-10.2); Carbon Dioxide 30 mmol/L (22-30); Chloride 99 mmol/L (98-107); Glucose 231 mg/dL (74-99); Non-African American GFR(CKD) >90 (>60 ml/min/1.73 sqM); Sodium 137 mmol/L (137-145)
[2020-07-07] MEDS: BACLOFEN 10 MG TAB PO SCH ×3 (08:49→21:51)
[2020-07-07] MEDS: GABAPENTIN 300 MG CAP PO SCH ×2 (08:49→21:51)
[2020-07-07] MEDS: DULoxetine HCL 60 MG CAPSULE.DR PO SCH (08:49)
[2020-07-07] MEDS: METOPROLOL TARTRATE 25 MG TAB PO SCH ×2 (08:49→21:52)
[2020-07-07 11:52] LABS: Glucose,Whole Blood 276 mg/dL (75-99)
[2020-07-07] MEDS ORDERED: METOPROLOL TARTRATE 25 MG TAB PO STA (12:15)
[2020-07-07] MEDS: SODIUM CHLORIDE 0.9% 1,000 ML IV SCH ×2 (14:18→14:19)
[2020-07-07] MEDS: HYDROmorphone 0.5 MG/0.5 ML SYRINGE IVP PRN ×2 (14:22→21:50)
--- NOTE | 2020-07-07 14:25 | P.PN ---
Subjective Progress Note Date: 07/07/20 Principal diagnosis: Acute DKA; resolved Dental abscess 40-year-old presenting to the emergency department today for chief complaint of front tooth pain. Patient states she is foot tooth pain and swelling of the gumline. Patient states that she has had this since last Wednesday. She states after she was initiated on Augmentin things started to get much better. Pt states that for the past 2 days increased pain, and new swelling developed. she states she went to her PCP who changed her antibiotics to clindamycin. Pt denies headaches, neck stiffness, nausea, vomiting. Pt states she has become very anxious that she is septic and is upset/anxious during history taking. In the ED patient's blood glucose was found to be markedly elevated and she was started on IV insulin infusion for concern for DKA; patient was started on IV antibiotics and is admitted to the hospital for evaluation by oral surgery 07/07/2020 Patient is seen and evaluated in the room with family members at bedside; continues to complain of severe uncontrolled; currently on IV Dilaudid 0.5 mg every 4 hours when necessary with [place] 5 mg every 6 hours when necessary; patient continues to request escalation of pain therapy Vital signs are reviewed and patient remains afebrile, heart rate 111, respirations 16 and blood pressure 135/72; O2 saturation 96% on room air Lab review shows a white blood count of 5.1, hemoglobin 9.9, hematocrit 31.1 and platelet count of 144; chemical profile sodium 137, potassium 3.5, BUN/creatinine of 4/0.46; blood glucose ranging between 243-276; we will plan to increase Levemir up to 35 units subcu daily at bedtime Patient remains on IV antibiotics in form of clindamycin 600 mg every 8 hours; await evaluation and further recommendations from oral surgery Objective - Vital Signs Vital signs: Vital Signs Temp 96.5 F L 07/07/20 08:00 Pulse 111 H 07/07/20 12:00 Resp 16 07/07/20 12:00 BP 135/72 07/07/20 12:00 Pulse Ox 96 07/07/20 12:00 Intake & Output 07/06/20 07/07/20 07/07/20 18:59 06:59 18:59 Intake Total 1529 120 Balance 1529 120 Weight 124.5 kg 118.3 kg Intake: Intake, IV Titration 989 Amount Clindamycin 600 mg In 50 Dextrose 5% in Water 50 ml @ 50 mls/hr IVPB Q8H [facility] Rx#:[id number] Insulin Regular 100 unit 39 In Sodium Chloride 0.9% 100 ml @ 0.1 UNITS/KG/HR 12.003 mls/hr IV .Q8H25M [facility] Rx#:[id number] Piperacillin-Tazobactam 3 100 .375 gm In Sodium Chloride 0.9% 100 ml @ 200 mls/hr IVPB [facility] Rx#:[id number] Sodium Chloride 0.9% 1, 800 000 ml @ 200 mls/hr IV . Q5H [facility] Rx#:[id number] Oral 540 120 Other: Voiding Method Toilet Toilet Toilet # Voids 1 - Exam - Constitutional General appearance: Present: average body habitus, cooperative, no acute distress - EENT Eyes: Present: anicteric sclerae, EOMI, PERRLA, normal appearance ENT: Present: hearing grossly normal, normal oropharynx Ears: bilateral: normal - Neck Neck: Present: normal ROM. Absent: lymphadenopathy, rigidity, thyromegaly Carotids: negative: bruit present Thyroid: bilateral: normal size, negative: enlarged, nodule - Respiratory Respiratory: bilateral: CTA, negative: rales, rhonchi, wheezing - Cardiovascular Rhythm: regular Heart sounds: normal: S1, S2 Abnormal Heart Sounds: Absent: systolic murmur, diastolic murmur - Gastrointestinal General gastrointestinal: Present: normal bowel sounds, soft. Absent: distended, organomegaly, tenderness - Genitourinary Genitourinary Comment(s): deferred - Integumentary Integumentary: Present: normal turgor. Absent: jaundiced, rash, ulcer - Neurologic Neurologic: Present: CNII-XII intact. Absent: focal deficits - Musculoskeletal Musculoskeletal: Present: gait normal, strength equal bilaterally - Psychiatric Psychiatric: Present: A&O x's 3, appropriate affect, intact judgment & insight - Labs CBC & Chem 7: 07/07/20 06:51 07/07/20 06:51 Labs: Abnormal Lab Results - Last 24 Hours (Table) 07/06/20 07/06/20 07/07/20 Range/Units 16:54 20:16 06:14 Hgb (11.4-16.0) gm/dL Hct (34.0-46.0) % MCV (80.0-100.0) fL MCH (25.0-35.0) pg RDW (11.5-15.5) % Plt Count (150-450) k/uL BUN (7-17) mg/dL Creatinine (0.52-1.04) mg/dL Glucose (74-99) mg/dL POC Glucose (mg/dL) 235 H 306 H 243 H (75-99) mg/dL Calcium (8.4-10.2) mg/dL 07/07/20 07/07/20 07/07/20 Range/Units 06:51 06:51 11:51 Hgb 9.9 L (11.4-16.0) gm/dL Hct 31.1 L (34.0-46.0) % MCV 68.7 L (80.0-100.0) fL MCH 22.0 L (25.0-35.0) pg RDW 18.1 H (11.5-15.5) % Plt Count 144 L (150-450) k/uL BUN 4 L (7-17) mg/dL Creatinine 0.46 L (0.52-1.04) mg/dL Glucose 231 H (74-99) mg/dL POC Glucose (mg/dL) 276 H (75-99) mg/dL Calcium 8.3 L (8.4-10.2) mg/dL Assessment and Plan Assessment: 1. DKA; IV insulin infusion has been discontinued; we will resume with home dose of Levemir along with short acting insulin for coverage 2. Dental abscess; patient has been resumed on IV clindamycin; await further recommendations from oral surgery 3. Hyperglycemia; uncontrolled insulin dependent diabetes; restart patient on home dose of Levemir; monitor Accu-Cheks before meals and at bedtime with insulin sliding scale 4. Depression/anxiety; we'll continue with home dose of Cymbalta; hold off on Ativan at this time 5. Morbid obesity; counseling done and need for weight reduction DVT prophylaxis; SCDs CODE STATUS; full code
[2020-07-07 17:11] LABS: Glucose,Whole Blood 253 mg/dL (75-99)
[2020-07-07 20:34] LABS: Glucose,Whole Blood 274 mg/dL (75-99)
[2020-07-07] MEDS ORDERED: INSULIN DETEMIR (LEVEMIR) 100 UNIT/ML SYR SQ SCH (21:00)
[2020-07-08] MEDS: HYDROcodone/APAP 5-325MG 1 EACH TAB PO PRN ×2 (02:40→09:48)
[2020-07-08] MEDS: CLINDAMYCIN 600 MG in DEXTROSE 5% IN WATER 50 ML IVPB SCH ×4 (02:47→12:13)
[2020-07-08] MEDS: HYDROmorphone 0.5 MG/0.5 ML SYRINGE IVP PRN ×2 (05:06→11:55)
[2020-07-08 06:14] LABS: Anisocytosis Slight; Basophils % (A) 1 %; Eosinophils # (A) 0.1 k/uL (0-0.7); Eosinophils % (A) 2 %; HGB 10.1 gm/dL (11.4-16.0); Hypochromasia Marked; Lymphocytes # (A) 1.7 k/uL (1.0-4.8); Lymphocytes % (A) 32 %; MCH 22.2 pg (25.0-35.0); MCHC 32.5 g/dL (31.0-37.0); MCV 68.4 fL (80.0-100.0); Mean Platelet Volume 8.3; Microcytosis Marked; Monocytes # (A) 0.4 k/uL (0-1.0); Monocytes % (A) 7 %; Neutrophils # (A) 2.9 k/uL (1.3-7.7); Neutrophils % (A) 54 %; Platelet Count 171 k/uL (150-450); Poikilocytosis Moderate; RBC 4.53 m/uL (3.80-5.40); RDW 18.3 % (11.5-15.5); WBC 5.3 k/uL (3.8-10.6)
[2020-07-08 07:20] LABS: Glucose,Whole Blood 225 mg/dL (75-99)
[2020-07-08] MEDS: GABAPENTIN 300 MG CAP PO SCH (08:05)
[2020-07-08] MEDS: BACLOFEN 10 MG TAB PO SCH (08:05)
[2020-07-08] MEDS: METOPROLOL TARTRATE 25 MG TAB PO SCH (08:06)
[2020-07-08] MEDS: DULoxetine HCL 60 MG CAPSULE.DR PO SCH (08:06)
[2020-07-08] MEDS: INSULIN ASPART (NovoLOG) 100 UNIT/ML VIAL SQ SCH ×2 (08:18→11:55)
[2020-07-08 10:00] LABS: Anion Gap 9.7 mmol/L (4.00-12.00); BUN/Creat Ratio 8.33 Ratio (12.00-20.00); Calcium 8.7 mg/dL (8.7-10.3); Carbon Dioxide 30.3 mmol/L (21.6-31.8); Non-African American GFR(CKD) 115.6 (60.0-200.0); Potassium 3.3 mmol/L (3.5-5.5)
[2020-07-08 11:25] LABS: Glucose,Whole Blood 264 mg/dL (75-99)
[2020-07-08] MEDS ORDERED: Potassium Replacement Protocol 1 EACH MISC MISCELLANE PRN (12:49)
[2020-07-08 13:04] VITALS: BP 124/77; PULSE 92; RESP 19; TEMP 97.9
[2020-07-08] MEDS: POTASSIUM CHLORIDE ER 20 MEQ TAB.ER PO SCH ×2 (13:20→14:15)
--- NOTE | 2020-07-08 14:02 | CT ---
EXAMINATION TYPE: CT facial bones wo con DATE OF EXAM: 07/08/2020 COMPARISON: None. HISTORY: Possible dental abscess, facial pain and swelling CT DLP: 570.80 mGycm. Automated Exposure Control for Dose Reduction was Utilized. TECHNIQUE: CT scan of the facial bones is performed without contrast. FINDINGS: Mandible is intact. Temporomandibular joints are maintained bilaterally. There are cavitary fillings involving the molar teeth of the maxilla bilaterally and involving several teeth of the man dible. There is lack of dentition in the lateral mandible noted. Significant lucency consistent with dental cavity in the canine and premolar teeth of the bilateral mandible. There is focal lucency at r oot of the premolar teeth in the mandible left more prominent than right. No well-formed fluid collec tion or abscess is seen. Prominent submandibular lymph nodes bilaterally axial image 4 with additional posterior slightly enla rged 1.4 x 1.0 cm lymph node on the right side noted. Parotid and submandibular glands symmetric and within normal limits. Visualized paranasal sinuses are clear. Globes are intact bilaterally. Airway is maintained. IMPRESSION: Bilateral dental cavities suspected. Possible tiny left greater than right apical or root abscesses in the premolar teeth of the mandible. No well-formed fluid collection or drainable absces s.
--- NOTE | 2020-07-08 14:51 | P.DS ---
Providers Date of admission: 07/06/20 02:33 Expected date of discharge: 07/08/20 Attending physician: Blayne Gonzales MD Consults: 07/06/20 02:12 Consult Physician Routine Consulting Provider: Beny Rodríguez Consult Reason/Comments: dental infection Do you want consulting provider notified?: Yes, Notify in am Primary care physician: Jeovanny Seo Hospital Course: Final diagnosis DKA, resolved Dental abscess Diabetes mellitus 2, insulin-dependent with uncontrolled Hyperglycemia Depression/anxiety Morbid obesity DVT prophylaxis Full code Discharge disposition Patient is being discharged in a stable condition with guarded prognosis to home. Patient will follow-up with Dr. Up in the outpatient setting upon discharge. Patient is also to follow-up with oral surgery DrFarhat Rodríguez this Wednesday as scheduled. She will continue on oral clindamycin. Recommend repeat labs to monitor electrolytes. Total time taken is greater than 35 minutes. Hospital course Acute DKA; resolved Dental abscess 40-year-old presenting to the emergency department today for chief complaint of front tooth pain. Patient states she is foot tooth pain and swelling of the gumline. Patient states that she has had this since last Wednesday. She states after she was initiated on Augmentin things started to get much better. Pt states that for the past 2 days increased pain, and new swelling developed. she states she went to her PCP who changed her antibiotics to clindamycin. Pt denies headaches, neck stiffness, nausea, vomiting. Pt states she has become very anxious that she is septic and is upset/anxious during history taking. In the ED patient's blood glucose was found to be markedly elevated and she was started on IV insulin infusion for concern for DKA; patient was started on IV antibiotics and is admitted to the hospital for evaluation by oral surgery 07/07/2020 Patient is seen and evaluated in the room with family members at bedside; continues to complain of severe uncontrolled; currently on IV Dilaudid 0.5 mg every 4 hours when necessary with [place] 5 mg every 6 hours when necessary; patient continues to request escalation of pain therapy Vital signs are reviewed and patient remains afebrile, heart rate 111, respirations 16 and blood pressure 135/72; O2 saturation 96% on room air Lab review shows a white blood count of 5.1, hemoglobin 9.9, hematocrit 31.1 and platelet count of 144; chemical profile sodium 137, potassium 3.5, BUN/creatinine of 4/0.46; blood glucose ranging between 243-276; we will plan to increase Levemir up to 35 units subcu daily at bedtime Patient remains on IV antibiotics in form of clindamycin 600 mg every 8 hours; await evaluation and further recommendations from oral surgery 07/08/2020 Patient is seen in follow-up stating that her facial discomfort slightly improved and continues with pain medication and IV antibiotics in the form of clindamycin. Was seen and evaluated by Dr. Rodríguez and underwent facial CT showing no drainable abscess noted with multiple dental caries and fractured teeth. Patient will follow-up with Dr. Rodríguez in his office this Wednesday and is to continue with oral antibiotics in the form of clindamycin. Instructed the patient to continue to monitor blood sugars before meals and at bedtime and continue with consistent carb diet and close outpatient follow-up with primary care provider. Potassium was slightly low at 3.3 and replaced and will provide prescription for repeat labs in a few days to monitor electrolytes. Currently no reports of chest pain, shortness of breath, or palpitations. Patient is afebrile. No reports of nausea or vomiting and patient is tolerating diet. Patient will be discharged home today. On exam vital signs are stable. Cardio S1, S2 are muffled. Respiratory system shows diminished breath sounds at the bases with no wheezing or rhonchi noted. Abdomen is soft and obese, and nontender. Nervous system shows no focal deficits. Please refer to medication reconciliation sheet for a list of medications. Patient Condition at Discharge: Stable Plan - Discharge Summary Discharge Rx Participant: No New Discharge Prescriptions: New Acetaminophen Tab [Tylenol] 325 mg PO Q6HR PRN tab PRN Reason: Fever And/ Or Pain Continue DULoxetine HCL [Cymbalta] 60 mg PO DAILY Baclofen [Lioresal] 15 mg PO TID Metoprolol Tartrate [Lopressor] 25 mg PO BID #60 tab Gabapentin 300 mg PO BID Insulin Aspart [NovoLOG Flexpen] 10 units SQ AC-TID Ibuprofen [Motrin] 800 mg PO Q8H PRN PRN Reason: Pain Clindamycin HCl 300 mg PO Q8H #20 cap HYDROcodone/APAP 5-325MG [[place] 5-325] 1 tab PO DAILY PRN #12 tab PRN Reason: Pain LORazepam [Ativan] 1 mg PO BID PRN PRN Reason: Anxiety Changed Insulin Glargine,Hum.rec.anlog [Basaglar Kwikpen U-100] 35 unit SQ HS #0 Discharge Medication List DULoxetine HCL [Cymbalta] 60 mg PO DAILY 11/30/18 [History] Baclofen [Lioresal] 15 mg PO TID 12/15/18 [History] Metoprolol Tartrate [Lopressor] 25 mg PO BID #60 tab 12/19/18 [Rx] Gabapentin 300 mg PO BID 07/06/20 [History] Ibuprofen [Motrin] 800 mg PO Q8H PRN 07/06/20 [History] Insulin Aspart [NovoLOG Flexpen] 10 units SQ AC-TID 07/06/20 [History] LORazepam [Ativan] 1 mg PO BID PRN 07/06/20 [History] Acetaminophen Tab [Tylenol] 325 mg PO Q6HR PRN tab 07/08/20 [Rx] Clindamycin HCl 300 mg PO Q8H #20 cap 07/08/20 [Rx] HYDROcodone/APAP 5-325MG [[place] 5-325] 1 tab PO DAILY PRN #12 tab 07/08/20 [Rx] Insulin Glargine,Hum.rec.anlog [Basaglar Kwikpen U-100] 35 unit SQ HS #0 07/08/20 [Rx] Follow up Appointment(s)/Referral(s): Rayray Up MD [Primary Care Provider] - 1-2 days Beny Rodríguez DDS [STAFF PHYSICIAN] - 3 Days (1 pm Wednesday. Patient to call office with medical insurance information joaquin. Nothing to eat or drink for 6 hours prior to office visit. 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 Rodríguez this Wednesday as scheduled Follow-up with primary care provider Continue current diet Continue to monitor blood sugars Discharge Disposition: HOME SELF-CARE
--- NOTE | 2020-07-10 19:47 | CONS ---
CONSULTATION DATE OF CONSULTATION: 07/08/2020 CHIEF COMPLAINT: "My teeth hurt and my face was swollen." HISTORY OF PRESENT ILLNESS: The patient is a 40-year-old female who presented to the emergency room complaining of pain and swelling to the maxillary anterior region. She was evaluated and admitted for IV antibiotics and further workup. She states that she has had pain and swelling to her general dentition over a long period of time. She has no general dentist and has not had routine dental care in a long time. PAST MEDICAL HISTORY: Significant for type 1 diabetes, MS, hypertension and obesity. MEDICATIONS: Her medications include clindamycin, Lopressor, NovoLog, Ativan, gabapentin, hydrocodone and Cymbalta. ALLERGIES: She has NO KNOWN DRUG ALLERGIES. SURGICAL HISTORY: Significant for and cholecystectomy. LABS: Her significant labs demonstrate a low white count of 5.3. PHYSICAL EXAMINATION: The patient is alert and oriented x3. Her vital signs are stable. She is afebrile. Head and neck exam reveals no soft tissue swelling of the face. There is no lymphadenopathy in the neck. The neck is soft and supple. There is no significant swelling or evidence of trauma to the facial bones. Intraoral examination reveals generalized caries, fractured teeth and tooth roots. The area of tooth #9 illustrates mild swelling with purulent drainage associated with a necrotic tooth #9. ASSESSMENT: 1. Dental caries. 2. Necrotic teeth. 3. Abscessed teeth. PLAN: The patient will be discharged on p.o. antibiotics and will follow up in my office on 07/10 at 1 p.m. for the extraction of necessary teeth and drainage of necessary spaces. MMODL / IJN: [id number] /
== END 2020-07-08 15:31 | disposition home or self-care (01) | DRG 638 ==
LOC: EC 22:56 → 3SCARD 07-06 02:33 → 5NMEDONC 07-07 13:48
PROVIDERS: ADMIT Internal Medicine; ATTEND Internal Medicine
DX: E10.10 Type 1 diabetes mellitus with ketoacidosis without coma (principal); Z68.41 Body mass index [BMI] 40.0-44.9, adult; E66.01 Morbid (severe) obesity due to excess calories; Z71.3 Dietary counseling and surveillance; F32.9 Major depressive disorder, single episode, unspecified; F41.9 Anxiety disorder, unspecified; Z20.822 Contact with and (suspected) exposure to COVID-19; I10 Essential (primary) hypertension; K02.9 Dental caries, unspecified; K04.7 Periapical abscess without sinus; K04.1 Necrosis of pulp; Z79.4 Long term (current) use of insulin; Z79.899 Other long term (current) drug therapy; Z90.49 Acquired absence of other specified parts of digestive tract
CPT/HCPCS: 36415; 70486; 80048; 80051; 80053; 81001; 82009; 82565; 82947; 83605; 84100; 84520; 85025; 87635; 93005; 96374; 96375; 99284

== ENCOUNTER → 2021-11-17 | Outpatient (CLI) | payer MEDICARE, OTHER ==
--- NOTE | 2021-11-17 09:02 | MM ---
Reason for Exam: Clinical finding. Baseline mammogram. Patient History: Menarche at age 13. First Full-Term at age 21. Last menstrual period: 10/23/2021 Risk Values: Tabitha 5 year model risk: 0.4%. NCI Lifetime model risk: 8.1%. Prior Study Comparison: Patient's first Mammogram. Tissue Density: There are scattered fibroglandular densities. Findings: Analyzed By CAD. Skin and trabecular thickening focally along the upper outer quadrant right breast middle to posterior depth. A marker to indicate to areas of cutaneous/subcutaneous lesions, suspected sebaceous cysts by the wire technician. The patient also reported a palpable area along the right upper outer quadrant. Otherwise, no discrete abnormality is seen. Overall Assessment: Incomplete: need additional imaging evaluation, BI-RAD 0 Management: Diagnostic Breast Ultrasound of the right breast. Upper outer quadrant. Electronically signed and approved by: Erick Contreras M.D. Radiologist
--- NOTE | 2021-11-17 09:39 | USB ---
Reason for Exam: Clinical finding. Patient History: Menarche at age 13. First Full-Term at age 21. Risk Values: Tabitha 5 year model risk: 0.4%. NCI Lifetime model risk: 8.1%. Technique: Method: Targeted. Findings: The upper outer quadrant of the right breast, the axilla of the right breast and the retroareolar of the right breast were scanned. Targeted ultrasound upper outer quadrant 9:00 to 12:00 including the subareolar region and axilla. Edematous breast tissue is present just below the skin surface particularly at the 12:00 where the skin is thickened up to 6 mm and there is a focal 9 mm hypoechoic area within the dermis, suggesting an inflammatory cutaneous lesion. Smaller similar area at 9:00. No other solid or cystic lesion. Suspected infectious/inflammatory cutaneous etiology. Overall Assessment: Probably benign, BI-RAD 3 Management: Diagnostic Mammogram of the right breast in 3 months. In addition to further clinical management possibly with antibiotic treatment for the cutaneous findings. Electronically signed and approved by: Erick Contreras M.D. Radiologist
== END | disposition home or self-care (01) ==
LOC: RADMAMWWP 08:29
PROVIDERS: ATTEND Obstetrics & Gynecology
DX: N63.10 Unspecified lump in the right breast, unspecified quadrant (principal); N64.4 Mastodynia
CPT/HCPCS: 77066; 76642; G0279; 77062

== ENCOUNTER 2023-03-20 15:31 | Inpatient (IN) | payer BC, MEDICARE ==
--- NOTE | 2023-03-20 17:06 | ED ---
General Adult HPI - General Source: patient Mode of arrival: ambulatory Limitations: no limitations <Jeffrey Velasquez - Last Filed: 03/20/23 17:06> - General Source: patient, RN notes reviewed Mode of arrival: ambulatory Limitations: no limitations <Adelia Pugh - Last Filed: 03/20/23 21:42> - General Chief complaint: Weakness Stated complaint: Weakness/Body pain Time Seen by Provider: 03/20/23 17:02 - History of Present Illness Initial comments: 42-year-old female with a past medical history significant for MS presenting to the ED with a chief complaint of myalgias. Patient notes for the past 2 days has had complaints of decreased appetite, fatigue, myalgias. No chest pain or shortness of breath. Patient also does note some dysuria. No frequency urgency or hematuria. (Jeffrey Velasquez) 42-year-old female with past medical history of type 2 diabetes and MS presents to the emergency department for evaluation of generalized malaise, weakness, myalgias. Patient reports abdominal pain x 2 days. She states that this is mostly right-sided and goes into her right flank. She also admits to some dysuria. Denies urinary frequency, hematuria. Admits to decreased appetite. prior abdominal surgeries include cholecystectomy, 2 C-sections. Patient denies fever at home but admits to chills. Patient admits to taking ibuprofen just prior to arrival around 3 PM. (Adelia Pugh) - Related Data Home Medications Medication Instructions Recorded Confirmed DULoxetine HCL [Cymbalta] 60 mg PO DAILY 11/30/18 07/06/20 Baclofen [Lioresal] 15 mg PO TID 12/15/18 07/06/20 Escitalopram [Lexapro] 20 mg PO DAILY 03/20/23 03/20/23 Pregabalin [Lyrica] 100 mg PO TID 03/20/23 03/20/23 metFORMIN HCL [Glucophage] 500 mg PO BID-W/MEALS 03/20/23 03/20/23 Allergies Allergy/AdvReac Type Severity Reaction Status Date / Time No Known Allergies Allergy Verified 03/20/23 16:07 Review of Systems ROS Other: All systems not noted in ROS Statement are negative. <Jeffrey Velasquez - Last Filed: 03/20/23 17:06> ROS Other: All systems not noted in ROS Statement are negative. <Adelia Pugh - Last Filed: 03/20/23 21:42> ROS Statement: Those systems with pertinent positive or pertinent negative responses have been documented in the HPI. Past Medical History Additional Past Medical History / Comment(s): OVARIAN CYST (THOUGHT TO BE CAUSE OF PAIN ) IS GONE. migraines, occ high BP, diarrhea, hx anemia, multiple sclerosis dx in 2007 History of Any Multi-Drug Resistant Organisms: None Reported Past Surgical History: Section, Cholecystectomy Additional Past Surgical History / Comment(s): MS Past Anesthesia/Blood Transfusion Reactions: Motion Sickness Past Psychological History: Anxiety, Depression Smoking Status: Never smoker Past Alcohol Use History: None Reported Past Drug Use History: None Reported - Past Family History Mother Family Medical History: No Reported History <Jeffrey Velasquez - Last Filed: 03/20/23 17:06> General Exam Limitations: no limitations <Jeffrey Velasquez - Last Filed: 03/20/23 17:06> Limitations: no limitations General appearance: alert, in distress (d/t pain) Head exam: Present: atraumatic, normocephalic, normal inspection Eye exam: Present: normal appearance, PERRL, EOMI. Absent: scleral icterus, conjunctival injection, periorbital swelling ENT exam: Present: mucous membranes dry, TM's normal bilaterally, normal external ear exam Neck exam: Present: normal inspection, full ROM. Absent: tenderness, meningismus, lymphadenopathy Respiratory exam: Present: normal lung sounds bilaterally. Absent: respiratory distress, wheezes, rales, rhonchi, stridor Cardiovascular Exam: Present: regular rate, normal rhythm, normal heart sounds. Absent: systolic murmur, diastolic murmur, rubs, gallop, clicks GI/Abdominal exam: Present: soft, tenderness, normal bowel sounds. Absent: guarding, rebound, rigid Extremities exam: Present: normal inspection, full ROM, normal capillary refill. Absent: tenderness, pedal edema, joint swelling, calf tenderness Back exam: Present: CVA tenderness (R) Neurological exam: Present: alert, oriented X3 Psychiatric exam: Present: normal affect, normal mood Skin exam: Present: warm, dry, intact, normal color. Absent: rash <Adelia Pugh - Last Filed: 03/20/23 21:42> - General Exam Comments Initial Comments: Visual Physical Exam Vital signs reviewed General: Well-appearing, nontoxic, no acute distress. Head: Normocephalic, atraumatic Eyes: PERRLA, EOMI ENT: Airway patent Chest: Nonlabored breathing Skin: No visual rash, normal skin tone Neuro: Alert and oriented 3 Musculoskeletal: No gross abnormalities (Jeffrey Velasquez) Course Vital Signs 03/20/23 03/20/23 03/20/23 16:01 17:49 19:54 Temperature 100.6 F H 101.6 F H Pulse Rate 147 H 130 H 135 H Respiratory 18 20 22 Rate Blood Pressure 122/80 123/69 111/65 O2 Sat by Pulse 97 99 98 Oximetry 03/20/23 20:55 Temperature Pulse Rate 130 H Respiratory 19 Rate Blood Pressure 109/65 O2 Sat by Pulse 95 Oximetry Medical Decision Making <Jeffrey Velasquez - Last Filed: 03/20/23 17:06> - Lab Data Result diagrams: 03/20/23 17:25 03/20/23 17:25 <Adelia Pugh - Last Filed: 03/20/23 21:42> - Medical Decision Making Quicknote portion performed. Signed Jeffrey Velasquez PA-C (Jeffrey Velasquez) Was pt. sent in by a medical professional or institution ([facility], [facility], urgent c are, hospital, or care home...) When possible be specific @ -No Did you speak to anyone other than the patient for history (EMS, parent, family, police, friend...)? What history was obtained from this source @ -No Did you review nursing and triage notes (agree or disagree)? Why? @ -I reviewed and agree with nursing and triage notes Were old charts reviewed (outside hosp., previous admission, EMS record, old EKG, old radiological studies, urgent care reports/EKG's, care home records)? Report findings @ -No old charts were reviewed Differential Diagnosis (chest pain, altered mental status, abdominal pain women, abdominal pain men, vaginal bleeding, weakness, fever, dyspnea, syncope, headache, dizziness, GI bleed, back pain, seizure, CVA, palpatations, mental health, musculoskeletal)? @ -Differential Weakness: Hypoglycemia, shock, sepsis, hyponatremia, anemia, infection, MS, ETOH, adverse medicine reaction, overdose, stroke, this is not meant to be an all-inclusive list. EKG interpreted by me (3pts min.). @ -EKG at 2006 shows sinus tachycardia rate 136, NH 130, QRS 94, QTQTc [id number] X-rays interpreted by me (1pt min.). @ -Chest x-ray shows no acute infiltrate CT interpreted by me (1pt min.). @ -CT abdomen pelvis shows ovarian cyst, no acute pathology U/S interpreted by me (1pt. min.). @ -None done What testing was considered but not performed or refused? (CT, X-rays, U/S, labs)? Why? @ -None What meds were considered but not given or refused? Why? @ -None Did you discuss the management of the patient with other professionals (pro fessionals i.e. , PA, RASPBERRY CHECKER, lab, RT, psych nurse, social media strategist, patient scheduler, teacher, chief procurement officer, oil field caser)? Give summary @ -Discussed with Dr. Arrington with [facility] who is accepting of the admission. Was smoking cessation discussed for >3mins.? @ -No Was critical care preformed (if so, how long)? @ -No Were there social determinants of health that impacted care today? How? (Home lessness, low income, unemployed, alcoholism, drug addiction, transportation, low edu. Level, literacy, decrease access to med. care, [facility], rehab)? @ -No Was there de-escalation of care discussed even if they declined (Discuss DNR or withdrawal of care, Hospice)? DNR status @ -No What co-morbidities impacted this encounter? (DM, HTN, Smoking, COPD, CAD, Cancer, CVA, ARF, Chemo, Hep., AIDS, mental health diagnosis, sleep apnea, morbid obesity)? @ -None Was patient admitted / discharged? Hospital course, mention meds given and route, prescriptions, significant lab abnormalities, going to OR and other pertinent info. @ -Admitted. Patient presented to the emergency department for evaluation of generalized malaise, fatigue, abdominal pain x 3 to 4 days. Patient denies any documented fever at home. In the emergency department, patient found to be tachycardic, febrile. Laboratory studies obtained. Patient has a WBC of 18.6. CMP shows sodium 133, potassium 3.2, CO2 19, anion gap 16, blood glucose 293; UA shows 3+ protein, 1+ glucose, trace ketones, moderate blood, large leukocyte es terase, greater than 182 WBCs, negative urine hCG; COVID, influenza, RSV negative; chest x-ray shows no acute infiltrate; CT abdomen pelvis shows moderate fatty liver disease, suspected 3.3 cm cyst to the left ovary. Based on patient's fever, tachycardia, elevated WBC patient meets sepsis criteria with a source of UTI. Patient was given 2 L normal saline initially and 130cc/hr following this. Patient was given Zosyn after SIRS criteria met. Patient will be admitted for septic UTI. Case was discussed with Dr. [facility] who is accepting of the admission. Patient stable at time of admission. Case discussed with Dr. Daniel Undiagnosed new problem with uncertain prognosis? @ -No Drug Therapy requiring intensive monitoring for toxicity (Heparin, Nitro, Insulin, Cardizem)? @ -No Were any procedures done? @ -No Diagnosis/symptom? @ -Sepsis, UTI Acute, or Chronic, or Acute on Chronic? @ -Acute Uncomplicated (without systemic symptoms) or Complicated (systemic symptoms)? @ -Gated Side effects of treatment? @ -No Exacerbation, Progression, or Severe Exacerbation? @ -No Poses a threat to life or bodily function? How? (Chest pain, USA, MS, pneumonia, PE, COPD, DKA, ARF, appy, cholecystitis, CVA, Diverticulitis, Homicidal, Suicidal, threat to staff... and all critical care pts) @ -No (Adelia Pugh) - Lab Data Lab Results 03/20/23 03/20/23 03/20/23 Range/Units 16:27 17:25 17:25 WBC 18.6 H (3.8-10.6) k/uL RBC 4.99 (3.80-5.40) m/uL Hgb 11.4 (11.4-16.0) gm/dL Hct 34.8 (34.0-46.0) % MCV 69.7 L (80.0-100.0) fL MCH 22.9 L (25.0-35.0) pg MCHC 32.8 (31.0-37.0) g/dL RDW 17.9 H (11.5-15.5) % Plt Count 155 (150-450) k/uL MPV 8.6 Neutrophils % 85 % Lymphocytes % 8 % Monocytes % 4 % Eosinophils % 0 % Basophils % 0 % Neutrophils # 15.8 H (1.3-7.7) k/uL Lymphocytes # 1.6 (1.0-4.8) k/uL Monocytes # 0.8 (0-1.0) k/uL Eosinophils # 0.1 (0-0.7) k/uL Basophils # 0.1 (0-0.2) k/uL Hypochromasia Slight Anisocytosis Slight Microcytosis Marked Sodium 133 L (137-145) mmol/L Potassium 3.2 L (3.5-5.1) mmol/L Chloride 98 (98-107) mmol/L Carbon Dioxide 19 L (22-30) mmol/L Anion Gap 16 mmol/L BUN 15 (7-17) mg/dL Creatinine 0.60 (0.52-1.04) mg/dL Est GFR (CKD-EPI)AfAm >90 (>60 ml/min/1.73 sqM) Est GFR (CKD-EPI)NonAf >90 (>60 ml/min/1.73 sqM) Glucose 293 H (74-99) mg/dL POC Glucose (mg/dL) (70-110) mg/dL POC Glu Tugger Operator ID Calcium 9.0 (8.4-10.2) mg/dL Total Bilirubin 0.6 (0.2-1.3) mg/dL AST 25 (14-36) U/L ALT 33 (4-34) U/L Alkaline Phosphatase 111 (38-126) U/L Total Protein 7.1 (6.3-8.2) g/dL Albumin 3.9 (3.5-5.0) g/dL Urine Color Urine Appearance (Clear) Urine pH (5.0-8.0) Ur Specific [place] (1.001-1.035) Urine Protein (Negative) Urine Glucose (UA) (Negative) Urine Ketones (Negative) Urine Blood (Negative) Urine Nitrite (Negative) Urine Bilirubin (Negative) Urine Urobilinogen (<2.0) mg/dL Ur Leukocyte Esterase (Negative) Urine RBC (0-5) /hpf Urine WBC (0-5) /hpf Urine WBC Clumps (None) /hpf Ur Squamous Epith Cells (0-4) /hpf Urine Bacteria (None) /hpf Urine Mucus (None) /hpf Urine HCG, Qual (Not Detectd) Influenza Type A (PCR) Not Detected (Not Detectd) Influenza Type B (PCR) Not Detected (Not Detectd) RSV (PCR) Not Detected (Not Detectd) SARS-CoV-2 (PCR) Not Detected (Not Detectd) 03/20/23 03/20/23 03/20/23 Range/Units 17:25 17:25 20:14 WBC (3.8-10.6) k/uL RBC (3.80-5.40) m/uL Hgb (11.4-16.0) gm/dL Hct (34.0-46.0) % MCV (80.0-100.0) fL MCH (25.0-35.0) pg MCHC (31.0-37.0) g/dL RDW (11.5-15.5) % Plt Count (150-450) k/uL MPV Neutrophils % % Lymphocytes % % Monocytes % % Eosinophils % % Basophils % % Neutrophils # (1.3-7.7) k/uL Lymphocytes # (1.0-4.8) k/uL Monocytes # (0-1.0) k/uL Eosinophils # (0-0.7) k/uL Basophils # (0-0.2) k/uL Hypochromasia Anisocytosis Microcytosis Sodium (137-145) mmol/L Potassium (3.5-5.1) mmol/L Chloride (98-107) mmol/L Carbon Dioxide (22-30) mmol/L Anion Gap mmol/L BUN (7-17) mg/dL Creatinine (0.52-1.04) mg/dL Est GFR (CKD-EPI)AfAm (>60 ml/min/1.73 sqM) Est GFR (CKD-EPI)NonAf (>60 ml/min/1.73 sqM) Glucose (74-99) mg/dL POC Glucose (mg/dL) 314 H (70-110) mg/dL POC Glu Tugger Operator ID Caba, Lakesha Calcium (8.4-10.2) mg/dL Total Bilirubin (0.2-1.3) mg/dL AST (14-36) U/L ALT (4-34) U/L Alkaline Phosphatase (38-126) U/L Total Protein (6.3-8.2) g/dL Albumin (3.5-5.0) g/dL Urine Color Yellow Urine Appearance Turbid H (Clear) Urine pH 5.5 (5.0-8.0) Ur Specific [place] 1.028 (1.001-1.035) Urine Protein 3+ H (Negative) Urine Glucose (UA) 1+ H (Negative) Urine Ketones Trace H (Negative) Urine Blood Moderate H (Negative) Urine Nitrite Negative (Negative) Urine Bilirubin Negative (Negative) Urine Urobilinogen <2.0 (<2.0) mg/dL Ur Leukocyte Esterase Large H (Negative) Urine RBC >182 H (0-5) /hpf Urine WBC >182 H (0-5) /hpf Urine WBC Clumps Many H (None) /hpf Ur Squamous Epith Cells 88 H (0-4) /hpf Urine Bacteria Many H (None) /hpf Urine Mucus Many H (None) /hpf Urine HCG, Qual Not Detected (Not Detectd) Influenza Type A (PCR) (Not Detectd) Influenza Type B (PCR) (Not Detectd) RSV (PCR) (Not Detectd) SARS-CoV-2 (PCR) (Not Detectd) Disposition <Jeffrey Velasquez - Last Filed: 03/20/23 17:06> Is patient prescribed a controlled substance at d/c from ED?: No <Adelia Pugh - Last Filed: 03/20/23 21:42> Clinical Impression: Sepsis, UTI (urinary tract infection) Disposition: ADMITTED IP TO THIS HOSP Condition: Stable Referrals: None,Stated [Primary Care Provider] - 1-2 days
[2023-03-20 17:43] LABS: Anisocytosis Slight; Basophils # (A) 0.1 k/uL (0-0.2); Basophils % (A) 0 %; Eosinophils # (A) 0.1 k/uL (0-0.7); Eosinophils % (A) 0 %; HCT 34.8 % (34.0-46.0); HGB 11.4 gm/dL (11.4-16.0); Hypochromasia Slight; Lymphocytes # (A) 1.6 k/uL (1.0-4.8); Lymphocytes % (A) 8 %; MCH 22.9 pg (25.0-35.0); MCHC 32.8 g/dL (31.0-37.0); MCV 69.7 fL (80.0-100.0); Mean Platelet Volume 8.6; Microcytosis Marked; Monocytes # (A) 0.8 k/uL (0-1.0); Monocytes % (A) 4 %; Neutrophils # (A) 15.8 k/uL (1.3-7.7); Neutrophils % (A) 85 %; Platelet Count 155 k/uL (150-450); RBC 4.99 m/uL (3.80-5.40); RDW 17.9 % (11.5-15.5); WBC 18.6 k/uL (3.8-10.6)
[2023-03-20] MEDS ORDERED: SODIUM CHLORIDE 0.9% 2,000 ML IV ONE (17:45)
[2023-03-20] MEDS ORDERED: MORPHINE SULFATE 4 MG/ML SYRINGE IVP STA (18:01)
[2023-03-20 18:03] LABS: Appearance,Urine Turbid (Clear); Bacteria,Urine Many /hpf; Bilirubin,Urine Negative (Negative); Blood,Urine Moderate (Negative); Color,Urine Yellow; Glucose,Urine (UA) 1+ (Negative); Ketones,Urine Trace (Negative); Leukocyte Esterase,Urine Large (Negative); Mucus,Urine Many /hpf; Nitrite,Urine Negative (Negative); PH, Urine 5.5 (5.0-8.0); Protein,Urine 3+ (Negative); RBC,Urine >182 /hpf (0-5); Squamous Epithelial Cell,Urine 88 /hpf (0-4); Urobilinogen,Urine <2.0 mg/dL (<2.0); WBC,Urine >182 /hpf (0-5)
[2023-03-20 18:07] LABS: Specific Gravity,Urine 1.028 (1.001-1.035)
[2023-03-20 18:08] LABS: ALT 33 U/L (4-34); AST 25 U/L (14-36); African American GFR (CKD) >90 (>60 ml/min/1.73 sqM); Albumin 3.9 g/dL (3.5-5.0); Alkaline Phosphatase 111 U/L (38-126); Anion Gap 16 mmol/L; Blood Urea Nitrogen 15 mg/dL (7-17); Carbon Dioxide 19 mmol/L (22-30); Chloride 98 mmol/L (98-107); Glucose 293 mg/dL (74-99); Non-African American GFR(CKD) >90 (>60 ml/min/1.73 sqM); Potassium 3.2 mmol/L (3.5-5.1); Sodium 133 mmol/L (137-145); Total Bilirubin 0.6 mg/dL (0.2-1.3); Total Protein 7.1 g/dL (6.3-8.2)
[2023-03-20] MEDS ORDERED: PIPERACILLIN-TAZOBACTAM 3.375 GM in SODIUM CHLORIDE 0.9% 100 ML IVPB STA (18:08)
[2023-03-20] MEDS: SODIUM CHLORIDE 0.9% 1,000 ML IV SCH (18:40)
[2023-03-20] MEDS ORDERED: ONDANSETRON 4 MG/2 ML VIAL IVP STA (19:08)
[2023-03-20] MEDS ORDERED: ACETAMINOPHEN TAB 500 MG TAB PO STA (19:56)
[2023-03-20 20:16] LABS: Glucose,Whole Blood 314 mg/dL (70-110)
--- NOTE | 2023-03-20 20:26 | XR ---
EXAMINATION TYPE: XR chest 2V DATE OF EXAM: 03/20/2023 COMPARISON: 12/15/2018 INDICATION: Fever weakness TECHNIQUE: Frontal and lateral views of the chest are obtained. FINDINGS: The heart size is normal. The pulmonary vasculature is normal. The lungs are clear. IMPRESSION: 1. No acute pulmonary process.
--- NOTE | 2023-03-20 20:34 | CT ---
EXAMINATION TYPE: CT abdomen pelvis w con DATE OF EXAM: 03/20/2023 COMPARISON: 11/23/2015 INDICATION: Abdominal pain non specified. DLP: 2252.3 mGycm, Automated exposure control for dose reduction was used. CONTRAST: 100ml mL of Isovue 300. Study performed without Oral Contrast TECHNIQUE: Axial images were obtained from above the diaphragm to the pubic rami in the axial plane a t 5 mm thick sections. Reconstructed images are reviewed on the computer in the coronal plane. FINDINGS: Limited CT sections are obtained the lung bases. The lung bases are clear. CT ABDOMEN: Liver: There is moderate fatty infiltration of liver. No discrete masses evident. Spleen: Normal Pancreas: Normal Adrenal glands: The adrenal glands are normal. Gallbladder: Surgically absent Kidneys: No masses are evident. No hydronephrosis is present. No cysts are present. Delayed images were obtained through the kidneys, which remain unremarkable. Aorta: Normal Inferior vena cava: Normal. CT PELVIS: There is a prominent small bowel loop within the epigastric region. Colon appears unremarkable. Dista l small bowel loops are nondilated. Correlate for focal ileus in the epigastric region. No obstructio n is identified. This study is performed without oral contrast limiting bowel evaluation. Appendix: Not identified. No suspicious dilated tubular structures or inflammatory changes evident. Urinary bladder: Normal. Genitourinary structures: Uterus appears normal. A 3.3 cm cyst is on the left ovary. Right adnexa is unremarkable. Osseous structures: No suspicious lytic or sclerotic lesions. IMPRESSION: 1. Suspected 3.3 cm cyst left ovary. This could be followed with ultrasound. 2. Moderate fatty infiltration of the liver.
[2023-03-20] MEDS ORDERED: NALOXONE 0.4 MG/ML 1 ML VIAL IV PRN (21:00)
[2023-03-20] MEDS ORDERED: DEXTROSE 50% SYRINGE 50 ML IVP PRN ×2 (21:02)
[2023-03-20] MEDS ORDERED: POTASSIUM CHLORIDE ER 20 MEQ TAB.ER PO STA (23:33)
--- NOTE | 2023-03-20 23:35 | P.HPIM ---
History of Present Illness H&P Date: 03/20/23 Patient is a 42-year-old female with a PMH of multiple sclerosis (stable, not on maintenance therapy), and type II DM who presents to the emergency room with complaints of fever, dysuria, and abdominal pain. Patient reports that she has been experiencing the above symptoms gradually worsening over the past 1 week. She reports a prior history of UTI several years ago. Reports dysuria and urinary urgency and frequency during the past 1 week. Reports that the abdominal pain is suprapubic and in the right lower quadrant, constant, with no alleviating or exacerbating features, nonradiating. Denies experiencing chest discomfort, shortness of breath, nausea, vomiting, diarrhea. Of note, despite patient having been in remission with MS, patient reports using a walker and a wheelchair due to diminished exercise tolerance from physical deconditioning. CT abdomen pelvis in the emergency room revealed 3.3 cm left ovarian cyst with moderate fatty infiltration of the liver with no other acute abnormalities. Chest x-ray was unremarkable. Laboratory evaluation revealed a UA grossly abnormal with respiratory viral panel negative, WBC count 18.6, MCV 69.7, sodium 133, potassium 3.2, CO2 19, glucose 314. ED documentation reviewed and case discussed with ED provider. Review of systems: Pertinent positives and negatives as discussed in HPI, a complete review of systems was performed and all other systems are negative. Physical examination: Vital signs reviewed General: Chronically ill-appearing female, no distress, appears significantly older than stated age, morbidly obese Derm: no unusual rashes/lesions, warm Head: atraumatic, normocephalic, symmetric Eyes: EOMI, no lid lag, anicteric sclera, pupils equal round reactive to light ENT: Nose and ears atraumatic Neck: No cervical lymphadenopathy, trachea midline, supple Mouth: no lip lesion, mucus membranes moist Cardiovascular: S1S2 reg, no murmur, positive dorsalis pedis pulse bilateral, no edema Lungs: CTA bilateral, no rhonchi, no rales, no accessory muscle use Abdominal: soft, nontender to palpation, no guarding Ext: muscle strength 4 out of 5 in all 4 extremities grossly, no gross muscle at rophy, no contractures, Neuro: CN II-XI grossly intact, no gross focal neuro deficits Psych: Alert, oriented, appropriate affect Assessment: Sepsis secondary to UTI Hypokalemia Type II DM with hyperglycemia Hyponatremia Microcytosis Deconditioning Chronic conditions: Multiple sclerosis Imaging: CT abdomen pelvis in the emergency room revealed 3.3 cm left ovarian cyst with moderate fatty infiltration of the liver with no other acute abnormalities. Chest x-ray was unremarkable. Data Review: Laboratory evaluation revealed a UA grossly abnormal with respiratory viral panel negative, WBC count 18.6, MCV 69.7, sodium 133, potassium 3.2, CO2 19, glucose 314. Plan: Continue with ceftriaxone 2 g daily Follow-up urine cultures IV fluids with normal saline 130 cc/h Insulin sliding scale and blood glucose monitoring Follow-up blood cultures PT consult Check iron rn prior authorization BMP Replace potassium and monitor DVT prophylaxis: Lovenox subcu The patient is admitted with an anticipated greater than 2 midnight stay for evaluation of UTI CODE STATUS: Full Code Discussed with: Patient, Anticipated discharge place: Home Past Medical History Additional Past Medical History / Comment(s): OVARIAN CYST (THOUGHT TO BE CAUSE OF PAIN ) IS GONE. migraines, occ high BP, diarrhea, hx anemia, multiple sclerosis dx in 2007 History of Any Multi-Drug Resistant Organisms: None Reported Past Surgical History: Section, Cholecystectomy Additional Past Surgical History / Comment(s): MS Past Anesthesia/Blood Transfusion Reactions: Motion Sickness Past Psychological History: Anxiety, Depression Smoking Status: Never smoker Past Alcohol Use History: None Reported Past Drug Use History: None Reported - Past Family History Mother Family Medical History: Hyperlipidemia Medications and Allergies Home Medications Medication Instructions Recorded Confirmed Type DULoxetine HCL [Cymbalta] 60 mg PO DAILY 11/30/18 03/20/23 History Baclofen [Lioresal] 15 mg PO TID 12/15/18 03/20/23 History Escitalopram [Lexapro] 20 mg PO DAILY 03/20/23 03/20/23 History Pregabalin [Lyrica] 100 mg PO TID 03/20/23 03/20/23 History metFORMIN HCL [Glucophage] 500 mg PO BID-W/MEALS 03/20/23 03/20/23 History Allergies Allergy/AdvReac Type Severity Reaction Status Date / Time No Known Allergies Allergy Verified 03/20/23 16:07 Physical Exam Vitals: Vital Signs Temp Pulse Resp BP Pulse Ox 03/20/23 22:00 125 H 15 118/67 95 03/20/23 21:14 99.1 F 03/20/23 21:00 133 H 29 H 109/65 95 03/20/23 20:55 130 H 19 109/65 95 03/20/23 19:54 101.6 F H 135 H 22 111/65 98 03/20/23 17:49 130 H 20 123/69 99 03/20/23 16:01 100.6 F H 147 H 18 122/80 97 Intake and Output 03/20/23 03/20/23 03/21/23 14:59 22:59 06:59 Other: Weight 108.862 kg Results CBC & Chem 7: 03/20/23 17:25 03/20/23 17:25 Labs: Abnormal Lab Results - Last 24 Hours (Table) 03/20/23 03/20/23 03/20/23 Range/Units 17:25 17:25 17:25 WBC 18.6 H (3.8-10.6) k/uL MCV 69.7 L (80.0-100.0) fL MCH 22.9 L (25.0-35.0) pg RDW 17.9 H (11.5-15.5) % Neutrophils # 15.8 H (1.3-7.7) k/uL Sodium 133 L (137-145) mmol/L Potassium 3.2 L (3.5-5.1) mmol/L Carbon Dioxide 19 L (22-30) mmol/L Glucose 293 H (74-99) mg/dL POC Glucose (mg/dL) (70-110) mg/dL Urine Appearance Turbid H (Clear) Urine Protein 3+ H (Negative) Urine Glucose (UA) 1+ H (Negative) Urine Ketones Trace H (Negative) Urine Blood Moderate H (Negative) Ur Leukocyte Esterase Large H (Negative) Urine RBC >182 H (0-5) /hpf Urine WBC >182 H (0-5) /hpf Urine WBC Clumps Many H (None) /hpf Ur Squamous Epith Cells 88 H (0-4) /hpf Urine Bacteria Many H (None) /hpf Urine Mucus Many H (None) /hpf 03/20/23 Range/Units 20:14 WBC (3.8-10.6) k/uL MCV (80.0-100.0) fL MCH (25.0-35.0) pg RDW (11.5-15.5) % Neutrophils # (1.3-7.7) k/uL Sodium (137-145) mmol/L Potassium (3.5-5.1) mmol/L Carbon Dioxide (22-30) mmol/L Glucose (74-99) mg/dL POC Glucose (mg/dL) 314 H (70-110) mg/dL Urine Appearance (Clear) Urine Protein (Negative) Urine Glucose (UA) (Negative) Urine Ketones (Negative) Urine Blood (Negative) Ur Leukocyte Esterase (Negative) Urine RBC (0-5) /hpf Urine WBC (0-5) /hpf Urine WBC Clumps (None) /hpf Ur Squamous Epith Cells (0-4) /hpf Urine Bacteria (None) /hpf Urine Mucus (None) /hpf
[2023-03-21] MEDS: HYDROmorphone 0.5 MG/0.5 ML SYRINGE IVP PRN ×3 (01:09→17:40)
[2023-03-21] MEDS: SODIUM CHLORIDE 0.9% 1,000 ML IV SCH ×3 (01:12→16:36)
[2023-03-21 04:00] LABS: African American GFR (CKD) >90 (>60 ml/min/1.73 sqM); Anion Gap 12 mmol/L; Blood Urea Nitrogen 13 mg/dL (7-17); Calcium 8.3 mg/dL (8.4-10.2); Carbon Dioxide 21 mmol/L (22-30); Chloride 101 mmol/L (98-107); Glucose 303 mg/dL (74-99); Non-African American GFR(CKD) >90 (>60 ml/min/1.73 sqM); Potassium 3.5 mmol/L (3.5-5.1); Sodium 134 mmol/L (137-145)
[2023-03-21] MEDS: ACETAMINOPHEN TAB 325 MG TAB PO PRN ×3 (06:15→20:48)
[2023-03-21 06:19] LABS: Glucose,Whole Blood 347 mg/dL (70-110)
[2023-03-21] MEDS: MORPHINE SULFATE 4 MG/ML SYRINGE IV PRN ×3 (06:24→20:48)
[2023-03-21] MEDS: INSULIN ASPART (NovoLOG) 100 UNIT/ML VIAL SQ SCH ×4 (07:43→22:51)
[2023-03-21] MEDS: ONDANSETRON 4 MG/2 ML VIAL IVP PRN (07:43)
[2023-03-21] MEDS: ENOXAPARIN 40 MG/0.4 ML SYRINGE SQ SCH (09:08)
[2023-03-21 10:51] LABS: % Iron Saturation 2.01 (12.00-45.00); Iron 8 UG/DL (50-170); Total Iron Binding Capacity 399 UG/DL (228-460)
[2023-03-21 11:54] LABS: Glucose,Whole Blood 302 mg/dL (70-110)
--- NOTE | 2023-03-21 14:35 | P.PN ---
Subjective Progress Note Date: 03/21/23 Hospital Course: Patient is a 42-year-old female with a PMH of multiple sclerosis (stable, not on maintenance therapy), and type II DM who presents to the emergency room with complaints of fever, dysuria, and abdominal pain. CT abdomen pelvis in the emergency room revealed 3.3 cm left ovarian cyst with moderate fatty infiltration of the liver with no other acute abnormalities. Chest x-ray was unremarkable. Laboratory evaluation revealed a UA grossly abnormal with respiratory viral panel negative, WBC count 18.6, MCV 69.7, sodium 133, potassium 3.2, CO2 19, glucose 314. Patient admitted for sepsis secondary to UTI. Subjective: Seen and examined at bedside. No acute events overnight. Pertinent positives and negatives as discussed above, a complete review of systems was performed and all other systems are negative. Vitals Signs Reviewed. General: Chronically ill-appearing female, no distress, appears significantly older than stated age, morbidly obese Derm: no unusual rashes/lesions, warm Head: atraumatic, normocephalic, symmetric Eyes: EOMI, no lid lag, anicteric sclera, pupils equal round reactive to light ENT: Nose and ears atraumatic Neck: No cervical lymphadenopathy, trachea midline, supple Mouth: no lip lesion, mucus membranes moist Cardiovascular: S1S2 reg, no murmur, positive dorsalis pedis pulse bilateral, no edema Lungs: CTA bilateral, no rhonchi, no rales, no accessory muscle use Abdominal: soft, nontender to palpation, no guarding Ext: muscle strength 4 out of 5 in all 4 extremities grossly, no gross muscle atrophy, no contractures, Neuro: CN II-XI grossly intact, no gross focal neuro deficits Psych: Alert, oriented, appropriate affect Data Reviewed Today: Pertinent Labs: Sodium 134, potassium 3.5, glucose range between 303 347 Imaging: No new imaging Assessment and Plan: Active: Sepsis secondary to UTI Type II DM with hyperglycemia Hyponatremia, resolving Deconditioning -First urinalysis was dirty, repeat UA -Blood cultures pending -Continue IV ceftriaxone 2 g every 24 hours -Continue normal saline 130 cc an hour -Tylenol as needed for fever, pain control with oral ibuprofen, IV Dilaudid as needed, IV morphine as needed -Antiemetics Zofran 4 mg every 8 hourly as needed Type 2 diabetes -Sliding scale insulin, monitor for hypoglycemia Resolved: Hypokalemia Chronic: Multiple sclerosis Depression DVT ppx: Lovenox Code status: Full code Anticipated discharge place: Pending clinical course Anticipated discharge time: Pending clinical course Objective - Vital Signs Vital signs: Vital Signs Temp 98.9 F 03/21/23 08:00 Pulse 125 H 03/21/23 08:04 Resp 18 03/21/23 08:00 BP 119/64 03/21/23 08:00 Pulse Ox 93 L 03/21/23 08:00 FiO2 Intake & Output 03/20/23 03/21/23 03/21/23 18:59 06:59 18:59 Weight 108.862 kg - Labs CBC & Chem 7: 03/20/23 17:25 03/21/23 03:27 Labs: Abnormal Lab Results - Last 24 Hours (Table) 03/20/23 03/20/23 03/20/23 Range/Units 17:25 17:25 17:25 WBC 18.6 H (3.8-10.6) k/uL MCV 69.7 L (80.0-100.0) fL MCH 22.9 L (25.0-35.0) pg RDW 17.9 H (11.5-15.5) % Neutrophils # 15.8 H (1.3-7.7) k/uL Sodium 133 L (137-145) mmol/L Potassium 3.2 L (3.5-5.1) mmol/L Carbon Dioxide 19 L (22-30) mmol/L Creatinine (0.52-1.04) mg/dL Glucose 293 H (74-99) mg/dL POC Glucose (mg/dL) (70-110) mg/dL Calcium (8.4-10.2) mg/dL Iron (50-170) UG/DL % Saturation (12.00-45.00) Urine Appearance Turbid H (Clear) Urine Protein 3+ H (Negative) Urine Glucose (UA) 1+ H (Negative) Urine Ketones Trace H (Negative) Urine Blood Moderate H (Negative) Ur Leukocyte Esterase Large H (Negative) Urine RBC >182 H (0-5) /hpf Urine WBC >182 H (0-5) /hpf Urine WBC Clumps Many H (None) /hpf Ur Squamous Epith Cells 88 H (0-4) /hpf Urine Bacteria Many H (None) /hpf Urine Mucus Many H (None) /hpf 03/20/23 03/21/23 03/21/23 Range/Units 20:14 03:27 06:17 WBC (3.8-10.6) k/uL MCV (80.0-100.0) fL MCH (25.0-35.0) pg RDW (11.5-15.5) % Neutrophils # (1.3-7.7) k/uL Sodium 134 L (137-145) mmol/L Potassium (3.5-5.1) mmol/L Carbon Dioxide 21 L (22-30) mmol/L Creatinine 0.46 L (0.52-1.04) mg/dL Glucose 303 H (74-99) mg/dL POC Glucose (mg/dL) 314 H 347 H (70-110) mg/dL Calcium 8.3 L (8.4-10.2) mg/dL Iron 8 L (50-170) UG/DL % Saturation 2.01 L (12.00-45.00) Urine Appearance (Clear) Urine Protein (Negative) Urine Glucose (UA) (Negative) Urine Ketones (Negative) Urine Blood (Negative) Ur Leukocyte Esterase (Negative) Urine RBC (0-5) /hpf Urine WBC (0-5) /hpf Urine WBC Clumps (None) /hpf Ur Squamous Epith Cells (0-4) /hpf Urine Bacteria (None) /hpf Urine Mucus (None) /hpf 03/21/23 Range/Units 11:52 WBC (3.8-10.6) k/uL MCV (80.0-100.0) fL MCH (25.0-35.0) pg RDW (11.5-15.5) % Neutrophils # (1.3-7.7) k/uL Sodium (137-145) mmol/L Potassium (3.5-5.1) mmol/L Carbon Dioxide (22-30) mmol/L Creatinine (0.52-1.04) mg/dL Glucose (74-99) mg/dL POC Glucose (mg/dL) 302 H (70-110) mg/dL Calcium (8.4-10.2) mg/dL Iron (50-170) UG/DL % Saturation (12.00-45.00) Urine Appearance (Clear) Urine Protein (Negative) Urine Glucose (UA) (Negative) Urine Ketones (Negative) Urine Blood (Negative) Ur Leukocyte Esterase (Negative) Urine RBC (0-5) /hpf Urine WBC (0-5) /hpf Urine WBC Clumps (None) /hpf Ur Squamous Epith Cells (0-4) /hpf Urine Bacteria (None) /hpf Urine Mucus (None) /hpf
[2023-03-21 15:08] LABS: Prothrombin Time 11.3 sec (10.0-12.5)
[2023-03-21 15:51] LABS: Amorphous Sediment,Urine Occasional /hpf; Appearance,Urine Cloudy (Clear); Bacteria,Urine Rare /hpf; Bilirubin,Urine Negative (Negative); Blood,Urine Negative (Negative); Color,Urine Yellow; Glucose,Urine (UA) 4+ (Negative); Ketones,Urine 1+ (Negative); Leukocyte Esterase,Urine Large (Negative); Mucus,Urine Rare /hpf; Nitrite,Urine Negative (Negative); PH, Urine 5.5 (5.0-8.0); Protein,Urine 1+ (Negative); RBC,Urine 3 /hpf (0-5); Specific Gravity,Urine 1.018 (1.001-1.035); Squamous Epithelial Cell,Urine 3 /hpf (0-4); Urobilinogen,Urine <2.0 mg/dL (<2.0); WBC,Urine 21 /hpf (0-5)
[2023-03-21] MEDS: BACLOFEN 10 MG TAB PO SCH ×2 (16:35→22:51)
[2023-03-21] MEDS: PREGABALIN 100 MG CAP PO SCH ×2 (16:35→22:52)
[2023-03-21 16:51] LABS: Glucose,Whole Blood 255 mg/dL (70-110)
[2023-03-21 20:26] LABS: Glucose,Whole Blood 268 mg/dL (70-110)
[2023-03-22] MEDS: MORPHINE SULFATE 4 MG/ML SYRINGE IV PRN ×5 (00:52→20:56)
[2023-03-22] MEDS: SODIUM CHLORIDE 0.9% 1,000 ML IV SCH ×3 (01:36→17:29)
[2023-03-22] MEDS: ACETAMINOPHEN TAB 325 MG TAB PO PRN ×2 (01:54→07:45)
[2023-03-22 04:05] LABS: Anisocytosis Slight; Basophils % (A) 0 %; Eosinophils % (A) 0 %; HCT 27.8 % (34.0-46.0); Hypochromasia Moderate; Lymphocytes # (A) 0.9 k/uL (1.0-4.8); Lymphocytes % (A) 7 %; MCH 22.8 pg (25.0-35.0); MCHC 32.3 g/dL (31.0-37.0); MCV 70.8 fL (80.0-100.0); Mean Platelet Volume 10.1; Microcytosis Marked; Monocytes # (A) 0.6 k/uL (0-1.0); Monocytes % (A) 5 %; Neutrophils # (A) 9.9 k/uL (1.3-7.7); Neutrophils % (A) 83 %; Platelet Count 149 k/uL (150-450); RBC 3.93 m/uL (3.80-5.40); RDW 17.6 % (11.5-15.5); WBC 11.9 k/uL (3.8-10.6)
[2023-03-22 04:18] LABS: African American GFR (CKD) >90 (>60 ml/min/1.73 sqM); Non-African American GFR(CKD) >90 (>60 ml/min/1.73 sqM); Sodium 133 mmol/L (137-145)
[2023-03-22 04:51] LABS: Anion Gap 11 mmol/L; Blood Urea Nitrogen 7 mg/dL (7-17); Carbon Dioxide 22 mmol/L (22-30); Chloride 100 mmol/L (98-107); Glucose 299 mg/dL (74-99)
[2023-03-22 04:54] LABS: Potassium 2.6 mmol/L (3.5-5.1)
[2023-03-22 05:33] LABS: Glucose,Whole Blood 290 mg/dL (70-110)
[2023-03-22] MEDS ORDERED: Potassium Replacement Protocol 1 EACH MISC MISCELLANE PRN (05:58)
[2023-03-22] MEDS: POTASSIUM CHLORIDE ER 20 MEQ TAB.ER PO SCH ×7 (06:04→18:00)
[2023-03-22] MEDS: INSULIN ASPART (NovoLOG) 100 UNIT/ML VIAL SQ SCH ×6 (06:47→20:57)
[2023-03-22] MEDS: PREGABALIN 100 MG CAP PO SCH ×3 (07:45→21:48)
[2023-03-22] MEDS: BACLOFEN 10 MG TAB PO SCH ×3 (07:45→21:47)
[2023-03-22] MEDS: ESCITALOPRAM 20 MG TAB PO SCH (07:45)
[2023-03-22] MEDS: DULoxetine HCL 60 MG CAPSULE.DR PO SCH (07:45)
[2023-03-22] MEDS: ENOXAPARIN 40 MG/0.4 ML SYRINGE SQ SCH (07:46)
[2023-03-22] MEDS: ONDANSETRON 4 MG/2 ML VIAL IVP PRN (07:46)
[2023-03-22] MEDS ORDERED: POTASSIUM CHLORIDE ER 20 MEQ TAB.ER PO STA ×3 (08:49→21:33)
[2023-03-22] MEDS ORDERED: POTASSIUM CHLORIDE 10 MEQ in WATER FOR INJECTION 1 100ML.BAG IVPB SCH (09:00)
[2023-03-22 11:56] LABS: Glucose,Whole Blood 296 mg/dL (70-110)
[2023-03-22] MEDS: IBUPROFEN 400 MG TAB PO PRN (14:10)
--- NOTE | 2023-03-22 14:27 | P.PN ---
Subjective Progress Note Date: 03/22/23 Patient is a 42-year-old female with a PMH of multiple sclerosis (stable, not on maintenance therapy), and type II DM who presents to the emergency room with complaints of fever, dysuria, and abdominal pain. CT abdomen pelvis in the emergency room revealed 3.3 cm left ovarian cyst with moderate fatty infi ltration of the liver with no other acute abnormalities. Chest x-ray was unremarkable. Laboratory evaluation revealed a UA grossly abnormal with respiratory viral panel negative, WBC count 18.6, MCV 69.7, sodium 133, potassium 3.2, CO2 19, glucose 314. Patient admitted for sepsis secondary to UTI. 03/22 Patient was seen and examined. States she feels better. No other complaints. CBC WBC 11.9 Hg 9 Hct 27.8 MCV 70.8 Plt 149. BMP Na 133, K 2.6, Cr 0.42, glu 299, Ca 8. General: Chronically ill-appearing female, no distress, morbidly obese Derm: no unusual rashes/lesions, warm Head: atraumatic, normocephalic, symmetric Eyes: EOMI, no lid lag, anicteric sclera ENT: Nose and ears atraumatic Neck: No cervical lymphadenopathy, trachea midline, supple Mouth: no lip lesion, mucus membranes moist Cardiovascular: good distal perfusion in all 4 extremities Lungs: breathing comfortably, no accessory muscle use Abdominal: soft, nontender to palpation, no guarding Ext: muscle strength 4 out of 5 in all 4 extremities grossly, no gross muscle atrophy, no contractures, Psych: Alert, oriented, appropriate affect Based on my assessment of this patient, this patient meets a moderate complexity level of care. Patient has a new diagnosis of UTI sepsis with uncertain prognosis. UTI sepsis: Rocephin 2g IV QD. UCx. BCx. Telemetry monitoring. NS at 75 cc/hr. Hypokalemia: KCl 60 meq PO x 1 today. DM with hyperglycemia: Add Novolog 8 units TID and Levemir 25 units QHS. CODE STATUS: FULL CODE DVT Prophylaxis: Lovenox GI Prophylaxis: Designated medical POA if patient is not able to make medical decisions for themselves: I have reviewed the following devops consultant notes: I have reviewed the results of the following tests: CBC, BMP I have ordered the following tests: CBC, BMP I have discussed the care of this patient with the following independent historian: Family member at bedside. I have independently interpreted the following test below: I have discussed the management of this patient with the following physician: Objective - Vital Signs Vital signs: Vital Signs Temp 97.5 F L 03/22/23 13:08 Pulse 70 03/22/23 13:08 Resp 19 03/22/23 13:08 BP 153/69 03/22/23 13:08 Pulse Ox 100 03/22/23 13:08 FiO2 Intake & Output 03/21/23 03/22/23 03/22/23 18:59 06:59 18:59 Intake Total 1650 Balance 1650 Weight 108.862 kg Intake: Intake, IV Titration 900 Amount Sodium Chloride 0.9% 1, 900 000 ml @ 130 mls/hr IV . [id number] [facility] Rx#:[id number] Oral 750 Other: # Voids 3 2 # Bowel Movements 0 - Labs CBC & Chem 7: 03/22/23 03:21 03/22/23 09:04 Labs: Abnormal Lab Results - Last 24 Hours (Table) 03/21/23 03/21/23 03/21/23 Range/Units 14:40 15:29 16:50 WBC (3.8-10.6) k/uL Hgb (11.4-16.0) gm/dL Hct (34.0-46.0) % MCV (80.0-100.0) fL MCH (25.0-35.0) pg RDW (11.5-15.5) % Plt Count (150-450) k/uL Neutrophils # (1.3-7.7) k/uL Lymphocytes # (1.0-4.8) k/uL APTT 31.0 H (22.0-30.0) sec Sodium (137-145) mmol/L Potassium (3.5-5.1) mmol/L Creatinine (0.52-1.04) mg/dL Glucose (74-99) mg/dL POC Glucose (mg/dL) 255 H (70-110) mg/dL Calcium (8.4-10.2) mg/dL Urine Appearance Cloudy H (Clear) Urine Protein 1+ H (Negative) Urine Glucose (UA) 4+ H (Negative) Urine Ketones 1+ H (Negative) Ur Leukocyte Esterase Large H (Negative) Urine WBC 21 H (0-5) /hpf Amorphous Sediment Occasional H (None) /hpf Urine Bacteria Rare H (None) /hpf Urine Mucus Rare H (None) /hpf 03/21/23 03/22/23 03/22/23 Range/Units 20:25 03:21 03:21 WBC 11.9 H (3.8-10.6) k/uL Hgb 9.0 L D (11.4-16.0) gm/dL Hct 27.8 L (34.0-46.0) % MCV 70.8 L (80.0-100.0) fL MCH 22.8 L (25.0-35.0) pg RDW 17.6 H (11.5-15.5) % Plt Count 149 L (150-450) k/uL Neutrophils # 9.9 H (1.3-7.7) k/uL Lymphocytes # 0.9 L (1.0-4.8) k/uL APTT (22.0-30.0) sec Sodium 133 L (137-145) mmol/L Potassium 2.6 L* (3.5-5.1) mmol/L Creatinine 0.42 L (0.52-1.04) mg/dL Glucose 299 H (74-99) mg/dL POC Glucose (mg/dL) 268 H (70-110) mg/dL Calcium 8.0 L (8.4-10.2) mg/dL Urine Appearance (Clear) Urine Protein (Negative) Urine Glucose (UA) (Negative) Urine Ketones (Negative) Ur Leukocyte Esterase (Negative) Urine WBC (0-5) /hpf Amorphous Sediment (None) /hpf Urine Bacteria (None) /hpf Urine Mucus (None) /hpf 03/22/23 03/22/23 03/22/23 Range/Units 05:32 09:04 11:54 WBC (3.8-10.6) k/uL Hgb (11.4-16.0) gm/dL Hct (34.0-46.0) % MCV (80.0-100.0) fL MCH (25.0-35.0) pg RDW (11.5-15.5) % Plt Count (150-450) k/uL Neutrophils # (1.3-7.7) k/uL Lymphocytes # (1.0-4.8) k/uL APTT (22.0-30.0) sec Sodium (137-145) mmol/L Potassium 3.0 L (3.5-5.1) mmol/L Creatinine (0.52-1.04) mg/dL Glucose (74-99) mg/dL POC Glucose (mg/dL) 290 H 296 H (70-110) mg/dL Calcium (8.4-10.2) mg/dL Urine Appearance (Clear) Urine Protein (Negative) Urine Glucose (UA) (Negative) Urine Ketones (Negative) Ur Leukocyte Esterase (Negative) Urine WBC (0-5) /hpf Amorphous Sediment (None) /hpf Urine Bacteria (None) /hpf Urine Mucus (None) /hpf Microbiology - Last 24 Hours (Table) 03/20/23 20:54 Urine Culture - Preliminary Urine,Voided Gram Neg Bacilli 03/20/23 18:45 Blood Culture - Preliminary Blood 03/20/23 18:30 Blood Culture - Preliminary Blood
[2023-03-22 16:45] LABS: Glucose,Whole Blood 294 mg/dL (70-110)
[2023-03-22 19:55] LABS: Glucose,Whole Blood 301 mg/dL (70-110)
[2023-03-22] MEDS ORDERED: INSULIN DETEMIR (LEVEMIR) 100 UNIT/ML SYR SQ SCH (21:00)
[2023-03-22] MEDS ORDERED: ASPIRIN-ACET-CAFF 250-250-65MG 1 EACH TAB PO STA (21:32)
--- NOTE | 2023-03-22 22:09 | P.CONS ---
History of Present Illness - Reason for Consult Consult date: 03/22/23 - History of Present Illness Patient is a 42-year-old female with a past medical history of "ovarian cyst migraine headaches multiple sclerosis presenting to the ER 2 days ago for evaluation of myalgias decreased appetite fatigue patient also have some burning and frequency of urine and has been complaining of right flank pain mild to moderate in intensity radiating to the right groin area patient did not recal l having any fever at home however on arrival to the ER the patient did have a fever of 101.6 F and also have a fever after midnight of 101 F patient was tachycardic but not hypotensive or hypoxic and no need for supplemental oxygen patient be complaining of some headache but no URI symptoms no chest pain shortness of breath or cough some nausea but no vomiting and no diarrhea patient did have white count of 18.6 creatinine 0.42 liver isms are normal urine was positive influenza RSV and COVID testing was negative blood culture obtained currently pending patient did have a chest x-ray no acute cardiopulmonary process patient did have a CT of abdominal pelvis left ovarian cyst moderate fatty infiltration of the liver no abnormality to the kidneys and the bladder area patient was started on Rocephin infectious disease was consulted for further management of antibiotic therapy Past Medical History Additional Past Medical History / Comment(s): OVARIAN CYST (THOUGHT TO BE CAUSE OF PAIN ) IS GONE. migraines, occ high BP, diarrhea, hx anemia, multiple sclerosis dx in 2007 History of Any Multi-Drug Resistant Organisms: None Reported Past Surgical History: Section, Cholecystectomy Additional Past Surgical History / Comment(s): MS Past Anesthesia/Blood Transfusion Reactions: Motion Sickness Past Psychological History: Anxiety, Depression Smoking Status: Never smoker Past Alcohol Use History: None Reported Past Drug Use History: None Reported - Past Family History Mother Family Medical History: Hyperlipidemia Medications and Allergies Home Medications Medication Instructions Recorded Confirmed Type DULoxetine HCL [Cymbalta] 60 mg PO DAILY 11/30/18 03/20/23 History Baclofen [Lioresal] 15 mg PO TID 12/15/18 03/20/23 History Escitalopram [Lexapro] 20 mg PO DAILY 03/20/23 03/20/23 History Pregabalin [Lyrica] 100 mg PO TID 03/20/23 03/20/23 History metFORMIN HCL [Glucophage] 500 mg PO BID-W/MEALS 03/20/23 03/20/23 History Allergies Allergy/AdvReac Type Severity Reaction Status Date / Time No Known Allergies Allergy Verified 03/20/23 16:07 Physical Exam Vitals: Vital Signs Temp Pulse Resp BP Pulse Ox 03/22/23 07:16 100.3 F H 129 H 20 124/79 95 03/22/23 06:53 98.6 F 03/22/23 00:50 101.1 F H 133 H 22 108/66 95 03/21/23 20:35 130 H 03/21/23 19:25 100.2 F H 132 H 18 118/86 97 03/21/23 17:49 117/74 03/21/23 14:40 99.3 F 122 H 18 106/57 95 03/21/23 13:35 100 F H Intake and Output 03/21/23 03/22/23 03/22/23 22:59 06:59 14:59 Intake Total 1650 Balance 1650 Intake: Intake, IV Titration 900 Amount Sodium Chloride 0.9% 1, 900 000 ml @ 130 mls/hr IV . Q7H42M [facility] Rx#:[id number] Oral 750 Other: # Voids 3 2 # Bowel Movements 0 Weight 108.862 kg Results CBC & Chem 7: 03/22/23 03:21 03/22/23 20:47 Labs: Abnormal Lab Results - Last 24 Hours (Table) 03/21/23 03/21/23 03/21/23 Range/Units 03:27 11:52 14:40 WBC (3.8-10.6) k/uL Hgb (11.4-16.0) gm/dL Hct (34.0-46.0) % MCV (80.0-100.0) fL MCH (25.0-35.0) pg RDW (11.5-15.5) % Plt Count (150-450) k/uL Neutrophils # (1.3-7.7) k/uL Lymphocytes # (1.0-4.8) k/uL APTT 31.0 H (22.0-30.0) sec Sodium (137-145) mmol/L Potassium (3.5-5.1) mmol/L Creatinine (0.52-1.04) mg/dL Glucose (74-99) mg/dL POC Glucose (mg/dL) 302 H (70-110) mg/dL Calcium (8.4-10.2) mg/dL Iron 8 L (50-170) UG/DL % Saturation 2.01 L (12.00-45.00) Urine Appearance (Clear) Urine Protein (Negative) Urine Glucose (UA) (Negative) Urine Ketones (Negative) Ur Leukocyte Esterase (Negative) Urine WBC (0-5) /hpf Amorphous Sediment (None) /hpf Urine Bacteria (None) /hpf Urine Mucus (None) /hpf 03/21/23 03/21/23 03/21/23 Range/Units 15:29 16:50 20:25 WBC (3.8-10.6) k/uL Hgb (11.4-16.0) gm/dL Hct (34.0-46.0) % MCV (80.0-100.0) fL MCH (25.0-35.0) pg RDW (11.5-15.5) % Plt Count (150-450) k/uL Neutrophils # (1.3-7.7) k/uL Lymphocytes # (1.0-4.8) k/uL APTT (22.0-30.0) sec Sodium (137-145) mmol/L Potassium (3.5-5.1) mmol/L Creatinine (0.52-1.04) mg/dL Glucose (74-99) mg/dL POC Glucose (mg/dL) 255 H 268 H (70-110) mg/dL Calcium (8.4-10.2) mg/dL Iron (50-170) UG/DL % Saturation (12.00-45.00) Urine Appearance Cloudy H (Clear) Urine Protein 1+ H (Negative) Urine Glucose (UA) 4+ H (Negative) Urine Ketones 1+ H (Negative) Ur Leukocyte Esterase Large H (Negative) Urine WBC 21 H (0-5) /hpf Amorphous Sediment Occasional H (None) /hpf Urine Bacteria Rare H (None) /hpf Urine Mucus Rare H (None) /hpf 03/22/23 03/22/23 03/22/23 Range/Units 03:21 03:21 05:32 WBC 11.9 H (3.8-10.6) k/uL Hgb 9.0 L D (11.4-16.0) gm/dL Hct 27.8 L (34.0-46.0) % MCV 70.8 L (80.0-100.0) fL MCH 22.8 L (25.0-35.0) pg RDW 17.6 H (11.5-15.5) % Plt Count 149 L (150-450) k/uL Neutrophils # 9.9 H (1.3-7.7) k/uL Lymphocytes # 0.9 L (1.0-4.8) k/uL APTT (22.0-30.0) sec Sodium 133 L (137-145) mmol/L Potassium 2.6 L* (3.5-5.1) mmol/L Creatinine 0.42 L (0.52-1.04) mg/dL Glucose 299 H (74-99) mg/dL POC Glucose (mg/dL) 290 H (70-110) mg/dL Calcium 8.0 L (8.4-10.2) mg/dL Iron (50-170) UG/DL % Saturation (12.00-45.00) Urine Appearance (Clear) Urine Protein (Negative) Urine Glucose (UA) (Negative) Urine Ketones (Negative) Ur Leukocyte Esterase (Negative) Urine WBC (0-5) /hpf Amorphous Sediment (None) /hpf Urine Bacteria (None) /hpf Urine Mucus (None) /hpf 03/22/23 Range/Units 09:04 WBC (3.8-10.6) k/uL Hgb (11.4-16.0) gm/dL Hct (34.0-46.0) % MCV (80.0-100.0) fL MCH (25.0-35.0) pg RDW (11.5-15.5) % Plt Count (150-450) k/uL Neutrophils # (1.3-7.7) k/uL Lymphocytes # (1.0-4.8) k/uL APTT (22.0-30.0) sec Sodium (137-145) mmol/L Potassium 3.0 L (3.5-5.1) mmol/L Creatinine (0.52-1.04) mg/dL Glucose (74-99) mg/dL POC Glucose (mg/dL) (70-110) mg/dL Calcium (8.4-10.2) mg/dL Iron (50-170) UG/DL % Saturation (12.00-45.00) Urine Appearance (Clear) Urine Protein (Negative) Urine Glucose (UA) (Negative) Urine Ketones (Negative) Ur Leukocyte Esterase (Negative) Urine WBC (0-5) /hpf Amorphous Sediment (None) /hpf Urine Bacteria (None) /hpf Urine Mucus (None) /hpf Microbiology - Last 24 Hours (Table) 03/20/23 18:45 Blood Culture - Preliminary Blood 03/20/23 18:30 Blood Culture - Preliminary Blood Assessment and Plan Plan: 1patient presented to hospital with sepsis in this patient who did have a fever tachycardia patient did have a right flank pain positive UA source is likely right-sided pyelonephritis and likely from enteric gram-negative pathogen CT abdominal pelvis did not show any stones or obstructive uropathy 2-Rocephin 2 g daily to continue while waiting for the culture to finalize We will follow on clinical condition and cultures to further adjust medication if needed Thank you for this consultation we will follow the patient along with you Dictation was produced using [employer] dictation software. please excuse any grammatical, word or spelling errors. Time with Patient: Greater than 30
[2023-03-23] MEDS: MORPHINE SULFATE 4 MG/ML SYRINGE IV PRN ×2 (01:19→09:18)
[2023-03-23] MEDS: ONDANSETRON 4 MG/2 ML VIAL IVP PRN (05:26)
[2023-03-23] MEDS: HYDROmorphone 0.5 MG/0.5 ML SYRINGE IVP PRN ×4 (05:26→21:06)
[2023-03-23 05:39] LABS: Glucose,Whole Blood 244 mg/dL (70-110)
[2023-03-23] MEDS: SODIUM CHLORIDE 0.9% 1,000 ML IV SCH ×2 (06:20→18:01)
[2023-03-23] MEDS: INSULIN ASPART (NovoLOG) 100 UNIT/ML VIAL SQ SCH ×8 (06:20→21:07)
[2023-03-23] MEDS: DULoxetine HCL 60 MG CAPSULE.DR PO SCH (09:15)
[2023-03-23] MEDS: PREGABALIN 100 MG CAP PO SCH ×3 (09:16→21:06)
[2023-03-23] MEDS: ESCITALOPRAM 20 MG TAB PO SCH (09:16)
[2023-03-23] MEDS: ACETAMINOPHEN TAB 325 MG TAB PO PRN (09:16)
[2023-03-23] MEDS: BACLOFEN 10 MG TAB PO SCH ×3 (09:16→21:06)
[2023-03-23] MEDS: ENOXAPARIN 40 MG/0.4 ML SYRINGE SQ SCH (09:16)
[2023-03-23] MEDS ORDERED: ONDANSETRON 4 MG/2 ML VIAL IVP PRN (09:22)
[2023-03-23 10:00] LABS: African American GFR (CKD) >90 (>60 ml/min/1.73 sqM); Anion Gap 12 mmol/L; Blood Urea Nitrogen 4 mg/dL (7-17); Carbon Dioxide 23 mmol/L (22-30); Chloride 101 mmol/L (98-107); Glucose 240 mg/dL (74-99); Non-African American GFR(CKD) >90 (>60 ml/min/1.73 sqM); Potassium 3.3 mmol/L (3.5-5.1); Sodium 136 mmol/L (137-145)
[2023-03-23 10:06] LABS: Anisocytosis Slight; HCT 29.4 % (34.0-46.0); HGB 9.3 gm/dL (11.4-16.0); Hypochromasia Marked; MCH 22.6 pg (25.0-35.0); MCHC 31.5 g/dL (31.0-37.0); MCV 71.8 fL (80.0-100.0); Mean Platelet Volume 8.1; Microcytosis Moderate; Platelet Count 154 k/uL (150-450); RBC 4.09 m/uL (3.80-5.40); RDW 17.4 % (11.5-15.5); WBC 10.3 k/uL (3.8-10.6)
--- NOTE | 2023-03-23 10:59 | P.PN ---
Subjective Progress Note Date: 03/23/23 Patient is a 42-year-old female with a PMH of multiple sclerosis (stable, not on maintenance therapy), and type II DM who presents to the emergency room with complaints of fever, dysuria, and abdominal pain. CT abdomen pelvis in the emergency room revealed 3.3 cm left ovarian cyst with moderate fatty infi ltration of the liver with no other acute abnormalities. Chest x-ray was unremarkable. Laboratory evaluation revealed a UA grossly abnormal with respiratory viral panel negative, WBC count 18.6, MCV 69.7, sodium 133, potassium 3.2, CO2 19, glucose 314. Patient admitted for sepsis secondary to UTI. 03/22 Patient was seen and examined. States she feels better. No other complaints. CBC WBC 11.9 Hg 9 Hct 27.8 MCV 70.8 Plt 149. BMP Na 133, K 2.6, Cr 0.42, glu 299, Ca 8. 03/23 Patient was seen and examined. Complains of a boil on the left lateral side of the breast. Draining minimal drainage. Tmax 100.8F over the past 24H. HR is the 110s. UCx gram negative bacilli. BCx negative so far. CBC Hg 9.3 Hct 29.4 MCV 71.8. BMP Na 136, K 3.3, BUN 4, Cr 0.31, glu 240. POC glucose 244-301 over the past 24H. General: Chronically ill-appearing female, no distress, morbidly obese Derm: no unusual rashes/lesions, warm, erythema of the left lateral breast with open wound without discharge Head: atraumatic, normocephalic, symmetric Eyes: EOMI, no lid lag, anicteric sclera ENT: Nose and ears atraumatic Neck: No cervical lymphadenopathy, trachea midline, supple Mouth: no lip lesion, mucus membranes moist Cardiovascular: Tachycardic. Normal S1 S2. Lungs: Clear to auscultation bilaterally, no accessory muscle use Abdominal: soft, nontender to palpation, no guarding Ext: muscle strength 4 out of 5 in all 4 extremities grossly, no gross muscle atrophy, no contractures, Psych: Alert, oriented, appropriate affect Based on my assessment of this patient, this patient meets a high complexity level of care. Patient has a new diagnosis of UTI sepsis with uncertain prognosis. UTI sepsis: Rocephin 2g IV QD. UCx as above. BCx as above. Telemetry monitoring. NS at 75 cc/hr. Hypokalemia: KCl per protocol. DM with hyperglycemia: Increase Novolog 10 units TID and Levemir 30 units QHS. ISS. Accuchecks ACHS. Hypoglycemic precautions Iron def anemia: Start ferric gluconate 125 mg IV QD. CODE STATUS: FULL CODE DVT Prophylaxis: Lovenox GI Prophylaxis: Designated medical POA if patient is not able to make medical decisions for themselves: I have reviewed the following customer care consultant notes: I have reviewed the results of the following tests: CBC, BMP, UCx, BCx. I have ordered the following tests: CBC, BMP I have discussed the care of this patient with the following independent historian: Family member at bedside. I have independently interpreted the following test below: I have discussed the management of this patient with the following physician: This patient meets a high level of care for the following reasons: Patient requires intensive hemodynamic monitoring for sepsis/SIRS Patient requires adjustments in insulin which requires intensive monitoring for hypoglycemic episodes. Objective - Vital Signs Vital signs: Vital Signs Temp 100.8 F H 03/23/23 08:00 Pulse 116 H 03/23/23 08:00 Resp 18 03/23/23 08:00 BP 134/89 03/23/23 08:00 Pulse Ox 95 03/23/23 08:00 FiO2 Intake & Output 03/22/23 03/23/23 03/23/23 18:59 06:59 18:59 Intake Total 450 Balance 450 Intake: Blood Product 450 Other: Voiding Method Toilet # Voids 3 3 1 # Bowel Movements 1 - Labs CBC & Chem 7: 03/23/23 09:01 03/23/23 09:01 Labs: Abnormal Lab Results - Last 24 Hours (Table) 03/22/23 03/22/23 03/22/23 Range/Units 11:54 16:44 19:54 Hgb (11.4-16.0) gm/dL Hct (34.0-46.0) % MCV (80.0-100.0) fL MCH (25.0-35.0) pg RDW (11.5-15.5) % Sodium (137-145) mmol/L Potassium (3.5-5.1) mmol/L BUN (7-17) mg/dL Creatinine (0.52-1.04) mg/dL Glucose (74-99) mg/dL POC Glucose (mg/dL) 296 H 294 H 301 H (70-110) mg/dL Calcium (8.4-10.2) mg/dL 03/23/23 03/23/23 03/23/23 Range/Units 05:38 06:39 09:01 Hgb 9.3 L (11.4-16.0) gm/dL Hct 29.4 L (34.0-46.0) % MCV 71.8 L (80.0-100.0) fL MCH 22.6 L (25.0-35.0) pg RDW 17.4 H (11.5-15.5) % Sodium (137-145) mmol/L Potassium 3.2 L (3.5-5.1) mmol/L BUN (7-17) mg/dL Creatinine (0.52-1.04) mg/dL Glucose (74-99) mg/dL POC Glucose (mg/dL) 244 H (70-110) mg/dL Calcium (8.4-10.2) mg/dL 03/23/23 Range/Units 09:01 Hgb (11.4-16.0) gm/dL Hct (34.0-46.0) % MCV (80.0-100.0) fL MCH (25.0-35.0) pg RDW (11.5-15.5) % Sodium 136 L (137-145) mmol/L Potassium 3.3 L (3.5-5.1) mmol/L BUN 4 L (7-17) mg/dL Creatinine 0.31 L (0.52-1.04) mg/dL Glucose 240 H (74-99) mg/dL POC Glucose (mg/dL) (70-110) mg/dL Calcium 8.0 L (8.4-10.2) mg/dL Microbiology - Last 24 Hours (Table) 03/20/23 18:45 Blood Culture - Preliminary Blood 03/20/23 18:30 Blood Culture - Preliminary Blood 03/20/23 20:54 Urine Culture - Preliminary Urine,Voided Gram Neg Bacilli
[2023-03-23 11:47] LABS: Glucose,Whole Blood 243 mg/dL (70-110)
[2023-03-23] MEDS: SODIUM FERRIC GLUCONAT-SUCROSE 125 MG in SODIUM CHLORIDE 0.9% 100 ML IVPB SCH (12:30)
[2023-03-23] MEDS: IBUPROFEN 400 MG TAB PO PRN (16:01)
[2023-03-23 16:27] LABS: Glucose,Whole Blood 284 mg/dL (70-110)
[2023-03-23 20:27] LABS: Glucose,Whole Blood 239 mg/dL (70-110)
[2023-03-23] MEDS ORDERED: INSULIN DETEMIR (LEVEMIR) 100 UNIT/ML SYR SQ SCH (21:00)
--- NOTE | 2023-03-23 23:14 | P.PN ---
Subjective Progress Note Date: 03/23/23 Principal diagnosis: Reason for follow-up is urinary tract infection and possible right breast mastitis Patient is a 42-year-old female with a past medical history of "o varian cyst migraine headaches multiple sclerosis presenting to the ER for evaluation of myalgias right flank pain and urinary symptoms did have positive UA concerning for symptomatic urinary tract infection/pyelonephritis, patient also complaining of right breast erythema but no significant pain or drainage on her 03/23/2023. On today's evaluation that is 03/23/2023 patient fever pattern has improved did have a low-grade fever 100.8 F this morning patient denies having any chest pain or shortness of breath or cough no nausea vomiting no abdominal pain or diarrhea. Patient white count normalized to 10.3 creatinine 0.31 blood culture negative urine showing gram-negative bacilli Objective - Vital Signs Vital signs: Vital Signs Temp 100.8 F H 03/23/23 08:00 Pulse 116 H 03/23/23 08:00 Resp 18 03/23/23 08:00 BP 134/89 03/23/23 08:00 Pulse Ox 95 03/23/23 08:00 FiO2 Intake & Output 03/22/23 03/23/23 03/23/23 18:59 06:59 18:59 Intake Total 450 Balance 450 Intake: Blood Product 450 Other: Voiding Method Toilet # Voids 3 3 1 # Bowel Movements 1 - Exam GENERAL DESCRIPTION: A middle-age female lying in bed in no distress RESPIRATORY SYSTEM: Unlabored breathing , decreased breath sounds at bases HEART: S1 S2 regular rate and rhythm , Right breast did have some erythema but no induration fluctuation or drainage ABDOMEN: Soft , no tenderness EXTREMITIES: No edema feet - Labs CBC & Chem 7: 03/23/23 09:01 03/23/23 09:01 Labs: Abnormal Lab Results - Last 24 Hours (Table) 03/22/23 03/22/23 03/22/23 Range/Units 11:54 16:44 19:54 Hgb (11.4-16.0) gm/dL Hct (34.0-46.0) % MCV (80.0-100.0) fL MCH (25.0-35.0) pg RDW (11.5-15.5) % Sodium (137-145) mmol/L Potassium (3.5-5.1) mmol/L BUN (7-17) mg/dL Creatinine (0.52-1.04) mg/dL Glucose (74-99) mg/dL POC Glucose (mg/dL) 296 H 294 H 301 H (70-110) mg/dL Calcium (8.4-10.2) mg/dL 03/23/23 03/23/23 03/23/23 Range/Units 05:38 06:39 09:01 Hgb 9.3 L (11.4-16.0) gm/dL Hct 29.4 L (34.0-46.0) % MCV 71.8 L (80.0-100.0) fL MCH 22.6 L (25.0-35.0) pg RDW 17.4 H (11.5-15.5) % Sodium (137-145) mmol/L Potassium 3.2 L (3.5-5.1) mmol/L BUN (7-17) mg/dL Creatinine (0.52-1.04) mg/dL Glucose (74-99) mg/dL POC Glucose (mg/dL) 244 H (70-110) mg/dL Calcium (8.4-10.2) mg/dL 03/23/23 Range/Units 09:01 Hgb (11.4-16.0) gm/dL Hct (34.0-46.0) % MCV (80.0-100.0) fL MCH (25.0-35.0) pg RDW (11.5-15.5) % Sodium 136 L (137-145) mmol/L Potassium 3.3 L (3.5-5.1) mmol/L BUN 4 L (7-17) mg/dL Creatinine 0.31 L (0.52-1.04) mg/dL Glucose 240 H (74-99) mg/dL POC Glucose (mg/dL) (70-110) mg/dL Calcium 8.0 L (8.4-10.2) mg/dL Microbiology - Last 24 Hours (Table) 03/20/23 18:45 Blood Culture - Preliminary Blood 03/20/23 18:30 Blood Culture - Preliminary Blood 03/20/23 20:54 Urine Culture - Preliminary Urine,Voided Gram Neg Bacilli Assessment and Plan (1) Mastitis, right, acute Current Visit: Yes Status: Acute Code(s): N61.0 - MASTITIS WITHOUT ABSCESS SNOMED Code(s): 09719861 (2) UTI (urinary tract infection) Current Visit: Yes Status: Acute Code(s): N39.0 - URINARY TRACT INFECTION, SITE NOT SPECIFIED SNOMED Code(s): 60730723 Plan: 1patient presented to hospital with sepsis in this patient who did have a fever tachycardia patient did have a right flank pain positive UA source is likely right-sided pyelonephritis and likely from enteric gram-negative pathogen CT abdominal pelvis did not show any stones or obstructive uropathy 2-patient also have some erythema to the right breast concerning for possible mastitis likely from gram-positive skin ricky 3-patient did have improvement in the fever pattern white count has normalized, we will continue-Rocephin 2 g daily while waiting for the culture to finalize Dictation was produced using [employer] dictation software. please excuse any grammatical, word or spelling errors. Time with Patient: Less than 30
[2023-03-24] MEDS: IBUPROFEN 400 MG TAB PO PRN ×2 (00:34→11:02)
[2023-03-24] MEDS: HYDROmorphone 0.5 MG/0.5 ML SYRINGE IVP PRN ×4 (00:35→12:26)
[2023-03-24 02:11] VITALS: RESP 18
[2023-03-24] MEDS: ACETAMINOPHEN TAB 325 MG TAB PO PRN (04:24)
[2023-03-24] MEDS: SODIUM CHLORIDE 0.9% 1,000 ML IV SCH (04:27)
[2023-03-24 06:04] LABS: Glucose,Whole Blood 224 mg/dL (70-110)
[2023-03-24] MEDS: INSULIN ASPART (NovoLOG) 100 UNIT/ML VIAL SQ SCH ×4 (06:57→12:25)
[2023-03-24 08:03] VITALS: BP 117/67; PULSE 89; TEMP 97.9
[2023-03-24] MEDS: SODIUM FERRIC GLUCONAT-SUCROSE 125 MG in SODIUM CHLORIDE 0.9% 100 ML IVPB SCH (08:19)
[2023-03-24] MEDS: DULoxetine HCL 60 MG CAPSULE.DR PO SCH (08:20)
[2023-03-24] MEDS: BACLOFEN 10 MG TAB PO SCH (08:20)
[2023-03-24] MEDS: ESCITALOPRAM 20 MG TAB PO SCH (08:21)
[2023-03-24] MEDS: ENOXAPARIN 40 MG/0.4 ML SYRINGE SQ SCH (08:21)
[2023-03-24] MEDS: PREGABALIN 100 MG CAP PO SCH (08:21)
[2023-03-24 11:28] LABS: Glucose,Whole Blood 195 mg/dL (70-110)
[2023-03-24 12:17] LABS: Anisocytosis Slight; HCT 29.7 % (34.0-46.0); HGB 9.5 gm/dL (11.4-16.0); Hypochromasia Marked; MCH 22.8 pg (25.0-35.0); MCHC 31.8 g/dL (31.0-37.0); MCV 71.6 fL (80.0-100.0); Mean Platelet Volume 8.7; Microcytosis Moderate; Platelet Count 200 k/uL (150-450); RBC 4.15 m/uL (3.80-5.40); RDW 17.5 % (11.5-15.5); WBC 8.9 k/uL (3.8-10.6)
[2023-03-24 12:23] VITALS: BMI 38.7
--- NOTE | 2023-03-24 12:28 | P.PN ---
Subjective Progress Note Date: 03/24/23 Principal diagnosis: Reason for follow-up is urinary tract infection and possible right breast mastitis Patient is a 42-year-old female with a past medical history of "o varian cyst migraine headaches multiple sclerosis presenting to the ER for evaluation of myalgias right flank pain and urinary symptoms did have positive UA concerning for symptomatic urinary tract infection/pyelonephritis, patient also complaining of right breast erythema but no significant pain or drainage on her 03/23/2023. On today's evaluation that is 03/24/2023, the patient denies having any fever or any chills, the patient is currently breathing comfortably on room air patient denies having any chest pain cough or sputum production denies any nausea vomiting no abdominal pain no diarrhea, patient denies pain to the right breast area or any drainage. The patient white count is 8.9 urine grew E. coli that is a sensitive pathogen blood culture has been negative Objective - Vital Signs Vital signs: Vital Signs Temp 97.9 F 03/24/23 06:55 Pulse 89 03/24/23 06:55 Resp 18 03/24/23 06:55 BP 117/67 03/24/23 06:55 Pulse Ox 97 03/24/23 06:55 FiO2 Intake & Output 03/23/23 03/24/23 03/24/23 18:59 06:59 18:59 Intake Total 750 Balance 750 Weight 108.862 kg Intake: Intake, IV Titration 750 Amount Sodium Chloride 0.9% 1, 600 000 ml @ 75 mls/hr IV . [id number] [facility] Rx#:[id number] Sodium Ferric Gluconat- 100 Sucrose 125 mg In Sodium Chloride 0.9% 100 ml @ 100 mls/hr IVPB DAILY [facility] Rx#:[id number] cefTRIAXone 2 gm In 50 Sodium Chloride 0.9% 50 ml @ 100 mls/hr IVPB Q24H [facility] Rx#:[id number] Other: Voiding Method Toilet # Voids 1 1 # Bowel Movements 1 - Exam GENERAL DESCRIPTION: A middle-age female lying in bed in no distress RESPIRATORY SYSTEM: Unlabored breathing , decreased breath sounds at bases HEART: S1 S2 regular rate and rhythm , ABDOMEN: Soft , no tenderness EXTREMITIES: No edema feet - Labs CBC & Chem 7: 03/24/23 11:38 03/23/23 09:01 Labs: Abnormal Lab Results - Last 24 Hours (Table) 03/23/23 03/23/23 03/23/23 Range/Units 06:39 16:26 20:25 Hgb (11.4-16.0) gm/dL Hct (34.0-46.0) % MCV (80.0-100.0) fL MCH (25.0-35.0) pg RDW (11.5-15.5) % POC Glucose (mg/dL) 284 H 239 H (70-110) mg/dL Hemoglobin A1c 10.0 H (<=6.0) % 03/24/23 03/24/23 03/24/23 Range/Units 06:00 11:27 11:38 Hgb 9.5 L (11.4-16.0) gm/dL Hct 29.7 L (34.0-46.0) % MCV 71.6 L (80.0-100.0) fL MCH 22.8 L (25.0-35.0) pg RDW 17.5 H (11.5-15.5) % POC Glucose (mg/dL) 224 H 195 H (70-110) mg/dL Hemoglobin A1c (<=6.0) % Microbiology - Last 24 Hours (Table) 03/20/23 18:45 Blood Culture - Preliminary Blood 03/20/23 18:30 Blood Culture - Preliminary Blood 03/20/23 20:54 Urine Culture - Final Urine,Voided Escherichia coli Assessment and Plan (1) Mastitis, right, acute Current Visit: Yes Status: Acute Code(s): N61.0 - MASTITIS WITHOUT ABSCESS SNOMED Code(s): 92407218 (2) UTI (urinary tract infection) Current Visit: Yes Status: Acute Code(s): N39.0 - URINARY TRACT INFECTION, SITE NOT SPECIFIED SNOMED Code(s): 34617324 Plan: 1patient presented to hospital with sepsis in this patient who did have a fever tachycardia patient did have a right flank pain positive UA source is likely right-sided pyelonephritis and likely from enteric gram-negative pathogen CT abdominal pelvis did not show any stones or obstructive uropathy 2-patient also have some erythema to the right breast concerning for possible ma stitis likely from gram-positive skin ricky 3-patient did have improvement, did have resolution of her fever white count has normalized keeping in mind overall improvement on Rocephin will consider 10-day course of oral Ceftin on discharge prescription sent to the pharmacy Dictation was produced using [employer] dictation software. please excuse any grammatical, word or spelling errors. Time with Patient: Less than 30
[2023-03-24 12:29] LABS: African American GFR (CKD) >90 (>60 ml/min/1.73 sqM); Anion Gap 11 mmol/L; Blood Urea Nitrogen 5 mg/dL (7-17); Calcium 8.4 mg/dL (8.4-10.2); Carbon Dioxide 26 mmol/L (22-30); Chloride 104 mmol/L (98-107); Glucose 204 mg/dL (74-99); Non-African American GFR(CKD) >90 (>60 ml/min/1.73 sqM); Sodium 141 mmol/L (137-145)
[2023-03-24] MEDS ORDERED: POTASSIUM CHLORIDE ER 20 MEQ TAB.ER PO STA (12:58)
--- NOTE | 2023-03-24 13:07 | P.DS ---
Providers Date of admission: 03/20/23 21:45 Expected date of discharge: 03/24/23 Attending physician: Rigoberto Arrington MD Consults: 03/22/23 04:53 Consult Physician Urgent Consulting Provider: Jens Carrillo Consult Reason/Comments: UTi Do you want consulting provider notified?: Yes Primary care physician: Stated None Hospital Course: Patient is a 42-year-old female with a PMH of multiple sclerosis (stable, not on maintenance therapy), and type II DM who presents to the emergency room with complaints of fever, dysuria, and abdominal pain. CT abdomen pelvis in the emergency room revealed 3.3 cm left ovarian cyst with moderate fatty infiltration of the liver with no other acute abnormalities. Chest x-ray was unremarkable. Laboratory evaluation revealed a UA grossly abnormal with respiratory viral panel negative, WBC count 18.6, MCV 69.7, sodium 133, potassium 3.2, CO2 19, glucose 314. Patient admitted for sepsis secondary to UTI. 03/22 Patient was seen and examined. States she feels better. No other complaints. CBC WBC 11.9 Hg 9 Hct 27.8 MCV 70.8 Plt 149. BMP Na 133, K 2.6, Cr 0.42, glu 299, Ca 8. 03/23 Patient was seen and examined. Complains of a boil on the left lateral side of the breast. Draining minimal drainage. Tmax 100.8F over the past 24H. HR is the 110s. UCx gram negative bacilli. BCx negative so far. CBC Hg 9.3 Hct 29.4 MCV 71.8. BMP Na 136, K 3.3, BUN 4, Cr 0.31, glu 240. POC glucose 244-301 over the past 24H. 03/24 Patient was seen and examined. She reports improvement in her symptoms. No nausea or vomiting. Tolerating diet well. UCx + E. coli. BCx prelim negative. BMP shows K 3 which will be replaced prior to discharge. Plans for discharge home on Ciprofloxacin for 7 days (total 10 days antibiotics), Zofran PRN N/V, [place] 5 PRN pain, KCl 20 meq PO QD x 7 days. She will need to establish care with a PCP for further titration of her diabetic medications. General: Chronically ill-appearing female, no distress, morbidly obese Derm: no unusual rashes/lesions, warm, erythema of the left lateral breast with open wound without discharge Head: atraumatic, normocephalic, symmetric Eyes: EOMI, no lid lag, anicteric sclera ENT: Nose and ears atraumatic Neck: No cervical lymphadenopathy, trachea midline, supple Mouth: no lip lesion, mucus membranes moist Cardiovascular: Normal S1 S2. Lungs: Clear to auscultation bilaterally, no accessory muscle use Abdominal: soft, nontender to palpation, no guarding Ext: muscle strength 4 out of 5 in all 4 extremities grossly, no gross muscle atrophy, no contractures Psych: Alert, oriented, appropriate affect Discharge Diagnosis: UTI sepsis Hypokalemia DM with hyperglycemia Iron def anemia Patient Condition at Discharge: Stable Plan - Discharge Summary Discharge Rx Participant: No New Discharge Prescriptions: New HYDROcodone/APAP 5-325MG [[place] 5-325] 1 tab PO Q4HR PRN 3 Days #18 tab PRN Reason: Pain Ciprofloxacin HCl [Cipro] 500 mg PO Q12HR 7 Days #14 tab Ferrous Sulfate [Feosol] 325 mg PO DAILY #30 tab Potassium Chloride ER [K-Dur 20] 20 meq PO DAILY #7 tab Acetaminophen Tab [Tylenol] 650 mg PO Q6HR PRN tab PRN Reason: Mild Pain Or Fever > 100.5 Ondansetron Odt [Zofran Odt] 4 mg PO Q8HR PRN #30 tab PRN Reason: Nausea And Vomiting Continue DULoxetine HCL [Cymbalta] 60 mg PO DAILY Baclofen [Lioresal] 15 mg PO TID metFORMIN HCL [Glucophage] 500 mg PO BID-W/MEALS Escitalopram [Lexapro] 20 mg PO DAILY Pregabalin [Lyrica] 100 mg PO TID Discharge Medication List DULoxetine HCL [Cymbalta] 60 mg PO DAILY 11/30/18 [History] Baclofen [Lioresal] 15 mg PO TID 12/15/18 [History] Escitalopram [Lexapro] 20 mg PO DAILY 03/20/23 [History] Pregabalin [Lyrica] 100 mg PO TID 03/20/23 [History] metFORMIN HCL [Glucophage] 500 mg PO BID-W/MEALS 03/20/23 [History] Acetaminophen Tab [Tylenol] 650 mg PO Q6HR PRN tab 03/24/23 [Rx] Ciprofloxacin HCl [Cipro] 500 mg PO Q12HR 7 Days #14 tab 01/31/24 [Rx] Ferrous Sulfate [Feosol] 325 mg PO DAILY #30 tab 03/24/23 [Rx] HYDROcodone/APAP 5-325MG [[place] 5-325] 1 tab PO Q4HR PRN 3 Days #18 tab 03/24/23 [Rx] Ondansetron Odt [Zofran Odt] 4 mg PO Q8HR PRN #30 tab 03/24/23 [Rx] Potassium Chloride ER [K-Dur 20] 20 meq PO DAILY #7 tab 03/24/23 [Rx] Follow up Appointment(s)/Referral(s): Estella Acosta MD [REFERRING] - 1 Week None,Stated [Primary Care Provider] - 1-2 days Patient Instructions/Handouts: Mastitis (DC), Urinary Tract Infection in Women (DC), Sepsis (DC) Discharge/Stand Alone Forms: Area PCPs Discharge Disposition: HOME SELF-CARE
== END 2023-03-24 13:59 | disposition home or self-care (01) | DRG 872 ==
LOC: EC 15:31 → 4SSUR 21:45
PROVIDERS: ADMIT Internal Medicine; ATTEND Internal Medicine
DX: A41.9 Sepsis, unspecified organism (principal); E87.1 Hypo-osmolality and hyponatremia; N39.0 Urinary tract infection, site not specified; D50.9 Iron deficiency anemia, unspecified; E11.65 Type 2 diabetes mellitus with hyperglycemia; Z79.84 Long term (current) use of oral hypoglycemic drugs; G43.909 Migraine, unspecified, not intractable, without status migrainosus; E87.6 Hypokalemia; F32.A Depression, unspecified; F41.9 Anxiety disorder, unspecified; G35 Multiple sclerosis; K76.0 Fatty (change of) liver, not elsewhere classified; N61.1 Abscess of the breast and nipple; N83.202 Unspecified ovarian cyst, left side; Z79.899 Other long term (current) drug therapy; Z87.440 Personal history of urinary (tract) infections; Z11.52 Encounter for screening for COVID-19; E66.01 Morbid (severe) obesity due to excess calories; Z68.38 Body mass index [BMI] 38.0-38.9, adult; Z71.3 Dietary counseling and surveillance; Z28.310 Unvaccinated for COVID-19
CPT/HCPCS: 36415; 71046; 74177; 80048; 80053; 81001; 81025; 82009; 82728; 83036; 83540; 83550; 83605; 84132; 85025; 85027; 85610; 85730; 87040; 87077; 87086; 87186; 87636; 93005; 96361; 96365; 96367; 96375; 96376; 99285

== ENCOUNTER → 2023-03-27 | Outpatient (CLI) | payer BC, MEDICARE ==
[2023-03-27 13:33] LABS: Blood Urea Nitrogen 7.8 mg/dL (9.0-27.0); Calcium 9.2 mg/dL (8.7-10.3); Carbon Dioxide 28.6 mmol/L (21.6-31.8); Chloride 96 mmol/L (96-109); Glucose 303 mg/dL (70-110); Potassium 3.1 mmol/L (3.5-5.5); Sodium 139 mmol/L (135-145)
== END | disposition home or self-care (01) ==
LOC: LABWHC1 08:58
PROVIDERS: ATTEND Family Medicine
DX: E87.6 Hypokalemia (principal)
CPT/HCPCS: 36415; 80048

== ENCOUNTER 2023-04-01 02:31 | Inpatient (IN) | payer BC, MEDICARE ==
[2023-04-01] MEDS: MORPHINE SULFATE 4 MG/ML SYRINGE IVP STA (04:06)
[2023-04-01] MEDS ORDERED: VANCOMYCIN IV PER PHARMACY 1 EACH MISC MISCELLANE PRN (04:24)
--- NOTE | 2023-04-01 04:27 | ED ---
General Adult HPI - General Source: patient Mode of arrival: ambulatory Limitations: no limitations <Jeffrey Velasquez - Last Filed: 04/01/23 04:34> <Licha Villatoro - Last Filed: 04/06/23 13:57> - General Chief complaint: Skin/Abscess/Foreign Body Stated complaint: UTI, SORE ON RIB Time Seen by Provider: 04/01/23 02:42 - History of Present Illness Initial comments: 42-year-old female presenting to the ED with a chief complaint of abscess. Patient recently discharged from this facility on 03/24/2023. She was treated for pyonephritis with sepsis. At this time she also did note to have this abscess on her right breast. Seeming to improved and patient discharged home on 7-day course of ciprofloxacin. Despite taking this medication, patient reports increasing pain and size of the abscess. Patient also notes some chills however denies any documented fevers. No other complaints at this time. (Jeffrey Velasquez) - Related Data Home Medications Medication Instructions Recorded Confirmed DULoxetine HCL [Cymbalta] 60 mg PO DAILY 11/30/18 04/01/23 Baclofen [Lioresal] 15 mg PO TID 12/15/18 04/01/23 Escitalopram [Lexapro] 20 mg PO DAILY 03/20/23 04/01/23 Pregabalin [Lyrica] 100 mg PO TID 03/20/23 04/01/23 Previous Rx's Medication Instructions Recorded Acetaminophen Tab [Tylenol] 650 mg PO Q6HR PRN tab 03/24/23 Ferrous Sulfate [Feosol] 325 mg PO DAILY #30 tab 03/24/23 HYDROcodone/APAP 5-325MG [[place] 1 tab PO Q4HR PRN 3 Days #18 tab 03/24/23 5-325] Ondansetron Odt [Zofran Odt] 4 mg PO Q8HR PRN #30 tab 03/24/23 Potassium Chloride ER [K-Dur 20] 20 meq PO DAILY #7 tab 03/24/23 metFORMIN HCL [Glucophage] 1,000 mg PO BID-W/MEALS #120 tab 03/24/23 Allergies Allergy/AdvReac Type Severity Reaction Status Date / Time No Known Allergies Allergy Verified 04/01/23 07:06 Review of Systems ROS Other: All systems not noted in ROS Statement are negative. <Jeffrey Velasquez - Last Filed: 04/01/23 04:34> ROS Other: All systems not noted in ROS Statement are negative. <Licha Villatoro Martin - Last Filed: 04/06/23 13:57> ROS Statement: Those systems with pertinent positive or pertinent negative responses have been documented in the HPI. Past Medical History Additional Past Medical History / Comment(s): OVARIAN CYST (THOUGHT TO BE CAUSE OF PAIN ) IS GONE. migraines, occ high BP, diarrhea, hx anemia, multiple sclerosis dx in 2007 History of Any Multi-Drug Resistant Organisms: None Reported Past Surgical History: Section, Cholecystectomy Additional Past Surgical History / Comment(s): MS Past Anesthesia/Blood Transfusion Reactions: Motion Sickness Past Psychological History: Anxiety, Depression Smoking Status: Never smoker Past Alcohol Use History: None Reported Past Drug Use History: None Reported - Past Family History Mother Family Medical History: Hyperlipidemia <Jeffrey Velasquez - Last Filed: 04/01/23 04:34> General Exam Limitations: no limitations General appearance: alert, in distress Neck exam: Present: normal inspection Respiratory exam: Present: normal lung sounds bilaterally Cardiovascular Exam: Present: tachycardia Neurological exam: Present: alert Skin exam: Present: other (Examination chaperoned by Cheryl TINSLEY. Exam showed area of the lateral right breast measuring approximately 12 x 8 cm, indurated, with overlying warmth, erythema, evaluation and tenderness to palpation.) <Jeffrey Velasquez - Last Filed: 04/01/23 04:34> Course Vital Signs 04/01/23 04/01/23 04/01/23 02:35 04:00 07:50 Temperature 98.6 F 98.1 F Pulse Rate 109 H 90 Pulse Rate [ 102 H Pulse Oximetery ] Respiratory 16 18 16 Rate Blood Pressure 160/104 154/90 Blood Pressure 158/95 [Left Arm] O2 Sat by Pulse 98 98 97 Oximetry 04/01/23 08:00 Temperature Pulse Rate Pulse Rate [ 102 H Pulse Oximetery ] Respiratory 16 Rate Blood Pressure Blood Pressure [Left Arm] O2 Sat by Pulse Oximetry Medical Decision Making - Lab Data Result diagrams: 04/01/23 04:19 <Jeffrey Velasquez - Last Filed: 04/01/23 04:34> - Lab Data Result diagrams: 04/06/23 06:43 04/06/23 06:43 <Licha Villatoro A - Last Filed: 04/06/23 13:57> - Medical Decision Making Was pt. sent in by a medical professional or institution (, [facility], [facility], urgent care, hospital, or snf...) When possible be specific @ -No Did you speak to anyone other than the patient for history (EMS, parent, family, police, friend...)? What history was obtained from this source @ -No Did you review nursing and triage notes (agree or disagree)? Why? @ -I reviewed and agree with nursing and triage notes Were old charts reviewed (outside hosp., previous admission, EMS record, old EKG, old radiological studies, urgent care reports/EKG's, snf records)? Report findings @ -Prior visit here reviewed. For further details please see HPI. Differential Diagnosis (chest pain, altered mental status, abdominal pain women, abdominal pain men, vaginal bleeding, weakness, fever, dyspnea, syncope, headache, dizziness, GI bleed, back pain, seizure, CVA, palpatations, mental health, musculoskeletal)? @ -Differential Musculoskeletal Muscular strain, contusion, ligament sprain, fracture, arthritis, septic arthritis, bursitis, cellulitis, muscle spasm, nerve compression, DVT, arterial occlusion, herpes zoster, electrolyte abnormality, tumor.... This is not meant to be in all inclusive list EKG interpreted by me (3pts min.). @ -None X-rays interpreted by me (1pt min.). @ -None done CT interpreted by me (1pt min.). @ -None done U/S interpreted by me (1pt. min.). @ -Ultrasound at this time is pending What testing was considered but not performed or refused? (CT, X-rays, U/S, labs)? Why? @ -None What meds were considered but not given or refused? Why? @ -None Did you discuss the management of the patient with other professionals (professionals i.e. , [facility], [facility] [employer], lab, RT, psych nurse, manager social services, venetian blind worker, teacher, personnel officer, manager of case)? Give summary @ -Case discussed with Dr. Omalley, who accepts admission. Was smoking cessation discussed for >3mins.? @ -No Was critical care preformed (if so, how long)? @ -No Were there social determinants of health that impacted care today? How? (Homelessness, low income, unemployed, alcoholism, drug addiction, transportation, low edu. Level, literacy, decrease access to med. care, usp, rehab)? @ -No Was there de-escalation of care discussed even if they declined (Discuss DNR or withdrawal of care, Hospice)? DNR status @ -No What co-morbidities impacted this encounter? (DM, HTN, Smoking, COPD, CAD, Cancer, CVA, ARF, Chemo, Hep., AIDS, mental health diagnosis, sleep apnea, morbid obesity)? @ -None Was patient admitted / discharged? Hospital course, mention meds given and route, prescriptions, significant lab abnormalities, going to OR and other pertinent info. @ -Admission 42-year-old female with past medical history significant for recent discharge here on 03/24/2023 secondary to treatment for UTI with sepsis. Did mention complaint of abscess at time which seemed to be improving and was provided pres cription for ciprofloxacin on discharge. Since discharge, reports worsening pain and some chills. Patient will be admitted to observation with consult to Dr. Heather Penny. Undiagnosed new problem with uncertain prognosis? @ -No Drug Therapy requiring intensive monitoring for toxicity (Heparin, Nitro, Insulin, Cardizem)? @ -No Were any procedures done? @ -No Diagnosis/symptom? @ -Right breast abscess Acute, or Chronic, or Acute on Chronic? @ -Acute Uncomplicated (without systemic symptoms) or Complicated (systemic symptoms)? @ -Uncomplicated Side effects of treatment? @ -No Exacerbation, Progression, or Severe Exacerbation? @ -No plans for discharge Poses a threat to life or bodily function? How? (Chest pain, USA, DC, pneumonia, PE, COPD, DKA, ARF, appy, cholecystitis, CVA, Diverticulitis, Homicidal, Suicidal, threat to staff... and all critical care pts) @ -No (Jeffrey Velasquez) - Lab Data Lab Results 04/01/23 04/01/23 04/01/23 Range/Units 04:19 04:19 04:21 WBC 8.1 (3.8-10.6) k/uL RBC 4.75 (3.80-5.40) m/uL Hgb 10.7 L (11.4-16.0) gm/dL Hct 34.1 (34.0-46.0) % MCV 71.8 L (80.0-100.0) fL MCH 22.4 L (25.0-35.0) pg MCHC 31.2 (31.0-37.0) g/dL RDW 19.0 H (11.5-15.5) % Plt Count 234 (150-450) k/uL MPV 8.1 Neutrophils % 72 % Lymphocytes % 22 % Monocytes % 3 % Eosinophils % 1 % Basophils % 0 % Neutrophils # 5.8 (1.3-7.7) k/uL Lymphocytes # 1.8 (1.0-4.8) k/uL Monocytes # 0.3 (0-1.0) k/uL Eosinophils # 0.1 (0-0.7) k/uL Basophils # 0.0 (0-0.2) k/uL Hypochromasia Moderate Anisocytosis Slight Microcytosis Marked Sodium 139 (137-145) mmol/L Potassium 3.3 L (3.5-5.1) mmol/L Chloride 102 (98-107) mmol/L Carbon Dioxide 25 (22-30) mmol/L Anion Gap 12 mmol/L BUN 9 (7-17) mg/dL Creatinine 0.37 L (0.52-1.04) mg/dL Est GFR (CKD-EPI)AfAm >90 (>60 ml/min/1.73 sqM) Est GFR (CKD-EPI)NonAf >90 (>60 ml/min/1.73 sqM) Glucose 184 H (74-99) mg/dL POC Glucose (mg/dL) (70-110) mg/dL POC Glu Apartment Assistant Manager ID Plasma Lactic Acid Samson 1.8 (0.7-2.0) mmol/L Calcium 9.8 (8.4-10.2) mg/dL Total Bilirubin 0.4 (0.2-1.3) mg/dL AST 27 (14-36) U/L ALT 27 (4-34) U/L Alkaline Phosphatase 122 (38-126) U/L Total Protein 7.5 (6.3-8.2) g/dL Albumin 4.1 (3.5-5.0) g/dL 04/01/23 04/01/23 Range/Units 08:57 11:58 WBC (3.8-10.6) k/uL RBC (3.80-5.40) m/uL Hgb (11.4-16.0) gm/dL Hct (34.0-46.0) % MCV (80.0-100.0) fL MCH (25.0-35.0) pg MCHC (31.0-37.0) g/dL RDW (11.5-15.5) % Plt Count (150-450) k/uL MPV Neutrophils % % Lymphocytes % % Monocytes % % Eosinophils % % Basophils % % Neutrophils # (1.3-7.7) k/uL Lymphocytes # (1.0-4.8) k/uL Monocytes # (0-1.0) k/uL Eosinophils # (0-0.7) k/uL Basophils # (0-0.2) k/uL Hypochromasia Anisocytosis Microcytosis Sodium (137-145) mmol/L Potassium (3.5-5.1) mmol/L Chloride (98-107) mmol/L Carbon Dioxide (22-30) mmol/L Anion Gap mmol/L BUN (7-17) mg/dL Creatinine (0.52-1.04) mg/dL Est GFR (CKD-EPI)AfAm (>60 ml/min/1.73 sqM) Est GFR (CKD-EPI)NonAf (>60 ml/min/1.73 sqM) Glucose (74-99) mg/dL POC Glucose (mg/dL) 205 H 211 H (70-110) mg/dL POC Glu Apartment Assistant Manager ID Maria Aguirre Chase Plasma Lactic Acid Samson (0.7-2.0) mmol/L Calcium (8.4-10.2) mg/dL Total Bilirubin (0.2-1.3) mg/dL AST (14-36) U/L ALT (4-34) U/L Alkaline Phosphatase (38-126) U/L Total Protein (6.3-8.2) g/dL Albumin (3.5-5.0) g/dL Disposition Time of Disposition: 04:00 <Jeffrey Velasquez - Last Filed: 04/01/23 04:34> <Licha Villatoro - Last Filed: 04/06/23 13:57> Clinical Impression: Breast abscess Disposition: ADMITTED IP TO THIS HOSP Condition: Good
[2023-04-01 04:30] LABS: Anisocytosis Slight; Basophils % (A) 0 %; Eosinophils # (A) 0.1 k/uL (0-0.7); Eosinophils % (A) 1 %; HCT 34.1 % (34.0-46.0); HGB 10.7 gm/dL (11.4-16.0); Hypochromasia Moderate; Lymphocytes # (A) 1.8 k/uL (1.0-4.8); Lymphocytes % (A) 22 %; MCH 22.4 pg (25.0-35.0); MCHC 31.2 g/dL (31.0-37.0); MCV 71.8 fL (80.0-100.0); Mean Platelet Volume 8.1; Microcytosis Marked; Monocytes # (A) 0.3 k/uL (0-1.0); Monocytes % (A) 3 %; Neutrophils # (A) 5.8 k/uL (1.3-7.7); Neutrophils % (A) 72 %; Platelet Count 234 k/uL (150-450); RBC 4.75 m/uL (3.80-5.40); WBC 8.1 k/uL (3.8-10.6)
[2023-04-01] MEDS ORDERED: HYDROmorphone 0.5 MG/0.5 ML SYRINGE IVP PRN (04:35)
[2023-04-01] MEDS ORDERED: NALOXONE 0.4 MG/ML 1 ML VIAL IV PRN (04:35)
[2023-04-01] MEDS: PIPERACILLIN-TAZOBACTAM 3.375 GM in SODIUM CHLORIDE 0.9% 100 ML IVPB STA (04:45)
[2023-04-01] MEDS: SODIUM CHLORIDE 0.9% 1,000 ML IV SCH (04:46)
[2023-04-01 04:54] LABS: ALT 27 U/L (4-34); AST 27 U/L (14-36); African American GFR (CKD) >90 (>60 ml/min/1.73 sqM); Albumin 4.1 g/dL (3.5-5.0); Alkaline Phosphatase 122 U/L (38-126); Anion Gap 12 mmol/L; Blood Urea Nitrogen 9 mg/dL (7-17); Calcium 9.8 mg/dL (8.4-10.2); Carbon Dioxide 25 mmol/L (22-30); Chloride 102 mmol/L (98-107); Glucose 184 mg/dL (74-99); Non-African American GFR(CKD) >90 (>60 ml/min/1.73 sqM); Potassium 3.3 mmol/L (3.5-5.1); Sodium 139 mmol/L (137-145); Total Bilirubin 0.4 mg/dL (0.2-1.3); Total Protein 7.5 g/dL (6.3-8.2)
[2023-04-01] MEDS: VANCOMYCIN 1,750 MG in SODIUM CHLORIDE 0.9% 500 ML 500 ML IVPB STA (05:24)
[2023-04-01] MEDS ORDERED: DEXTROSE 50% SYRINGE 50 ML IVP PRN ×2 (06:33)
--- NOTE | 2023-04-01 06:41 | P.HPIM ---
History of Present Illness H&P Date: 04/01/23 Chief Complaint: right breast pain and swelling 42 year old female with DM she is coming in with worsening right breast pain and swelling for the past 10 days. she was recently hospitalized and treated for UTI, at that time she reported having white pimple over her right breast. However upon discharge she was getting Cipro for her UTI and was asked to monitor her breast pimple since then she reports that the pain was getting worse the swelling was getting larger without any drainage from her right breast no drainage or bleeding from her right nipple. She had 1 mammogram in the past she reports that was unremarkable he is due for another mammogram. She denies any weight loss denies any fevers chills nausea vomiting. Patient was scheduled to see her surgeon tomorrow however due to severe pain today she decided to come to the hospital for evaluation and pain control review of systems Pertinent positives as noted in HPI. All other systems were reviewed and are negative on exam Constitutional: No acute distress, Eyes: Anicteric sclerae, moist conjunctiva, Pupils equal round reactive to light ENMT: NC/AT Oropharynx clear, no erythema, or exudates Neck: Supple, no masses, or JVD No carotid bruits No thyromegaly Lungs: Clear to auscultation Clear to percussion Normal respiratory effort, no accessory muscle use Cardiovascular: Heart regular in rate and rhythm, No murmurs, gallops, or rubs No peripheral edema Abdominal: Soft Nontender, no guarding, rebound or rigidity Abdomen moving with respiration Normoactive bowel sounds Skin: Swelling and palpable induration and collection along the bottom portion of her right breast tender to palpation warm to the touch with erythema no drainage no bleeding no open wounds Extremities: No digital cyanosis No clubbing Pedal pulses intact and symmetrical Radial pulses intact and symmetrical No calf tenderness Psychiatric: Alert and oriented to person, place and time Appropriate affect fair judgement Neuro Muscles Strength 5/5 in all 4 extremities Sensation to light touch grossly present throughout Cranial nerves II-XII grossly intact Lymphatics: no palpable lymph nodes in the right axilla Past Medical History Additional Past Medical History / Comment(s): OVARIAN CYST (THOUGHT TO BE CAUSE OF PAIN ) IS GONE. migraines, occ high BP, diarrhea, hx anemia, multiple sclerosis dx in 2007 History of Any Multi-Drug Resistant Organisms: None Reported Past Surgical History: Section, Cholecystectomy Additional Past Surgical History / Comment(s): MS Past Anesthesia/Blood Transfusion Reactions: Motion Sickness Past Psychological History: Anxiety, Depression Smoking Status: Never smoker Past Alcohol Use History: None Reported Past Drug Use History: None Reported - Past Family History Mother Family Medical History: Hyperlipidemia Medications and Allergies Home Medications Medication Instructions Recorded Confirmed Type DULoxetine HCL [Cymbalta] 60 mg PO DAILY 11/30/18 03/20/23 History Baclofen [Lioresal] 15 mg PO TID 12/15/18 03/20/23 History Escitalopram [Lexapro] 20 mg PO DAILY 03/20/23 03/20/23 History Pregabalin [Lyrica] 100 mg PO TID 03/20/23 03/20/23 History Acetaminophen Tab [Tylenol] 650 mg PO Q6HR PRN tab 03/24/23 Rx Ciprofloxacin HCl [Cipro] 500 mg PO Q12HR 7 Days #14 tab 03/24/23 Rx Ferrous Sulfate [Feosol] 325 mg PO DAILY #30 tab 03/24/23 Rx HYDROcodone/APAP 5-325MG [[place] 1 tab PO Q4HR PRN 3 Days #18 tab 03/24/23 Rx 5-325] Ondansetron Odt [Zofran Odt] 4 mg PO Q8HR PRN #30 tab 03/24/23 Rx Potassium Chloride ER [K-Dur 20] 20 meq PO DAILY #7 tab 03/24/23 Rx metFORMIN HCL [Glucophage] 1,000 mg PO BID-W/MEALS #120 tab 03/24/23 Rx Allergies Allergy/AdvReac Type Severity Reaction Status Date / Time No Known Allergies Allergy Verified 04/01/23 02:41 Physical Exam Vitals: Vital Signs Temp Pulse Resp BP Pulse Ox 04/01/23 04:00 90 18 154/90 98 04/01/23 02:35 98.6 F 109 H 16 160/104 98 Intake and Output 03/31/23 03/31/23 04/01/23 14:59 22:59 06:59 Other: Weight 107.048 kg Results CBC & Chem 7: 04/01/23 04:19 04/01/23 04:19 Labs: Abnormal Lab Results - Last 24 Hours (Table) 04/01/23 04/01/23 Range/Units 04:19 04:19 Hgb 10.7 L (11.4-16.0) gm/dL MCV 71.8 L (80.0-100.0) fL MCH 22.4 L (25.0-35.0) pg RDW 19.0 H (11.5-15.5) % Potassium 3.3 L (3.5-5.1) mmol/L Creatinine 0.37 L (0.52-1.04) mg/dL Glucose 184 H (74-99) mg/dL Assessment and Plan Assessment: 42-year-old female with diabetes mellitus recent UTI treated in the hospital coming in today with right breast swelling and pain that is been getting worse over the past 10 days I discussed case with ED doctor accepted the admission for suspected right breast abscess for surgical evaluation with anticipated length of stay less than 2 midnights Refractory pain secondary to right breast abscess Follow-up cultures Initiated on antibiotics with vancomycin dosing by pharmacy Zosyn 3. 375 g every 8 hours IV piggyback Tylenol for fever 650 mg p.o. every 6 hours Dilaudid 1 mg IV push every 3 hours as needed IV fluid hydration with normal saline 75 cc/h Surgery consult White count 8.1 afebrile Chronic anemia Hemoglobin 10.7 stable Denies any bleeding Diabetes mellitus Insulin sliding scale Hold metformin Renal function unremarkable Sodium 139 potassium 3.3 BUN 9 creatinine 0.37 Full code DVT prophylaxis heparin subcu 3 times daily Verify home medications
[2023-04-01] MEDS: HYDROmorphone 1 MG/ML 1 ML SYRINGE IVP PRN (06:47)
[2023-04-01] MEDS ORDERED: metFORMIN 500 MG TAB PO SCH (07:30)
--- NOTE | 2023-04-01 08:08 | USB ---
Reason for Exam: Clinical finding. Patient History: Menarche at age 13. First Full-Term at age 21. Currently using Hormonal Contraceptives, starting at age 41. Risk Values: Tabitha 5 year model risk: 0.4%. NCI Lifetime model risk: 8.0%. Technique: Method: Targeted. Prior Study Comparison: 11/17/2021 Bilateral MG 3D diag mammo w/cad [facility], [facility]. 04/08/2022 Right MG 3D diag mammo w/cad [facility], [facility]. Findings: The lateral section of the breast of the right breast, the axilla of the right breast and the retroareolar of the right breast were scanned. There is diffuse edema noted throughout the right breast compatible with cellulitis. There are pockets of fluid seen particularly at the 10:00 position could reflect developing abscess formation.. Overall Assessment: Probably benign, BI-RAD 3 Management: Diagnostic Breast Ultrasound of the right breast in 1 month. A clinical breast exam by your physician is recommended on an annual basis and results should be correlated with mammographic findings. This exam should not preclude additional follow-up of suspicious palpable abnormalities. Results were given to the patient verbally at the time of exam. Electronically signed and approved by: Jaskaran Sim M.D. Radiologis
[2023-04-01] MEDS: HEPARIN SODIUM,PORCINE 5,000 UNIT/ML 1 ML VIAL SQ SCH (08:47)
[2023-04-01 08:58] LABS: Glucose,Whole Blood 205 mg/dL (70-110)
[2023-04-01] MEDS: INSULIN ASPART (NovoLOG) 100 UNIT/ML VIAL SQ SCH (09:37)
[2023-04-01 11:59] LABS: Glucose,Whole Blood 211 mg/dL (70-110)
[2023-04-01] MEDS: VANCOMYCIN 1,750 MG in SODIUM CHLORIDE 0.9% 500 ML 500 ML IVPB SCH (12:58)
[2023-04-01] MEDS: PIPERACILLIN-TAZOBACTAM 3.375 GM in SODIUM CHLORIDE 0.9% 100 ML IVPB SCH (12:59)
--- NOTE | 2023-04-01 14:49 | P.GSHP ---
History of Present Illness H&P Date: 04/01/23 Chief Complaint: Right breast abscess Justa is a 42-year-old female who presented to the emergency room with a chief complaint of swelling and pain in her right breast. She had recently been discharged on 03-24-2023. At that time she was treated for pyelonephritis with sepsis. At that time she had a white like pimple on her breast which she popped and then the breast became more swollen and tender. She presented to the emergency department with that complaint. She had been discharged home on a 7- day course of ciprofloxacin. The patient did not report any fever or chills. No trauma to her breast. She had not had any prior surgery on her breast. She had an ultrasound performed which revealed diffuse edema throughout the right breast compatible with cellulitis. There were some pockets of fluid seen particularly at the 10 o'clock position which could reflect developing abscess. This was reviewed with Dr. Gilliam. She is afebrile and her white count is Family history: Mother stomach cancer Hormonal history: Menarche: 13 M1, age at first 21, breast-fed: Yes Last menstrual period: She has not had a period in over a year Past surgical history: 2 C-sections Laparoscopic exam exam Medical history: Diabetes Multiple sclerosis Social history: Patient does not smoke Patient does not drink alcohol Patient does not do drugs - Constitutional Constitutional: Denies chills, Denies fever - EENT Eyes: denies blurred vision, denies pain - Breasts Breasts: bilateral: as per HPI - Cardiovascular Cardiovascular: Denies chest pain, Denies shortness of breath - Respiratory Respiratory: Denies cough, Denies 7 - Gastrointestinal Gastrointestinal: Reports diarrhea, Denies abdominal pain, Denies nausea, Denies vomiting - Genitourinary (Female) Genitourinary: Reports as per HPI - Menstruation Menstruation: Reports postmenopausal - Integumentary Integumentary: Reports as per HPI - Psychiatric Psychiatric: Reports depression - Endocrine Endocrine: Reports as per HPI Past Medical History Additional Past Medical History / Comment(s): OVARIAN CYST (THOUGHT TO BE CAUSE OF PAIN ) IS GONE. migraines, occ high BP, diarrhea, hx anemia, multiple sclerosis dx in 2007 History of Any Multi-Drug Resistant Organisms: None Reported Past Surgical History: Section, Cholecystectomy Additional Past Surgical History / Comment(s): MS Past Anesthesia/Blood Transfusion Reactions: Motion Sickness Past Psychological History: Anxiety, Depression Smoking Status: Never smoker Past Alcohol Use History: None Reported Past Drug Use History: None Reported - Past Family History Mother Family Medical History: Hyperlipidemia Medications and Allergies Home Medications Medication Instructions Recorded Confirmed Type DULoxetine HCL [Cymbalta] 60 mg PO DAILY 11/30/18 04/01/23 History Baclofen [Lioresal] 15 mg PO TID 12/15/18 04/01/23 History Escitalopram [Lexapro] 20 mg PO DAILY 03/20/23 04/01/23 History Pregabalin [Lyrica] 100 mg PO TID 03/20/23 04/01/23 History Acetaminophen Tab [Tylenol] 650 mg PO Q6HR PRN tab 03/24/23 04/01/23 Rx Ferrous Sulfate [Feosol] 325 mg PO DAILY #30 tab 03/24/23 04/01/23 Rx HYDROcodone/APAP 5-325MG [Ogden 1 tab PO Q4HR PRN 3 Days #18 tab 03/24/23 04/01/23 Rx 5-325] Ondansetron Odt [Zofran Odt] 4 mg PO Q8HR PRN #30 tab 03/24/23 04/01/23 Rx Potassium Chloride ER [K-Dur 20] 20 meq PO DAILY #7 tab 03/24/23 04/01/23 Rx metFORMIN HCL [Glucophage] 1,000 mg PO BID-W/MEALS #120 tab 03/24/23 04/01/23 Rx Allergies Allergy/AdvReac Type Severity Reaction Status Date / Time No Known Allergies Allergy Verified 04/01/23 07:06 Surgical - Exam Vital Signs Temp Pulse Resp BP Pulse Ox 98.6 F 109 H 16 160/104 98 04/01/23 02:35 04/01/23 02:35 04/01/23 02:35 04/01/23 02:35 04/01/23 02:35 - General moderate distress - Neck trachea midline - Respiratory normal respiratory effort, clear to auscultation - Cardiovascular Rhythm: regular Heart Sounds: normal: S1, S2 - Abdomen Abdomen: soft - Integumentary erythema of the right breast lateral aspect - Neurologic no disoriented, no combative - Musculoskeletal laying in bed - Psychiatric oriented to time, oriented to person, oriented to place, speech is normal, memory intact Breast Examination: Examination was performed with the patient recumbent: Right breast: Erythema over the lateral aspect of the breast extending to the 12 o'clock position with some suction once at the lateral aspect of the breast Right axilla: No adenopathy of concern Left breast: No dominant masses or nodules of concern Left axilla: No adenopathy of concern Results Ultrasound of the right breast reviewed with radiology, Dr. Gilliam - Labs 04/01/23 04:19 04/01/23 04:19 Abnormal Lab Results - Last 24 Hours (Table) 04/01/23 04/01/23 04/01/23 Range/Units 04:19 04:19 08:57 Hgb 10.7 L (11.4-16.0) gm/dL MCV 71.8 L (80.0-100.0) fL MCH 22.4 L (25.0-35.0) pg RDW 19.0 H (11.5-15.5) % Potassium 3.3 L (3.5-5.1) mmol/L Creatinine 0.37 L (0.52-1.04) mg/dL Glucose 184 H (74-99) mg/dL POC Glucose (mg/dL) 205 H (70-110) mg/dL 04/01/23 Range/Units 11:58 Hgb (11.4-16.0) gm/dL MCV (80.0-100.0) fL MCH (25.0-35.0) pg RDW (11.5-15.5) % Potassium (3.5-5.1) mmol/L Creatinine (0.52-1.04) mg/dL Glucose (74-99) mg/dL POC Glucose (mg/dL) 211 H (70-110) mg/dL Diabetes panel 04/01/23 Range/Units 04:19 Sodium 139 (137-145) mmol/L Potassium 3.3 L (3.5-5.1) mmol/L Chloride 102 (98-107) mmol/L Carbon Dioxide 25 (22-30) mmol/L BUN 9 (7-17) mg/dL Creatinine 0.37 L (0.52-1.04) mg/dL Glucose 184 H (74-99) mg/dL Calcium 9.8 (8.4-10.2) mg/dL AST 27 (14-36) U/L ALT 27 (4-34) U/L Alkaline Phosphatase 122 (38-126) U/L Total Protein 7.5 (6.3-8.2) g/dL Albumin 4.1 (3.5-5.0) g/dL Calcium panel 04/01/23 Range/Units 04:19 Calcium 9.8 (8.4-10.2) mg/dL Albumin 4.1 (3.5-5.0) g/dL Pituitary panel 04/01/23 Range/Units 04:19 Sodium 139 (137-145) mmol/L Potassium 3.3 L (3.5-5.1) mmol/L Chloride 102 (98-107) mmol/L Carbon Dioxide 25 (22-30) mmol/L BUN 9 (7-17) mg/dL Creatinine 0.37 L (0.52-1.04) mg/dL Glucose 184 H (74-99) mg/dL Calcium 9.8 (8.4-10.2) mg/dL Adrenal panel 04/01/23 Range/Units 04:19 Sodium 139 (137-145) mmol/L Potassium 3.3 L (3.5-5.1) mmol/L Chloride 102 (98-107) mmol/L Carbon Dioxide 25 (22-30) mmol/L BUN 9 (7-17) mg/dL Creatinine 0.37 L (0.52-1.04) mg/dL Glucose 184 H (74-99) mg/dL Calcium 9.8 (8.4-10.2) mg/dL Total Bilirubin 0.4 (0.2-1.3) mg/dL AST 27 (14-36) U/L ALT 27 (4-34) U/L Alkaline Phosphatase 122 (38-126) U/L Total Protein 7.5 (6.3-8.2) g/dL Albumin 4.1 (3.5-5.0) g/dL Assessment and Plan Assessment: Impression: Cellulitis/developing abscess right breast White blood cell count 8.1 Afebrile Recent treatment for urosepsis Plan: Continue IV antibiotic therapy Will repeat ultrasound in the morning if there is an area which can be drained percutaneously radiology will drain this if not consider I&D in the operating r oom NPO after midnight
[2023-04-01] MEDS ORDERED: ONDANSETRON ODT 4 MG TAB PO PRN (16:10)
[2023-04-01] MEDS: POTASSIUM CHLORIDE ER 20 MEQ TAB.ER PO STA (16:12)
--- NOTE | 2023-04-01 16:19 | P.PN ---
Subjective Progress Note Date: 04/01/23 Hospital course: Patient is a very pleasant 42-year-old female with a past medical history of MS, [id number] diabetes mellitus, anxiety and depression. She presented to the emergency department with a chief complaint of right breast pain and swelling x 10 days while under antibiotic treatment course with ciprofloxacin x 7 days due to recent diagnosis of pyelonephritis. She underwent full evaluation in the emergency department. Upon arrival vital signs completed showing blood pressure 160/104, heart rate 109, respiratory rate 16, temp 98.6 F, and SpO2 of 98% on room air. Labs completed and reviewed. CBC showing microcytic anemia with hemoglobin of 10.7. BMP showing hypokalemia with potassium of 3.3 and hyperglycemia with glucose of 184. Ultrasound right breast showing diffuse edema throughout right breast consistent with cellulitis with pockets of fluid c oncerning for developing abscess formation. Patient was started on broad- spectrum IV antibiotics with vancomycin and Zosyn and admitted under our services with consultation to general surgery team. Physical exam: Vital signs reviewed and stable. General: Nontoxic, no distress and appears stated age. Obese. Derm: Skin warm and dry, normal coloration for ethnicity. Right lateral breast with significant erythema, induration, and firmness. No drainage or open wounds noted. Head: Atraumatic, normocephalic and symmetric. Eyes: EOMs intact, no lid lag, and anicteric sclera Mouth: no lip lesions, mucus membranes moist Cardiovascular: regular rate and rhythm with normal S1S2, no murmur, positive posterior tibial pulses bilaterally, and cap refill < 2 seconds. Lungs: Respirations even, regular, and unlabored on room air. Lungs CTA bilaterally, no rhonchi, no rales, no wheezing, and no accessory muscle usage. Abdominal: soft, nontender to palpation, no guarding, no appreciable organo megaly Ext: ROM intact. No gross muscle atrophy, no edema, no contractures Neuro: Speech clear, face symmetrical and CN II-XII grossly intact with no noted focal neuro deficits Psych: Alert and oriented to person, place, time, and situation. Appropriate and pleasant affect. Assessment and Plan of Care: Right breast abscess with surrounding cellulitis Diabetes mellitus with hyperglycemia -Ultrasound right breast showing diffuse edema throughout right breast consistent with cellulitis with pockets of fluid concerning for abscess formation -Consult placed to general surgeon for evaluation and possible I&D -Continue with IV antibiotics vancomycin 1750 mg every 8 hours and Zosyn 3.375 g every 8 hours -Symptomatic care and pain management. Dilaudid 0.5 mg every 3 hours as needed for moderate pain or 1 mg every 3 hours as needed for severe pain. Zofran 4 mg IVP every 8 hours as needed for nausea and/or vomiting. -Hyperglycemia with morning glucose of 205. Hold metformin and place patient on glycemic protocol with NovoLog sliding scale. Hemoglobin A1c to be obtained. -Orders placed for ESR and CRP. Microcytic anemia, secondary to iron deficiency Continue daily medication regimen with ferrous sulfate 325 mg daily. Multiple sclerosis Anxiety and depression -Continue daily medication regimen with duloxetine 60 mg daily, Lexapro 20 mg daily, and Lyrica 100 mg 3 times daily. CODE STATUS: Full code DVT prophylaxis: Heparin Anticipated discharge date: Clinical course to determine Anticipated discharge place: Clinical course to determine Patient was seen independently by Nurse Pracitioner. This document was prepared using [employer] dictation software. Please allow for errors in ring facer, while rare they do occur. Lenny Russell NP rendered care for this patient independently, reviewed the findings and plan as documented in the note above. I did not physically speak with or examine the patient on this date. Objective - Vital Signs Vital signs: Vital Signs Temp 98.1 F 04/01/23 07:50 Pulse 102 H 04/01/23 07:50 Resp 16 04/01/23 07:50 BP 158/95 04/01/23 07:50 Pulse Ox 97 04/01/23 07:50 FiO2 Intake & Output 03/31/23 04/01/23 04/01/23 18:59 06:59 18:59 Weight 107.048 kg - Labs CBC & Chem 7: 04/02/23 07:27 04/02/23 07:27 Labs: Abnormal Lab Results - Last 24 Hours (Table) 04/01/23 04/01/23 Range/Units 04:19 04:19 Hgb 10.7 L (11.4-16.0) gm/dL MCV 71.8 L (80.0-100.0) fL MCH 22.4 L (25.0-35.0) pg RDW 19.0 H (11.5-15.5) % Potassium 3.3 L (3.5-5.1) mmol/L Creatinine 0.37 L (0.52-1.04) mg/dL Glucose 184 H (74-99) mg/dL
[2023-04-01] MEDS ORDERED: PIPERACILLIN-TAZOBACTAM 3.375 GM in SODIUM CHLORIDE 0.9% 100 ML IVPB SCH (17:00)
[2023-04-01] MEDS: ONDANSETRON 4 MG/2 ML VIAL IVP PRN (17:19)
[2023-04-01 17:20] LABS: Glucose,Whole Blood 186 mg/dL (70-110)
[2023-04-01 18:06] LABS: Prothrombin Time 11.3 sec (10.0-12.5)
[2023-04-01 19:32] LABS: Glucose,Whole Blood 193 mg/dL (70-110)
[2023-04-01] MEDS: PREGABALIN 100 MG CAP PO SCH (20:54)
[2023-04-01] MEDS: ACETAMINOPHEN TAB 325 MG TAB PO PRN (23:28)
[2023-04-02 06:17] LABS: Glucose,Whole Blood 201 mg/dL (70-110)
--- NOTE | 2023-04-02 08:09 | USB ---
Reason for Exam: Clinical finding. Patient History: Menarche at age 13. First Full-Term at age 21. Currently using Hormonal Contraceptives, starting at age 41. Risk Values: Tabitha 5 year model risk: 0.4%. NCI Lifetime model risk: 8.0%. Technique: Method: Targeted. Prior Study Comparison: 11/17/2021 Bilateral MG 3D diag mammo w/cad [facility], [facility]. 04/08/2022 Right MG 3D diag mammo w/cad RT, [facility]. Findings: The lateral section of the breast of the right breast, the axilla of the right breast and the retroareolar of the right breast were scanned. There appears to be progressive edema throughout the right breast with multifocal fluid collections seen greatest at 7:00 measuring 5 x 1.6 cm. Findings are compatible with infection and developing abscesses difficult to exclude. Surgical consult advised. Overall Assessment: Probably benign, BI-RAD 3 Management: Diagnostic Breast Ultrasound of the right breast in 1 month. A clinical breast exam by your physician is recommended on an annual basis and results should be correlated with mammographic findings. This exam should not preclude additional follow-up of suspicious palpable abnormalities. Results were given to the patient verbally at the time of exam. Electronically signed and approved by: Jaskaran Sim M.D. Radiologis
[2023-04-02] MEDS: DULoxetine HCL 60 MG CAPSULE.DR PO SCH (08:37)
[2023-04-02] MEDS: ESCITALOPRAM 20 MG TAB PO SCH (08:37)
[2023-04-02] MEDS: FERROUS SULFATE 325 MG TAB PO SCH (08:37)
[2023-04-02] MEDS: PROCHLORPERAZINE INJ 10 MG/2 ML VIAL IVP STA (10:43)
[2023-04-02] MEDS: diphenhydrAMINE 50 MG/ML 1 ML VIAL IVP STA (10:43)
[2023-04-02] MEDS: KETOROLAC 15 MG/ML 1 ML VIAL IVP STA (10:43)
[2023-04-02 11:00] LABS: HCT 32.3 % (37.2-46.3); HGB 9.4 g/dL (12.0-15.0); MCH 21.8 pg (27.0-32.0); MCHC 29.1 g/dL (32.0-37.0); MCV 74.8 FL (80.0-97.0); Mean Platelet Volume 10.6 FL (9.5-12.2); NRBC Per 100 WBC 0 X 10*3/uL (0.00-0.01); Platelet Count 223 X 10*3/uL (140-440); RBC 4.32 X 10*6/uL (4.10-5.20); RDW 19.6 % (11.5-14.5); WBC 7.01 X 10*3/uL (4.50-10.00)
[2023-04-02 11:20] LABS: ALT 25 U/L (8-44); AST 26 U/L (13-35); Albumin 3.7 g/dL (3.8-4.9); Albumin/Globulin Ratio 1.28 Ratio (1.60-3.17); Alkaline Phosphatase 101 U/L (41-126); Blood Urea Nitrogen 4.4 mg/dL (9.0-27.0); Calcium 8.7 mg/dL (8.7-10.3); Carbon Dioxide 25.7 mmol/L (21.6-31.8); Chloride 101 mmol/L (96-109); Globulin 2.9 g/dL (1.6-3.3); Glucose 230 mg/dL (70-110); Potassium 3.4 mmol/L (3.5-5.5); Sodium 140 mmol/L (135-145); Total Bilirubin 0.3 mg/dL (0.3-1.2); Total Protein 6.6 g/dL (6.2-8.2)
--- NOTE | 2023-04-02 11:47 | P.PN ---
Subjective Progress Note Date: 04/02/23 Hospital course: Patient is a very pleasant 42-year-old female with a past medical history of MS, [id number] diabetes mellitus, anxiety and depression. She presented to the emergency department with a chief complaint of right breast pain and swelling x 10 days while under antibiotic treatment course with ciprofloxacin x 7 days due to recent diagnosis of pyelonephritis. She underwent full evaluation in the emergency department. Upon arrival vital signs completed showing blood pressure 160/104, heart rate 109, respiratory rate 16, temp 98.6 F, and SpO2 of 98% on room air. Labs completed and reviewed. CBC showing microcytic anemia with hemoglobin of 10.7. BMP showing hypokalemia with potassium of 3.3 and hyperglycemia with glucose of 184. Ultrasound right breast showing diffuse edema throughout right breast consistent with cellulitis with pockets of fluid concerning for developing abscess formation. Patient was started on broad-spec trum IV antibiotics with vancomycin and Zosyn and admitted under our services with consultation to general surgery team. Urine hCG negative. Patient is scheduled to undergo surgical I&D in the OR later this afternoon. Infectious disease consulted and awaiting abscess culture results. Physical exam: Patient was seen and fully evaluated at bedside this morning. Patient reports significant headache/migraine this morning unrelieved by previously given Dilaudid and Tylenol. Patient states this is her baseline headache that she often gets with her MS and denies having any dizziness, lightheadedness, changes in vision or hearing, or experiencing any numbness/tingling/weakness in her extremities. Orders placed for migraine cocktail consisting of Toradol, Compazine, and Benadryl. Patient informed of planned surgical time. She and at bedside deny having any further needs, questions, or concerns. Vital signs reviewed and stable. General: Nontoxic, no distress and appears stated age. Obese. Derm: Skin warm and dry, normal coloration for ethnicity. Right lateral breast with significant erythema, induration, and firmness. No drainage or open wounds noted. Head: Atraumatic, normocephalic and symmetric. Eyes: EOMs intact, no lid lag, and anicteric sclera Mouth: no lip lesions, mucus membranes moist Cardiovascular: regular rate and rhythm with normal S1S2, no murmur, positive posterior tibial pulses bilaterally, and cap refill < 2 seconds. Lungs: Respirations even, regular, and unlabored on room air. Lungs CTA bilaterally, no rhonchi, no rales, no wheezing, and no accessory muscle usage. Abdominal: soft, nontender to palpation, no guarding, no appreciable organomegaly Ext: ROM intact. No gross muscle atrophy, no edema, no contractures Neuro: Speech clear, face symmetrical and CN II-XII grossly intact with no noted focal neuro deficits Psych: Alert and oriented to person, place, time, and situation. Appropriate and pleasant affect. Assessment and Plan of Care: Right breast abscess with surrounding cellulitis Diabetes mellitus with hyperglycemia -Ultrasound right breast showing diffuse edema throughout right breast consistent with cellulitis with pockets of fluid concerning for abscess formation -General surgery following, Dr. Moncada planning to take patient for surgical I&D later this afternoon. -Infectious disease consulted. -Continue with IV antibiotics vancomycin 1750 mg every 8 hours and Zosyn 3.375 g every 8 hours pending wound cultures and further recommendations by infectious disease physician. -Orders placed for anaerobic and aerobic cultures. Cultures to be obtained during surgical I&D. -Symptomatic care and pain management. Dilaudid 0.5 mg every 3 hours as needed for moderate pain or 1 mg every 3 hours as needed for severe pain. Zofran 4 mg IVP every 8 hours as needed for nausea and/or vomiting. -Hyperglycemia with morning glucose of 205. Hold metformin and place patient on glycemic protocol with NovoLog sliding scale. Hemoglobin A1c to be obtained. -ESR 63 and CRP of 3.5. Microcytic anemia, secondary to iron deficiency Continue daily medication regimen with ferrous sulfate 325 mg daily. Multiple sclerosis Anxiety and depression -Continue daily medication regimen with duloxetine 60 mg daily, Lexapro 20 mg daily, and Lyrica 100 mg 3 times daily. Data and imaging reviewed: Morning labs reviewed showing persistent microcytic anemia with hemoglobin stable at 9.4. BMP revealing hypokalemia with potassium of 3.4 and hyperglycemia with glucose of 230. Orders placed for K-Dur 40 mEq p.o. x 1 dose. Vital signs reviewed. Blood pressure 138/81, heart rate 107, respiratory rate 18, temp 97.9 F, and SpO2 of 94% on room air. Patient is scheduled to undergo surgical I&D in the OR later today with Dr. Moncada. Per assembler surgical garment procedure scheduled for 4 PM. CODE STATUS: Full code DVT prophylaxis: Heparin Anticipated discharge date: Clinical course to determine Anticipated discharge place: Clinical course to determine Patient was seen independently by Nurse Pracitioner. This document was prepared using [employer] dictation software. Please allow for errors in yeast washer, while rare they do occur. Lenny Russell NP rendered care for this patient independently, reviewed the findings and plan as documented in the note above. I did not physically speak with or examine the patient on this date. Objective - Vital Signs Vital signs: Vital Signs Temp 97.9 F 04/02/23 07:00 Pulse 107 H 04/02/23 07:00 Resp 18 04/02/23 07:00 BP 138/81 04/02/23 07:00 Pulse Ox 94 L 04/02/23 07:00 FiO2 Intake & Output 04/01/23 04/02/23 04/02/23 18:59 06:59 18:59 Intake Total 118 Balance 118 Weight 107.048 kg Intake: Oral 118 Other: Voiding Method Toilet # Voids 1 2 - Labs CBC & Chem 7: 04/02/23 07:27 04/02/23 07:27 Labs: Abnormal Lab Results - Last 24 Hours (Table) 04/01/23 04/01/23 04/01/23 Range/Units 08:57 11:58 17:19 ESR (0-20) mm/Hr POC Glucose (mg/dL) 205 H 211 H 186 H (70-110) mg/dL C-Reactive Protein (<1.0) mg/dL 04/01/23 04/01/23 04/01/23 Range/Units 17:39 17:39 19:31 ESR 63 H (0-20) mm/Hr POC Glucose (mg/dL) 193 H (70-110) mg/dL C-Reactive Protein 3.5 H (<1.0) mg/dL 04/02/23 Range/Units 06:10 ESR (0-20) mm/Hr POC Glucose (mg/dL) 201 H (70-110) mg/dL C-Reactive Protein (<1.0) mg/dL
[2023-04-02 12:14] LABS: Glucose,Whole Blood 215 mg/dL (70-110)
[2023-04-02] MEDS: POTASSIUM CHLORIDE ER 20 MEQ TAB.ER PO STA (13:09)
[2023-04-02] MEDS: IV FLUID CONTINUATION 400 ML IV ONE (15:20)
[2023-04-02 15:31] LABS: Glucose,Whole Blood 200 mg/dL (70-110)
[2023-04-02] MEDS: LACTATED RINGERS 1,000 ML IV ONE (16:53)
[2023-04-02] MEDS ORDERED: HYDROmorphone (PF) 1 MG/ML ONE (17:19)
[2023-04-02] MEDS ORDERED: MIDAZOLAM 2 MG/2 ML VIAL ONE (17:19)
[2023-04-02] MEDS ORDERED: PROPOFOL 10 MG/ML 20 ML VIAL IV ONE (17:19)
[2023-04-02] MEDS ORDERED: SUCCINYLCHOLINE CHLORIDE 200 MG/10 ML VIAL IV ONE (17:19)
[2023-04-02] MEDS ORDERED: fentaNYL (PF) 50 MCG/ML 2 ML AMP ONE (17:19)
[2023-04-02] MEDS ORDERED: LIDOCAINE 1% INJ 10MG/ML (20 ML MDV) ONE (17:19)
[2023-04-02] MEDS: LIDOCAINE 1% INJ 10MG/ML (20 ML MDV) SQ ONE (17:21)
--- NOTE | 2023-04-02 17:22 | P.PN ---
Progress Note - Text Progress Note Date: 04/02/23 The patient had a repeat ultrasound this morning. This was reviewed personally with radiology. The area of cellulitis and erythema seems to have increased without the ability to percutaneously drain this. I have therefore discussed this with the patient and her . I recommended incision and drainage of abscess in the operating room. They understand and wish to proceed. Risk of the procedure include but are not limited to bleeding, infection, reaction to the anesthetic. Additionally it may be necessary to do further drainage and/or debridement in the operating room as the abscess matures. They understand and wish to proceed. Examination: Increased erythema lateral aspect of the right breast with fluctuance
--- NOTE | 2023-04-02 17:51 | P.PCN ---
Date of Procedure: 04/02/23 Preoperative Diagnosis: Abscess right breast Postoperative Diagnosis: Same Procedure(s) Performed: Incision and drainage right breast abscess Anesthesia: MILO Surgeon: Lena Penny Estimated Blood Loss (ml): 5 IV fluids (ml): 100 Pathology: none sent (Cultures aerobic and anaerobic obtained) Condition: stable Disposition: floor Indications for Procedure: Abscess right breast Operative Findings: Abscess right breast extending into the lateral chest wall area Description of Procedure: The patient was brought to the operating room and following induction of anesthesia the right breast was prepped and draped in sterile fashion. An incision was made over dependent fluctuant portion in the lateral aspect of the breast. The area of induration was approximately 20 cc x 10 cc. Upon blunt di ssection there was a cavity in the lateral area of the chest wall where purulent fluid was identified. This was drained. Cultures were obtained. Approximately 50 cc of purulent fluid was drained. The wound was well-irrigated with a liter of warm saline. Following this the wound was packed using moist Curlex. The patient tolerated the procedure in stable condition. All instrument and sponge counts were correct at the end of the case.
[2023-04-02 18:23] LABS: Glucose,Whole Blood 253 mg/dL (70-110)
[2023-04-02] MEDS: INSULIN ASPART (NovoLOG) 100 UNIT/ML VIAL SQ ONE (18:39)
[2023-04-02] MEDS: HYDROmorphone 0.5 MG/0.5 ML SYRINGE IVP ONE (18:51)
[2023-04-02] MEDS: AMPICILLIN-SULBACTAM 3 GM in SODIUM CHLORIDE 0.9% 100 ML IVPB SCH (19:30)
[2023-04-02 20:13] LABS: Glucose,Whole Blood 279 mg/dL (70-110)
[2023-04-03 05:36] LABS: Glucose,Whole Blood 202 mg/dL (70-110)
[2023-04-03] MEDS: VANCOMYCIN TROUGH DUE 1 EACH MISC MISCELLANE ONE (05:53)
[2023-04-03] MEDS: KETOROLAC 15 MG/ML 1 ML VIAL IVP STA ×2 (05:54→17:31)
[2023-04-03 06:08] LABS: African American GFR (CKD) >90 (>60 ml/min/1.73 sqM); Non-African American GFR(CKD) >90 (>60 ml/min/1.73 sqM)
--- NOTE | 2023-04-03 08:59 | P.CONS ---
History of Present Illness - Reason for Consult Consult date: 04/02/23 Right breast abscess Requesting physician: Lenny Russell - Chief Complaint Increasing pain and redness to the right breast x few days - History of Present Illness Patient is a 42-year-old female with recent admission n to the hospital treated for E. coli UTI patient also have a some erythema to the right breast area but no significant symptoms or any induration concerning for possible cellulitis patient was discharged home on oral Ceftin patient now presenting back to the hospital concerning for increasing pain and redness to the right breast area patient describes the pain to be mostly throbbing mild to moderate in intensity without any radiation with swelling and redness but no open wound or any drainage she did have some chills with the symptoms the pat ient was evaluated on presentation to the hospital the patient was afebrile and no fever has been recorded subsequently patient was tachycardic but not hypotensive or significant hypoxemia patient did have a white count of 8.1 creatinine 0.4 liver enzymes are normal urine hCG was negative blood cultures obtained which are currently pending patient did have a breast ultrasound with evidence of progressive edema throughout the right breast with multifocal fluid collection patient was started on vancomycin and Zosyn infectious disease was consulted for further management of antibiotic therapy Review of Systems Positive point and negatives has been mentioned in the HPI, complete review of systems was performed and all other systems are negative Past Medical History Additional Past Medical History / Comment(s): OVARIAN CYST (THOUGHT TO BE CAUSE OF PAIN ) IS GONE. migraines, occ high BP, diarrhea, hx anemia, multiple scle rosis dx in 2007 History of Any Multi-Drug Resistant Organisms: None Reported Past Surgical History: Section, Cholecystectomy Additional Past Surgical History / Comment(s): MS Past Anesthesia/Blood Transfusion Reactions: Motion Sickness Past Psychological History: Anxiety, Depression Smoking Status: Never smoker Past Alcohol Use History: None Reported Past Drug Use History: None Reported - Past Family History Mother Family Medical History: Hyperlipidemia Medications and Allergies Home Medications Medication Instructions Recorded Confirmed Type DULoxetine HCL [Cymbalta] 60 mg PO DAILY 11/30/18 04/01/23 History Baclofen [Lioresal] 15 mg PO TID 12/15/18 04/01/23 History Escitalopram [Lexapro] 20 mg PO DAILY 03/20/23 04/01/23 History Pregabalin [Lyrica] 100 mg PO TID 03/20/23 04/01/23 History Acetaminophen Tab [Tylenol] 650 mg PO Q6HR PRN tab 03/24/23 04/01/23 Rx Ferrous Sulfate [Feosol] 325 mg PO DAILY #30 tab 03/24/23 04/01/23 Rx Ondansetron Odt [Zofran ODT] 4 mg PO Q8HR PRN #30 tab 03/24/23 04/01/23 Rx Potassium Chloride ER [K-Dur 20] 20 meq PO DAILY #7 tab 03/24/23 04/01/23 Rx metFORMIN HCL [Glucophage] 1,000 mg PO BID-W/MEALS #120 tab 03/24/23 04/01/23 Rx Amoxic-Pot Clav 875-125Mg 1 tab PO Q12HR 8 Days #16 tab 04/07/23 Rx [Augmentin 875-125] Metoprolol Tartrate [Lopressor] 25 mg PO BID #60 tab 04/07/23 Rx oxyCODONE HCL/ACETAMINOPHEN 1 tab PO Q4HR PRN 3 Days #18 tab 04/07/23 Rx [Percocet 10-325 mg] Allergies Allergy/AdvReac Type Severity Reaction Status Date / Time No Known Allergies Allergy Verified 04/01/23 07:06 Physical Exam Vitals: Vital Signs Temp Pulse Resp BP Pulse Ox 04/02/23 08:00 107 H 18 04/02/23 07:00 97.9 F 107 H 18 138/81 94 L 04/02/23 02:00 98.7 F 104 H 148/77 94 L 04/01/23 20:00 97.6 F 102 H 147/94 98 04/01/23 14:53 97.9 F 04/01/23 14:11 97.3 F L 99 18 135/76 96 04/01/23 14:00 99 18 Intake and Output 04/01/23 04/02/23 04/02/23 22:59 06:59 14:59 Other: Voiding Method Toilet # Voids 2 2 GENERAL DESCRIPTION: Middle-aged female lying in bed, no distress. No tachypnea or accessory muscle of respiration use. HEENT: Shows Pallor , no scleral icterus. Oral mucous membrane is dry. No pharyngeal erythema or thrush NECK: Trachea central, no thyromegaly. LUNGS: Unlabored breathing. Clear to auscultation anteriorly. No wheeze or crackle. HEART: S1, S2, regular rate and rhythm. No loud murmur ABDOMEN: Soft, no tenderness , guarding or rigidity, no organomegaly EXTREMITIES: No edema of feet. SKIN: Right breast exam in the presence of the nurse did have area of induration redness and tenderness NEUROLOGICAL: The patient is awake, alert, oriented x3, mood and affect normal. Results CBC & Chem 7: 04/06/23 06:43 04/06/23 06:43 Labs: Abnormal Lab Results - Last 24 Hours (Table) 04/01/23 04/01/23 04/01/23 Range/Units 17:19 17:39 17:39 Hgb (12.0-15.0) g/dL Hct (37.2-46.3) % MCV (80.0-97.0) FL MCH (27.0-32.0) pg MCHC (32.0-37.0) g/dL RDW (11.5-14.5) % ESR 63 H (0-20) mm/Hr Potassium (3.5-5.5) mmol/L Anion Gap (4.00-12.00) mmol/L BUN (9.0-27.0) mg/dL Creatinine (0.6-1.5) mg/dL BUN/Creatinine Ratio (12.00-20.00) Ratio Glucose (70-110) mg/dL POC Glucose (mg/dL) 186 H (70-110) mg/dL C-Reactive Protein 3.5 H (<1.0) mg/dL Albumin (3.8-4.9) g/dL Albumin/Globulin Ratio (1.60-3.17) Ratio 04/01/23 04/02/23 04/02/23 Range/Units 19:31 06:10 07:27 Hgb 9.4 L (12.0-15.0) g/dL Hct 32.3 L (37.2-46.3) % MCV 74.8 L (80.0-97.0) FL MCH 21.8 L (27.0-32.0) pg MCHC 29.1 L (32.0-37.0) g/dL RDW 19.6 H (11.5-14.5) % ESR (0-20) mm/Hr Potassium (3.5-5.5) mmol/L Anion Gap (4.00-12.00) mmol/L BUN (9.0-27.0) mg/dL Creatinine (0.6-1.5) mg/dL BUN/Creatinine Ratio (12.00-20.00) Ratio Glucose (70-110) mg/dL POC Glucose (mg/dL) 193 H 201 H (70-110) mg/dL C-Reactive Protein (<1.0) mg/dL Albumin (3.8-4.9) g/dL Albumin/Globulin Ratio (1.60-3.17) Ratio 04/02/23 04/02/23 Range/Units 07:27 12:12 Hgb (12.0-15.0) g/dL Hct (37.2-46.3) % MCV (80.0-97.0) FL MCH (27.0-32.0) pg MCHC (32.0-37.0) g/dL RDW (11.5-14.5) % ESR (0-20) mm/Hr Potassium 3.4 L (3.5-5.5) mmol/L Anion Gap 13.30 H (4.00-12.00) mmol/L BUN 4.4 L (9.0-27.0) mg/dL Creatinine 0.4 L (0.6-1.5) mg/dL BUN/Creatinine Ratio 11.00 L (12.00-20.00) Ratio Glucose 230 H (70-110) mg/dL POC Glucose (mg/dL) 215 H (70-110) mg/dL C-Reactive Protein (<1.0) mg/dL Albumin 3.7 L (3.8-4.9) g/dL Albumin/Globulin Ratio 1.28 L (1.60-3.17) Ratio Microbiology - Last 24 Hours (Table) 04/01/23 04:00 Blood Culture - Preliminary Blood 04/01/23 04:15 Blood Culture - Preliminary Blood Assessment and Plan (1) Abscess of right breast Current Visit: Yes Status: Acute Code(s): N61.1 - ABSCESS OF THE BREAST AND NIPPLE SNOMED Code(s): 42882587 Plan: 1patient presented to hospital with right breast pain swelling redness has been diagnosed with a right breast abscess likely from gram-positive skin ricky failing outpatient oral antibiotic therapy 2-await surgical drainage and deep culture 3-patient to continue with the vancomycin however to decrease risk of nephrotoxicity we will switch the Zosyn to Unasyn We will follow on clinical condition and cultures to further adjust medication if needed Thank you for this consultation we will follow the patient along with you Dictation was produced using [employer] dictation software. please excuse any grammatical, word or spelling errors. Time with Patient: Greater than 30
[2023-04-03 11:46] LABS: Basophils # (A) 0.02 X 10*3/uL (0.00-0.10); Basophils % (A) 0.3 %; Eosinophils # (A) 0.01 X 10*3/uL (0.04-0.35); Eosinophils % (A) 0.1 %; HCT 32.3 % (37.2-46.3); HGB 9.3 g/dL (12.0-15.0); Lymphocytes # (A) 1.23 X 10*3/uL (0.90-5.00); Lymphocytes % (A) 16.3 %; MCH 21.6 pg (27.0-32.0); MCHC 28.8 g/dL (32.0-37.0); MCV 75.1 FL (80.0-97.0); Mean Platelet Volume 10.7 FL (9.5-12.2); Monocytes # (A) 0.43 X 10*3/uL (0.20-1.00); Monocytes % (A) 5.7 %; NRBC Per 100 WBC 0 X 10*3/uL (0.00-0.01); Neutrophils % (A) 77.1 %; Platelet Count 266 X 10*3/uL (140-440); RDW 19.8 % (11.5-14.5); WBC 7.53 X 10*3/uL (4.50-10.00)
[2023-04-03 12:05] VITALS: BMI 38.0
[2023-04-03 12:15] LABS: Glucose,Whole Blood 281 mg/dL (70-110)
--- NOTE | 2023-04-03 13:20 | P.PN ---
Subjective Progress Note Date: 04/03/23 Principal diagnosis: Reason for follow-up is right breast abscess Patient is a 42-year-old female with recent admission n to the hospital treated for E. coli UTI patient also have a some erythema to the right breast area but no significant symptoms or any induration concerning for possible cellulitis, patient presented back to the hospital with increasing swelling pain to the right breast area has been diagnosed with the abscess s/p surgical drainage on 04/02/2023. On today's evaluation that is 04/03/2023, the patient denies any fever or any chills, patient is breathing comfortably on room air, the patient denies chest pain shortness of breath and no significant cough, patient denies abdominal pain, no nausea vomiting or diarrhea. Still complaining of pain to the right breast area but controlled with the pain medication. Patient did have a white count of 7.53, creatinine 0.42 vancomycin trough is 12.3 cultures are currently pending Objective - Vital Signs Vital signs: Vital Signs Temp 98.0 F 04/03/23 07:00 Pulse 100 04/03/23 07:00 Resp 16 04/03/23 08:22 BP 134/79 04/03/23 07:00 Pulse Ox 94 L 04/03/23 07:00 FiO2 Intake & Output 04/02/23 04/03/23 04/03/23 18:59 06:59 18:59 Intake Total 1250 222 Output Total 5 Balance 1245 222 Weight 107.048 kg Intake: IV 1250 Oral 222 Output: Estimated Blood Loss 5 Other: Voiding Method Toilet Toilet Toilet # Voids 3 1 - Exam GENERAL DESCRIPTION: Middle-age female e lying in bed in no distress RESPIRATORY SYSTEM: Unlabored breathing , decreased breath sounds at bases HEART: S1 S2 regular rate and rhythm , Right breast: Is currently dressed minimal bloodstained drainage on the dressing ABDOMEN: Soft , no tenderness EXTREMITIES: No edema feet - Labs CBC & Chem 7: 04/03/23 05:11 04/03/23 05:11 Labs: Abnormal Lab Results - Last 24 Hours (Table) 04/02/23 04/02/23 04/02/23 Range/Units 07:27 12:12 15:25 Creatinine (0.52-1.04) mg/dL POC Glucose (mg/dL) 215 H 200 H (70-110) mg/dL Hemoglobin A1c 9.6 H (<=6.0) % 04/02/23 04/02/23 04/03/23 Range/Units 18:22 20:12 05:11 Creatinine 0.42 L (0.52-1.04) mg/dL POC Glucose (mg/dL) 253 H 279 H (70-110) mg/dL Hemoglobin A1c (<=6.0) % 04/03/23 Range/Units 05:35 Creatinine (0.52-1.04) mg/dL POC Glucose (mg/dL) 202 H (70-110) mg/dL Hemoglobin A1c (<=6.0) % Microbiology - Last 24 Hours (Table) 04/02/23 17:50 Gram Stain - Preliminary Breast - Right 04/02/23 17:45 Gram Stain - Preliminary Breast - Right 04/01/23 04:00 Blood Culture - Preliminary Blood 04/01/23 04:15 Blood Culture - Preliminary Blood Assessment and Plan (1) Abscess of right breast Current Visit: Yes Status: Acute Code(s): N61.1 - ABSCESS OF THE BREAST AND NIPPLE SNOMED Code(s): 01360884 Plan: 1patient presented to hospital with right breast pain swelling redness has been diagnosed with a right breast abscess likely from gram-positive skin ricky failing outpatient oral antibiotic therapy 2-patient is status post surgical drainage and deep culture which are currently pending 3-patient to continue with the vancomycin and Unasyn while waiting for the culture to finalize Dictation was produced using [employer] dictation software. please excuse any grammatical, word or spelling errors. Time with Patient: Less than 30
--- NOTE | 2023-04-03 13:50 | P.PN ---
Subjective Progress Note Date: 04/03/23 Hospital course: Patient is a very pleasant 42-year-old female with a past medical history of MS, [id number] diabetes mellitus, anxiety and depression. She presented to the emergency department with a chief complaint of right breast pain and swelling x 10 days while under antibiotic treatment course with ciprofloxacin x 7 days due to recent diagnosis of pyelonephritis. She underwent full evaluation in the emergency department. Upon arrival vital signs completed showing blood pressure 160/104, heart rate 109, respiratory rate 16, temp 98.6 F, and SpO2 of 98% on room air. Labs completed and reviewed. CBC showing microcytic anemia with hemoglobin of 10.7. BMP showing hypokalemia with potassium of 3.3 and hyperglycemia with glucose of 184. Ultrasound right breast showing diffuse edema throughout right breast consistent with cellulitis with pockets of fluid concerning for developing abscess formation. Patient was started on broad-spec trum IV antibiotics and admitted under our services with consultation to general surgery team. Urine hCG negative. Patient underwent surgical I&D of right breast on 04/02/2023. Wound cultures were obtained during procedure and sent to lab for analysis. Infectious disease consulted and patient remains on broad- spectrum IV antibiotics pending abscess culture results. Physical exam: Patient was seen and fully evaluated at bedside this morning. Patient reports mild pain/discomfort from surgical incision to right breast. Patient with moderate drainage. Patient reports previous reported headache yesterday has not returned after receiving the migraine cocktail. Patient denies having any questions, needs, concerns, or complaints. She was updated on plan of continuing IV antibiotics pending abscess culture results. Vital signs reviewed and stable. General: Nontoxic, no distress and appears stated age. Obese. Derm: Skin warm and dry, normal coloration for ethnicity. Postsurgical dressing and bandage in place to right breast moderate serosanguineous drainage, RN awaiting for supplies to change dressings at this time. Head: Atraumatic, normocephalic and symmetric. Eyes: EOMs intact, no lid lag, and anicteric sclera Mouth: no lip lesions, mucus membranes moist Cardiovascular: regular rate and rhythm with normal S1S2, no murmur, positive posterior tibial pulses bilaterally, and cap refill < 2 seconds. Lungs: Respirations even, regular, and unlabored on room air. Lungs CTA bilaterally, no rhonchi, no rales, no wheezing, and no accessory muscle usage. Abdominal: soft, nontender to palpation, no guarding, no appreciable organome stone Ext: ROM intact. No gross muscle atrophy, no edema, no contractures Neuro: Speech clear, face symmetrical and CN II-XII grossly intact with no noted focal neuro deficits Psych: Alert and oriented to person, place, time, and situation. Appropriate and pleasant affect. Assessment and Plan of Care: Right breast abscess with surrounding cellulitis Diabetes mellitus with hyperglycemia -Ultrasound right breast showing diffuse edema throughout right breast consistent with cellulitis with pockets of fluid concerning for abscess formation -General surgery following, Dr. Moncada took patient for surgical I&D on 04/02/2023. -Infectious disease following recommending continuation of vancomycin and discontinued Zosyn starting patient on Unasyn. -Continue with IV antibiotics vancomycin 1750 mg every 8 hours and Unasyn 3 g every 6 hours. -Wound cultures obtained during surgical I&D and sent to lab for analysis, will follow-up on culture and sensitivity report once available -Blood cultures showing no growth to date. -Symptomatic care and pain management. Dilaudid 0.5 mg every 3 hours as needed for moderate pain or 1 mg every 3 hours as needed for severe pain. Zofran 4 mg IVP every 8 hours as needed for nausea and/or vomiting. -Hyperglycemia with morning glucose of 202. Continue to hold metformin and continue glycemic protocol with NovoLog sliding scale. Hemoglobin A1c resulting at 9.6%. -ESR 63 and CRP of 3.5. Microcytic anemia, secondary to iron deficiency Continue daily medication regimen with ferrous sulfate 325 mg daily. Multiple sclerosis Anxiety and depression -Continue daily medication regimen with duloxetine 60 mg daily, Lexapro 20 mg daily, and Lyrica 100 mg 3 times daily. Data and imaging reviewed: Morning labs reviewed. CBC showing stable microcytic anemia with hemoglobin of 9.3. Awaiting CMP and magnesium results. Vital signs reviewed. Blood pressure 134/79, heart rate 100, respiratory rate 16, temp 98.0 F, and SpO2 of 94% on room air. CODE STATUS: Full code DVT prophylaxis: Heparin Anticipated discharge date: Clinical course to determine Anticipated discharge place: Clinical course to determine Patient was seen independently by Nurse Pracitioner. This document was prepared using [employer] dictation software. Please allow for errors in garment presser, while rare they do occur. I reviewed the documentation as provided by the LIZA above, who is the original author of this note. I agree with the documented assessment and plan, with the following changes: none Objective - Vital Signs Vital signs: Vital Signs Temp 98.0 F 04/03/23 07:00 Pulse 100 04/03/23 07:00 Resp 16 04/03/23 07:00 BP 134/79 04/03/23 07:00 Pulse Ox 94 L 04/03/23 07:00 FiO2 Intake & Output 04/02/23 04/03/23 04/03/23 18:59 06:59 18:59 Intake Total 1250 Output Total 5 Balance 1245 Weight 107.048 kg Intake: IV 1250 Output: Estimated Blood Loss 5 Other: Voiding Method Toilet Toilet # Voids 3 1 - Labs CBC & Chem 7: 04/05/23 07:37 04/05/23 07:37 Labs: Abnormal Lab Results - Last 24 Hours (Table) 04/02/23 04/02/23 04/02/23 Range/Units 07:27 07:27 07:27 Hgb 9.4 L (12.0-15.0) g/dL Hct 32.3 L (37.2-46.3) % MCV 74.8 L (80.0-97.0) FL MCH 21.8 L (27.0-32.0) pg MCHC 29.1 L (32.0-37.0) g/dL RDW 19.6 H (11.5-14.5) % Potassium 3.4 L (3.5-5.5) mmol/L Anion Gap 13.30 H (4.00-12.00) mmol/L BUN 4.4 L (9.0-27.0) mg/dL Creatinine 0.4 L (0.6-1.5) mg/dL BUN/Creatinine Ratio 11.00 L (12.00-20.00) Ratio Glucose 230 H (70-110) mg/dL POC Glucose (mg/dL) (70-110) mg/dL Hemoglobin A1c 9.6 H (<=6.0) % Albumin 3.7 L (3.8-4.9) g/dL Albumin/Globulin Ratio 1.28 L (1.60-3.17) Ratio 04/02/23 04/02/23 04/02/23 Range/Units 12:12 15:25 18:22 Hgb (12.0-15.0) g/dL Hct (37.2-46.3) % MCV (80.0-97.0) FL MCH (27.0-32.0) pg MCHC (32.0-37.0) g/dL RDW (11.5-14.5) % Potassium (3.5-5.5) mmol/L Anion Gap (4.00-12.00) mmol/L BUN (9.0-27.0) mg/dL Creatinine (0.6-1.5) mg/dL BUN/Creatinine Ratio (12.00-20.00) Ratio Glucose (70-110) mg/dL POC Glucose (mg/dL) 215 H 200 H 253 H (70-110) mg/dL Hemoglobin A1c (<=6.0) % Albumin (3.8-4.9) g/dL Albumin/Globulin Ratio (1.60-3.17) Ratio 04/02/23 04/03/23 04/03/23 Range/Units 20:12 05:11 05:35 Hgb (12.0-15.0) g/dL Hct (37.2-46.3) % MCV (80.0-97.0) FL MCH (27.0-32.0) pg MCHC (32.0-37.0) g/dL RDW (11.5-14.5) % Potassium (3.5-5.5) mmol/L Anion Gap (4.00-12.00) mmol/L BUN (9.0-27.0) mg/dL Creatinine 0.42 L (0.6-1.5) mg/dL BUN/Creatinine Ratio (12.00-20.00) Ratio Glucose (70-110) mg/dL POC Glucose (mg/dL) 279 H 202 H (70-110) mg/dL Hemoglobin A1c (<=6.0) % Albumin (3.8-4.9) g/dL Albumin/Globulin Ratio (1.60-3.17) Ratio Microbiology - Last 24 Hours (Table) 04/01/23 04:00 Blood Culture - Preliminary Blood 04/01/23 04:15 Blood Culture - Preliminary Blood
[2023-04-03 17:09] LABS: Glucose,Whole Blood 224 mg/dL (70-110)
[2023-04-03] MEDS: PROCHLORPERAZINE INJ 10 MG/2 ML VIAL IVP STA (17:30)
[2023-04-03] MEDS: diphenhydrAMINE 50 MG/ML 1 ML VIAL IVP STA (17:31)
[2023-04-03 20:25] LABS: Glucose,Whole Blood 272 mg/dL (70-110)
[2023-04-04 06:21] LABS: Glucose,Whole Blood 205 mg/dL (70-110)
[2023-04-04] MEDS: IBUPROFEN 400 MG TAB PO PRN (09:14)
[2023-04-04 09:33] LABS: MCH 22.2 pg (27.0-32.0); MCHC 29.4 g/dL (32.0-37.0); MCV 75.4 FL (80.0-97.0); Mean Platelet Volume 9.9 FL (9.5-12.2); NRBC Per 100 WBC 0 X 10*3/uL (0.00-0.01); Platelet Count 286 X 10*3/uL (140-440); RBC 4.51 X 10*6/uL (4.10-5.20); RDW 20.1 % (11.5-14.5); WBC 6.29 X 10*3/uL (4.50-10.00)
[2023-04-04 09:56] LABS: ALT 26 U/L (8-44); AST 30 U/L (13-35); Albumin 3.9 g/dL (3.8-4.9); Alkaline Phosphatase 97 U/L (41-126); BUN/Creat Ratio <7.00 Ratio (12.00-20.00); Blood Urea Nitrogen <3.5 mg/dL (9.0-27.0); Calcium 9.2 mg/dL (8.7-10.3); Carbon Dioxide 26.7 mmol/L (21.6-31.8); Chloride 100 mmol/L (96-109); Glucose 197 mg/dL (70-110); Magnesium 1.9 mg/dL (1.5-2.4); Potassium 3.2 mmol/L (3.5-5.5); Sodium 142 mmol/L (135-145); Total Bilirubin 0.3 mg/dL (0.3-1.2); Total Protein 6.9 g/dL (6.2-8.2)
[2023-04-04 11:48] LABS: Glucose,Whole Blood 234 mg/dL (70-110)
--- NOTE | 2023-04-04 13:27 | P.PN ---
Subjective Progress Note Date: 04/04/23 Principal diagnosis: Reason for follow-up is right breast abscess Patient is a 42-year-old female with recent admission n to the hospital treated for E. coli UTI patient also have a some erythema to the right breast area but no significant symptoms or any induration concerning for possible cellulitis, patient presented back to the hospital with increasing swelling pain to the right breast area has been diagnosed with the abscess s/p surgical drainage on 04/02/2023. On today's evaluation that is 04/04/2023,the patient remains to be afebrile, patient is on room air not requiring supplemental oxygen and denies any shortness of breath no chest pain or cough.Patient denies having any nausea or vomiting, no abdominal pain and no diarrhea has been reported, the patient pain to the right breast has decreased in intensity. Patient white count is 6.29, creatinine 0.5 cultures are currently pending Objective - Vital Signs Vital signs: Vital Signs Temp 98.6 F 04/04/23 07:00 Pulse 99 04/04/23 07:00 Resp 16 04/04/23 08:21 BP 156/78 04/04/23 07:00 Pulse Ox 98 04/04/23 07:00 FiO2 Intake & Output 04/03/23 04/04/23 04/04/23 18:59 06:59 18:59 Intake Total 444 Balance 444 Weight 107.048 kg Intake: Oral 444 Other: Voiding Method Toilet Toilet # Voids 1 3 - Exam GENERAL DESCRIPTION: Middle-age female e lying in bed in no distress RESPIRATORY SYSTEM: Unlabored breathing , decreased breath sounds at bases HEART: S1 S2 regular rate and rhythm , Right breast: Is currently dressed minimal bloodstained drainage on the dressing ABDOMEN: Soft , no tenderness EXTREMITIES: No edema feet - Labs CBC & Chem 7: 04/04/23 06:14 04/04/23 06:14 Labs: Abnormal Lab Results - Last 24 Hours (Table) 04/03/23 04/03/23 04/03/23 Range/Units 05:11 12:14 17:07 Hgb 9.3 L (12.0-15.0) g/dL Hct 32.3 L (37.2-46.3) % MCV 75.1 L (80.0-97.0) FL MCH 21.6 L (27.0-32.0) pg MCHC 28.8 L (32.0-37.0) g/dL RDW 19.8 H (11.5-14.5) % Eosinophils # 0.01 L (0.04-0.35) X 10*3/uL Potassium (3.5-5.5) mmol/L Anion Gap (4.00-12.00) mmol/L BUN (9.0-27.0) mg/dL Creatinine (0.6-1.5) mg/dL BUN/Creatinine Ratio (12.00-20.00) Ratio Glucose (70-110) mg/dL POC Glucose (mg/dL) 281 H 224 H (70-110) mg/dL Albumin/Globulin Ratio (1.60-3.17) Ratio 04/03/23 04/04/23 04/04/23 Range/Units 20:24 06:14 06:14 Hgb 10.0 L (12.0-15.0) g/dL Hct 34.0 L (37.2-46.3) % MCV 75.4 L (80.0-97.0) FL MCH 22.2 L (27.0-32.0) pg MCHC 29.4 L (32.0-37.0) g/dL RDW 20.1 H (11.5-14.5) % Eosinophils # (0.04-0.35) X 10*3/uL Potassium 3.2 L (3.5-5.5) mmol/L Anion Gap 15.30 H (4.00-12.00) mmol/L BUN <3.5 L (9.0-27.0) mg/dL Creatinine 0.5 L (0.6-1.5) mg/dL BUN/Creatinine Ratio <7.00 L (12.00-20.00) Ratio Glucose 197 H (70-110) mg/dL POC Glucose (mg/dL) 272 H (70-110) mg/dL Albumin/Globulin Ratio 1.30 L (1.60-3.17) Ratio 04/04/23 Range/Units 06:20 Hgb (12.0-15.0) g/dL Hct (37.2-46.3) % MCV (80.0-97.0) FL MCH (27.0-32.0) pg MCHC (32.0-37.0) g/dL RDW (11.5-14.5) % Eosinophils # (0.04-0.35) X 10*3/uL Potassium (3.5-5.5) mmol/L Anion Gap (4.00-12.00) mmol/L BUN (9.0-27.0) mg/dL Creatinine (0.6-1.5) mg/dL BUN/Creatinine Ratio (12.00-20.00) Ratio Glucose (70-110) mg/dL POC Glucose (mg/dL) 205 H (70-110) mg/dL Albumin/Globulin Ratio (1.60-3.17) Ratio Microbiology - Last 24 Hours (Table) 04/02/23 17:45 Gram Stain - Preliminary Breast - Right Wound Culture - Preliminary 04/02/23 17:50 Gram Stain - Preliminary Breast - Right Wound Culture - Preliminary 04/01/23 04:00 Blood Culture - Preliminary Blood 04/01/23 04:15 Blood Culture - Preliminary Blood Assessment and Plan (1) Abscess of right breast Current Visit: Yes Status: Acute Code(s): N61.1 - ABSCESS OF THE BREAST AND NIPPLE SNOMED Code(s): 43427182 Plan: 1patient presented to hospital with right breast pain swelling redness has been diagnosed with a right breast abscess likely from gram-positive skin ricky failing outpatient oral antibiotic therapy 2-patient is status post surgical drainage and deep culture which are currently pending 3-patient is afebrile and white count normal, patient will continue with the vancomycin and Unasyn while waiting for the culture to finalize Dictation was produced using [employer] dictation software. please excuse any grammatical, word or spelling errors. Time with Patient: Less than 30
--- NOTE | 2023-04-04 15:36 | P.PN ---
Subjective Progress Note Date: 04/04/23 Hospital course: Patient is a very pleasant 42-year-old female with a past medical history of MS, [id number] diabetes mellitus, anxiety and depression. She presented to the emergency department with a chief complaint of right breast pain and swelling x 10 days while under antibiotic treatment course with ciprofloxacin x 7 days due to recent diagnosis of pyelonephritis. She underwent full evaluation in the emergency department. Upon arrival vital signs completed showing blood pressure 160/104, heart rate 109, respiratory rate 16, temp 98.6 F, and SpO2 of 98% on room air. Labs completed and reviewed. CBC showing microcytic anemia with hemoglobin of 10.7. BMP showing hypokalemia with potassium of 3.3 and hyperglycemia with glucose of 184. Ultrasound right breast showing diffuse edema throughout right breast consistent with cellulitis with pockets of fluid concerning for developing abscess formation. Patient was started on broad-spec trum IV antibiotics and admitted under our services with consultation to general surgery team. Urine hCG negative. Patient underwent surgical I&D of right breast on 04/02/2023. Wound cultures were obtained during procedure and sent to lab for analysis. Infectious disease consulted and patient remains on broad- spectrum IV antibiotics pending abscess culture results. Physical exam: Patient was seen and fully evaluated at bedside this morning. She is currently reporting moderate postsurgical pain to right breast, she was premedicated and dressing and packing is being changed at time of assessment. Erythema to breast significantly improved. Patient denies any other complaints at this time including headache, lightheadedness, dizziness, fevers, chills, or diaphoresis. Vital signs reviewed and stable. General: Nontoxic, no distress and appears stated age. Obese. Derm: Skin warm and dry, normal coloration for ethnicity. Postsurgical dressing and bandage in place to right breast moderate serosanguineous drainage, RN awaiting for supplies to change dressings at this time. Head: Atraumatic, normocephalic and symmetric. Eyes: EOMs intact, no lid lag, and anicteric sclera Mouth: no lip lesions, mucus membranes moist Cardiovascular: regular rate and rhythm with normal S1S2, no murmur, positive posterior tibial pulses bilaterally, and cap refill < 2 seconds. Lungs: Respirations even, regular, and unlabored on room air. Lungs CTA monet aterally, no rhonchi, no rales, no wheezing, and no accessory muscle usage. Abdominal: soft, nontender to palpation, no guarding, no appreciable organomegaly Ext: ROM intact. No gross muscle atrophy, no edema, no contractures Neuro: Speech clear, face symmetrical and CN II-XII grossly intact with no noted focal neuro deficits Psych: Alert and oriented to person, place, time, and situation. Appropriate and pleasant affect. Assessment and Plan of Care: Right breast abscess with surrounding cellulitis Diabetes mellitus with hyperglycemia -Ultrasound right breast showing diffuse edema throughout right breast c onsistent with cellulitis with pockets of fluid concerning for abscess formation -General surgery following, Dr. Moncada took patient for surgical I&D on 04/02/2023. -Infectious disease following recommending continuation of vancomycin and discontinued Zosyn starting patient on Unasyn. -Continue with IV antibiotics vancomycin 1750 mg every 8 hours and Unasyn 3 g every 6 hours. Continued close monitoring of renal function and vancomycin trough to monitor for any signs of vancomycin associated renal toxicity. -Wound cultures obtained during surgical I&D and sent to lab for analysis, will follow-up on culture and sensitivity report once available -Blood cultures showing no growth to date.. -Symptomatic care and pain management. Dilaudid 0.5 mg every 3 hours as needed for moderate pain or 1 mg every 3 hours as needed for severe pain. Zofran 4 mg IVP every 8 hours as needed for nausea and/or vomiting. -Hyperglycemia with morning glucose of 202. Continue to hold metformin and continue glycemic protocol with NovoLog sliding scale. Hemoglobin A1c resulting at 9.6%. -ESR 63 and CRP of 3.5. Microcytic anemia, secondary to iron deficiency Continue daily medication regimen with ferrous sulfate 325 mg daily. Multiple sclerosis Anxiety and depression -Continue daily medication regimen with duloxetine 60 mg daily, Lexapro 20 mg daily, and Lyrica 100 mg 3 times daily. Data and imaging reviewed: Morning labs reviewed. CBC showing stable microcytic anemia with hemoglobin of 10.0. BMP showing hypokalemia with potassium of 3.2. Magnesium normal findings at 1.9. Liver profile unremarkable. Vital signs reviewed. Blood pressure 156/78, heart rate 99, respiratory rate 16, temp 98.6 F, and SpO2 of 98% on room air. CODE STATUS: Full code DVT prophylaxis: Heparin Anticipated discharge date: Clinical course to determine Anticipated discharge place: Clinical course to determine Patient was seen independently by Nurse Pracitioner. This document was prepared using [employer] dictation software. 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 Lenny Russell NP rendered care for this patient independently, reviewed the findings and plan as documented in the note above. I did not physically speak with or examine the patient on this date. Objective - Vital Signs Vital signs: Vital Signs Temp 98.6 F 04/04/23 07:00 Pulse 99 04/04/23 07:00 Resp 16 04/04/23 07:00 BP 156/78 04/04/23 07:00 Pulse Ox 98 04/04/23 07:00 FiO2 Intake & Output 04/03/23 04/04/23 04/04/23 18:59 06:59 18:59 Intake Total 444 Balance 444 Weight 107.048 kg Intake: Oral 444 Other: Voiding Method Toilet # Voids 1 3 - Labs CBC & Chem 7: 04/04/23 06:14 04/04/23 06:14 Labs: Abnormal Lab Results - Last 24 Hours (Table) 04/03/23 04/03/23 04/03/23 Range/Units 05:11 12:14 17:07 Hgb 9.3 L (12.0-15.0) g/dL Hct 32.3 L (37.2-46.3) % MCV 75.1 L (80.0-97.0) FL MCH 21.6 L (27.0-32.0) pg MCHC 28.8 L (32.0-37.0) g/dL RDW 19.8 H (11.5-14.5) % Eosinophils # 0.01 L (0.04-0.35) X 10*3/uL POC Glucose (mg/dL) 281 H 224 H (70-110) mg/dL 04/03/23 04/04/23 Range/Units 20:24 06:20 Hgb (12.0-15.0) g/dL Hct (37.2-46.3) % MCV (80.0-97.0) FL MCH (27.0-32.0) pg MCHC (32.0-37.0) g/dL RDW (11.5-14.5) % Eosinophils # (0.04-0.35) X 10*3/uL POC Glucose (mg/dL) 272 H 205 H (70-110) mg/dL Microbiology - Last 24 Hours (Table) 04/02/23 17:45 Gram Stain - Preliminary Breast - Right Wound Culture - Preliminary 04/02/23 17:50 Gram Stain - Preliminary Breast - Right Wound Culture - Preliminary 04/01/23 04:00 Blood Culture - Preliminary Blood 04/01/23 04:15 Blood Culture - Preliminary Blood
[2023-04-04] MEDS: POTASSIUM CHLORIDE ER 20 MEQ TAB.ER PO STA (16:02)
[2023-04-04 17:14] LABS: Glucose,Whole Blood 255 mg/dL (70-110)
[2023-04-04 20:26] LABS: Glucose,Whole Blood 226 mg/dL (70-110)
[2023-04-05 06:12] LABS: Glucose,Whole Blood 201 mg/dL (70-110)
[2023-04-05 11:01] LABS: HCT 36.3 % (37.2-46.3); HGB 10.7 g/dL (12.0-15.0); MCH 22.3 pg (27.0-32.0); MCHC 29.5 g/dL (32.0-37.0); MCV 75.6 FL (80.0-97.0); NRBC Per 100 WBC 0 X 10*3/uL (0.00-0.01); Platelet Count 346 X 10*3/uL (140-440); WBC 5.27 X 10*3/uL (4.50-10.00)
[2023-04-05 11:11] LABS: ALT 28 U/L (8-44); AST 22 U/L (13-35); Albumin 4.2 g/dL (3.8-4.9); Albumin/Globulin Ratio 1.35 Ratio (1.60-3.17); Alkaline Phosphatase 98 U/L (41-126); BUN/Creat Ratio <7.00 Ratio (12.00-20.00); Blood Urea Nitrogen <3.5 mg/dL (9.0-27.0); Calcium 9.5 mg/dL (8.7-10.3); Carbon Dioxide 26.7 mmol/L (21.6-31.8); Chloride 100 mmol/L (96-109); Globulin 3.1 g/dL (1.6-3.3); Glucose 180 mg/dL (70-110); Magnesium 2.1 mg/dL (1.5-2.4); Potassium 3.5 mmol/L (3.5-5.5); Sodium 142 mmol/L (135-145); Total Bilirubin 0.3 mg/dL (0.3-1.2); Total Protein 7.3 g/dL (6.2-8.2)
[2023-04-05] MEDS ORDERED: VANCOMYCIN TROUGH DUE 1 EACH MISC MISCELLANE ONE (12:00)
--- NOTE | 2023-04-05 12:02 | P.PN ---
Subjective Progress Note Date: 04/05/23 Principal diagnosis: Reason for follow-up is right breast abscess Patient is a 42-year-old female with recent admission n to the hospital treated for E. coli UTI patient also have a some erythema to the right breast area but no significant symptoms or any induration concerning for possible cellulitis, patient presented back to the hospital with increasing swelling pain to the right breast area has been diagnosed with the abscess s/p surgical drainage on 04/02/2023. On today's evaluation that is 04/05/2023, the patient continues to be afebrile, the patient is on room air and breathing comfortably, the Pt denies having any chest pain or cough, the patient denies having any abdominal pain no vomiting or any diarrhea has been reported by the nursing staff, the patient pain discomfort to the right breast has decreased in intensity. Patient white count of 5.27, creatinine 0.5 Vanco trough was 39 cultures been negative and resistant pathogen Objective - Vital Signs Vital signs: Vital Signs Temp 97.7 F 04/05/23 07:15 Pulse 99 04/05/23 07:15 Resp 16 04/05/23 07:15 BP 148/89 04/05/23 07:15 Pulse Ox 94 L 04/05/23 07:15 FiO2 Intake & Output 04/04/23 04/05/23 04/05/23 18:59 06:59 18:59 Intake Total 418 Balance 418 Intake: Oral 418 Other: Voiding Method Toilet Toilet # Voids 1 - Exam GENERAL DESCRIPTION: Middle-age female e lying in bed in no distress RESPIRATORY SYSTEM: Unlabored breathing , decreased breath sounds at bases HEART: S1 S2 regular rate and rhythm , Right breast: Overall swelling induration has improved wound base looks clean with no slough tissue or any foul-smelling drainage ABDOMEN: Soft , no tenderness EXTREMITIES: No edema feet - Labs CBC & Chem 7: 04/05/23 07:37 04/05/23 07:37 Labs: Abnormal Lab Results - Last 24 Hours (Table) 04/04/23 04/04/23 04/04/23 Range/Units 11:45 17:13 20:24 POC Glucose (mg/dL) 234 H 255 H 226 H (70-110) mg/dL 04/05/23 Range/Units 06:10 POC Glucose (mg/dL) 201 H (70-110) mg/dL Microbiology - Last 24 Hours (Table) 04/02/23 17:45 Gram Stain - Final Breast - Right Wound Culture - Final 04/02/23 17:50 Gram Stain - Final Breast - Right Wound Culture - Final 04/01/23 04:00 Blood Culture - Preliminary Blood 04/01/23 04:15 Blood Culture - Preliminary Blood Assessment and Plan (1) Abscess of right breast Current Visit: Yes Status: Acute Code(s): N61.1 - ABSCESS OF THE BREAST AND NIPPLE SNOMED Code(s): 91320573 Plan: 1patient presented to hospital with right breast pain swelling redness has been diagnosed with a right breast abscess likely from gram-positive skin ricky failing outpatient oral antibiotic therapy 2-patient is status post surgical drainage and deep culture which are so far negative for resistant pathogen 3-patient is afebrile and white count normal, patient will continue with Unasyn however I will discontinue the vancomycin and need to monitor her kidney function closely because of elevated Vanco trough Dictation was produced using [employer] dictation software. please excuse any gra mmatical, word or spelling errors. Time with Patient: Less than 30
[2023-04-05 12:33] LABS: Glucose,Whole Blood 242 mg/dL (70-110)
--- NOTE | 2023-04-05 17:08 | P.PN ---
Subjective Progress Note Date: 04/05/23 Hospital course: Patient is a very pleasant 42-year-old female with a past medical history of MS, [id number] diabetes mellitus, anxiety and depression. She presented to the emergency department with a chief complaint of right breast pain and swelling x 10 days while under antibiotic treatment course with ciprofloxacin x 7 days due to recent diagnosis of pyelonephritis. She underwent full evaluation in the emergency department. Upon arrival vital signs completed showing blood pressure 160/104, heart rate 109, respiratory rate 16, temp 98.6 F, and SpO2 of 98% on room air. Labs completed and reviewed. CBC showing microcytic anemia with hemoglobin of 10.7. BMP showing hypokalemia with potassium of 3.3 and hyperglycemia with glucose of 184. Ultrasound right breast showing diffuse edema throughout right breast consistent with cellulitis with pockets of fluid concerning for developing abscess formation. Patient was started on broad-spec trum IV antibiotics and admitted under our services with consultation to general surgery team. Urine hCG negative. Patient underwent surgical I&D of right breast on 04/02/2023. Wound cultures were obtained during procedure and sent to lab for analysis. Infectious disease consulted and patient remains on broad- spectrum IV antibiotics pending abscess culture results. Physical exam: Patient was seen and fully evaluated at bedside this morning. Patient was resting at time of evaluation and easily awoken via verbal stimuli. She currently reports pain continues but is controlled at the moment. She continues to have moderate drainage. Denies any other complaints at this time. Vital signs reviewed and stable. General: Nontoxic, no distress and appears stated age. Obese. Derm: Skin warm and dry, normal coloration for ethnicity. Postsurgical dressing and bandage in place to right breast moderate serosanguineous drainage, RN awaiting for supplies to change dressings at this time. Head: Atraumatic, normocephalic and symmetric. Eyes: EOMs intact, no lid lag, and anicteric sclera Mouth: no lip lesions, mucus membranes moist Cardiovascular: regular rate and rhythm with normal S1S2, no murmur, positive posterior tibial pulses bilaterally, and cap refill < 2 seconds. Lungs: Respirations even, regular, and unlabored on room air. Lungs CTA bilaterally, no rhonchi, no rales, no wheezing, and no accessory muscle usage. Abdominal: soft, nontender to palpation, no guarding, no appreciable organomegaly Ext: ROM intact. No gross muscle atrophy, no edema, no contractures Neuro: Speech clear, face symmetrical and CN II-XII grossly intact with no noted focal neuro deficits Psych: Alert and oriented to person, place, time, and situation. Appropriate and pleasant affect. Assessment and Plan of Care: Right breast abscess with surrounding cellulitis Diabetes mellitus with hyperglycemia -Ultrasound right breast showing diffuse edema throughout right breast consistent with cellulitis with pockets of fluid concerning for abscess formation -General surgery following, Dr. Moncada took patient for surgical I&D on 04/02/2023. -Infectious disease following recommending discontinued vancomycin and recommending continuation of Unasyn 3 g every 6 hours. -Wound cultures obtained during surgical I&D and sent to lab for analysis, preliminary cultures negative -Blood cultures showing no growth to date.. -Symptomatic care and pain management. Dilaudid 0.5 mg every 3 hours as needed for moderate pain or 1 mg every 3 hours as needed for severe pain. Zofran 4 mg IVP every 8 hours as needed for nausea and/or vomiting. -Hyperglycemia with morning glucose of 201. Continue to hold metformin and continue glycemic protocol with NovoLog sliding scale. Hemoglobin A1c resulting at 9.6%. -ESR 63 and CRP of 3.5. Microcytic anemia, secondary to iron deficiency Continue daily medication regimen with ferrous sulfate 325 mg daily. Hemoglobin currently stable at 10.7. Multiple sclerosis Anxiety and depression -Continue daily medication regimen with duloxetine 60 mg daily, Lexapro 20 mg daily, and Lyrica 100 mg 3 times daily. Data and imaging reviewed: Morning labs reviewed. CBC showing stable microcytic anemia with hemoglobin of 10.7. BMP showing resolution of hypokalemia with potassium of 3.5. Magnesium normal findings at 2.1. Liver profile unremarkable. Vital signs reviewed. Blood pressure 148/89, heart rate 99, respiratory rate 16, temp 97.7 F, and SpO2 of 94% on room air. CODE STATUS: Full code DVT prophylaxis: Heparin Anticipated discharge date: Likely within the next 24 to [address]: Home Patient was seen independently by Nurse Pracitioner. This document was prepared using [employer] dictation software. Please allow for errors in oven operator, while rare they do occur. I reviewed the documentation as provided by the LIZA above, who is the original author of this note. I agree with the documented assessment and plan, with the following changes: none Objective - Vital Signs Vital signs: Vital Signs Temp 97.7 F 04/05/23 07:15 Pulse 99 04/05/23 07:15 Resp 16 04/05/23 07:15 BP 148/89 04/05/23 07:15 Pulse Ox 94 L 04/05/23 07:15 FiO2 Intake & Output 04/04/23 04/05/23 04/05/23 18:59 06:59 18:59 Intake Total 418 Balance 418 Intake: Oral 418 Other: Voiding Method Toilet Toilet # Voids 1 - Labs CBC & Chem 7: 04/05/23 07:37 04/05/23 07:37 Labs: Abnormal Lab Results - Last 24 Hours (Table) 04/04/23 04/04/23 04/04/23 Range/Units 06:14 06:14 11:45 Hgb 10.0 L (12.0-15.0) g/dL Hct 34.0 L (37.2-46.3) % MCV 75.4 L (80.0-97.0) FL MCH 22.2 L (27.0-32.0) pg MCHC 29.4 L (32.0-37.0) g/dL RDW 20.1 H (11.5-14.5) % Potassium 3.2 L (3.5-5.5) mmol/L Anion Gap 15.30 H (4.00-12.00) mmol/L BUN <3.5 L (9.0-27.0) mg/dL Creatinine 0.5 L (0.6-1.5) mg/dL BUN/Creatinine Ratio <7.00 L (12.00-20.00) Ratio Glucose 197 H (70-110) mg/dL POC Glucose (mg/dL) 234 H (70-110) mg/dL Albumin/Globulin Ratio 1.30 L (1.60-3.17) Ratio 04/04/23 04/04/23 04/05/23 Range/Units 17:13 20:24 06:10 Hgb (12.0-15.0) g/dL Hct (37.2-46.3) % MCV (80.0-97.0) FL MCH (27.0-32.0) pg MCHC (32.0-37.0) g/dL RDW (11.5-14.5) % Potassium (3.5-5.5) mmol/L Anion Gap (4.00-12.00) mmol/L BUN (9.0-27.0) mg/dL Creatinine (0.6-1.5) mg/dL BUN/Creatinine Ratio (12.00-20.00) Ratio Glucose (70-110) mg/dL POC Glucose (mg/dL) 255 H 226 H 201 H (70-110) mg/dL Albumin/Globulin Ratio (1.60-3.17) Ratio Microbiology - Last 24 Hours (Table) 04/02/23 17:50 Gram Stain - Final Breast - Right Wound Culture - Final 04/01/23 04:00 Blood Culture - Preliminary Blood 04/01/23 04:15 Blood Culture - Preliminary Blood 04/02/23 17:45 Gram Stain - Preliminary Breast - Right Wound Culture - Preliminary
[2023-04-05 17:33] LABS: Glucose,Whole Blood 273 mg/dL (70-110)
[2023-04-05 20:56] LABS: Glucose,Whole Blood 236 mg/dL (70-110)
[2023-04-06 05:51] LABS: Glucose,Whole Blood 201 mg/dL (70-110)
--- NOTE | 2023-04-06 09:14 | P.PN ---
Subjective Progress Note Date: 04/06/23 Principal diagnosis: Postop day #4 drainage of right breast abscess The patient is postop day #4 drainage of right breast abscess. She is doing well at this time. She does complain of some intermittent twinges of pain in the right breast. She has been afebrile and her white count is normal. Objective - Vital Signs Vital signs: Vital Signs Temp 97.6 F 04/06/23 07:00 Pulse 114 H 04/06/23 07:00 Resp 16 04/06/23 07:00 BP 150/97 04/06/23 07:00 Pulse Ox 96 04/06/23 07:00 FiO2 Intake & Output 04/05/23 04/06/23 04/06/23 18:59 06:59 18:59 Intake Total 318 180 Balance 318 180 Intake: Oral 318 180 Other: Voiding Method Toilet Toilet # Voids 1 - Constitutional General appearance: Present: cooperative - EENT ENT: Present: hearing grossly normal - Neck Neck: Present: normal ROM - Respiratory Respiratory: bilateral: CTA - Cardiovascular Heart sounds: normal: S1, S2 - Integumentary Integumentary Comment(s): Decreased erythema of the right breast, packing is removed wound is granulating well. - Labs CBC & Chem 7: 04/05/23 07:37 04/05/23 07:37 Labs: Abnormal Lab Results - Last 24 Hours (Table) 04/05/23 04/05/23 04/05/23 Range/Units 07:37 07:37 09:16 Hgb 10.7 L (12.0-15.0) g/dL Hct 36.3 L (37.2-46.3) % MCV 75.6 L (80.0-97.0) FL MCH 22.3 L (27.0-32.0) pg MCHC 29.5 L (32.0-37.0) g/dL RDW 20.0 H (11.5-14.5) % Anion Gap 15.30 H (4.00-12.00) mmol/L BUN <3.5 L (9.0-27.0) mg/dL Creatinine 0.5 L (0.6-1.5) mg/dL BUN/Creatinine Ratio <7.00 L (12.00-20.00) Ratio Glucose 180 H (70-110) mg/dL POC Glucose (mg/dL) (70-110) mg/dL Albumin/Globulin Ratio 1.35 L (1.60-3.17) Ratio Vancomycin Trough 39.1 H* ug/mL 04/05/23 04/05/23 04/05/23 Range/Units 12:27 17:31 20:55 Hgb (12.0-15.0) g/dL Hct (37.2-46.3) % MCV (80.0-97.0) FL MCH (27.0-32.0) pg MCHC (32.0-37.0) g/dL RDW (11.5-14.5) % Anion Gap (4.00-12.00) mmol/L BUN (9.0-27.0) mg/dL Creatinine (0.6-1.5) mg/dL BUN/Creatinine Ratio (12.00-20.00) Ratio Glucose (70-110) mg/dL POC Glucose (mg/dL) 242 H 273 H 236 H (70-110) mg/dL Albumin/Globulin Ratio (1.60-3.17) Ratio Vancomycin Trough ug/mL 04/06/23 Range/Units 05:50 Hgb (12.0-15.0) g/dL Hct (37.2-46.3) % MCV (80.0-97.0) FL MCH (27.0-32.0) pg MCHC (32.0-37.0) g/dL RDW (11.5-14.5) % Anion Gap (4.00-12.00) mmol/L BUN (9.0-27.0) mg/dL Creatinine (0.6-1.5) mg/dL BUN/Creatinine Ratio (12.00-20.00) Ratio Glucose (70-110) mg/dL POC Glucose (mg/dL) 201 H (70-110) mg/dL Albumin/Globulin Ratio (1.60-3.17) Ratio Vancomycin Trough ug/mL Microbiology - Last 24 Hours (Table) 04/02/23 17:45 Anaerobic Culture - Preliminary Breast - Right 04/02/23 17:50 Anaerobic Culture - Preliminary Breast - Right 04/02/23 17:45 Gram Stain - Final Breast - Right Wound Culture - Final 04/02/23 17:50 Gram Stain - Final Breast - Right Wound Culture - Final Assessment and Plan Assessment: Impression: Cellulitis/developing abscess right breast; resolving Afebrile Recent treatment for urosepsis Plan: Continue IV antibiotic therapy as per infectious disease Continue present wound care
[2023-04-06 11:46] LABS: Basophils # (A) 0.06 X 10*3/uL (0.00-0.10); Basophils % (A) 1.2 %; Eosinophils % (A) 1.9 %; HCT 33.5 % (37.2-46.3); HGB 9.9 g/dL (12.0-15.0); Lymphocytes # (A) 1.62 X 10*3/uL (0.90-5.00); Lymphocytes % (A) 31.6 %; MCH 22.5 pg (27.0-32.0); MCHC 29.6 g/dL (32.0-37.0); MCV 76.1 FL (80.0-97.0); Mean Platelet Volume 10.9 FL (9.5-12.2); Monocytes # (A) 0.51 X 10*3/uL (0.20-1.00); Monocytes % (A) 9.9 %; NRBC Per 100 WBC 0 X 10*3/uL (0.00-0.01); Neutrophils # (A) 2.82 X 10*3/uL (1.80-7.70); Platelet Count 335 X 10*3/uL (140-440); RDW 19.8 % (11.5-14.5); WBC 5.13 X 10*3/uL (4.50-10.00)
[2023-04-06 11:55] LABS: ALT 28 U/L (8-44); AST 23 U/L (13-35); Albumin/Globulin Ratio 1.29 Ratio (1.60-3.17); Alkaline Phosphatase 93 U/L (41-126); BUN/Creat Ratio <5.83 Ratio (12.00-20.00); Blood Urea Nitrogen <3.5 mg/dL (9.0-27.0); Calcium 9.5 mg/dL (8.7-10.3); Carbon Dioxide 30.7 mmol/L (21.6-31.8); Chloride 98 mmol/L (96-109); Globulin 3.1 g/dL (1.6-3.3); Glucose 188 mg/dL (70-110); Magnesium 2.1 mg/dL (1.5-2.4); Potassium 3.3 mmol/L (3.5-5.5); Sodium 142 mmol/L (135-145); Total Bilirubin 0.4 mg/dL (0.3-1.2); Total Protein 7.1 g/dL (6.2-8.2)
[2023-04-06 11:59] LABS: Glucose,Whole Blood 206 mg/dL (70-110)
--- NOTE | 2023-04-06 12:58 | P.PN ---
Subjective Progress Note Date: 04/06/23 Principal diagnosis: Reason for follow-up is right breast abscess Patient is a 42-year-old female with recent admission n to the hospital treated for E. coli UTI patient also have a some erythema to the right breast area but no significant symptoms or any induration concerning for possible cellulitis, patient presented back to the hospital with increasing swelling pain to the right breast area has been diagnosed with the abscess s/p surgical drainage on 04/02/2023. On today's evaluation that is 04/06/2023, Patient is afebrile , patient is currently on room air and denies having any shortness of breath, the patient denies any chest pain or cough, the patient denies any nausea vomiting did not have any abdominal pain and no diarrhea, the patient pain to the right breast has decreased in intensity. Patient did have a white count of 5.13, creatinine 0.6 culture remain to be negative Objective - Vital Signs Vital signs: Vital Signs Temp 97.6 F 04/06/23 07:00 Pulse 114 H 04/06/23 07:00 Resp 16 04/06/23 07:00 BP 150/97 04/06/23 07:00 Pulse Ox 96 04/06/23 07:00 FiO2 Intake & Output 04/05/23 04/06/23 04/06/23 18:59 06:59 18:59 Intake Total 318 180 Balance 318 180 Intake: Oral 318 180 Other: Voiding Method Toilet Toilet # Voids 1 - Exam GENERAL DESCRIPTION: Middle-age female e lying in bed in no distress RESPIRATORY SYSTEM: Unlabored breathing , decreased breath sounds at bases HEART: S1 S2 regular rate and rhythm , Right breast: currently dressed no drainage on the dressing ABDOMEN: Soft , no tenderness EXTREMITIES: No edema feet - Labs CBC & Chem 7: 04/06/23 06:43 04/06/23 06:43 Labs: Abnormal Lab Results - Last 24 Hours (Table) 04/05/23 04/05/23 04/05/23 Range/Units 07:37 07:37 09:16 Hgb 10.7 L (12.0-15.0) g/dL Hct 36.3 L (37.2-46.3) % MCV 75.6 L (80.0-97.0) FL MCH 22.3 L (27.0-32.0) pg MCHC 29.5 L (32.0-37.0) g/dL RDW 20.0 H (11.5-14.5) % Anion Gap 15.30 H (4.00-12.00) mmol/L BUN <3.5 L (9.0-27.0) mg/dL Creatinine 0.5 L (0.6-1.5) mg/dL BUN/Creatinine Ratio <7.00 L (12.00-20.00) Ratio Glucose 180 H (70-110) mg/dL POC Glucose (mg/dL) (70-110) mg/dL Albumin/Globulin Ratio 1.35 L (1.60-3.17) Ratio Vancomycin Trough 39.1 H* ug/mL 04/05/23 04/05/23 04/05/23 Range/Units 12:27 17:31 20:55 Hgb (12.0-15.0) g/dL Hct (37.2-46.3) % MCV (80.0-97.0) FL MCH (27.0-32.0) pg MCHC (32.0-37.0) g/dL RDW (11.5-14.5) % Anion Gap (4.00-12.00) mmol/L BUN (9.0-27.0) mg/dL Creatinine (0.6-1.5) mg/dL BUN/Creatinine Ratio (12.00-20.00) Ratio Glucose (70-110) mg/dL POC Glucose (mg/dL) 242 H 273 H 236 H (70-110) mg/dL Albumin/Globulin Ratio (1.60-3.17) Ratio Vancomycin Trough ug/mL 04/06/23 Range/Units 05:50 Hgb (12.0-15.0) g/dL Hct (37.2-46.3) % MCV (80.0-97.0) FL MCH (27.0-32.0) pg MCHC (32.0-37.0) g/dL RDW (11.5-14.5) % Anion Gap (4.00-12.00) mmol/L BUN (9.0-27.0) mg/dL Creatinine (0.6-1.5) mg/dL BUN/Creatinine Ratio (12.00-20.00) Ratio Glucose (70-110) mg/dL POC Glucose (mg/dL) 201 H (70-110) mg/dL Albumin/Globulin Ratio (1.60-3.17) Ratio Vancomycin Trough ug/mL Microbiology - Last 24 Hours (Table) 04/02/23 17:45 Anaerobic Culture - Preliminary Breast - Right 04/02/23 17:50 Anaerobic Culture - Preliminary Breast - Right 04/02/23 17:45 Gram Stain - Final Breast - Right Wound Culture - Final 04/02/23 17:50 Gram Stain - Final Breast - Right Wound Culture - Final Assessment and Plan (1) Abscess of right breast Current Visit: Yes Status: Acute Code(s): N61.1 - ABSCESS OF THE BREAST AND NIPPLE SNOMED Code(s): 66784686 Plan: 1patient presented to hospital with right breast pain swelling redness has been diagnosed with a right breast abscess likely from gram-positive skin ricky failing outpatient oral antibiotic therapy 2-patient is status post surgical drainage and deep culture which are so far negative for resistant pathogen 3-patient is afebrile and white count normal, 4- patient will continue with Unasyn and plan to finish therapy with oral Augmentin and close outpatient follow-up Dictation was produced using [employer] dictation software. please excuse any grammatical, word or spelling errors. Time with Patient: Less than 30
--- NOTE | 2023-04-06 13:16 | P.PN ---
Subjective Progress Note Date: 04/06/23 Hospital course: Patient is a very pleasant 42-year-old female with a past medical history of MS, [id number] diabetes mellitus, anxiety and depression. She presented to the emergency department with a chief complaint of right breast pain and swelling x 10 days while under antibiotic treatment course with ciprofloxacin x 7 days due to recent diagnosis of pyelonephritis. She underwent full evaluation in the emergency department. Upon arrival vital signs completed showing blood pressure 160/104, heart rate 109, respiratory rate 16, temp 98.6 F, and SpO2 of 98% on room air. Labs completed and reviewed. CBC showing microcytic anemia with hemoglobin of 10.7. BMP showing hypokalemia with potassium of 3.3 and hyperglycemia with glucose of 184. Ultrasound right breast showing diffuse edema throughout right breast consistent with cellulitis with pockets of fluid concerning for developing abscess formation. Patient was started on broad-spec trum IV antibiotics and admitted under our services with consultation to general surgery team. Urine hCG negative. Patient underwent surgical I&D of right breast on 04/02/2023. Wound cultures were obtained during procedure and sent to lab for analysis. Infectious disease consulted and patient remains on IV with Unasyn. Wound cultures and blood cultures showing no growth to date. Physical exam: Patient was seen and fully evaluated at bedside this morning. Patient was resting at time of evaluation and easily awoken via verbal stimuli. She current ly reports pain continues intermittently but is controlled at the moment. She continues to have moderate drainage. Denies any other complaints at this time. Vital signs reviewed and stable. General: Nontoxic, no distress and appears stated age. Obese. Derm: Skin warm and dry, normal coloration for ethnicity. Postsurgical dressing and bandage in place to right breast, RN awaiting for supplies to change dressings at this time. Head: Atraumatic, normocephalic and symmetric. Eyes: EOMs intact, no lid lag, and anicteric sclera Mouth: no lip lesions, mucus membranes moist Cardiovascular: regular rate and rhythm with normal S1S2, no murmur, positive posterior tibial pulses bilaterally, and cap refill < 2 seconds. Lungs: Respirations even, regular, and unlabored on room air. Lungs CTA b ilaterally, no rhonchi, no rales, no wheezing, and no accessory muscle usage. Abdominal: soft, nontender to palpation, no guarding, no appreciable organomegaly Ext: ROM intact. No gross muscle atrophy, no edema, no contractures Neuro: Speech clear, face symmetrical and CN II-XII grossly intact with no noted focal neuro deficits Psych: Alert and oriented to person, place, time, and situation. Appropriate and pleasant affect. Assessment and Plan of Care: Right breast abscess with surrounding cellulitis Diabetes mellitus with hyperglycemia -Ultrasound right breast showing diffuse edema throughout right breast consistent with cellulitis with pockets of fluid concerning for abscess formation -General surgery following, Dr. Moncada took patient for surgical I&D on 04/02/2023. Per RN, Dr. Hills Isrrael recommending keeping patient an additional night, and if patient's pain remains uncontrolled General surgery stated she will repeat ultrasound tomorrow. -Infectious disease following recommending discontinued vancomycin and recommending continuation of Unasyn 3 g every 6 hours. -Wound cultures showing no growth to date -Blood cultures showing no growth to date.. -Symptomatic care and pain management. Dilaudid 0.5 mg every 3 hours as needed for moderate pain or 1 mg every 3 hours as needed for severe pain. Zofran 4 mg IVP every 8 hours as needed for nausea and/or vomiting. -Hyperglycemia with morning glucose of 188. Continue to hold metformin and continue glycemic protocol with NovoLog sliding scale. Hemoglobin A1c resulting at 9.6%. -Initial ESR 63 and CRP of 3.5. With repeat CRP this morning resulting at 1.40. Hypokalemia Potassium 3.3. Orders placed for K-Dur 40 mEq p.o. x 1 dose. Sinus tachycardia -Patient has had slightly elevated blood pressures and sinus tachycardia throughout hospitalization. Patient started on metoprolol 25 mg twice daily. Microcytic anemia, secondary to iron deficiency Continue daily medication regimen with ferrous sulfate 325 mg daily. Hemoglobin currently stable at 9.9. Multiple sclerosis Anxiety and depression -Continue daily medication regimen with duloxetine 60 mg daily, Lexapro 20 mg daily, and Lyrica 100 mg 3 times daily. Data and imaging reviewed: Morning labs reviewed. CBC showing stable microcytic anemia with hemoglobin of 9.9. BMP showing mild hypokalemia with potassium of 3.3.. Magnesium normal findings at 2.1. Liver profile unremarkable. CRP improving to 1.40. Vital signs reviewed. Blood pressure 158/97, heart rate 114, respiratory rate 16, temp 97.6 F, and SpO2 of 96% on room air. CODE STATUS: Full code DVT prophylaxis: Heparin Anticipated discharge date: Likely tomorrow morning. Anticipated discharge place: Home Patient was seen independently by Nurse Pracitioner. This document was prepared using [employer] dictation software. Please allow for errors in room service waiter, while rare they do occur. Objective - Vital Signs Vital signs: Vital Signs Temp 97.6 F 04/06/23 07:00 Pulse 114 H 04/06/23 07:00 Resp 16 04/06/23 07:00 BP 150/97 04/06/23 07:00 Pulse Ox 96 04/06/23 07:00 FiO2 Intake & Output 04/05/23 04/06/23 04/06/23 18:59 06:59 18:59 Intake Total 318 Balance 318 Intake: Oral 318 Other: Voiding Method Toilet Toilet # Voids 1 - Labs CBC & Chem 7: 04/06/23 06:43 04/06/23 06:43 Labs: Abnormal Lab Results - Last 24 Hours (Table) 04/05/23 04/05/23 04/05/23 Range/Units 07:37 07:37 09:16 Hgb 10.7 L (12.0-15.0) g/dL Hct 36.3 L (37.2-46.3) % MCV 75.6 L (80.0-97.0) FL MCH 22.3 L (27.0-32.0) pg MCHC 29.5 L (32.0-37.0) g/dL RDW 20.0 H (11.5-14.5) % Anion Gap 15.30 H (4.00-12.00) mmol/L BUN <3.5 L (9.0-27.0) mg/dL Creatinine 0.5 L (0.6-1.5) mg/dL BUN/Creatinine Ratio <7.00 L (12.00-20.00) Ratio Glucose 180 H (70-110) mg/dL POC Glucose (mg/dL) (70-110) mg/dL Albumin/Globulin Ratio 1.35 L (1.60-3.17) Ratio Vancomycin Trough 39.1 H* ug/mL 04/05/23 04/05/23 04/05/23 Range/Units 12:27 17:31 20:55 Hgb (12.0-15.0) g/dL Hct (37.2-46.3) % MCV (80.0-97.0) FL MCH (27.0-32.0) pg MCHC (32.0-37.0) g/dL RDW (11.5-14.5) % Anion Gap (4.00-12.00) mmol/L BUN (9.0-27.0) mg/dL Creatinine (0.6-1.5) mg/dL BUN/Creatinine Ratio (12.00-20.00) Ratio Glucose (70-110) mg/dL POC Glucose (mg/dL) 242 H 273 H 236 H (70-110) mg/dL Albumin/Globulin Ratio (1.60-3.17) Ratio Vancomycin Trough ug/mL 04/06/23 Range/Units 05:50 Hgb (12.0-15.0) g/dL Hct (37.2-46.3) % MCV (80.0-97.0) FL MCH (27.0-32.0) pg MCHC (32.0-37.0) g/dL RDW (11.5-14.5) % Anion Gap (4.00-12.00) mmol/L BUN (9.0-27.0) mg/dL Creatinine (0.6-1.5) mg/dL BUN/Creatinine Ratio (12.00-20.00) Ratio Glucose (70-110) mg/dL POC Glucose (mg/dL) 201 H (70-110) mg/dL Albumin/Globulin Ratio (1.60-3.17) Ratio Vancomycin Trough ug/mL Microbiology - Last 24 Hours (Table) 04/02/23 17:45 Anaerobic Culture - Preliminary Breast - Right 04/02/23 17:50 Anaerobic Culture - Preliminary Breast - Right 04/02/23 17:45 Gram Stain - Final Breast - Right Wound Culture - Final 04/02/23 17:50 Gram Stain - Final Breast - Right Wound Culture - Final
[2023-04-06] MEDS: POTASSIUM CHLORIDE ER 20 MEQ TAB.ER PO STA (15:23)
[2023-04-06] MEDS: METOPROLOL TARTRATE 25 MG TAB PO SCH (15:23)
[2023-04-06 17:11] LABS: Glucose,Whole Blood 255 mg/dL (70-110)
[2023-04-06 20:40] LABS: Glucose,Whole Blood 240 mg/dL (70-110)
[2023-04-07 03:42] VITALS: RESP 16
[2023-04-07 05:58] LABS: Glucose,Whole Blood 278 mg/dL (70-110)
[2023-04-07 07:29] VITALS: BP 144/75; PULSE 73; TEMP 97.6
[2023-04-07] MEDS: oxyCODONE-APAP 10-325MG 1 EACH TAB PO ONE (09:41)
--- NOTE | 2023-04-07 11:01 | P.DS ---
Providers Date of admission: 04/01/23 16:38 Expected date of discharge: 04/07/23 Attending physician: Yi Omalley MD Consults: 04/01/23 04:35 Consult Physician Urgent Consulting Provider: Lena Penny Consult Reason/Comments: r breast abscess Do you want consulting provider notified?: Yes 04/02/23 10:03 Consult Physician Routine Consulting Provider: Jens Carrillo Consult Reason/Comments: right breast abscess Do you want consulting provider notified?: Yes Primary care physician: Stated None Hospital Course: 42-year-old female with a past medical history of MS, [id number] diabetes mellitus, anxiety and depression. She presented to the emergency department with a chief complaint of right breast pain and swelling x 10 days while under antibiotic treatment course with ciprofloxacin x 7 days due to recent diagnosis of pyelonephritis. She underwent full evaluation in the emergency department. Vital signs showed BP 160/104, HR 109, RR 16, T 98.6 F, and SpO2 of 98% on room air. CBC showing hemoglobin of 10.7. BMP showing potassium of 3.3 and glucose of 184. Ultrasound right breast showing diffuse edema throughout right breast consistent with cellulitis with pockets of fluid concerning for developing abscess formation. Patient was started on broad-spectrum IV antibiotics and admitted under our services with consultation to general surgery team. Patient underwent surgical I&D of right breast on 04/02/2023. Wound cultures were obtained during procedure and sent to lab for analysis. Infectious disease consulted and patient remains on IV with Unasyn. Wound cultures and blood cultures showing no growth to date. 04/07 Patient was seen and examined. Complains of pain at the site of I&D. Discussed with Dr. Carrillo, 8 more days of Augmentin to complete 14 days antibiotics. Plans for discharge home on Augmentin and Percocet if cleared by Dr. Penny. Vital signs reviewed and stable. General: Nontoxic, no distress and appears stated age. Derm: Skin warm and dry, normal coloration for ethnicity. Right breast dressing c/d/i with minimal erythema. Head: Atraumatic, normocephalic and symmetric. Eyes: EOMs intact, no lid lag, and anicteric sclera Cardiovascular: regular rate and rhythm with normal S1S2 Lungs: Respirations even, regular, and unlabored on room air. Lungs CTA bilaterally, no rhonchi, no rales, no wheezing, and no accessory muscle usage. Ext: ROM intact. No gross muscle atrophy, no edema, no contractures Neuro: Speech clear, face symmetrical with no noted focal neuro deficits Psych: Alert and oriented to person, place, and situation. Appropriate and pleasant affect. Discharge Diagnosis: Right breast abscess with surrounding cellulitis Diabetes mellitus with hyperglycemia Hypokalemia Sinus tachycardia Microcytic anemia, secondary to iron deficiency Multiple sclerosis Anxiety and depression This complex discharge took 35 minutes to complete. Patient Condition at Discharge: Stable Plan - Discharge Summary Discharge Rx Participant: No New Discharge Prescriptions: New Amoxic-Pot Clav 875-125Mg [Augmentin 875-125] 1 tab PO Q12HR 8 Days #16 tab oxyCODONE HCL/ACETAMINOPHEN [Percocet 10-325 mg] 1 tab PO Q4HR PRN 3 Days #18 tab PRN Reason: Pain Metoprolol Tartrate [Lopressor] 25 mg PO BID #60 tab Continue DULoxetine HCL [Cymbalta] 60 mg PO DAILY Baclofen [Lioresal] 15 mg PO TID Escitalopram [Lexapro] 20 mg PO DAILY metFORMIN HCL [Glucophage] 1,000 mg PO BID-W/MEALS #120 tab Pregabalin [Lyrica] 100 mg PO TID Ferrous Sulfate [Feosol] 325 mg PO DAILY #30 tab Potassium Chloride ER [K-Dur 20] 20 meq PO DAILY #7 tab Acetaminophen Tab [Tylenol] 650 mg PO Q6HR PRN tab PRN Reason: Mild Pain Or Fever > 100.5 Ondansetron Odt [Zofran ODT] 4 mg PO Q8HR PRN #30 tab PRN Reason: Nausea And Vomiting Discontinued HYDROcodone/APAP 5-325MG [Gary 5-325] 1 tab PO Q4HR PRN 3 Days #18 tab PRN Reason: Pain Discharge Medication List DULoxetine HCL [Cymbalta] 60 mg PO DAILY 11/30/18 [History] Baclofen [Lioresal] 15 mg PO TID 12/15/18 [History] Escitalopram [Lexapro] 20 mg PO DAILY 03/20/23 [History] Pregabalin [Lyrica] 100 mg PO TID 03/20/23 [History] Acetaminophen Tab [Tylenol] 650 mg PO Q6HR PRN tab 03/24/23 [Rx] Ferrous Sulfate [Feosol] 325 mg PO DAILY #30 tab 03/24/23 [Rx] Ondansetron Odt [Zofran ODT] 4 mg PO Q8HR PRN #30 tab 03/24/23 [Rx] Potassium Chloride ER [K-Dur 20] 20 meq PO DAILY #7 tab 03/24/23 [Rx] metFORMIN HCL [Glucophage] 1,000 mg PO BID-W/MEALS #120 tab 03/24/23 [Rx] Amoxic-Pot Clav 875-125Mg [Augmentin 875-125] 1 tab PO Q12HR 8 Days #16 tab 04/07/23 [Rx] Metoprolol Tartrate [Lopressor] 25 mg PO BID #60 tab 04/07/23 [Rx] oxyCODONE HCL/ACETAMINOPHEN [Percocet 10-325 mg] 1 tab PO Q4HR PRN 3 Days #18 tab 04/07/23 [Rx] Follow up Appointment(s)/Referral(s): Lena Penny MD [STAFF PHYSICIAN] - 04/15/23 9:00 am (Appointment lavinia be at [facility].) None,Stated [Primary Care Provider] - 1-2 days Discharge Disposition: HOME SELF-CARE
--- NOTE | 2023-04-07 11:56 | P.PN ---
Subjective Progress Note Date: 04/07/23 Principal diagnosis: Reason for follow-up is right breast abscess Patient is a 42-year-old female with recent admission n to the hospital treated for E. coli UTI patient also have a some erythema to the right breast area but no significant symptoms or any induration concerning for possible cellulitis, patient presented back to the hospital with increasing swelling pain to the right breast area has been diagnosed with the abscess s/p surgical drainage on 04/02/2023. On today's evaluation that is 04/07/2023,the patient denies any fever or any chills, patient is breathing comfortably on room air, the patient denies chest pain shortness of breath and no significant cough, patient denies abdominal pain, no nausea vomiting or diarrhea. Patient pain to the right breast has decreased in intensity. No blood work was done today white count was 5.13 as of yesterday culture has been negative Objective - Vital Signs Vital signs: Vital Signs Temp 97.6 F 04/07/23 07:00 Pulse 73 04/07/23 07:00 Resp 16 04/07/23 07:00 BP 144/75 04/07/23 07:00 Pulse Ox 95 04/07/23 07:00 FiO2 Intake & Output 04/06/23 04/07/23 04/07/23 18:59 06:59 18:59 Intake Total 298 222 Balance 298 222 Intake: Oral 298 222 Other: Voiding Method Toilet # Voids 3 2 - Exam GENERAL DESCRIPTION: Middle-age female lying in bed in no distress RESPIRATORY SYSTEM: Unlabored breathing , decreased breath sounds at bases HEART: S1 S2 regular rate and rhythm , Right breast: currently dressed no drainage on the dressing ABDOMEN: Soft , no tenderness EXTREMITIES: No edema feet - Labs CBC & Chem 7: 04/06/23 06:43 04/06/23 06:43 Labs: Abnormal Lab Results - Last 24 Hours (Table) 04/06/23 04/06/23 04/06/23 Range/Units 06:43 11:57 17:10 Potassium 3.3 L (3.5-5.5) mmol/L Anion Gap 13.30 H (4.00-12.00) mmol/L BUN <3.5 L (9.0-27.0) mg/dL BUN/Creatinine Ratio <5.83 L (12.00-20.00) Ratio Glucose 188 H (70-110) mg/dL POC Glucose (mg/dL) 206 H 255 H (70-110) mg/dL C-Reactive Protein 1.40 H (0.00-0.80) mg/dL Albumin/Globulin Ratio 1.29 L (1.60-3.17) Ratio 04/06/23 04/07/23 Range/Units 20:39 05:57 Potassium (3.5-5.5) mmol/L Anion Gap (4.00-12.00) mmol/L BUN (9.0-27.0) mg/dL BUN/Creatinine Ratio (12.00-20.00) Ratio Glucose (70-110) mg/dL POC Glucose (mg/dL) 240 H 278 H (70-110) mg/dL C-Reactive Protein (0.00-0.80) mg/dL Albumin/Globulin Ratio (1.60-3.17) Ratio Microbiology - Last 24 Hours (Table) 04/01/23 04:00 Blood Culture - Final Blood 04/01/23 04:15 Blood Culture - Final Blood Assessment and Plan (1) Abscess of right breast Current Visit: Yes Status: Acute Code(s): N61.1 - ABSCESS OF THE BREAST AND NIPPLE SNOMED Code(s): 26598264 Plan: 1patient presented to hospital with right breast pain swelling redness has been diagnosed with a right breast abscess likely from gram-positive skin ricky failing outpatient oral antibiotic therapy 2-patient is status post surgical drainage and deep culture which are so far negative for resistant pathogen 3-patient is afebrile and white count normal, 4- patient will finish therapy with oral Augmentin and close outpatient follow- up, discussed with the admitting physician working on discharge Dictation was produced using [employer] software. please excuse any grammatical, word or spelling errors. Time with Patient: Less than 30
[2023-04-07 12:17] LABS: Glucose,Whole Blood 277 mg/dL (70-110)
== END 2023-04-07 12:45 | disposition home health service (06) | DRG 585 ==
LOC: EC 02:31 → 6NMEDSUR 04:48 → OBSVTOIN 16:38
PROVIDERS: ADMIT Internal Medicine; ATTEND Internal Medicine
PROC: 0H9T0ZZ Drainage of Right Breast, Open Approach (ICD-10-PCS; principal; 2023-04-02 07:30)
DX: N61.1 Abscess of the breast and nipple (principal); N61.0 Mastitis without abscess; D50.9 Iron deficiency anemia, unspecified; E87.6 Hypokalemia; E11.65 Type 2 diabetes mellitus with hyperglycemia; E78.5 Hyperlipidemia, unspecified; F32.A Depression, unspecified; G43.909 Migraine, unspecified, not intractable, without status migrainosus; R03.0 Elevated blood-pressure reading, without diagnosis of hypertension; F41.9 Anxiety disorder, unspecified; G35 Multiple sclerosis; Z79.899 Other long term (current) drug therapy; Z79.84 Long term (current) use of oral hypoglycemic drugs; Z28.310 Unvaccinated for COVID-19; Z28.21 Immunization not carried out because of patient refusal; Z87.440 Personal history of urinary (tract) infections; Z71.3 Dietary counseling and surveillance
CPT/HCPCS: 36415; 80053; 80202; 81025; 82565; 83036; 83605; 83735; 85025; 85027; 85610; 85652; 86140; 87040; 87070; 87075; 87205; 96365; 96367; 96375; 99285

== ENCOUNTER → 2023-04-15 | Outpatient (CLI) | payer BC, MEDICARE ==
--- NOTE | 2023-04-15 09:53 | P.PN ---
Subjective Progress Note Date: 04/15/23 Principal diagnosis: right breast abcess Right breast abscess Justa is a 42-year-old female who presented to the emergency room with a chief complaint of swelling and pain in her right breast. She had recently been discharged on 03-24-2023. At that time she was treated for pyelonephritis with sepsis. At that time she had a white like pimple on her breast which she popped and then the breast became more swollen and tender. She presented to the emergency department with that complaint. She had been discharged home on a 7- day course of ciprofloxacin. The patient did not report any fever or chills. No trauma to her breast. She had not had any prior surgery on her breast. She had an ultrasound performed which revealed diffuse edema throughout the right breast compatible with cellulitis. There were some pockets of fluid seen particularly at the 10 o'clock position which could reflect developing abscess. This was reviewed with Dr. Gilliam. 04-15-23 She underwent I&D of the right breast area on 04-02-23. She was discharged from the hospital on 04-07-2023. She was on antibiotics until today. She has not had any fever or chills. Family history: Mother stomach cancer Hormonal history: Menarche: 13 M1, age at first 21, breast-fed: Yes Last menstrual period: She has not had a period in over a year Past surgical history: 2 C-sections Laparoscopic exam exam Medical history: Diabetes Multiple sclerosis Social history: Patient does not smoke Patient does not drink alcohol Patient does not do drugs - Constitutional Constitutional: Denies chills, Denies fever - EENT Eyes: denies blurred vision, denies pain - Breasts Breasts: bilateral: as per HPI - Cardiovascular Cardiovascular: Denies chest pain, Denies shortness of breath - Respiratory Respiratory: Denies cough, Denies 7 - Gastrointestinal Gastrointestinal: Reports diarrhea, Denies abdominal pain, Denies nausea, Denies vomiting - Genitourinary (Female) Genitourinary: Reports as per HPI - Menstruation Menstruation: Reports postmenopausal - Integumentary Integumentary: Reports as per HPI - Psychiatric Psychiatric: Reports depression - Endocrine Endocrine: Reports as per HPI Past Medical History Additional Past Medical History / Comment(s): OVARIAN CYST (THOUGHT TO BE CAUSE OF PAIN ) IS GONE. migraines, occ high BP, diarrhea, hx anemia, multiple sclerosis dx in 2007 History of Any Multi-Drug Resistant Organisms: None Reported Past Surgical History: Section, Cholecystectomy Additional Past Surgical History / Comment(s): MS Past Anesthesia/Blood Transfusion Reactions: Motion Sickness Past Psychological History: Anxiety, Depression Smoking Status: Never smoker Past Alcohol Use History: None Reported Past Drug Use History: None Reported - Past Family History Mother Family Medical History: Hyperlipidemia Medications and Allergies Home Medications Medication Instructions Recorded Confirmed Type DULoxetine HCL [Cymbalta] 60 mg PO DAILY 11/30/18 04/01/23 History Baclofen [Lioresal] 15 mg PO TID 12/15/18 04/01/23 History Escitalopram [Lexapro] 20 mg PO DAILY 03/20/23 04/01/23 History Pregabalin [Lyrica] 100 mg PO TID 03/20/23 04/01/23 History Acetaminophen Tab [Tylenol] 650 mg PO Q6HR PRN tab 03/24/23 04/01/23 Rx Ferrous Sulfate [Feosol] 325 mg PO DAILY #30 tab 03/24/23 04/01/23 Rx HYDROcodone/APAP 5-325MG [Salome 1 tab PO Q4HR PRN 3 Days #18 tab 03/24/23 04/01/23 Rx 5-325] Ondansetron Odt [Zofran Odt] 4 mg PO Q8HR PRN #30 tab 03/24/23 04/01/23 Rx Potassium Chloride ER [K-Dur 20] 20 meq PO DAILY #7 tab 03/24/23 04/01/23 Rx metFORMIN HCL [Glucophage] 1,000 mg PO BID-W/MEALS #120 tab 03/24/23 04/01/23 Rx Allergies Allergy/AdvReac Type Severity Reaction Status Date / Time No Known Allergies Allergy Verified 04/01/23 07:06 Objective - Constitutional General appearance: Present: cooperative - EENT Eyes: Present: EOMI - Neck Neck: Present: normal ROM - Respiratory Respiratory: bilateral: CTA - Cardiovascular Heart sounds: normal: S1, S2 - Integumentary Integumentary Comment(s): Incision and drainage site is clean and dry with granulation tissue - Musculoskeletal Musculoskeletal: Present: gait normal - Psychiatric Psychiatric: Present: A&O x's 3, appropriate affect, intact judgment & insight Assessment and Plan Assessment: Impression: Patient's status post I&D of right breast abscess Plan: Antibiotics as per infectious disease Dressing changed and wound repacked Follow-up 1 month at that time we will consider bilateral mammogram
[2023-04-15 10:36] VITALS: PULSE 84; RESP 15; TEMP 98.2
== END ==
LOC: WWCWWP 08:51
PROVIDERS: ATTEND Surgery
DX: Z48.817 Encounter for surgical aftercare following surgery on the skin and subcutaneous tissue (principal); E11.9 Type 2 diabetes mellitus without complications; F32.A Depression, unspecified; F41.9 Anxiety disorder, unspecified; Z78.0 Asymptomatic menopausal state; Z79.84 Long term (current) use of oral hypoglycemic drugs; Z87.891 Personal history of nicotine dependence

== ENCOUNTER 2024-02-07 15:19 | Observation (INO) | payer BC, MEDICARE ==
--- NOTE | 2024-02-07 15:39 | ED ---
Extremity Problem HPI - General Stated complaint: R leg pain Time Seen by Provider: 02/07/24 15:38 Source: patient, RN notes reviewed Mode of arrival: wheelchair Limitations: no limitations - History of Present Illness Initial comments: 43-year-old female with a past medical history significant multiple sclerosis presenting to the ER for evaluation of right leg pain. She states she first noticed pain on 02-02-2024. She status progressively worsened over the weekend. She states she has taken [id number] Tylenol and naproxen without relief. She denies any injuries or traumas. She states today pain is to the point where she cannot bear weight. Patient also is reporting heart palpitations but denies chest pain, shortness of breath, dizziness, lightheade dness, nausea or vomiting. Patient states she believes she has UTI and is currently taking [id number] Azo's. No fevers. Patient does admit to abdominal pain and back pain for which she contributes to UTI. She is not currently on any antibiotics. - Related Data Home Medications Medication Instructions Recorded Confirmed DULoxetine HCL [Cymbalta] 60 mg PO DAILY 11/30/18 04/15/23 Baclofen [Lioresal] 15 mg PO TID 12/15/18 04/15/23 Escitalopram [Lexapro] 20 mg PO DAILY 03/20/23 04/15/23 Pregabalin [Lyrica] 100 mg PO TID 03/20/23 04/15/23 Previous Rx's Medication Instructions Recorded Acetaminophen Tab [Tylenol] 650 mg PO Q6HR PRN tab 03/24/23 Ferrous Sulfate [Feosol] 325 mg PO DAILY #30 tab 03/24/23 Ondansetron Odt [Zofran ODT] 4 mg PO Q8HR PRN #30 tab 03/24/23 Potassium Chloride ER [K-Dur 20] 20 meq PO DAILY #7 tab 03/24/23 metFORMIN HCL [Glucophage] 1,000 mg PO BID-W/MEALS #120 tab 03/24/23 Amoxic-Pot Clav 875-125Mg 1 tab PO Q12HR 8 Days #16 tab 04/07/23 [Augmentin 875-125] Metoprolol Tartrate [Lopressor] 25 mg PO BID #60 tab 04/07/23 oxyCODONE HCL/ACETAMINOPHEN 1 tab PO Q4HR PRN 3 Days #18 tab 04/07/23 [Percocet 10-325 mg] Allergies Allergy/AdvReac Type Severity Reaction Status Date / Time No Known Allergies Allergy Verified 02/07/24 15:47 Review of Systems ROS Statement: Those systems with pertinent positive or pertinent negative responses have been documented in the HPI. ROS Other: All systems not noted in ROS Statement are negative. Past Medical History Additional Past Medical History / Comment(s): OVARIAN CYST (THOUGHT TO BE CAUSE OF PAIN ) IS GONE. migraines, occ high BP, diarrhea, hx anemia, multiple sclerosis dx in 2007 History of Any Multi-Drug Resistant Organisms: None Reported Past Surgical History: Section, Cholecystectomy Additional Past Surgical History / Comment(s): MS Past Anesthesia/Blood Transfusion Reactions: Motion Sickness Past Psychological History: Anxiety, Depression Smoking Status: Never smoker Past Alcohol Use History: None Reported Past Drug Use History: None Reported - Past Family History Mother Family Medical History: Hyperlipidemia General Exam - General Exam Comments Initial Comments: Visual Physical Exam Vital signs reviewed General: Well-appearing, nontoxic, no acute distress. Head: Normocephalic, atraumatic Eyes: PERRLA, EOMI ENT: Airway patent Chest: Nonlabored breathing Skin: No visual rash, normal skin tone Neuro: Alert and oriented 3 Musculoskeletal: No gross abnormalities Limitations: no limitations General appearance: alert, in no apparent distress Respiratory exam: Present: normal lung sounds bilaterally. Absent: respiratory distress, wheezes, rales, rhonchi, stridor Cardiovascular Exam: Present: normal rhythm, tachycardia, normal heart sounds GI/Abdominal exam: Present: soft, normal bowel sounds. Absent: distended, tenderness, guarding, rebound, rigid Extremities exam: Present: tenderness (Right calf. 2+ right DP and PT pulse. No overlying skin changes.) Neurological exam: Present: alert, oriented X3, CN II-XII intact Skin exam: Present: warm, dry, intact, normal color. Absent: rash Course Vital Signs 02/07/24 02/07/24 02/07/24 15:44 19:58 21:20 Temperature 98.8 F 98.7 F Pulse Rate 130 H 126 H 118 H Respiratory 15 18 18 Rate Blood Pressure 154/97 119/84 129/78 O2 Sat by Pulse 97 94 L 95 Oximetry Medical Decision Making - Medical Decision Making I performed the quick note portion of this chart. Electronically signed by Roe Andino PA-C Was pt. sent in by a medical professional or institution ([facility], [employer], urgent care, hospital, or usp...) When possible be specific @ -No Did you speak to anyone other than the patient for history (EMS, parent, family, police, friend...)? What history was obtained from this source @ -No Did you review nursing and triage notes (agree or disagree)? Why? @ -I reviewed and agree with nursing and triage notes Were old charts reviewed (outside hosp., previous admission, EMS record, old EKG, old radiological studies, urgent care reports/EKG's, usp records)? Report findings @ -No old charts were reviewed Differential Diagnosis (chest pain, altered mental status, abdominal pain women, abdominal pain men, vaginal bleeding, weakness, fever, dyspnea, syncope, headache, dizziness, GI bleed, back pain, seizure, CVA, palpatations, mental health, musculoskeletal)? @ -Differential Musculoskeletal: Muscular strain, contusion, ligament sprain, fracture, arthritis, septic arthritis, bursitis, cellulitis, muscle spasm, nerve compression, DVT, arterial occlusion, herpes zoster, electrolyte abnormality, tumor.... This is not meant to be in all inclusive list EKG interpreted by me (3pts min.). @ -As above X-rays interpreted by me (1pt min.). @ -None done CT interpreted by me (1pt min.). @ -None done U/S interpreted by me (1pt. min.). @ -Ultrasound right lower extremity negative for acute evidence of DVT. What testing was considered but not performed or refused? (CT, X-rays, U/S, labs)? Why? @ -None What meds were considered but not given or refused? Why? @ -None Did you discuss the management of the patient with other professionals (professionals i.e. [facility], [employer], lab, RT, psych nurse, executive secretary social welfare, eeg technician, teacher, parcel post officer, block and case maker)? Give summary @ -Yes, case discussed with sound physician, Dr. Arrington, by my attending, Dr. Medel for admission. Was smoking cessation discussed for >3mins.? @ -No Was critical care preformed (if so, how long)? @ -No Were there social determinants of health that impacted care today? How? (Homelessness, low income, unemployed, alcoholism, drug addiction, transportation, low edu. Level, literacy, decrease access to med. care, nursing home, rehab)? @ -No Was there de-escalation of care discussed even if they declined (Discuss DNR or withdrawal of care, Hospice)? DNR status @ -No What co-morbidities impacted this encounter? (DM, HTN, Smoking, COPD, CAD, Cancer, CVA, ARF, Chemo, Hep., AIDS, mental health diagnosis, sleep apnea, morbid obesity)? @ -Multiple sclerosis, diabetes mellitus Was patient admitted / discharged? Hospital course, mention meds given and route, prescriptions, significant lab abnormalities, going to OR and other pertinent info. @ -Admitted. 43-year-old female presented to ER for right leg pain. Patient is tachycardic at 130 upon arrival vitals otherwise stable. Patient initially seen as a quick note where workup initiated. Upon rooming, history and physical exam completed. Patient remained tachycardic. No signs of acute distress. Patient is neurovascularly intact. Ultrasound venous Doppler left lower extremity negative for acute evidence of DVT. CBC unremarkable. D-dimer negative at 0.30. Initial troponin undetectable. Second troponin pending. Hyperglycemia at 289 for which patient is diabetic. Subclinical hypothyroidism with a TSH of 0.266 with a free T4 of 0.86. Urinalysis concerning of infection with positive nitrates, large leukocyte esterases and greater than 182 WBCs. Admission considered as patient remained tachycardic after 2 L fluid bolus. This was discussed with Sound physician, Dr. Arrington, by my attending Dr. Medel. Patient started on 2 g IV Rocephin. Blood and urine cultures pending. Patient is agreeable for admission. Case discussed with ED attending, Dr. Medel. Undiagnosed new problem with uncertain prognosis? @ -No Drug Therapy requiring intensive monitoring for toxicity (Heparin, Nitro, Insulin, Cardizem)? @ -No Were any procedures done? @ -No Diagnosis/symptom? @ -UTI Acute, or Chronic, or Acute on Chronic? @ -Acute Uncomplicated (without systemic symptoms) or Complicated (systemic symptoms)? @ -Complicated Side effects of treatment? @ -No Exacerbation, Progression, or Severe Exacerbation? @ -No Poses a threat to life or bodily function? How? (Chest pain, USA, ND, pneumonia, PE, COPD, DKA, ARF, appy, cholecystitis, CVA, Diverticulitis, Homicidal, Suicidal, threat to staff... and all critical care pts) @ -Yes, UTI can lead to sepsis and/or end organ dysfunction. - Lab Data Result diagrams: 02/07/24 19:23 02/07/24 19:23 Lab Results 02/07/24 02/07/24 02/07/24 Range/Units 15:47 19:23 19:23 WBC 7.6 (3.8-10.6) k/uL RBC 4.67 (3.80-5.40) m/uL Hgb 13.5 (11.4-16.0) gm/dL Hct 39.1 (34.0-46.0) % MCV 83.8 (80.0-100.0) fL MCH 28.9 (25.0-35.0) pg MCHC 34.5 (31.0-37.0) g/dL RDW 14.7 (11.5-15.5) % Plt Count 237 (150-450) k/uL MPV 8.0 Neutrophils % 78 % Lymphocytes % 14 % Monocytes % 5 % Eosinophils % 1 % Basophils % 1 % Neutrophils # 5.9 (1.3-7.7) k/uL Lymphocytes # 1.1 (1.0-4.8) k/uL Monocytes # 0.4 (0-1.0) k/uL Eosinophils # 0.1 (0-0.7) k/uL Basophils # 0.0 (0-0.2) k/uL Poikilocytosis Slight PT 10.6 (10.0-12.5) sec INR 1.0 (<1.2) APTT 26.5 (22.0-30.0) sec D-Dimer 0.30 (<0.60) mg/L FEU Sodium (137-145) mmol/L Potassium (3.5-5.1) mmol/L Chloride (98-107) mmol/L Carbon Dioxide (22-30) mmol/L Anion Gap mmol/L BUN (7-17) mg/dL Creatinine (0.52-1.04) mg/dL Est GFR (CKD-EPI)AfAm (>60 ml/min/1.73 sqM) Est GFR (CKD-EPI)NonAf (>60 ml/min/1.73 sqM) Glucose (74-99) mg/dL Calcium (8.4-10.2) mg/dL Phosphorus (2.5-4.5) mg/dL Magnesium (1.6-2.3) mg/dL Total Bilirubin (0.2-1.3) mg/dL AST (14-36) U/L ALT (4-34) U/L Alkaline Phosphatase (38-126) U/L Troponin I (0.000-0.034) ng/mL NT-Pro-B Natriuret Pep pg/mL Total Protein (6.3-8.2) g/dL Albumin (3.5-5.0) g/dL TSH (0.465-4.680) mIU/L Free T4 (0.78-2.19) ng/dL Urine Color Dark Brown Urine Appearance Turbid H (Clear) Urine pH 5.5 (5.0-8.0) Ur Specific [place] 1.025 (1.001-1.035) Urine Protein 1+ H (Negative) Urine Glucose (UA) 4+ H (Negative) Urine Ketones Negative (Negative) Urine Blood Moderate H (Negative) Urine Nitrite Positive H (Negative) Urine Bilirubin 1+ H (Negative) Urine Urobilinogen 2.0 (<2.0) mg/dL Ur Leukocyte Esterase Large H (Negative) Urine RBC 110 H (0-5) /hpf Urine WBC >182 H (0-5) /hpf Urine WBC Clumps Many H (None) /hpf Ur Squamous Epith Cells 3 (0-4) /hpf Urine Bacteria Moderate H (None) /hpf Urine Mucus Rare H (None) /hpf 02/07/24 02/07/24 02/07/24 Range/Units 19:23 19:23 19:23 WBC (3.8-10.6) k/uL RBC (3.80-5.40) m/uL Hgb (11.4-16.0) gm/dL Hct (34.0-46.0) % MCV (80.0-100.0) fL MCH (25.0-35.0) pg MCHC (31.0-37.0) g/dL RDW (11.5-15.5) % Plt Count (150-450) k/uL MPV Neutrophils % % Lymphocytes % % Monocytes % % Eosinophils % % Basophils % % Neutrophils # (1.3-7.7) k/uL Lymphocytes # (1.0-4.8) k/uL Monocytes # (0-1.0) k/uL Eosinophils # (0-0.7) k/uL Basophils # (0-0.2) k/uL Poikilocytosis PT (10.0-12.5) sec INR (<1.2) APTT (22.0-30.0) sec D-Dimer (<0.60) mg/L FEU Sodium 135 L (137-145) mmol/L Potassium 3.6 (3.5-5.1) mmol/L Chloride 99 (98-107) mmol/L Carbon Dioxide 26 (22-30) mmol/L Anion Gap 10 mmol/L BUN 6 L (7-17) mg/dL Creatinine 0.47 L (0.52-1.04) mg/dL Est GFR (CKD-EPI)AfAm >90 (>60 ml/min/1.73 sqM) Est GFR (CKD-EPI)NonAf >90 (>60 ml/min/1.73 sqM) Glucose 289 H (74-99) mg/dL Calcium 9.6 (8.4-10.2) mg/dL Phosphorus 4.6 H (2.5-4.5) mg/dL Magnesium 1.5 L (1.6-2.3) mg/dL Total Bilirubin 0.8 (0.2-1.3) mg/dL AST 24 (14-36) U/L ALT 23 (4-34) U/L Alkaline Phosphatase 122 (38-126) U/L Troponin I <0.012 (0.000-0.034) ng/mL NT-Pro-B Natriuret Pep 56 pg/mL Total Protein 7.9 (6.3-8.2) g/dL Albumin 4.5 (3.5-5.0) g/dL TSH 0.266 L (0.465-4.680) mIU/L Free T4 0.86 (0.78-2.19) ng/dL Urine Color Urine Appearance (Clear) Urine pH (5.0-8.0) Ur Specific [place] (1.001-1.035) Urine Protein (Negative) Urine Glucose (UA) (Negative) Urine Ketones (Negative) Urine Blood (Negative) Urine Nitrite (Negative) Urine Bilirubin (Negative) Urine Urobilinogen (<2.0) mg/dL Ur Leukocyte Esterase (Negative) Urine RBC (0-5) /hpf Urine WBC (0-5) /hpf Urine WBC Clumps (None) /hpf Ur Squamous Epith Cells (0-4) /hpf Urine Bacteria (None) /hpf Urine Mucus (None) /hpf 02/07/24 Range/Units 22:15 WBC (3.8-10.6) k/uL RBC (3.80-5.40) m/uL Hgb (11.4-16.0) gm/dL Hct (34.0-46.0) % MCV (80.0-100.0) fL MCH (25.0-35.0) pg MCHC (31.0-37.0) g/dL RDW (11.5-15.5) % Plt Count (150-450) k/uL MPV Neutrophils % % Lymphocytes % % Monocytes % % Eosinophils % % Basophils % % Neutrophils # (1.3-7.7) k/uL Lymphocytes # (1.0-4.8) k/uL Monocytes # (0-1.0) k/uL Eosinophils # (0-0.7) k/uL Basophils # (0-0.2) k/uL Poikilocytosis PT (10.0-12.5) sec INR (<1.2) APTT (22.0-30.0) sec D-Dimer (<0.60) mg/L FEU Sodium (137-145) mmol/L Potassium (3.5-5.1) mmol/L Chloride (98-107) mmol/L Carbon Dioxide (22-30) mmol/L Anion Gap mmol/L BUN (7-17) mg/dL Creatinine (0.52-1.04) mg/dL Est GFR (CKD-EPI)AfAm (>60 ml/min/1.73 sqM) Est GFR (CKD-EPI)NonAf (>60 ml/min/1.73 sqM) Glucose (74-99) mg/dL Calcium (8.4-10.2) mg/dL Phosphorus (2.5-4.5) mg/dL Magnesium (1.6-2.3) mg/dL Total Bilirubin (0.2-1.3) mg/dL AST (14-36) U/L ALT (4-34) U/L Alkaline Phosphatase (38-126) U/L Troponin I <0.012 (0.000-0.034) ng/mL NT-Pro-B Natriuret Pep pg/mL Total Protein (6.3-8.2) g/dL Albumin (3.5-5.0) g/dL TSH (0.465-4.680) mIU/L Free T4 (0.78-2.19) ng/dL Urine Color Urine Appearance (Clear) Urine pH (5.0-8.0) Ur Specific [place] (1.001-1.035) Urine Protein (Negative) Urine Glucose (UA) (Negative) Urine Ketones (Negative) Urine Blood (Negative) Urine Nitrite (Negative) Urine Bilirubin (Negative) Urine Urobilinogen (<2.0) mg/dL Ur Leukocyte Esterase (Negative) Urine RBC (0-5) /hpf Urine WBC (0-5) /hpf Urine WBC Clumps (None) /hpf Ur Squamous Epith Cells (0-4) /hpf Urine Bacteria (None) /hpf Urine Mucus (None) /hpf - EKG Data -: EKG Interpreted by Or EKG Comments: EKG taken at 19: 2020 sinus tachycardia no acute ST segment or T wave abnormalities. Ventricular rate 114, ID interval 120, QRS duration 96, QT/QTc 322/389. - Radiology Data Radiology results: report reviewed, image reviewed Disposition Clinical Impression: UTI (urinary tract infection) Disposition: ADMITTED IP TO THIS HOSP Condition: Stable Referrals: None,Stated [Primary Care Provider] - 1-2 days Time of Disposition: 22:14
--- NOTE | 2024-02-07 17:15 | US ---
EXAMINATION TYPE: US venous doppler duplex LE RT DATE OF EXAM: 02/07/2024 5:02 PM COMPARISON: NONE CLINICAL INDICATION: Female, 43 years old with history of pain; pt is experiencing pain in rt leg, pt does have MS, Pain TECHNIQUE: The lower extremity deep venous system is examined utilizing real time linear array sonog sheri with graded compression, color doppler sonography, and spectral doppler. SIDE PERFORMED: Right FINDINGS: VESSELS IMAGED: Common Femoral Vein Deep Femoral Vein Greater Saphenous Vein * Femoral Vein Popliteal Vein Small Saphenous Vein * Proximal Calf Veins (* superficial vessels) Right Leg: Negative for DVT, Color Doppler imaging shows patency of the vessels. Spectral waveforms are within normal limits. IMPRESSION: No ultrasound evidence for deep venous thrombosis. [facility], , 02/07/2024 5:12 PM
[2024-02-07 19:37] LABS: Basophils % (A) 1 %; Eosinophils # (A) 0.1 k/uL (0-0.7); Eosinophils % (A) 1 %; HCT 39.1 % (34.0-46.0); HGB 13.5 gm/dL (11.4-16.0); Lymphocytes # (A) 1.1 k/uL (1.0-4.8); Lymphocytes % (A) 14 %; MCH 28.9 pg (25.0-35.0); MCHC 34.5 g/dL (31.0-37.0); MCV 83.8 fL (80.0-100.0); Monocytes # (A) 0.4 k/uL (0-1.0); Monocytes % (A) 5 %; Neutrophils # (A) 5.9 k/uL (1.3-7.7); Neutrophils % (A) 78 %; Platelet Count 237 k/uL (150-450); Poikilocytosis Slight; RBC 4.67 m/uL (3.80-5.40); RDW 14.7 % (11.5-15.5); WBC 7.6 k/uL (3.8-10.6)
[2024-02-07] MEDS: SODIUM CHLORIDE 0.9% 1,000 ML IV STA ×2 (19:46→21:23)
[2024-02-07 19:48] LABS: ALT 23 U/L (4-34); AST 24 U/L (14-36); African American GFR (CKD) >90 (>60 ml/min/1.73 sqM); Albumin 4.5 g/dL (3.5-5.0); Alkaline Phosphatase 122 U/L (38-126); Anion Gap 10 mmol/L; Blood Urea Nitrogen 6 mg/dL (7-17); Calcium 9.6 mg/dL (8.4-10.2); Carbon Dioxide 26 mmol/L (22-30); Chloride 99 mmol/L (98-107); Glucose 289 mg/dL (74-99); Magnesium 1.5 mg/dL (1.6-2.3); Non-African American GFR(CKD) >90 (>60 ml/min/1.73 sqM); Phosphorus 4.6 mg/dL (2.5-4.5); Potassium 3.6 mmol/L (3.5-5.1); Sodium 135 mmol/L (137-145); Total Bilirubin 0.8 mg/dL (0.2-1.3); Total Protein 7.9 g/dL (6.3-8.2)
[2024-02-07 19:55] LABS: Partial Thromboplastin Time 26.5 sec (22.0-30.0); Prothrombin Time 10.6 sec (10.0-12.5)
[2024-02-07 19:57] LABS: NT-Pro-B-Type Natriuretic Pept 56 pg/mL
[2024-02-07] MEDS: HYDROmorphone 0.5 MG/0.5 ML SYRINGE IVP STA (20:09)
[2024-02-07] MEDS: KETOROLAC 15 MG/ML 1 ML VIAL IVP STA (20:11)
[2024-02-07] MEDS: ONDANSETRON 4 MG/2 ML VIAL IVP STA (20:17)
[2024-02-07 21:41] LABS: Appearance,Urine Turbid (Clear); Bacteria,Urine Moderate /hpf; Bilirubin,Urine 1+ (Negative); Blood,Urine Moderate (Negative); Color,Urine Dark Brown; Glucose,Urine (UA) 4+ (Negative); Ketones,Urine Negative (Negative); Leukocyte Esterase,Urine Large (Negative); Mucus,Urine Rare /hpf; Nitrite,Urine Positive (Negative); PH, Urine 5.5 (5.0-8.0); Protein,Urine 1+ (Negative); RBC,Urine 110 /hpf (0-5); Specific Gravity,Urine 1.025 (1.001-1.035); Squamous Epithelial Cell,Urine 3 /hpf (0-4); WBC,Urine >182 /hpf (0-5)
[2024-02-07] MEDS ORDERED: ACETAMINOPHEN TAB 325 MG TAB PO PRN (22:12)
[2024-02-07] MEDS ORDERED: NALOXONE 0.4 MG/ML 1 ML VIAL IV PRN (22:12)
[2024-02-07] MEDS: ACETAMINOPHEN TAB 500 MG TAB PO STA (22:20)
[2024-02-07] MEDS: SODIUM CHLORIDE 0.9% 1,000 ML IV SCH (22:21)
[2024-02-07] MEDS: HYDROmorphone 0.5 MG/0.5 ML SYRINGE IVP PRN (23:27)
[2024-02-08] MEDS: PREGABALIN 100 MG CAP PO SCH (08:32)
[2024-02-08] MEDS: MAGNESIUM SULFATE-D5W PMX 1 GM in DEXTROSE/WATER 1 100ML.BAG IVPB SCH (08:33)
[2024-02-08] MEDS: KETOROLAC 15 MG/ML 1 ML VIAL IVP PRN (10:27)
[2024-02-08] MEDS: DEXAMETHASONE SOD PHOSPHATE 10 MG/ML 1 ML VIAL IVP STA (11:02)
[2024-02-08] MEDS: ORPHENADRINE 30 MG/ML 2 ML VIAL IVP STA (11:04)
--- NOTE | 2024-02-08 11:55 | P.HPIM ---
History of Present Illness H&P Date: 02/08/24 History of Presenting Illness: Patient is a very pleasant 43-year-old female with a past medical history of multiple sclerosis, migraine headaches, anxiety, and depression. She presented to the emergency department with multiple complaints including right lower extremity pain and inability to bear weight, palpitations, and right lower flank pain accompanied by urinary complaints. She denies having any fevers, chills, headache, lightheadedness, dizziness, changes in vision or hearing, chest pain, shortness of breath, cough or congestion, or experiencing any numbness/tingl ing/swelling in her extremities. Patient denies weakness in right lower extremity but reports diffuse pain in her right groin extending throughout thigh extending into lower calf and leg. Patient reports no matter how hard she tries she cannot bear weight. She denies having any falls or injuries and denies symptoms being comparable to previous MS exacerbations. Upon arrival to our facility, patient underwent evaluation in the emergency department. Vital signs upon arrival show blood pressure 154/97, heart rate 130, respiratory rate 15, temp 98.8 F, and SpO2 of 97% on room air. EKG was completed showing sinus tachycardia 114 bpm. Right lower extremity venous Doppler was completed nega tive for DVT. Labs completed and reviewed. CBC unremarkable. Coagulation profile normal findings. D-dimer negative at 0.30. BMP showing no significant abnormalities. Blood glucose was elevated at 289. Magnesium was low at 1.5. Troponin was negative at less than 0.012. TSH was low at 0.266 with normal free T4 of 0.86. Urinalysis was positive for infection showing protein, glucose, blood, nitrites, bilirubin, leukocyte esterase, and greater than 182 WBCs. Review of systems: Pertinent positives and negatives as discussed in HPI, a complete review of systems was performed and all other systems are negative. Physical exam: Vital signs reviewed and stable. General: Nontoxic, no distress and appears stated age. Derm: Skin warm and dry, normal coloration for ethnicity. Head: Atraumatic, normocephalic and symmetric. Eyes: EOM's intact, no lid lag, and anicteric sclera Mouth: no lip lesions, mucus membranes moist Cardiovascular: regular rate and rhythm with normal S1S2, no murmur, positive posterior tibial pulses bilaterally, and cap refill < 2 seconds. Lungs: Respirations even, regular, and unlabored on room air. Lungs CTA bilaterally, no rhonchi, no rales, no wheezing, and no accessory muscle usage. Abdominal: soft, nontender to palpation, no guarding, no appreciable organomegaly Ext: ROM intact. No gross muscle atrophy, no edema, no contractures Neuro: Speech clear, face symmetrical and CN II-XII grossly intact with no noted focal neuro deficits Psych: Alert and oriented to person, place, time, and situation. Appropriate and pleasant affect. Assessment and Plan of Care: Acute cystitis -Continue IV antibiotics with Rocephin 2 g every 24 hours. -Follow-up on urine culture and blood culture results. Intractable right lower extremity pain and inability to bear weight -Order placed for Decadron, Toradol, and Norflex x 1 dose -Order placed for x-ray right hip -Consult placed to orthopedic surgery for evaluation secondary to patient's continued inability to bear weight on right lower extremity -Continue symptomatic care and pain management with Tylenol 650 mg every 6 hours as needed for mild pain, Toradol 15 mg IVP every 6 hours as needed for moderate pain, and Dilaudid 0.5 mg every 3 hours as needed for severe pain. -Consult placed to physical and Occupational Therapy for evaluation. -Maintain fall precautions. Hypomagnesemia -Magnesium 1.5. Order placed for magnesium sulfate 2 g IVPB. Will continue to monitor with repeat a.m. labs and replace abnormal electrolyte values as indicated based upon these findings. Multiple sclerosis History of migraine headaches Anxiety and depression -Continue daily medication regimen with Cymbalta 60 mg nightly, Lyrica 200 mg twice daily and Lexapro 20 mg nightly. Data and imaging reviewed: As stated above in HPI CODE STATUS: Full code DVT prophylaxis: Lovenox Anticipated discharge date: Pending clinical course Anticipated discharge place: Home Patient was seen independently by Nurse Practitioner. This document was prepared using [employer] dictation software. Please allow for errors in junior estimator while rare they do occur. Lenny Russell NP rendered care for this patient independently, reviewed the findings and plan as documented in the note above and agree with plan. I did not physically speak with or examine the patient on this date. Past Medical History Additional Past Medical History / Comment(s): OVARIAN CYST (THOUGHT TO BE CAUSE OF PAIN ) IS GONE. migraines, occ high BP, diarrhea, hx anemia, multiple sclerosis dx in 2007 History of Any Multi-Drug Resistant Organisms: None Reported Past Surgical History: Section, Cholecystectomy Additional Past Surgical History / Comment(s): MS Past Anesthesia/Blood Transfusion Reactions: Motion Sickness Past Psychological History: Anxiety, Depression Smoking Status: Never smoker Past Alcohol Use History: None Reported Past Drug Use History: None Reported - Past Family History Mother Family Medical History: Hyperlipidemia Medications and Allergies Home Medications Medication Instructions Recorded Confirmed Type DULoxetine HCL [Cymbalta] 60 mg PO HS 11/30/18 02/08/24 History Baclofen [Lioresal] 15 mg PO TID 12/15/18 02/08/24 History Escitalopram [Lexapro] 20 mg PO HS 03/20/23 02/08/24 History Pregabalin [Lyrica] 200 mg PO BID 03/20/23 02/08/24 History Acetaminophen Tab [Tylenol Tab] 1,000 mg PO Q6HR PRN 02/08/24 02/08/24 History Naproxen Sodium [Aleve] 440 mg PO BID PRN 02/08/24 02/08/24 History Allergies Allergy/AdvReac Type Severity Reaction Status Date / Time No Known Allergies Allergy Verified 02/08/24 06:56 Physical Exam Vitals: Vital Signs Temp Pulse Resp BP Pulse Ox 02/08/24 05:52 112 H 18 126/88 93 L 02/08/24 03:16 122 H 18 129/74 95 02/07/24 23:42 107 H 16 125/76 97 02/07/24 21:20 118 H 18 129/78 95 02/07/24 19:58 98.7 F 126 H 18 119/84 94 L 02/07/24 15:44 98.8 F 130 H 15 154/97 97 Intake and Output 02/07/24 02/08/24 02/08/24 22:59 06:59 14:59 Other: Weight 154.221 kg Results CBC & Chem 7: 02/07/24 19:23 02/07/24 19:23 Labs: Abnormal Lab Results - Last 24 Hours (Table) 02/07/24 02/07/24 Range/Units 15:47 19:23 Sodium 135 L (137-145) mmol/L BUN 6 L (7-17) mg/dL Creatinine 0.47 L (0.52-1.04) mg/dL Glucose 289 H (74-99) mg/dL Phosphorus 4.6 H (2.5-4.5) mg/dL Magnesium 1.5 L (1.6-2.3) mg/dL TSH 0.266 L (0.465-4.680) mIU/L Urine Appearance Turbid H (Clear) Urine Protein 1+ H (Negative) Urine Glucose (UA) 4+ H (Negative) Urine Blood Moderate H (Negative) Urine Nitrite Positive H (Negative) Urine Bilirubin 1+ H (Negative) Ur Leukocyte Esterase Large H (Negative) Urine RBC 110 H (0-5) /hpf Urine WBC >182 H (0-5) /hpf Urine WBC Clumps Many H (None) /hpf Urine Bacteria Moderate H (None) /hpf Urine Mucus Rare H (None) /hpf
--- NOTE | 2024-02-08 14:09 | XR ---
EXAMINATION TYPE: XR Hip Complete RT DATE OF EXAM: 02/08/2024 1:56 PM COMPARISON: None. CLINICAL INDICATION: Female, 43 years old with history of unable to bear weight on RLE due to RLE sandra n, TECHNIQUE: AP and frogleg views of the right are obtained. FINDINGS: There is no acute fracture/dislocation evident in the right hip. The joint space in the r ight hip appears within normal limits. The overlying soft tissue appears unremarkable. IMPRESSION: There is no acute fracture or dislocation in the right hip. [facility], , 02/08/2024 2:07 PM
[2024-02-08] MEDS: ONDANSETRON 4 MG/2 ML VIAL IVP PRN (18:51)
[2024-02-08] MEDS ORDERED: DEXTROSE 50% SYRINGE 50 ML IVP PRN ×2 (18:57)
[2024-02-08 20:33] LABS: Glucose,Whole Blood 319 mg/dL (70-110)
[2024-02-08] MEDS: INSULIN ASPART (NovoLOG) 100 UNIT/ML VIAL SQ SCH (21:43)
[2024-02-08] MEDS: DULoxetine HCL 60 MG CAPSULE.DR PO SCH (21:43)
[2024-02-08] MEDS: ESCITALOPRAM 20 MG TAB PO SCH (22:31)
[2024-02-09 03:06] VITALS: PULSE 103
[2024-02-09 06:10] LABS: Glucose,Whole Blood 267 mg/dL (70-110)
[2024-02-09 07:28] VITALS: BP 122/77; RESP 16; TEMP 98.3
--- NOTE | 2024-02-09 08:34 | P.CNOR ---
History of Present Illness - [facility] Consult date: 02/09/24 Requesting physician: Lenny Russell Consult reason: other (Right lower extremity pain) History of present illness: History of Presenting Illness Patient is a pleasant 43-year-old female who presented to the ER with multiple complaints. Patient does have a past medical history of multiple sclerosis, diabetes, migraine headaches, anxiety, and depression. Patient was admitted to the [facility] and has had a thorough evaluation. It was found that patient is positive for a UTI and is currently on antibiotics. Our services have been consulted due to her complaint of right lower extremity pain with the inability to bear weight. Patient has been seen and examined this morning. She outlines her pain of the right lower extremity into the right groin, medial right knee, and into the right calf. Patient denies any numbness/tingling or weakness. She states her right lower extremity pain is exacerbated with standing or attempting to ambulate. She states she only finds relief of her symptoms with current pain medication. Complete x-rays of the right hip have been performed on 02/08/24 and demonstrate no acute fracture or dislocation in the right hip. Review of Systems Pertinent positives and negatives as discussed in HPI, a complete review of systems was performed and all other systems are negative. Physical Examination General: The patient is awake and alert, in no acute distress Skin: Skin is warm and dry with no obvious rashes or lesions. Neck: The neck is supple, there is no tenderness and ROM intact. Cardiovascular: There is a regular rate and rhythm. Respiratory: Respirations are non-labored. Gastrointestinal: Soft, non-distended, non-tender abdomen. Back: There is no tenderness to palpation in the midline, paralumbar, parathoracic or buttocks region. There is no obvious deformity. Musculoskeletal: FROM Right: shoulder abduction 5/5, elbow flexors 5/5, wrist dorsiflexors 5/5. finger abductor 5/5, leadership development manager 5/5, hip flexor 5/5, knee flexor 5/5, ankle dorsiflexor 5/5, ankle plantarflexion 5/5 and extensor hallucis 5/5. Left: shoulder abduction 5/5, elbow flexors 5/5, wrist dorsiflexors 5/5. finger abductor 5/5, leadership development manager 5/5, hip flexor 5/5, knee flexor 5/5, ankle dorsiflexor 5/5, ankle plantarflexion 5/5 and extensor hallucis 5/5. Neurological: CN 2-12 intact. There are no obvious motor or sensory deficits. Movement and coordination equal and intact. Sensory exam to light touch intact C5-T1 and intact from L2-S1. Reflexes 2/4 in bilateral upper and lower extremities. Negative Hoffmans, babinski, and clonus signs. Psychiatric: Cooperative, appropriate mood & affect, normal judgment. Special test: Negative bilateral straight leg raise Assessment Right lower extremity radiculopathy Inability to bear weight of right lower extremity Multiple medical comorbidities Plan At this time we are ordering lumbar x-rays for further evaluation. Recommendations to follow. 2. Appreciate medical management 3. Pain management -Continue with IV Toradol and Lyrica 4. PT/OT - weightbearing as tolerated with a walker as needed. 5. Appreciate consult. I reviewed and discussed this case with my attending Dr. Billings, whom has reviewed this chart and films and is in agreement with assessment and plan of care as outlined above. I have personally seen and examined the patient, performed the documentation and the assessment and plan as written. Number of minutes spent on the visit: 30m. Past Medical History Past Medical History: Diabetes Mellitus Additional Past Medical History / Comment(s): OVARIAN CYST (THOUGHT TO BE CAUSE OF PAIN ) IS GONE. migraines, occ high BP, diarrhea, hx anemia, multiple sclerosis dx in 2007. Non compliant with accuchecks and diabetic medications in months per pt. Rt. breast abscess. History of Any Multi-Drug Resistant Organisms: None Reported Past Surgical History: Section, Cholecystectomy Additional Past Surgical History / Comment(s): Laprascopy exploratory abdomen, Rt breast excision and drainage of infection. Past Anesthesia/Blood Transfusion Reactions: Motion Sickness Past Psychological History: Anxiety, Depression Additional Psychological History / Comment(s): On cymbalta for many years per patient Smoking Status: Former smoker Past Alcohol Use History: None Reported Past Drug Use History: None Reported - Past Family History Father History Unknown: Yes Additional Family Medical History / Comment(s): past away from heart issues unknown Mother Family Medical History: Hyperlipidemia, Syncope Medications and Allergies Home Medications Medication Instructions Recorded Confirmed Type DULoxetine HCL [Cymbalta] 60 mg PO HS 11/30/18 02/08/24 History Baclofen [Lioresal] 15 mg PO TID 12/15/18 02/08/24 History Escitalopram [Lexapro] 20 mg PO HS 03/20/23 02/08/24 History Pregabalin [Lyrica] 200 mg PO BID 03/20/23 02/08/24 History Acetaminophen Tab [Tylenol Tab] 1,000 mg PO Q6HR PRN 02/08/24 02/08/24 History Naproxen Sodium [Aleve] 440 mg PO BID PRN 02/08/24 02/08/24 History Allergies Allergy/AdvReac Type Severity Reaction Status Date / Time No Known Allergies Allergy Verified 02/08/24 06:56 Results - Labs Labs: Abnormal Lab Results - Last 24 Hours (Table) 02/08/24 02/09/24 Range/Units 20:31 06:08 POC Glucose (mg/dL) 319 H 267 H (70-110) mg/dL Microbiology - Last 24 Hours (Table) 02/07/24 22:15 Blood Culture - Preliminary Blood H & H 02/07/24 Range/Units 19:23 Hgb 13.5 (11.4-16.0) gm/dL Hct 39.1 (34.0-46.0) % Coagulation 02/07/24 Range/Units 19:23 INR 1.0 (<1.2) Result Diagrams: 02/07/24 19:23 02/07/24 19:23
--- NOTE | 2024-02-09 08:37 | XR ---
EXAMINATION TYPE: XR lumbar spine with bend/flex DATE OF EXAM: 02/09/2024 8:12 AM COMPARISON: None. CLINICAL INDICATION: Female, 43 years old with history of PAIN, RADICULOPATHY, pain TECHNIQUE: Frontal, lateral, and bilateral oblique images of the lumbar spine are obtained. Additiona l flexion and extension views obtained. FINDINGS: Alignment at neutral, flexion and extension are all within normal limits and stable. Scatt ered ventral spondylosis. There are 5 lumbar type vertebral bodies identified. The lumbar spine show s satisfactory alignment without evidence of acute fracture or dislocation. Vertebral body heights an d disk space heights are within normal limits. The oblique images appear within normal limits. The overlying soft tissue appears unremarkable. IMPRESSION: No acute fracture or dislocation is seen in the lumbar spine. [facility], , 02/09/2024 8:35 AM
--- NOTE | 2024-02-09 08:57 | P.PN ---
Progress Note - Text Progress Note Date: 02/09/24 X-rays of the lumbar spine taken this morning 02/09/2024 demonstrates satisfactory alignment without evidence of acute fracture or dislocation. Vertebral body heights and disc space heights are within normal limits. Recommendations as follows: At this time we do not recommend any emergent/urgent orthopedic surgical intervention. Patient may follow-up with Dr. Billings's office for further evaluation as needed. Orthopedics is signing off at this time. Please do not hesitate to contact us for any further questions. 2. Appreciate medical management 3. Pain management - Continue with Anti-inflammatory and Lyrica 4. PT/OT - weightbearing as tolerated with a walker as needed. 5. Appreciate consult.
[2024-02-09 08:59] LABS: HCT 30.3 % (37.2-46.3); HGB 10.3 g/dL (12.0-15.0); MCH 28.6 pg (27.0-32.0); MCV 84.2 FL (80.0-97.0); Mean Platelet Volume 10.7 FL (9.5-12.2); NRBC Per 100 WBC 0 X 10*3/uL (0.00-0.01); Platelet Count 173 X 10*3/uL (140-440); RDW 14.3 % (11.5-14.5); WBC 6.61 X 10*3/uL (4.50-10.00)
[2024-02-09] MEDS: ENOXAPARIN 40 MG/0.4 ML SYRINGE SQ SCH (09:11)
[2024-02-09 09:15] LABS: BUN/Creat Ratio 16.75 Ratio (12.00-20.00); Blood Urea Nitrogen 6.7 mg/dL (9.0-27.0); Carbon Dioxide 22.9 mmol/L (21.6-31.8); Chloride 100 mmol/L (96-109); Glucose 254 mg/dL (70-110); Magnesium 1.9 mg/dL (1.5-2.4); Potassium 3.5 mmol/L (3.5-5.5); Sodium 137 mmol/L (135-145)
--- NOTE | 2024-02-09 10:48 | P.DS ---
Providers Date of admission: 02/07/24 22:13 Expected date of discharge: 02/09/24 Attending physician: Rigoberto Arrington MD Consults: 02/08/24 11:55 Consult Physician Routine Consulting Provider: Dustin Billings Consult Reason/Comments: unable to bear weight on RLE due to RLE pain Do you want consulting provider notified?: Yes Primary care physician: Stated None Hospital Course: Discharge Diagnosis: Acute cystitis. Right lower extremity radiculopathy Type II diabetes mellitus with hyperglycemia, hemoglobin A1c 8.0%. Hypomagnesemia. Replaced and resolved. Multiple sclerosis History of migraine headaches Anxiety and depression Hospital Course: Patient is a very pleasant 43-year-old female with a past medical history of multiple sclerosis, migraine headaches, anxiety, and depression. She presented to the emergency department with multiple complaints including right lower extremity pain and inability to bear weight, palpitations, and right lower flank pain accompanied by urinary complaints. Upon arrival to our facility, patient underwent evaluation in the emergency department. Vital signs upon arrival show blood pressure 154/97, heart rate 130, respiratory rate 15, temp 98.8 F, and SpO2 of 97% on room air. EKG was completed showing sinus tachycardia 114 bpm. Right lower extremity venous Doppler was completed negative for DVT. Labs completed and reviewed. CBC unremarkable. Coagulation profile normal findings. D-dimer negative at 0.30. BMP showing no significant abnormalities. Blood glucose was elevated at 289. Magnesium was low at 1.5. Troponin was negative at less than 0.012. TSH was low at 0.266 with normal free T4 of 0.86. U rinalysis was positive for infection showing protein, glucose, blood, nitrites, bilirubin, leukocyte esterase, and greater than 182 WBCs. Patient started on IV antibiotics and admitted under our services with consultation to orthopedic surgery. Urine culture positive for gram-negative bacilli. X-ray right hip negative for acute fracture or subluxation/displacement. Patient reports improvement of right lower extremity pain after receiving IV steroids and NSAID. Patient was evaluated by orthopedic surgery team stating right lower extremity pain and inability to bear weight is secondary to right lower extremity radiculopathy and recommending patient follow-up in their office in 1 week. Patient reports feeling much better and ready to go home at this time and requesting discharge. Final cultures not yet available for urinalysis but is showing gram-negative bacilli likely E. coli. Discussed with patient and per her request we will discharged home on Ceftin 500 mg p.o. twice daily for an additional 5 days to complete 7-day course of antibiotics for UTI. Patient also provided with prescription for prednisone 40 mg daily x 5 days and to continue with baclofen, naproxen, and Lyrica for management of right lower extremity radiculopathy. During hospitalization patient was noted to have poorly controlled blood glucose levels. Reports previous diagnosis of diabetes but was not compliant with medications and no longer on home meds. Hemoglobin A1c resulting at 8.0%. Discussed this in detail with patient and she states she does have a glucometer and supplies at home. Patient recommended to check her blood glucose levels daily and was started on metformin 500 mg twice daily. Patient instructed she will need to follow-up outpatient with PCP for reevaluation and establishment of care. Appointment was made at [facility] for February 11, 2024. Physical exam: Vital signs reviewed and stable. General: Nontoxic, no distress and appears stated age. Derm: Skin warm and dry, normal coloration for ethnicity. Head: Atraumatic, normocephalic and symmetric. Eyes: EOM's intact, no lid lag, and anicteric sclera Mouth: no lip lesions, mucus membranes moist Cardiovascular: regular rate and rhythm with normal S1S2, no murmur, positive posterior tibial pulses bilaterally, and cap refill < 2 seconds. Lungs: Respirations even, regular, and unlabored on room air. Lungs CTA bilaterally, no rhonchi, no rales, no wheezing, and no accessory muscle usage. Abdominal: soft, nontender to palpation, no guarding, no appreciable o rganomegaly Ext: ROM intact. No gross muscle atrophy, no edema, no contractures Neuro: Speech clear, face symmetrical and CN II-XII grossly intact with no noted focal neuro deficits Psych: Alert and oriented to person, place, time, and situation. Appropriate and pleasant affect. A total of 36 minutes of time were spent preparing this complex discharge summary. Pt was discharged on 02/09/2024 at 10:41 AM Patient was seen independently by Nurse Practitioner. This document was prepared using [employer] dictation software. Please allow for errors in time study observer while rare they do occur. Lenny Russell NP rendered care for this patient independently, reviewed the findings and plan as documented in the note above. I did not physically speak with or examine the patient on this date. Patient Condition at Discharge: Stable Plan - Discharge Summary Discharge Rx Participant: No New Discharge Prescriptions: New predniSONE [Deltasone] 40 mg PO DAILY 5 Days #10 tab metFORMIN HCL 500 mg PO BID 30 Days #60 tablet cefuroxime axetiL [Ceftin] 500 mg PO BID 5 Days #10 tab Continue DULoxetine HCL [Cymbalta] 60 mg PO HS Baclofen [Lioresal] 15 mg PO TID Escitalopram [Lexapro] 20 mg PO HS Naproxen Sodium [Aleve] 440 mg PO BID PRN PRN Reason: Pain Acetaminophen Tab [Tylenol] 1,000 mg PO Q6HR PRN PRN Reason: Pain Pregabalin [Lyrica] 200 mg PO BID Discharge Medication List DULoxetine HCL [Cymbalta] 60 mg PO HS 11/30/18 [History] Baclofen [Lioresal] 15 mg PO TID 12/15/18 [History] Escitalopram [Lexapro] 20 mg PO HS 03/20/23 [History] Pregabalin [Lyrica] 200 mg PO BID 03/20/23 [History] Acetaminophen Tab [Tylenol] 1,000 mg PO Q6HR PRN 02/08/24 [History] Naproxen Sodium [Aleve] 440 mg PO BID PRN 02/08/24 [History] cefuroxime axetiL [Ceftin] 500 mg PO BID 5 Days #10 tab 02/09/24 [Rx] metFORMIN HCL 500 mg PO BID 30 Days #60 tablet 02/09/24 [Rx] predniSONE [Deltasone] 40 mg PO DAILY 5 Days #10 tab 02/09/24 [Rx] Follow up Appointment(s)/Referral(s): Geetha Manzano NPC [Nurse Practitioner] - [facility] [NON-STAFF] - 02/11/24 9:00 am (Please call and schedule appointment for follow up and establishment of care prior to pt's discharge Appointment will be with . Please arrive 15-20mins.early for paperwork. Please bring ID, insurance info and list of medications to appointment.) Patient Instructions/Handouts: Paresthesia (GEN), Mediterranean Diet (DC), Diabetes and Nutrition (DC), Diabetes and Exercise (DC) Activity/Diet/Wound Care/Special Instructions: Activity: As tolerated. Take breaks as needed. Diet: Heart healthy and carb consistent diet. Avoid salts, or foods with hidden salts such as canned or boxed foods and frozen dinners. Extra salt makes your heart work harder and traps the fluid in your body for longer. Special Instructions: Take all of your medications as directed and remember to keep all of your doctor's appointments and follow-up as needed. Your hemoglobin A1c is 8.0%. It is important to follow a heart healthy and carb consistent diet, check your blood glucose levels daily and document these results and a daily log to bring with you to your next doctor's appointment. You have been started on metformin 500 mg twice daily. You will need to establish care with a PCP, contact information for scheduling appointment placed in your discharge. Thank you for allowing us to participate in your care, it was truly a pleasure having you for our patient!!! Discharge Disposition: HOME SELF-CARE
== END 2024-02-09 11:58 | disposition home or self-care (01) ==
LOC: EC 15:19 → 6NMEDSUR 22:13
PROVIDERS: ADMIT Internal Medicine; ATTEND Internal Medicine
DX: N30.00 Acute cystitis without hematuria (principal); M54.10 Radiculopathy, site unspecified; E83.42 Hypomagnesemia; G35 Multiple sclerosis; F32.A Depression, unspecified; F41.9 Anxiety disorder, unspecified; E11.65 Type 2 diabetes mellitus with hyperglycemia; G43.909 Migraine, unspecified, not intractable, without status migrainosus; Z87.891 Personal history of nicotine dependence; Z79.84 Long term (current) use of oral hypoglycemic drugs; Z79.899 Other long term (current) drug therapy
CPT/HCPCS: 96376 ×4; 96372; 96361; 96365 ×2; 96366; 96367; 96375 ×2; 99285; 36415; 93005; 97161; 85379; 84439; 83880; 80053; 80048; 83735 ×2; 84100; 84443; 84484; 85025; 85027; 85610; 85730; 81001; 87040; 87086; 87077; 87186; 83036; 72114; 73502; 93971; G0378 ×3; J1100; J2360; J2405 ×2; J0696 ×3; J1650; J3475; J1885 ×3; J1171 ×3

== ENCOUNTER → 2024-07-12 | Outpatient (CLI) | payer MEDICARE ==
--- NOTE | 2024-07-12 11:59 | CT ---
EXAMINATION TYPE: CT abdomen pelvis wo con DATE OF EXAM: 07/12/2024 COMPARISON: CT abdomen and pelvis March 20, 2023 CLINICAL INDICATION: Female, 44 years old with history of R10.9 AB PAIN, PAIN IN RIGHT SIDE AND FLANK PAIN, TECHNIQUE: CT scan of the abdomen and pelvis is performed , patient injected with mL of ., (none if empty) Oral contrast used: without Oral Contrast (none if empty) CT DLP: 1188.2 mGycm, Automated exposure control for dose reduction was used. FINDINGS: LUNG BASES: No significant abnormality is appreciated. LIVER/GB: Cholecystectomy clips are redemonstrated. Liver remains heterogeneously hypodense consisten t with diffuse fatty infiltrative hepatocellular disease. PANCREAS: No significant abnormality is seen. SPLEEN: Punctate central calcification presumed benign is redemonstrated. ADRENALS: No significant abnormality is seen. KIDNEYS: No renal stones or hydronephrosis is seen bilaterally. BOWEL: No significant abnormality is seen. UTERUS/ADNEXA: There is new 3.2 cm thin-walled cyst or cystic lesion right ovary image 121. This can be better evaluated and characterized with pelvic ultrasound study if desired. LYMPH NODES: No greater than 1cm abdominal or pelvic lymph nodes are appreciated. OSSEOUS STRUCTURES: No significant abnormality is seen. OTHER: No significant additional abnormality is seen. IMPRESSION: No acute finding is seen to account for patient's clinical symptoms. [facility], , 07/12/2024 11:57 AM
== END | disposition home or self-care (01) ==
LOC: RADCTMAIN 11:03
PROVIDERS: ATTEND Emergency Medicine
DX: R10.9 Unspecified abdominal pain (principal)
CPT/HCPCS: 74176